=== PATIENT | male | born 1950 | race Caucasian/White ===

== ENCOUNTER 2018-05-31 13:03 | Outpatient (REF) | payer MEDICARE, BC, SELFPAY ==
[2018-05-31 22:30] LABS: Cholesterol 167 mg/dL (50-200); HDL Cholesterol 57 mg/dL (40-60); LDL CHOLESTEROL 88 mg/dL (<100); Triglyceride 74 mg/dL (30-150)
[2018-06-04 09:54] LABS: PSA, Screening 1.1 ng/ml (0-4.5)
== END 2018-05-31 13:23 ==
LOC: NCHCN 13:03
PROVIDERS: PCP Internal Medicine; Visit Provider Internal Medicine
DX: I25.10 Atherosclerotic heart disease of native coronary artery without angina pectoris (principal); R05 Cough; M19.011 Primary osteoarthritis, right shoulder; Z12.5 Encounter for screening for malignant neoplasm of prostate
CPT/HCPCS: 80061; 83721; 84153

== ENCOUNTER 2018-11-28 00:39 | Outpatient (CLI) | payer MEDICARE, BC, SELFPAY ==
--- NOTE | 2018-11-28 10:49 | DI.MRI_ITS ---
EXAM: MR LUMBAR SPINE WO CLINICAL HISTORY: SPINAL STENOSIS M48.061, HIP PAIN M25.551, R/O NERVE IMPINGEMENT,H/O SCOLIOSIS, RT LEG PAIN, LOW BACK PAIN TECHNIQUE: Multiplanar multisequence MRI was performed. COMPARISON: MRI - LUMBAR SPINE WO CONTRAST from 07/07/2014 FINDINGS: The study was carried out according to the usual protocol with sagittal T2, sagittal T1, sagittal STI R, axial T1, axial T2, axial T2 MSMA and coronal T1 pulse sequences were performed. When compared wi th the previous examination, again noted is endplate DJD at L4-5. Again noted is a small hemangioma in the bodies of L2 and L3. At L1-L2, a small disc bulge is demonstrated. There is some prominence of the ligamentum flavum at this level. Facet joint DJD is noted. There is no evidence of significan t spinal stenosis. At L2-3, a disc bulge is identified. There is prominence of the ligamentum flavum and facet joint DJD which results in mild to moderate left foraminal stenosis. At L 3-4, there is mild disc osteophyte prominence. Note is made of prominence of the ligamentum flavum and moderate bi lateral foraminal stenosis is seen. At L4-5, disc osteophyte complex prominence is noted and again d emonstrated is a very small disc herniation. There is note made of mild to moderate bilateral foramin al stenosis and a small disc bulge is identified. There is again noted severe facet joint DJD and pr ominence of the ligamentum flavum. There is severe right and eqxw-rh-qpjjravc left foraminal stenosi s. There is no intrinsic abnormality involving the lower dorsal cord or filum terminale. IMPRESSION: There has been no significant interval change when compared with prior images with note made of multi level degenerative disc disease and DJD and spinal stenosis as described above.
== END 2018-11-28 00:59 ==
PROVIDERS: PCP Internal Medicine; Visit Provider Internal Medicine
DX: M48.061 Spinal stenosis, lumbar region without neurogenic claudication (principal); M25.551 Pain in right hip; M79.604 Pain in right leg; M54.5 Low back pain; M51.36 Other intervertebral disc degeneration, lumbar region
CPT/HCPCS: 72148

== ENCOUNTER 2020-07-17 08:46 | Outpatient (REF) | payer MEDICARE, BC, SELFPAY ==
[2020-07-17 14:11] LABS: Anion Gap 6.9 mmol/L (3-11); BUN 20 mg/dL (7-18); CO2 28.1 mmol/L (21.0-32.0); CREATININE 0.9 mg/dL (0.70-1.30); Calcium 8.8 mg/dL (8.5-10.1); Calculated LDL 89 mg/dL (<100); Chloride 108 mmol/L (98-107); Cholesterol 169 mg/dL (<200); Glucose 90 mg/dL (74-106); HDL Cholesterol 67 mg/dL (40-60); Potassium 4.5 mmol/L (3.5-5.1); Sodium 143 mmol/L (136-145); Triglyceride 69 mg/dL (<150)
[2020-07-17 22:20] LABS: PSA, Screening 1.1 ng/mL (0.0-4.5)
== END 2020-07-17 08:47 | disposition home or self-care (01) ==
LOC: NCHCN 08:46
PROVIDERS: PCP Internal Medicine; Visit Provider Internal Medicine
DX: I25.10 Atherosclerotic heart disease of native coronary artery without angina pectoris (principal); Z12.5 Encounter for screening for malignant neoplasm of prostate; Z79.899 Other long term (current) drug therapy
CPT/HCPCS: 80048; 80061; 84153

== ENCOUNTER 2021-01-06 00:34 | Outpatient (CLI) | payer MEDICARE, BC, SELFPAY ==
--- NOTE | 2021-01-06 07:45 | DI.MRI_ITS ---
Exam(s) MR LUMBAR SPINE WO EXAM: MR LUMBAR SPINE WO CLINICAL HISTORY: FORAMINAL STENOSIS OF LUMBOSACRAL REGION M48.07. TECHNIQUE: Multiplanar multisequence MRI of the Lumbar spine was performed. COMPARISON: MR MR LUMBAR SPINE WO from 11/28/2018 FINDINGS: Bones: The last intervertebral disc space is designated the L5/S1 level for the numbering purpose of this examination. The vertebral body heights are well maintained. Alignment is satisfactory. Mild d egenerative endplate signal changes are seen throughout the lumbar spine. Cord: The conus tip ends at the T12 level. It is of normal size and signal intensity. T12-L1: No disc herniations or bulges are present. No central spinal canal or neural foraminal stenos is. L1-2: There is a mild diffuse disc bulge. No significant central spinal canal stenosis is present. Mild bilateral neural foraminal stenosis is present. L2-3: There is a mild diffuse disc bulge. Facet arthropathy is present. No significant central spin al canal stenosis is present. Minimal right and tvru-pa-matggmyt left neural foraminal stenosis is p resent. These findings are stable. L3-4: There is a diffuse disc bulge and small central disc herniation. There are hypertrophic change s of the facets. The findings result in mild narrowing of the central spinal canal which is unchange d compared to the prior examination. There is mild right and svug-mt-pynlvrju left neural foraminal stenosis. L4-5: There is a mild diffuse disc bulge. There are hypertrophic changes of the facets, left greater than right. No significant central spinal canal stenosis is present. There is mild right and moder ately severe left neural foraminal stenosis.These findings are stable. L5-S1: There is a mild disc bulge. No significant central spinal canal stenosis. Degenerative trinidad es of the facets are present. There is moderate right and mild left neural foraminal stenosis. Soft tissues: The visualized SI joints and sacrum are well maintained. The paraspinal soft tissues ar e unremarkable. IMPRESSION: Stable multilevel degenerative changes throughout the lumbar spine as described above. DATA REPOSITORY:
== END 2021-01-06 00:54 ==
PROVIDERS: PCP Internal Medicine; Visit Provider Nurse Practitioner
DX: M48.061 Spinal stenosis, lumbar region without neurogenic claudication (principal); M48.07 Spinal stenosis, lumbosacral region
CPT/HCPCS: 72148

== ENCOUNTER → 2021-07-30 00:16 | Outpatient (CLI) | payer MEDICARE, BC, SELFPAY ==
--- OUTSIDE RECORDS SUMMARY | 2021-07-30 00:19 | XMS_ITS | Encounter Summary ---
:1950 Author Organization [facility] Address [address] [place] [address] Care Team Providers Name Role Phone Lolita Barahona [facility] Primary Care Provider [phone] Reason for Visit (Routine/Next Available) - Receiving Office to Obtain Authorization Specialty Diagnoses / Procedures Referred By Contact Refer red To Contact Procedures Imaging, External XR OUTSIDE IMAGES NEURO Referral ID Status Reason Start Expiration Visits Visits Date Date Requested Authorized [id number] Receiving Office 04/16/2021 1 1 to Obtain Authorization Encounter Details Date Type Department Care Team Description 04/12/2021 Hospital Encounter [facility] Secondary Reads [place] Social History Tobacco Use Types Packs/Day Years Used Date Never Smoker Smokeless Tobacco: Never Used Sex Assigned at Date Recorded Not on file documented as of this encounter Functional Status Cognitive Status Response Date of Assessment Because of a physical, mental, or emotional condition, do Ye s 07/16/2010 you have serious difficulty concentrating, remembering, or making decisions? (5 years old or older) documented as of this encounter Medications at Time of Discharge Medication Sig Dispensed Refills Start Date End Date ascorbic acid, vitamin C, Take 1,000 mg by 0 (VITAMIN C) 1,000 mg mouth. tablet aspirin 81 mg EC tablet Take 1 Tab by mouth 1 Tab 0 11/2010 daily. Lifetime medicine, do not stop atorvastatin (LIPITOR) 20 Take 20 mg by mouth 0 0 02/13/2015 mg tablet every evening. Cholecalciferol, Vitamin Take by mouth. 0 D3, (VITAMIN D3) 25 mcg (1,000 unit) capsule multivitamin (THERAGRAN) Take 1 Tab by mouth 0 per tablet daily. documented as of this encounter Discharge Disposition Disposition Code Departure Means Destination Home or Self Care documented in this encounter Plan of Treatment Not on filedocumented as of this encounter Procedures Procedure Name Priority Date/Time Associated Diagnosis Comme nts XR OUTSIDE IMAGES Routine 04/16/2021 11:39 Result s for this NEURO EST procedure are i n the results section. documented in this encounter Results XR OUTSIDE IMAGES NEURO (04/16/2021 11:39 EST) Specimen Narrative 04/16/2021 11:39 EST This is a non-reportable exam. documented in this encounter Visit Diagnoses Not on filedocumented in this encounter Care Teams Lmsw Relationship Specialty Start Date End Date Jun [facility] PCP - General 02/12/21 [place] [address] documented as of this encounter
--- OUTSIDE RECORDS SUMMARY | 2021-07-30 00:19 | XMS_ITS | Encounter Summary ---
:1950 Author Organization [facility] Address [address] [place] [address] Care Team Providers Name Role Phone Lolita Barahona [facility] Primary Care Provider Reason for Visit Reason Comments Pain Referral (Routine) - Receiving Office to Obtain Authorization Specialty Diagnoses / Procedures Referred By Contact Refer red To Contact Orthopedic Surgery Diagnoses Low back pain, unspecified Spinal stenosis, lumbar region without neurogenic claudication [facility] [address] [place] [address] [place] [address] Phone: Fax: Referral ID Status Reason Start Expiration Visits Visits Date Date Requested Authorized [id number] Receiving Office 1 1 to Obtain Authorization Encounter Details Date Type Department Care Team Description 06/07/2021 Office Visit [facility] Pavan Prather MD Back pain, Spine Program - [address] unspecified back [facility], unspecified Gauri Santana back pain laterality, So [facility] uns cified [id number] [place] [id number] chronicity (Primary [phone] (Wo rk) Dx) Social History Tobacco Use Types Packs/Day Years [...] or older) documented as of this encounter Progress Notes Pavan rPather MD - 06/07/2021 4946 EDT Chief Complaint Patient presents with ??? Lower Back - Pain VAS back and leg not completed Not completed HPI Jose Eduardo Rodríguez is a 71 y.o. male coming to clinic today with a chief complaint of right leg pain. The patient has a history of spinal stenosis and right lower extremity pain that has been present for 3+ years. He reports his pain initially began in the low back and then became associated with the right leg. Pain localizes to the right buttock anterolateral right thigh and lateral calf. This pain is worse with walking and hiking. He is very active and enjoys hiking and snowshoeing and reports that his leg symptoms have limited his ability to do these things. His pain is particularly bad in the morning. It is better when he sits or bends forward. He has had epidural steroid injections which have provid ed profound relief but his symptoms have returned multiple times. He has seen a surgeon at [facility] recommended a lumbar decompression and is here for second opinion. Denies any bowel or bladder issues and denies any fevers or chills. Past Medical History Coronary artery disease Past Surgical History Tonsillectomy Social History Denies tobacco use. Retired Allergies No known allergies Current Outpatient Medications Medication ??? ascorbic acid, vitamin C, (VITAMIN C) 1,000 mg tablet ??? aspirin 81 mg EC tablet ??? atorvastatin (LIPITOR) 20 mg tablet ??? Cholecalciferol, Vitamin D3, (VITAMIN D3) 25 mcg (1,000 unit) capsule ??? multivitamin (THERAGRAN) per tablet ??? Zinc 50 mg tablet No current facility-administered medications for this visit. Review of Systems Pertinents included in HPI. See intake form for complete 13 system review. Physical Exam There were no vitals taken for this visit. The patient is a well developed, well nourished male, with normal body habitus. He is awake and alert, appropriately interactive, of normal mood and affect. The patient ambulates with a normal gait. Heel walking is normal, toe walking is normal, tandem gaitis normal Palpation of the lumbar and sacral region notable for no significant tenderness to palpation Hip exam reveals no significant limitations in ROM, and no pain with ROM. Sensory examination of bilateral lower extremities shows intact sensation from L2-S1 Manual strength testing of the lower extremities reveals 5 out of 5 strength in all major motor groups of the lower extremities Seated straight leg raise negative Reflexes: 1+ patellar reflexes Love's not checked Clonus: 1-2 beats bilaterally Imaging Lumbar spine radiographs from June 2021 were reviewed by me. 5 nonrib-bearing bodies. Moderate spondylotic changes throughout the lumbar spine including intervertebral disc degeneration and facet arthropathy. There is a subtle degenerative slip at L3-4 with asymmetric collapse and lateral listhesis at L4- 5. Subtle translation on dynamic imaging at L3-4. MRI from January 2020 one of the lumbar spine was reviewed by me. This demonstrates severe right-sided foraminal stenosis at L5-S1 and moderate lateral recess stenosis bilaterally at L4-5. Moderate central stenosis at L3-4 Assessment Lumbar spinal stenosis Degenerative spondylolisthesis Asymmetric collapse Plan I reviewed the diagnosis and imaging studies with the patient. His primary complaint is right leg pain in an L5 distribution. He has moderate lateral recess stenosis at L4-5 and severe foraminal stenosis on the right at L5-S1. I think this is likely responsible for his symptoms. He has minimal back pain. He has failed nonoperative strategies with recurrence of his symptoms I think it is reasonable toconsider surgical intervention. He has some subtle findings of instability at L3-4 as well as moderate to severe central compression there but I do not think this is contributing to his symptoms. We discussed decompression alone versus decompression and fusion. Decompression alone would be at L4-5 and my surgical plan would be to follow the root out at L5-S1 with a foraminotomies. We discussed there is some risk of worsening asymmetric collapse but I think it would be reasonable to try decompressiononly. He was thankful for the opinion. I can follow-up with him as needed. I spent a total of more than 45 minutes in face to face time with this patient today and more than 50% of that time was spent counseling the patient on the risks and treatment options for the problem detailed above in my assessment and plan. Pavan Prather MD 2021 15:10 documented in this encounter Plan of Treatment Not on filedocumented as of this encounter Visit Diagnoses Diagnosis Back pain, unspecified back location, un specified back pain laterality, unspecified chronicity - Primary documented in this encounter Historical Medications This list may reflect changes made after this encounter. Medication Sig Dispensed Refills Start Date End Date Zinc 50 mg tablet Take 50 mg by mouth. 0 added in this encounter Care Teams Lens Silverer Relationship Specialty Start Date End Date Jun [facility] PCP - General 02/12/21 4 [place] [address] documented as of this encounter
--- OUTSIDE RECORDS SUMMARY | 2021-07-30 00:19 | XMS_ITS | Encounter Summary ---
:1950 Author Organization [facility] Address [address] [place] [address] Care Team Providers Name Role Phone Dexter Cifuentes MD Primary Care Provider Unavailable Reason for Visit Reason Comments New Patient Visit Encounter Details Date Type Department Care Team Description 02/26/2019 Procedure visit [facility] - Khadijah Tay Right leg pain [facility] Neurology MD [facility] (Primary Dx) Clinic [address] [place], [place] [id number] [place] [address] [phone] Social History Tobacco Use Types Packs/Day Years Used Date Never Smoker Smokeless Tobacco: Never Used Sex Assigned at Date Recorded Not on file documented as of this encounter Last Filed Vital Signs Vital Sign Reading Time Taken Comments Blood Pressure 130/82 02/26/2019 1311 EST Pulse 50 02/26/2019 1311 EST Temperature - - Respiratory Rate - - Oxygen Saturation - - Inhaled Oxygen Concentration - - Weight - - Height - - Body Mass Index - - documented in this encounter Functional Status Cognitive Status Response Date of Assessment Because of a physical, mental, or emotional condition, do Ye s 07/16/2010 you have serious difficulty concentrating, remembering, or making decisions? (5 years old or older) documented as of this encounter Progress Notes Jenaro Tay MD - 02/26/2019 1300 EST [facility] Clinical Neurophysiology Nerve Conduction and Electromyography Report PATIENT NAME: Jose Eduardo Rodríguez PATIENT : 1950 PCP: Dexter Cifuentes DATE OF SERVICE: 02/26/2019 History: Jose Eduardo Rodríguez is a 68 y.o. male who presents to EMG on referral by [facility] neurology and neurosurgery for evaluation of back and buttock pain. He has long- term chronic back pain, but about October or so he developed right hip and radiating pain, skipping the thigh, then in the right anterior lateral lower leg. He has seen neurology at [facility], and had MRI of the L spine which was essentially non-contributory Feb [address] guided SI injection on the right which didn't help at first, and haven't really much since. Past Medical History: Diagnosis Date ??? Abnormal stress test ??? CAD (coronary artery disease) ??? Chest pain Past Surgical History: Procedure Laterality Date ??? TONSILLECTOMY REVIEW OF SYSTEMS: 10-point ROS performed and was negative except as noted in HPI. Clinical Exam: General appearance: alert, normal body habitus, no distress Skin: No rashes or lesions HEENT: NC/AT, no oral lesions Extremities: all extremities warm and well perfused, no peripheral edema Motor Exam: Normal bulk and tone. Lower Extremity Strength HF H Abd KF KE A DF A PF Toe E Right 5/5 5/5 5/5 5/5 5/5 5/5 5/5 Left 5/5 5/5 5/5 5/5 5/5 5/5 5/5 DTRs: 2+ and symmetric at patellae. Absent even with accentuation bilaterally at the Achilles. Mildly present left medial hamstrings reflex which is not elicitable on the right.. Toes are mute to plantar stimulation. Sensation: Intact pinprick sensation throughout both legs and feet. Electrodiagnostic Findings: Nerve Conduction: -All nerves examined were normal including the right superficial peroneal sensory response, and the right peroneal and tibial motor responses. In addition the right tibial F-wave was normal EMG: -All muscles examined were normal including the right tibialis anterior, peroneus longus, gastrocnemius, quadriceps and tensor fascia elian. For waveforms/values/tables of EMG/nerve conduction study please see accompanying scanned document in the scans/media tab in EMR. Electrodiagnostic Impression: - This study was normal. There is no evidence of right lumbosacral radiculopathy, peripheral neuropathy, compression mononeuropathy or myopathy. -While the study did not identify an etiology to the patient's symptoms, his clinical examination seems suggestive of a mild right L5 radiculopathy. If symptoms persist a repeat EMG/nerve conduction perhaps in 6 months may be helpful. Jenaro Tay MD documented in this encounter Plan of Treatment Not on filedocumented as of this encounter Visit Diagnoses Diagnosis Right leg pain - Primary Pain in limb documented in this encounter Discontinued Medications Medication Sig Discontinue Reason Start Date End Date amlodipine (NORVASC) 10 Take 1 Tab by mouth 07/18/2010 02/26/2019 mg tablet daily. amlodipine (NORVASC) 5 Take 1 Tab by mouth 07/16/2010 02/26/2019 mg tablet daily. clopidogrel (PLAVIX) 75 Take 1 Tab by mouth 07/16/2010 02/26/2019 mg tablet daily. One dose in am prior to procedure simvastatin (ZOCOR) 20 Take 1 Tab by mouth 07/18/2010 02/26/2019 mg tablet every evening. metoprolol (LOPRESSOR) Take 1 Tab by mouth 2 1 02/26/2019 25 mg tablet times daily. documented as of this encounter Historical Medications This list may reflect changes made after this encounter. Medication Sig Dispensed Refills Start Date End Date ascorbic acid, vitamin C, Take 1,000 mg by 0 (VITAMIN C) 1,000 mg tablet mouth. Cholecalciferol, Vitamin Take by mouth. 0 D3, (VITAMIN D3) 25 mcg (1,000 unit) capsule multivitamin (THERAGRAN) Take 1 Tab by mouth 0 per tablet daily. atorvastatin (LIPITOR) 20 Take 20 mg by mouth 0 0 02/13/2015 mg tablet every evening. added in this encounter Care Teams Overedger Relationship Specialty Start Date End Date Dexter Cifuentes MD PCP - General 07/15/1002/11/21 documented as of this encounter
--- OUTSIDE RECORDS SUMMARY | 2021-07-30 00:19 | XMS_ITS | Encounter Summary ---
:1950 Author Organization [facility] Address [address] [place] [address] Care Team Providers Name Role Phone Dexter Cifuentes MD Primary Care Provider Unavailable Reason for Visit Reason Onset Date Comments Coordination Of Care 07/01/2014 MRI/stent informati on Encounter Details Date Type Department Care Team Description 07/01/2014 Telephone [facility] Garth Zayas, [place] Planning Manager rdination Of Care Cardiology - [place] (MRI/stent information ) [address] [phone] [place] [address] Social History Tobacco Use Types Packs/Day Years Used Date Never Assessed Sex Assigned at Date Recorded Not on file documented as of this encounter Functional Status Cognitive Status Response Date of Assessment Because of a physical, mental, or emotional condition, do Ye s 07/16/2010 you have serious difficulty concentrating, remembering, or making decisions? (5 years old or older) documented as of this encounter Miscellaneous Notes Telephone Encounter - Marixa Rosales RN - 07/02/2014 0903 EDT Received call from [facility] that patient is scheduled to have an MRI. Requesting copy of Cath report including specific information re: stents placed w/ [facility] on 07/16/10. Cath report faxed to [phone] as per request. Marixa Rosales RN elephone Encounter - Lesley Collins - 07/01/2014 1625 EDT Reason for Call: Coordination Of Care Summary/Symptoms: [facility] called stating that pt is to have MRI. States that they need information re: pt's stents. Requested it be faxed to them at: [phone], attn: Malika Collins 07/01/2014 16:25 documented in this encounter Plan of Treatment Not on filedocumented as of this encounter Visit Diagnoses Not on filedocumented in this encounter Care Teams Application Processor Relationship Specialty Start Date End Date Dexter Cifuentes MD PCP - General 07/15/1002/11/21 documented as of this encounter
--- OUTSIDE RECORDS SUMMARY | 2021-07-30 00:19 | XMS_ITS | Encounter Summary ---
:1950 Author Organization [facility] Address [address] [place] [address] Care Team Providers Name Role Phone Dexter Cifuentes MD Primary Care Provider Unavailable Reason for Visit (Routine/Next Available) - Receiving Office to Obtain Authorization Specialty Diagnoses / Procedures Referred By Contact Refer red To Contact Procedures Imaging, External MR OUTSIDE IMAGES NEURO Referral ID Status Reason Start Expiration Visits Visits Date Date Requested Authorized [id number] Receiving Office 04/16/2021 1 1 to Obtain Authorization Encounter Details Date Type Department Care Team Description 01/06/2021 Hospital Encounter [facility] Secondary Reads [place] Social History Tobacco [...] Name Priority Date/Time Associated Diagnosis Comme nts MR OUTSIDE IMAGES Routine 04/16/2021 13:21 Result s for this NEURO EST procedure are i n the results section. documented in this encounter Results MR OUTSIDE IMAGES NEURO (04/16/2021 13:21 EST) Specimen Narrative 04/16/2021 13:21 EST This is a non-reportable exam. documented in this encounter Visit Diagnoses Not on filedocumented in this encounter Care Teams Financial Adviser Relationship Specialty Start Date End Date Dexter Cifuentes MD PCP - General 07/15/1002/11/21 documented as of this encounter
--- OUTSIDE RECORDS SUMMARY | 2021-07-30 00:19 | XMS_ITS | Encounter Summary ---
:1950 Author Organization [facility] Address [address] [place] [address] Care Team Providers Name Role Phone Vanessa Vicente MD Primary Care Provider Unavailable Encounter Details Date Type Department Care Team Description 07/16/2010 - Hospital Encounter [facility] Marquez Garth 07/18/2010 Cardiac/Telemetry MD Alexei [address] [facility] [address] [place] [address] [facility] [phone] [place] [id number] Social History Tobacco Use Types Packs/Day Years Used Date Never Assessed Sex Assigned at Date Recorded Not on file documented as of this encounter Last Filed Vital Signs Vital Sign Reading Time Taken Comments Blood Pressure 143/74 07/18/2010 0742 EDT Pulse 68 07/18/2010 0742 EDT Temperature 35.8 ??C (96.4 ??F) 07/18/2010 0742 EDT Respiratory Rate 16 07/18/2010 0742 EDT Oxygen Saturation 99% 07/18/2010 0742 EDT Inhaled Oxygen Concentration - - Weight 102.1 kg (225 lb) 07/15/2010 1100 EDT Height 185.4 cm (6' 1) 07/15/2010 1100 EDT Body Mass Index 29.69 07/15/2010 1100 EDT documented in this encounter Functional Status Cognitive Status Response Date of Assessment Because of a physical, mental, or emotional condition, do Ye s 07/16/2010 you have serious difficulty concentrating, remembering, or making decisions? (5 years old or older) documented as of this encounter Discharge Summaries Vaibhav Gorman MD - 07/16/2010 1113 EDT Discharge Summary Chief Complaint/Reason for Admission: accelerating exertional CP over last 2-3 weeks Principal/Final Diagnosis: Coronary artery disease Principal Procedure: TAYLOR PCI RCA Date: 07/16/2010 Secondary Procedures: Not applicable Condition at Discharge: Stable Assessment at Discharge: Vital signs: Patient Vitals in the past 12 hrs: BP Temp Temp src Pulse Resp SpO2 07/18/10 0742 143/74 mmHg 35.8 ??C (96.4 ??F) Tympanic 68 16 99 % 07/18/10 0625 142/75 mmHg 35.6 ??C (96.1 ??F) Tympanic - - 99 % Hospital Course: 60 M with no known cardiovascular risk factors now with accelerating exertional CP over last 2-3 weeks. Outpt ETT, Duran protocol for 7 min, CP, and 5mm upsloping ST depressions. No heart failure sxs. No contraindication to DAPT. Diagnostic cardiac catheterization revealed a 90% proximal stenosis in the RCA, which was treated with ATYLOR PCI with a good result. Post cath: NS VT. TTE: EF55-60%, mild inferior hypokinesis. Diagnostic Studies:TTE: EF 55-60%, mild inferior hypokinesis. Diagnostic Cardiac Study Results Left main: 30% ostial Left anterior descendin% mid Left circumflex: nl Right coronary artery: 90% prox Grafts: n/a LVEDP: 12 There was no gradient across the aortic valve. EF 65% Interventional Procedure: Using standard technique, the RCA vessel was stented using a 4x28 and [id number] stents. Relevant Studies at Discharge: Echocardiogram: EF 55-60%, inferior wall hypokinesis Last Lab Results at Discharge: BUN: Lab Results Component Value Date BUN 16 07/17/2010 Creatinine: Lab Results Component Value Date CREATININE 0.89 07/17/2010 CBC: Lab Results Component Value Date WBC 7.70 07/17/2010 RBC 4.68 07/17/2010 HGB 14.9 07/17/2010 HCT 42.9 07/17/2010 MCV 92 07/17/2010 MCH 31.8 07/17/2010 MCHC 34.6 07/17/2010 PLT 154 07/17/2010 Electrolytes: Lab Results Component Value Date NA 140 07/17/2010 K 4.3 07/17/2010 CL 106 07/17/2010 CO2 28 07/17/2010 HGB: Lab Results Component Value Date HGB 14.9 07/17/2010 No results found for this basename: HGBA1C Medications prior to admission that will be resumed at discharge: Medication Sig Dispense Refill ??? metoprolol (LOPRESSOR) 25 mg tablet Take 25 mg by mouth 2 times daily. New medications prescribed at discharge: Medication Sig Dispense Refill ??? amlodipine (NORVASC) 5 mg tablet Take 1 Tab by mouth daily. 30 Tab 11 ??? aspirin 81 mg EC tablet Take 1 Tab by mouth daily. Lifetime medicine, do not stop 1 Tab 0 ??? clopidogrel (PLAVIX) 75 mg tablet Take 1 Tab by mouth daily. One dose in am prior to procedure 30 Tab 11 Metoprolol was discontinued and norvasc initiated. Plan: Plavix 75 mg po QD x 1 year minimum. cc: MD Mateo MACKEY Discharge Summary Completed: Yes: I have seen and examined the patient and agree with the above history and physical exam and assessment and plan. D/c Medication list: [id number] daily Plavix 75mg daily Norvasc 10mg daily Metoprolol 25mg twice daily. Simvastatin 20mg daily. documented in this encounter Discharge Instructions Sriram Sharma - 07/16/2010 Post Procedure Instructions: You had a percutaneous cardiovascular intervention (PCI) on 07/16/2010. Your procedure was performed through a small incision in the artery in your right leg. Normal Observations: Soreness or tenderness at the site may last one week but should be steadily improving. Brusing may last two weeks. Formation of a small lump (dime to quarter size) may last up to six weeks. Diet: No added salt, low saturated fat Activity: No heavy lifting or strenuous activity for 1 weeks; nothing >10 lbs Driving: May drive day after discharge Activity Post Percutaneous Coronary Intervention: Avoid driving on the day of discharge. Driving is possible on the first day if you are not limited by symptoms such as leg pain, shortness of breath or chest pain or if you have not been diagnosed witha serious, abnormal hearth rhythm. For leg incisions, for 48-72 hours after the PCI, avoid climbing stairs and other activity that involves a lot of leg bending. If you have not had a myocardial infarction (heart attack), it is likely you will be able to return to all activities involving moderate exertion 48 hours after the PCI. Please discuss returning to severe exertion (running, manual labor) with your physician prior to discharge. If you had a myocardial infarction, your schedule for returning to work and moderate exertion will be individualized by your physician. If you had an arm approach, keep your arm comfortably straight for the first 24 hours and avoid bending your arm for 48-72 hours. When sleeping, keep the arm elevated to minimize throbbing. No heavy lifting (greater than 10 pounds) for one week. Skin/Wound Care: Resume normal skin care Care of Your Incision: Keep the area clean and dry. Leave the sterile dressing in place for 24 hours. After this, you may shower, but no tub baths or hot tub use for 5 days. Do not apply any powders or lotions to this area. Bathing: No bath or immersion for 5 days; showering is okay. Pending Results: Not applicable Quality Measures for Acute Myocardial Infarction or Heart Failure Patients: Not applicable Symptoms to Call Your Doctor About: Chest pain Dizziness or fainting Increased leg or ankle swelling Pain, redness or swelling at the procedure site Rapid, irregular pulse Shortness of breath Call your physician immediately if you experience any of the following: ?? Fever greater than 101, swelling, redness or signs of infection, including yellow discharge ?? Any increasing pain at the site of the wound ?? Numbness or tingling at a point below the wound ?? Skin rash ?? If you have not been able to urinate or 24 hours after leaving the hospital ?? Any recurrence of symptoms that brought you into the hospital initially: Chest pain, shortness ofbreath, dizziness ?? If you note any signs of bleeding, such as bulging under the skin the size of a golf ball, put direct pressure on the area and call your doctor immediately Medication Instructions: Your medications may be different than when you entered the hospital. Prior to leaving the hospital,please review all of your medications with the nurse at the time of discharge. Do not wait for mail order medications to come. Make sure you can take your medications immediately upon going home. Stent Medications: Because you had a stent placed, you are going to be taking two daily medications to keep your stent open: aspirin and clopidogrel (Plavix). If you develop any rashes, stomach irritation or bleeding while taking these medications, immediately contact your butcher's assistant. Do not stop taking aspirin or Plavix without discussing this with your doctor. Appointments: See Dr. VANESSA VICENTE MD in 2 weeks. Please call for an appointment. Follow up with Dr. Mateo Shelley, Returner, Monday July 26, 2010 @ 11:30 a.m. The butcher's assistant's office will call with an appointment. Follow up with Cardiac Rehab Cardiac Rehab Referral: You have been referred for cardiac rehabilitation at your local hospital, [facility]. We expect that thecardiac rehabilitation program will contact you directly regarding a visit to the program. If you donot hear from the cardiac program within two weeks, you should contact your physician's office regarding a referral. We will contact your hospital and your primary care physician to let them know you are a good candidate for outpatient cardiac rehabilitation. Follow-up Services Contacted at Discharge: none Heart Failure, Health Risk and Disease Information: Chest Pain Protocol If chest pain, discomfort or angina occurs and lasts for more than a few minutes then: 1. STOP what you are doing 2. Sit or lie down 3. If prescribed nitroglycerin ?? Place one table under your tongue (expect relief in 3-5 minutes) ?? If there is no relief after 5 minutes, place another tablet under your tongue. ?? If there is no relief after an additional 5 minutes, take a third tablet ?? If the discomfort has not been totally relieved after the third tablet, proceed to step 4 (call 911). 4. Call 911 immediately and arrange to be taken to the nearest emergency room 5. Keep the phone number or your local rescue squad taped to your phone along with directions to your home Remember, time is important to minimize heart damage. ?? DO NOT waste time going to the physician's office. ?? DO NOT ATTEMPT TO DRIVE YOURSELF TO THE HOSPITAL! If one or two tablets have given you relief, call your physician. Cholesterol Information The cholesterol in your body comes from two sources: the fats in the food you eat and your liver. Excess fat from foods is converted into LDL cholesterol and carries through the bloodstream to all parts of your body. LDL cholesterol sticks to the birch of your arteries. Over time, this causes arteriesto become blocked. The blockage slows the blood down and heart disease can result. HDL cholesterol helps free some of the LDL cholesterol from the birch of the arteries and returns it to the bloodstream. Low fat diets help lower LDL cholesterol to a goal level. Ask your doctor about your appropriate LDL cholesterol goal. Hypertension Information When your blood pressure is too high, your heart needs to work harder to pump blood through your body. Over time, tony blood pressure can lead to more serious problems. A combination of diet, exerciseand medication can help lower your blood pressure. Medication to lower blood pressure must be taken at the same time every day and over a long period of time. Talk with your physician if you have concerns about your blood pressure. [facility] provides outpatient nutrition counseling. To schedule an appointment, call [phone]. Patients with diabetes are seen at the Endocrinology Clinic at these three practice sites: [address] [place] [id number] [place], [place], [place] [id number] documented in this encounter Medications at Time of Discharge Medication Sig Dispensed Refills Start Date End Date aspirin 81 mg EC tablet Take 1 Tab by mouth 1 Tab 0 11/2010 daily. Lifetime medicine, do not stop amlodipine (NORVASC) 10 Take 1 Tab by mouth 30 Tab 2 01/201102/26/2019 mg tablet daily. amlodipine (NORVASC) 5 Take 1 Tab by mouth 30 Tab 11 07/0702/26/2019 mg tablet daily. clopidogrel (PLAVIX) 75 Take 1 Tab by mouth 30 Tab 11 11/201002/26/2019 mg tablet daily. One dose in am prior to procedure metoprolol (LOPRESSOR) Take 1 Tab by mouth 2 60 Tab 2 02/26/2019 25 mg tablet times daily. simvastatin (ZOCOR) 20 Take 1 Tab by mouth 30 Tab 2 07/0702/26/2019 mg tablet every evening. documented as of this encounter Ordered Prescriptions Prescription Sig Dispensed Refills Start Date End Date aspirin 81 mg EC tablet Take 1 Tab by mouth 1 Tab 0 11/2010 daily. Lifetime medicine, do not stop simvastatin (ZOCOR) 20 Take 1 Tab by mouth 30 Tab 2 07/0702/26/2019 mg tablet every evening. metoprolol (LOPRESSOR) Take 1 Tab by mouth 2 60 Tab 2 02/26/2019 25 mg tablet times daily. amlodipine (NORVASC) 10 Take 1 Tab by mouth 30 Tab 2 01/201102/26/2019 mg tablet daily. clopidogrel (PLAVIX) 75 Take 1 Tab by mouth 30 Tab 11 11/201002/26/2019 mg tablet daily. One dose in am prior to procedure amlodipine (NORVASC) 5 Take 1 Tab by mouth 30 Tab 11 07/0702/26/2019 mg tablet daily. documented in this encounter Discharge Disposition Disposition Code Departure Means Destination Home or Self Care documented in this encounter Progress Notes Amber Perez RN - 07/19/2010 0730 EDT Discharged without HH; not seen by CM pectorVaibhav MD - 07/18/2010 1224 EDT No acute events, telemetry : 2 runs of NS VT, asymptomatic. Stable vital signs. Exam: no acute distress, No JVD, RHR 50/min, S1S2, lungs clear, no groin hematoma. EKG: Sinus bradycardia. TTE: LVEF 55-60%, HK of the inferior wall. A/p 60 yo gentleman with USA, s/p TAYLOR- RCA. NS VT. LVEF normal. ASA 81 lifelong, Plavix 75mg x12 months. Low dose BB. NS VT: will cont. BB, no need for EP study given normal LVEF. Asymptomatic- Discussed with Dr. Goramn. F/u Dr. Shelley: arranged. I have seen and examined the patient and agree with the above history and physical exam and assessment and plan. German Streeter RN - 07/17/2010 1353 EDT Active Multi-Disciplinary problems: PAIN [] (07/16/10) CIRCULATORY STATUS [[id number]] (07/16/10) FALL RISK [[id number]] (07/16/10) Data: Patient Alert independent walks in the bowers no complaints of pain NSR telemetry at 60's Action: Echo cardiogram done thi am will stay overnight Response: Will continue to monitor German Vieira RN 07/17/2010 13:53 Sriram Ruiz - 07/17/2010 0951 EDT Interventional Cardiology f/u note CC: chest pain E: no acute events, several episodes of asymptomatic NSVT S: asymptomatic Pt denies cp, sob, palp, orthopnea/ pnd, cough, f/c, abd pain, n/v, d/c, presyncope/syncope, le edema, back or groin pain, urinary difficulty O: Tele: NS/r and sinus bradycardia, no bradyarrhythmia, several episodes of 3-5 beats NSVT. Blood pressure 138/76, pulse 53, temperature 35.7 ??C (96.3 ??F), temperature source Tympanic, resp.rate 16, height 185.4 cm (73), weight 102.059 kg (225 lb), SpO2 98.00%. GEN: A&O times 3 NECK: no elevated JVP CV: regular, no mrg, 2+ DP/PT pulses Pulm: CTAB, no WRC Abd: s, nt/nd Ext: no le edema, MAEW Neuro: sensation and strength intact, CN II-XII intact grossly Incision: C/D/I, no ecchymosis/ hematoma, no tenderness of the pelvis/lower back Current facility-administered medications Medication Dose Route Frequency Provider Last Rate Last Dose ??? metoprolol (LOPRESSOR) tablet 25 mg 25 mg Oral BID Rich Ruiz III, MD ??? sodium chloride 0.9 % (NS) infusion 30 mL/hr Intravenous CONTINUOUS Philly Edmonds NP ??? clopidogrel (PLAVIX) tablet 75 mg 75 mg Oral DAILY Royal Coronel MD ??? lidocaine-EPINEPHrine 2 %-1:100,000 injection 5-10 mL 5-10 mL Intradermal PRN Royal Coronel MD ??? aspirin EC tablet 81 mg 81 mg Oral DAILY Royal Coronel MD Last Dose: 81 mg at 07/17/10 0913 ??? acetaminophen (TYLENOL) tablet 650 mg 650 mg Oral Q4H PRN Royal Coronel MD ??? amlodipine (NORVASC) tablet 5 mg 5 mg Oral DAILY Royal Coronel MD Last Dose: 5 mg at 07/17/10 0913 Recent Labs Basename 07/17/10 0624 07/16/10 0920 ??? HGB 14.9 14.8 ??? HCT 42.9 42.7 ??? WBC 7.70 4.45 ??? PLT 154 159 ??? CK -- -- ??? CKMBINDEX -- -- ??? AST -- -- ??? ALT -- -- ??? BUN 16 20 ??? NA 140 140 ??? K 4.3 4.4 ??? CL 106 108 ??? CO2 28 29 ??? CREATININE 0.89 0.90 ??? TROPONINI -- -- ??? HDL 48 -- ??? CHOL 197 -- ??? TRIG 98 -- ??? PTT -- 28 ??? INR -- 1.0 LDL 128 TTE: pending today A/P 60 yo male with USAP and abnormal stress treadmill s/p PCI to mid RCA with TAYLOR now with episodesof NSVT. - ASA 81 mg indef - Plavix 75 mg po daily for 12 months - cont cardiac meds, inbcluding beta- celso - EP consult for NSVT - plan to start low dose BB - check echocardiogram today. - start zocor 20 mg po daily for LDL not at goal of <70, new diagnosis of hypercholesterolemia - f/u with cardiology, Dr. Mateo Shelley, Returner, Monday July 26, 2010 @ 11:30 a.m. - f/u with PCP in 2 weeks - disposition: if EF normal and NSVT decreases on BB plan for discharge tomorrow. If EF abnormal, will plan for EPS on Monday. Rich Ruiz III, MD Garth Pickard MD - 07/17/2010 0538 EDT July 17, 2010 Mateo Shelley MD [facility] [address] [place] [address] Dear Mateo: I am writing in regards to Jose Eduardo Rodríguez. Briefly, Jose Eduardo presented with a recent accelerated historyof exertional angina. Stress test was positive and the patient was referred for cardiac catheterization. At cath, we identified mild ostial left main disease as well as a 50% mid LAD stenosis. The circumflex system was free of significant disease. The right coronary was compromised by a complex 90% proximal stenosis. Left ventricular end-diastolic pressure and ejection fraction were both normal. We treated the right coronary with placement of two drug-eluting stents yielding an excellent angiographic result. The patient will be placed on Plavix for the next year. He was profoundly bradycardicand I asked the fellows to stop his beta-celso and in lieu of this I placed him on amlodipine 5 mgdaily, as he did exhibit a fair amount of coronary spasm. As always, I appreciate the opportunity to participate in your patient's care. If I can be of further assistance, please do not hesitate to call. Sincerely, Garth Zayas MD 08 38 AM by Garth Zayas MD / mlw Confirmation: [id number] Dictation ID: [id number] cc:Mateo Vicente MD Lydia Cotto - 07/17/2010 0149 EDT Patient had another run of V-Tach 10 beats asymptomatic VSS. Text page sent to Dr. Coronel. Will continue to monitor Lydia Cotto - 07/16/2010 1950 EDT Active Multi-Disciplinary problems: PAIN [] (07/16/10) CIRCULATORY STATUS [[id number]] (07/16/10) FALL RISK [[id number]] (07/16/10) Data: Patient had 6 beat run of V-Tach than NSR for 3 sec followed by 3 beats of V-tach and back to NSR. Patient asymptomatic Action: VSS. Dr. Coronel aware Response: Will continue to monitor Lydia Gilmore RN 07/16/2010 19:50 Philly Cabrera NP - 07/16/2010 1357 EDT Mild residual chest pain = 1 on scale of 1-10. Right femoral site clear, no bleeding, no hematoma. +right DP pulse. Plavix daily without interruption x 1 year and Aspirin 81 mg daily lifetime reviewed with patient and the patient verbalizes understanding. Cardiac rehab reviewed with patient and the patient is willing to attend at [facility]. Referral sent and written material given to patient. Keena Lentz LPN - 07/16/2010 0857 EDT 0900 Arrived in CVU walking; used BR. Labs sent stat; CCL prep completed. Dr. Becker in consenting pt. CCL prep completed. Side rails up, call ojeda with in reach, stretcher in low position. Report to co-signing RN. ETHAN Dunbar Philly Cabrera NP - 07/15/2010 1431 EDT Records reviewed prior to cardiac catheterization. 60 year old male with new 2 week hx of exertionalchest pain relieved by rest. Threshold for symptoms is decreasing, although no rest symptoms. No CRF's. ETT stopped at 7 min Duran protocol due to progressive angina 4/10 associated with 5 mm upslopingST depression in V4-5, resolving by 2 minutes into recovery. Plavix and ASA initiated by Dr Yosvany Trujillo. Normal creatinine. Torrie Marin RN - 07/15/2010 1216 EDT Pre- cath instructions given to Pt. Pt has prescription from primary physician for plavix load. documented in this encounter H&P Notes Caden Becker - 07/16/2010 0915 EDT Cardiology Admitting H&P Admit Date: 07/16/2010 Date of Service: 07/16/2010 PCP: VANESSA VICENTE MD Chief Complaint: CP HPI: 60 M with no known cardiovascular risk factors now with accelerating exertional CP over last 2-3 weeks. Outpt ETT, Duran protocol for 7 min, CP, and 5mm upsloping ST depressions. No heart failure sxs. No contraindication to DAPT. PMH PSH Past Medical History Diagnosis Date ??? CAD (coronary artery disease) ??? Abnormal stress test ??? Chest pain Past Surgical History Procedure Date ??? Tonsillectomy Social History Family History History Substance Use Topics ??? Smoking status: Not on file ??? Smokeless tobacco: Not on file ??? Alcohol Use: History reviewed. No pertinent family history. Medications Prescriptions prior to admission Medication Sig Dispense Refill ??? aspirin 325 mg tablet Take 325 mg by mouth daily. ??? Clopidogrel (PLAVIX) 300 mg Tab Take 300 mg by mouth once. Times on dose only ??? clopidogrel (PLAVIX) 75 mg tablet Take 75 mg by mouth daily. One dose in am prior to procedure ??? metoprolol (LOPRESSOR) 25 mg tablet Take 25 mg by mouth 2 times daily. Allergies Not on File Review of Systems: Pertinent items are noted in Subjective/HPI Objective/Physical Exam: VS: Empty flowsheet group. Pain: Empty flowsheet group. Weight: Weight : 102.059 kg (225 lb) Body mass index is 29.69 kg/(m^2). Glucose Readings (last 8 hours): No results found for this basename: GLUCOSEFINGE:8 in the last 72 hours Exam: General appearance: alert, cooperative Lungs: clear to auscultation bilaterally Heart: regular rate and rhythm, S1, S2 normal, no murmur, click, rub or gallop Extremities: extremities warm, atraumatic, no cyanosis or edema positive pulses bilat Pulses: 2+ and symmetric Pressure Ulcer Present on admission? No Data Review: NA Labs: I have personally reviewed CBC: No results found for this basename: WBC, RBC, HGB, HCT, MCV, MCH, MCHC, PLT, NEUTROABS, SEDRATE BMP: No results found for this basename: NA, K, CL, CO2, BUN, Creatinine, GLUCOSEFINGE, Calcium, MG, PHOS, LABALBU Coagulation: No results found for this basename: PROTIME, INR, PTT Other Studies: N/A eGFR calculation: No results found for this basename: CALCGFR Assessment: # USAP w/ positive stress test (ETT). # No contraindication to DAPT Plan : - Dx cardiac cath +/- PCI - consent obtained. Royal Becker Md, , MD 07/16/2010 9:15 documented in this encounter Procedure Notes Garth Zayas MD - 07/16/2010 1110 EDT Cardiovascular Catheterization Laboratory Preliminary Report -- Catheterization Date of Service/Procedure: 07/16/2010 Attending Physician: Garth Zayas MD Fellow: Caden Becker MD and Sachin Coronel Pre-Procedure Diagnosis/Indication: Jose Eduardo Rodríguez is a 60 y.o. year old male with Chest pain and Positive stress test. Anesthesia: A moderate level of anesthesia/conscious sedation was used in addition to local anesthesia. Access: Right femoral artery Procedure: He was brought to the [facility] Cardiac Catheter[facility] Laboratory for the procedure: Diagnostic coronary/graft angiography, LV gram, Left heart cath and Coronary intervention (PCI). Closure: Starclose Post-Procedure Condition: The condition of the patient was Good. Complications: None. IV Contrast Total: 200 mL Estimated Blood Loss: Minimal. Unless otherwise noted, there were no specimens removed, cultures obtained, or drains retained. Clinical Trial: is not enrolled in a clinical trial. Diagnostic Cardiac Study Results Left main: 30% ostial Left anterior descendin% mid Left circumflex: nl Right coronary artery: 90% prox Grafts: n/a LVEDP: 12 There was no gradient across the aortic valve. EF 65% Post-Procedure Diagnostic Conclusion: PCI is indicated. Interventional Procedure: Using standard technique, the RCA vessel was stented using a 4x28 and [id number] stents. Plan: Plavix 75 mg po QD x 1 year minimum. Post Interventional Conclusion / Physician Order for Admission: The patient cannot go home same day due to > 60 minute distance from the PCI center or other co-morbidity that warrants bedded outpatient, overnight stay. Reference: Mickey et. Al. Randomized trial comparing same-day discharge with overnight hospital stay after percutaneous coronary intervention; Circulation; 2006June 06; 115 [phone] Garth Zayas MD 07/16/2010 11:10 dministrator, Scan - 07/16/2010 0000 EDTAssociated Order(s): CARDIAC CATHERIZATION REPORT - SCANNED; CARDIAC CATHERIZATION REPORT - SCANNED Teletype Or [employer] Keyboard Operator, Scan - 07/16/2010 0000 EDTAssociated Order(s): ECG REPORT - SCANNED; ECG REPORT - SCANNED Teletype Or [employer] Keyboard Operator, Scan - 07/16/2010 0000 EDTAssociated Order(s): ECG REPORT - SCANNED; ECG REPORT - SCANNED Teletype Or [employer]pe Keyboard Operator, Scan - 07/16/2010 0000 EDTAssociated Order(s): ECG REPORT - SCANNED; ECG REPORT - SCANNED documented in this encounter Miscellaneous Notes Plan of Care - Sally Jean Baptiste RN - 07/18/2010 1425 EDT Problem: PAIN Goal: Patient's Pain And Discomfort Are Adequately Managed Outcome: Completed Date Met: 07/18/10 D: IV discontinue, catheter intact. Telemetry discontinued. Patient denies pain. A: Discharge teaching discussed with patient & . Prescriptions, medication sheets, and AVS given to patient. R: Patient understands instructions and left with family via wheelchair. lan of Care - Sally Jean Baptiste RN - 07/18/2010 0985 EDT Problem: CIRCULATORY STATUS Goal: Patient Has Stable Vital Signs And Fluid Balance Outcome: Ongoing Active Multi-Disciplinary problems: PAIN [] (07/16/10) CIRCULATORY STATUS [[id number]] (07/16/10) FALL RISK [[id number]] (07/16/10) Data: Patient status post cardiac cath 07/16. Patient denies any cp or SOB. Vitals stable. Patient inNSR in the 60's. Right groin site CDI, no hematoma or bleeding noted. Action: AM meds given as ordered. Patient ambulating in hallway without complaints. Response: awaiting MD rounds with possible discharge to home this afternoon. Sally Jean Baptiste RN 07/18/2010 9:39 lan of Monroe Marinelli RN - 07/17/2010 2156 EDT Problem: CIRCULATORY STATUS Goal: Patient Has Stable Vital Signs And Fluid Balance Intervention: Assess rate, rhythm and regularity of pulses Including apical assessment for cardiology patients. Pt resting in bed, A/O x3, free of discomfort, Right groin site dressing C,D, & I. Strong pedal pulses. Pt in NSR on monitor,Pt OOB x1 to BR. Call light within reach of pt., RN will ctm. lan of Harper Acuna RN - 07/16/2010 1333 EDT D: See Post-Cath Flowsheet. A: RN to monitor groin site for hematoma/bleeding, tele for arrhythmias, CSMTs in affected extremities, I/O for adequate hydration, and other parameters as required per patient's condition. R: Will continue to monitor/assess and document per protocol. lan of Harper Acuna RN - 07/16/2010 1331 EDT D: Patient arrived to [place] [address]. Vital signs noted. Tele applied. Patient SB with HR in 40s. Patient c/o chest pain upon arrival to , Yoni Edmonds notified, pt rec Morphine 4 mg IV with good relief of pain. Patient denies complaints at this time. Patient oriented to room, equipment, and careplan. Right groin site is cdi. A: Assessment as documented in flowsheet. Admission database complete. R: Will continue to monitor and document per protocol. Harper Verduzco RN canned Note-Null - Teletype Or [employer]pe Keyboard Operator, Scan - 07/16/2010 0000 EDT Scanned Note-Null - Teletype Or [employer]pe Keyboard Operator, Scan - 07/16/2010 0000 EDT Scanned Note-Null - Teletype Or [employer]pe Keyboard Operator, Scan - 07/16/2010 0000 EDT Scanned Note-Null - Teletype Or [employer]pe Keyboard Operator, Scan - 07/16/2010 0000 EDT Scanned Note-Null - Teletype Or [employer]pe Keyboard Operator, Scan - 07/16/2010 0000 EDT Scanned Note-Null - Teletype Or [employer]itype Keyboard Operator, Scan - 07/16/2010 0000 EDT Scanned Note-Null - Teletype Or [employer]itype Keyboard Operator, Scan - 07/16/2010 0000 EDT documented in this encounter Plan of Treatment Not on filedocumented as of this encounter Procedures Procedure Name Priority Date/Time Associated Comments Diagnosis ECG REPORT - SCANNED 07/21/2010 9:50 Resu lts for this EDT procedure are i n the results section. ECG REPORT - SCANNED 07/21/2010 9:50 Resu lts for this EDT procedure are i n the results section. INVASIVE CARDIOLOGY 07/21/2010 9:50 Resul ts for this REPORT-SCANNED EDT procedure are in the results section. ECHOCARDIOGRAM Routine 07/17/2010 15:13 Results f or this EDT procedure are i n the results section. COMPLETE BLOOD COUNT Routine 07/17/2010 6:24 Resu lts for this EDT procedure are i n the results section. BUN Routine 07/17/2010 6:24 Results for this EDT procedure are i n the results section. CREATININE Routine 07/17/2010 6:24 Results for this EDT procedure are i n the results section. LIPID PROFILE (INCLUDES Routine 07/17/2010 6:24 R esults for this CHOLESTEROL, EDT procedure are i n TRIGLYCERIDES, HDL, the resu lts LDL) section. ELECTROLYTES Routine 07/17/2010 6:24 Results for this EDT procedure are i n the results section. PTT STAT 07/16/2010 9:20 Results for this EDT procedure are i n the results section. PROTIME STAT 07/16/2010 9:20 Results for this EDT procedure are i n the results section. COMPLETE BLOOD COUNT STAT 07/16/2010 9:20 Resu lts for this EDT procedure are i n the results section. BUN STAT 07/16/2010 9:20 Results for this EDT procedure are i n the results section. CREATININE STAT 07/16/2010 9:20 Results for this EDT procedure are i n the results section. ELECTROLYTES STAT 07/16/2010 9:20 Results for this EDT procedure are i n the results section. EKG 12-LEAD Routine 07/16/2010 8:56 EDT documented in this encounter Results CARDIAC CATHERIZATION REPORT - SCANNED (07/21/2010 9:50 EDT) Specimen Narrative This result has an attachment that is no t available. Procedure Note Teletype Or Varitype Keyboard Operator, Scan - 07/16/2010 0:00 ED T Performing Organization Address City/State/ZIP Code Phon e Number [id number] POINT OF CARE ECG REPORT - SCANNED (07/21/2010 9:50 EDT) Specimen Narrative This result has an attachment that is no t available. Procedure Note Teletype Or Varitype Keyboard Operator, Scan - 07/16/2010 0:00 ED T ECG REPORT - SCANNED (07/21/2010 9:50 EDT) Specimen Narrative This result has an attachment that is no t available. Procedure Note Teletype Or Varitype Keyboard Operator, Scan - 07/16/2010 0:00 ED T Transcriptions Teletype Or Varitype Keyboard Operator, Scan - 07/16/2010 0:00 ED T ECHOCARDIOGRAM (07/17/2010 15:13 EDT) Specimen Narrative CARDIOLOGY - 07/17/2010 16:43 EDT Interpreting Group: [facility] [address] [place] [id number] *STUDY CONCLUSIONS* SUMMARY - ??Overall left ventricular systolic fu nction was vigorous. Left ventricular ejection fraction was estima fernandez in the range of 55 % to 60 %. There appeared to be hypokinesis o f the inferior wall. - ??There was mild aortic root dilatatio n. - ??The estimated peak pulmonary artery systolic pressure was within the upper limits of normal. Estimated peak p ulmonary artery systolic pressure in the range of 30 mmHg to 35 m mHg. *PATIENT PRESENTATION* Height: ? 73 in ( 185 cm ) S/D Pressure: 130 / 82 Weight: ? 224.62 lb ( 102.1 kg ) BSA: ?2.26 m^2 Funeral Car Chauffeur: ?? Carrie Herrera MD: ?? Willi Ruiz Iii, MD Referring MD: ??Vanessa Vicente MD Attending MD: ??Garth Zayas MD Admitting MD: ??Garth Zayas MD *INDICATIONS AND HISTORY* DIAGNOSES SUPPORTING MEDICAL NECESSITY: 427.2 Paroxysmal tachycardia unspecified *PROCEDURE DATA* PROCEDURE INFORMATION: A transthoracic complete 2D study was pe rformed. Additional evaluation included M-mode, complete spectral Doppl er, and color Doppler. This echocardiographic study was performed on -call. This study was interpreted by [facility] at [facility]. The procedure was started at 11:45:52. The p rocedure ended at 12:24:51. IE33 3 *CARDIAC ANATOMY* LEFT VENTRICLE: - ??Left ventricular size was normal. - ??Overall left ventricular systolic fu nction was vigorous. - ??Left ventricular ejection fraction w as estimated in the range of 55 % to 60 %. - ??There appeared to be hypokinesis of the inferior wall. - ??Left ventricular wall thickness was normal. RIGHT VENTRICLE: - ??Right ventricular size was normal. - ??Right ventricular systolic function was normal. LEFT ATRIUM: - ??Left atrial size was normal. RIGHT ATRIUM: - ??Right atrial size was normal. AORTIC VALVE: - ??The aortic valve was trileaflet. Doppler interpretation(s): - ??There was no significant aortic valv e stenosis by color Doppler and spectral Doppler. - ??There was no significant aortic valv ular regurgitation by color Doppler. MITRAL VALVE: - ??Mitral valve structure was normal. - ??There was normal mitral valve leafle t excursion. Doppler interpretation(s): - ??There was no significant mitral valv e stenosis by color Doppler and spectral Doppler. - ??There was no significant mitral valv ular regurgitation by color Doppler. PULMONIC VALVE: - ??The structure of the pulmonic valve appeared to be normal. Doppler interpretation(s): - ??There was no significant pulmonic va lve stenosis by color Doppler and spectral Doppler. - ??There was no significant pulmonic re gurgitation by color Doppler. TRICUSPID VALVE: - ??The tricuspid valve structure was no rmal. - ??Tricuspid leaflet excursion was norm al. Doppler interpretation(s): - ??There was no significant tricuspid v alve stenosis by color Doppler and spectral Doppler. - ??There was trivial tricuspid valvular regurgitation by color Doppler. PERICARDIUM: - ??There was no significant pericardial effusion. AORTA: - ??There was mild aortic root dilatatio n. PULMONARY ARTERY: Doppler interpretation(s): - ??The estimated peak pulmonary artery systolic pressure was within the upper limits of normal. - ??Estimated peak pulmonary artery syst olic pressure in the range of 30 mmHg to 35 mmHg. SYSTEMIC VEINS: - ??The inferior vena cava was normal. *MEASUREMENT TABLES* 2D measurements LEFT VENTRICLE ? NORMAL Single plane method of disks (4C) LV vol ed ?90 ? cc ? <104ml W/<155 ml M LV vol es ?35 ? cc ? <49 ml W/<58 ml M Stroke volume ?55 ? cc ? 45 + or - 13ml LV EF ?61 ? % ?>55 % LV vol index ed ?40 ? c c/m^2 ?? -- LV vol index es ?15 ? c c/m^2 ?? -- AORTA ?NORMAL AO root (root) ? 42 ? m m ? <40 mm LEFT ATRIUM ?NORMAL LA diameter ?31 ? mm ? <40mm LAD index (A-P) ?1.4 ?c m/m^2 ?? -- M-mode measurements LEFT VENTRICLE ? NORMAL LVID ed ?54 ? mm ? <56mm LVID es ?33 ? mm ? <40 mm FS ? 39 ? % ?>29% IVS ed ? 10 ? mm ? <11 mm Doppler measurements LVOT, AV, AORTA ?NORMAL LVOT diameter ?2.4 ? cm ? -- MITRAL VALVE ? NORMAL Peak E velocity ?33.7 ? cm /sec ?? 62 + or - 14 cm/sec Peak A velocity ?37.9 ? cm /sec ?? 49 + or - 14 cm/sec MV peak E/A ?0.89 ?1.1-1.7 MV deceleration time ?? 352 ?msec ? 210 + or - 40 Isovolumic relax time ??151 ?msec ? 85+ or - 15 msec Peak gradient ?0 ?mmHg ? -- Reviewed and signed by Dakota St MD Confirmed 17-Jul-2010 16:42:21 Procedure Note 07/17/2010 Interpreting Group: [facility] [address] [place] [address] *STUDY CONCLUSIONS* SUMMARY - Overall left ventricular systolic func tion was vigorous. Left ventricular ejection fraction was estima fernandez in the range of 55 % to 60 %. There appeared to be hypokinesis o f the inferior wall. - There was mild aortic root dilatation. - The estimated peak pulmonary artery sy stolic pressure was within the upper limits of normal. Estimated peak p ulmonary artery systolic pressure in the range of 30 mmHg to 35 m mHg. *PATIENT PRESENTATION* Height: 73 in ( 185 cm ) S/D Pressure: 130 / 82 Weight: 224.62 lb ( 102.1 kg ) BSA: 2.26 m^2 Funeral Car Chauffeur: Carrie Herrera MD: Willi Ruiz Iii, MD Referring MD: Vanessa Vicente MD Attending MD: Garth Zayas MD Admitting MD: Garth Zayas MD *INDICATIONS AND HISTORY* DIAGNOSES SUPPORTING MEDICAL NECESSITY: 427.2 Paroxysmal tachycardia unspecified *PROCEDURE DATA* PROCEDURE INFORMATION: A transthoracic complete 2D study was pe rformed. Additional evaluation included M-mode, complete spectral Doppl er, and color Doppler. This echocardiographic study was performed on -call. This study was interpreted by [facility] at [facility]. The procedure was started at 11:45:52. The p rocedure ended at 12:24:51. IE33 3 *CARDIAC ANATOMY* LEFT VENTRICLE: - Left ventricular size was normal. - Overall left ventricular systolic func tion was vigorous. - Left ventricular ejection fraction was estimated in the range of 55 % to 60 %. - There appeared to be hypokinesis of th e inferior wall. - Left ventricular wall thickness was no rmal. RIGHT VENTRICLE: - Right ventricular size was normal. - Right ventricular systolic function wa s normal. LEFT ATRIUM: - Left atrial size was normal. RIGHT ATRIUM: - Right atrial size was normal. AORTIC VALVE: - The aortic valve was trileaflet. Doppler interpretation(s): - There was no significant aortic valve stenosis by color Doppler and spectral Doppler. - There was no significant aortic valvul ar regurgitation by color Doppler. MITRAL VALVE: - Mitral valve structure was normal. - There was normal mitral valve leaflet excursion. Doppler interpretation(s): - There was no significant mitral valve stenosis by color Doppler and spectral Doppler. - There was no significant mitral valvul ar regurgitation by color Doppler. PULMONIC VALVE: - The structure of the pulmonic valve ap peared to be normal. Doppler interpretation(s): - There was no significant pulmonic valv e stenosis by color Doppler and spectral Doppler. - There was no significant pulmonic regu rgitation by color Doppler. TRICUSPID VALVE: - The tricuspid valve structure was norm al. - Tricuspid leaflet excursion was normal . Doppler interpretation(s): - There was no significant tricuspid ryan ve stenosis by color Doppler and spectral Doppler. - There was trivial tricuspid valvular r egurgitation by color Doppler. PERICARDIUM: - There was no significant pericardial e ffusion. AORTA: - There was mild aortic root dilatation. PULMONARY ARTERY: Doppler interpretation(s): - The estimated peak pulmonary artery sy stolic pressure was within the upper limits of normal. - Estimated peak pulmonary artery systol ic pressure in the range of 30 mmHg to 35 mmHg. SYSTEMIC VEINS: - The inferior vena cava was normal. *MEASUREMENT TABLES* 2D measurements LEFT VENTRICLE NORMAL Single plane method of disks (4C) LV vol ed 90 cc <104ml W/<155 ml M LV vol es 35 cc <49 ml W/<58 ml M Stroke volume 55 cc 45 + or - 13ml LV EF 61 % >55 % LV vol index ed 40 cc/m^2 -- LV vol index es 15 cc/m^2 -- AORTA NORMAL AO root (root) 42 mm <40 mm LEFT ATRIUM NORMAL LA diameter 31 mm <40mm LAD index (A-P) 1.4 cm/m^2 -- M-mode measurements LEFT VENTRICLE NORMAL LVID ed 54 mm <56mm LVID es 33 mm <40 mm FS 39 % >29% IVS ed 10 mm <11 mm Doppler measurements LVOT, AV, AORTA NORMAL LVOT diameter 2.4 cm -- MITRAL VALVE NORMAL Peak E velocity 33.7 cm/sec 62 + or - 14 cm/sec Peak A velocity 37.9 cm/sec 49 + or - 14 cm/sec MV peak E/A 0.89 1.1-1.7 MV deceleration time 352 msec 210 + or - 40 Isovolumic relax time 151 msec 85+ or - 15 msec Peak gradient 0 mmHg -- Reviewed and signed by Dakota St MD Confirmed 17-Jul-2010 16:42:21 Performing Organization Address [facility]/ZIP Code Phon e Number [facility] LIPID PROFILE (INCLUDES CHOLESTEROL, TRIGLYCERIDES, HDL, LDL) (07/17/2010 6:24 EDT) Cholesterol 197Comment: mg/dl [facility] Desirable:<200 LAB Borderline High:200-239 High:>hv=929 Triglycerides 98 35 - 160 mg/dl [facility] HDL 48Comment: Low:<40 mg/dl [facility] High(Desirable):>or LAB =60 LDL, Calculated 129 mg/dl [facility] Comment: LAB Optimal:<100 Above optimal:100-129 Borderline High:130 -159 High:160-189 Very High:>lb=080 Chol/HDL Ratio 4.1 [facility] Fasting? Unknown [facility] Specimen Blood specimen (specimen) Performing Organization Address [facility]/ZIP Code Phon e Number [facility] [address] [place] [address] SERVICES [facility] [address] [place] [address] CREATININE (07/17/2010 6:24 EDT) Pathologist Sig nature Creatinine 0.89 0.7 - 1.5 mg/dl [facility] GFR, Calculated >60 ml/min/1.73m2 [facility] Specimen Blood specimen (specimen) Performing Organization Address City/[facility]/ZIP Code Phon e Number [facility] [address] [place] [address] SERVICES [facility] [address] [place] [address] BUN (07/17/2010 6:24 EDT) Pathologist Sig nature BUN 16 10 - 26 mg/dl [facility] Specimen Blood specimen (specimen) Performing Organization Address [facility]/ZIP Code Phon e Number [facility] [address] [place] [address] SERVICES [facility] [address] [place] [address] ELECTROLYTES (07/17/2010 6:24 EDT) Pathologist Sig nature Sodium 140 136 - 145 mEq/L [facility] Potassium 4.3 3.5 - 5.0 mEq/L [facility] Chloride 106 96 - 110 mEq/L [facility] CO2 28 24 - 32 mEq/L [facility] Specimen Blood specimen (specimen) Performing Organization Address City/[facility]/ZIP Code Phon e Number [facility] [address] [place] [address] SERVICES [facility] [address] [place] [address] HEMAGRAM (07/17/2010 6:24 EDT) Pathologist Sig nature WBC 7.70 4.0 - 10.4 K/cmm [facility] RBC 4.68 4.36 - 5.78 M/cmm [facility] Hemoglobin 14.9 13.8 - 17.3 gm/dl [facility] HCT 42.9 39.5 - 50.2 % [facility] MCV 92 81 - 95 fl [facility] MCH 31.8 27.6 - 33.0 pg [facility] MCHC 34.6 32.8 - 36.4 gm/dl [facility] PLT 154 141 - 320 K/cmm [facility] RDW-CV 13.2 11.8 - 14.1 % [facility] Specimen Blood specimen (specimen) Performing Organization Address City/[facility]/ZIP Code Phon e Number [facility] [address] [place] [address] SERVICES [facility] [address] [place] [address] PTT (07/16/2010 9:20 EDT) Pathologist Sig nature PTT 28Comment: Therapeutic 24 - 35 secs [facility] Heparin range: 60-90 seconds Specimen Blood specimen (specimen) Performing Organization Address City/[facility]/ZIP Code Phon e Number [facility] [address] [place] [address] SERVICES [facility] [address] [place] [address] PROTIME (07/16/2010 9:20 EDT) Pro Time 11.5Comment: Note new 9.5 - 13.1 [facility] prothrombin time secs reference range effective 10 I.N.R. 1.0 0.9 - 1.1 [facility] Comment: Ratio ??Moderate Intensity Coumadin INR = 2.0-3.0 Adjustmen ts in anticoagulant therapy dose should be based upon the INR and NOT the Pro Time. ?? Specimen Blood specimen (specimen) Performing Organization Address [facility]/ZIP Code Phon e Number [facility] [address] [place] [address] SERVICES [facility] [address] [place] [address] HEMAGRAM (07/16/2010 9:20 EDT) Pathologist Sig nature WBC 4.45 4.0 - 10.4 K/cmm [facility] RBC 4.63 4.36 - 5.78 M/cmm [facility] Hemoglobin 14.8 13.8 - 17.3 gm/dl [facility] HCT 42.7 39.5 - 50.2 % [facility] MCV 92 81 - 95 fl [facility] MCH 32.0 27.6 - 33.0 pg [facility] MCHC 34.7 32.8 - 36.4 gm/dl [facility] PLT 159 141 - 320 K/cmm [facility] RDW-CV 13.4 11.8 - 14.1 % [facility] Specimen Blood specimen (specimen) Performing Organization Address City/[facility]/ZIP Code Phon e Number [facility] [address] [place] [address] SERVICES [facility] [address] [place] [address] CREATININE (07/16/2010 9:20 EDT) Pathologist Sig nature Creatinine 0.90 0.7 - 1.5 mg/dl [facility] GFR, Calculated >60 ml/min/1.73m2 [facility] Specimen Blood specimen (specimen) Performing Organization Address City/[facility]/ZIP [facility] Phon e Number [facility] [address] [place] [address] SERVICES [facility] [address] [place] [address] BUN (07/16/2010 9:20 EDT) Pathologist Sig nature BUN 20 10 - 26 mg/dl [facility] Specimen Blood specimen (specimen) Performing Organization Address City/State/ZIP Code Phon e Number [facility] [address] [place] [address] SERVICES [facility] [address] [place] [address] ELECTROLYTES (07/16/2010 9:20 EDT) [facility] Sodium 140 136 - 145 mEq/L [facility] Potassium 4.4 3.5 - 5.0 mEq/L [facility] Chloride 108 96 - 110 mEq/L [facility] CO2 29 24 - 32 mEq/L [facility] Specimen Blood specimen (specimen) Performing Organization Address City/State/ZIP Code Phon e Number [facility] [address] [place] [address] SERVICES [facility] [address] [place] [address] documented in this encounter Visit Diagnoses Not on filedocumented in this encounter Administered Medications Inactive Administered Medications - up to 3 most recent administrations Medication Order MAR Action Action Date Dose Rate Site amlodipine (NORVASC) tablet 5 mg Given 07/18/2010 9:10 EDT 5 mg 5 mg, oral, DAILY, First dose on Mon07/16/10 at 1130, Until Discontinued, Routine Given 07/17/2010 9:13 EDT 5 mg Given 07/16/2010 14:17 EDT 5 mg aspirin EC tablet 81 mg Given 07/18/2010 9:10 EDT 81 mg 81 mg, oral, DAILY, First dose on Mon07/16/10 at 1130, Until Discontinued, Routine Given 07/17/2010 9:13 EDT 81 mg clopidogrel (PLAVIX) tablet 75 mg Given 07/18/2010 9:10 EDT 75 mg 75 mg, oral, DAILY, First dose on Mon07/16/10 at 1130, Until Discontinued, Routine Given 07/17/2010 10:36 EDT 75 mg lisinopril (PRINIVIL, ZESTRIL) tablet 5 mg Given 07/18/2010 9:10 EDT 5 mg 5 mg, oral, DAILY, First dose on Mon07/18/10 at 0900, Until Discontinued, Routine metoprolol (LOPRESSOR) tablet 25 mg Given 07/18/2010 9:10 EDT 25 mg 25 mg, oral, 2 TIMES DAILY, First dose on Mon07/17/10 at 1015, Until Discontinued, Routine Given 07/17/2010 20:58 EDT 25 mg Given 07/17/2010 11:36 EDT 25 mg morphine 2 mg/mL injection Given 07/16/2010 12:19 EDT 4 mg 1 dose, Starting on Mon07/16/10 at 1216, Until Mon07/16/10 at 1219 simvastatin (ZOCOR) tablet 20 mg Given 07/17/2010 17:29 EDT 20 mg 20 mg, oral, EVERY EVENING, First dose on 07/17/10 at 1700, Until Discontinued, Routine sodium chloride 0.9 % (NS) infusion Rate Documented 07/16/2010 16:0 0 EDT 75 mL/hr at 75 mL/hr, intravenous, CONTINUOUS, Starting on Mon07/16/10 at 1130, Until Mon07/16/10 at 1918, Routine Rate Documented 07/16/2010 14:18 EDT 75 mL/hr New Bag 07/16/2010 13:19 EDT 75 mL/hr documented in this encounter Discontinued Medications Medication Sig Discontinue Reason Start Date End Date clopidogrel (PLAVIX) 75 Take 75 mg by mouth 07/16/2010 07/16/2010 mg tablet daily. One dose in am prior to procedure Clopidogrel (PLAVIX) Take 300 mg by mouth 07/15/2010 07/16/2010 300 mg Tab once. Times on dose only aspirin 325 mg tablet Take 325 mg by mouth 07/15/2010 07/16/2010 daily. metoprolol (LOPRESSOR) Take 25 mg by mouth 2 07/16/2010 25 mg tablet times daily. documented as of this encounter Historical Medications This list may reflect changes made after this encounter. Medication Sig Dispensed Refills Start Date End Date metoprolol (LOPRESSOR) Take 25 mg by mouth 2 0 07/16/2010 25 mg tablet times daily. clopidogrel (PLAVIX) 75 Take 75 mg by mouth 0 11/201007/16/2010 mg tablet daily. One dose in am prior to procedure Clopidogrel (PLAVIX) 300 Take 300 mg by mouth 0 0 07/15/2010 07/16/2010 mg Tab once. Times on dose only aspirin 325 mg tablet Take 325 mg by mouth 0 10/201007/16/2010 daily. added in this encounter Active and Recently Administered Medications Times are shown in EDT. Scheduled Medication Order 07/16/2010 07/17/2010 07/18/2010 amlodipine (NORVASC) tablet 10 mg 10 mg, Oral, DAILY, First dose on Mon07/19/10 at 0900, Until Dis continued amlodipine (NORVASC) tablet 5 mg 1417 (Given - Provide r: Harper Verduzco RN) 0913 (Given - Provider: German Vieira RN) 10 16 (Given - Provider: Sally Jean Baptiste RN) 5 mg, Oral, DAILY, First dose on Mon07/16/10 at 1130, Until Disc ontinued aspirin EC tablet 81 mg 1149 (Hold - Provider: Magda Verduzco RN - Reason: Other - Comment: ASA given in brine room laborer) 912 (Given - Provider: German Vieira RN) 09 (Given - Provider: Sally stein RN) 81 mg, Oral, DAILY, First dose on Mon07/16/10 at 1130, Until Dis continued clopidogrel (PLAVIX) tablet 75 mg (CANCELED) 1150 (Hol d - Provider: Harper Verduzco RN - Reason: Other - Comment: given in brine room laborer) 1036 (Given - Provider: German Vieira RN) 09 (Given - Provider: Sally Jean Baptiste RN) 75 mg, Oral, DAILY, First dose on Mon07/16/10 at 1130, Until Dis continued lisinopril (PRINIVIL, ZESTRIL) tablet 5 mg (CANCELED) 909 (Given - Provider: Sally Jean Baptiste RN) 5 mg, Oral, DAILY, First dose on Mon07/18/10 at 0900, Until Disc ontinued metoprolol (LOPRESSOR) tablet 25 mg 1136 (Given - Provider: German Vieira RN)2057 (Given - Provider: Monroe Teran RN) 909 (Given - Provider: Sally Jean Baptiste RN) 25 mg, Oral, 2 TIMES DAILY, First dose o n 07/17/10 at 1015, Until Discontinued simvastatin (ZOCOR) tablet 20 mg 1729 (Given - P rovider: Elva Mott) 20 mg, Oral, EVERY EVENING, First dose o n 07/17/10 at 1700, Until Discontinued Continuous Medication Order 07/16/2010 07/17/2010 07/18/2010 sodium chloride 0.9 % (NS) infusion () 1319 (Ne w Bag - Provider: Harper Verduzco RN)1418 (Rate Documented - Provider: Harper Verduzco RN)1600 (Rate Documented - Provider: Elva Mott)1620 (Completed - Provider: Elva Mott) at 75 mL/hr, Intravenous, CONTINUOUS, St arting 07/16/10 at 1130, Until Mon07/16/10 at 1729 No Frequency Medication Order 07/16/2010 07/17/2010 07/18/2010 morphine 2 mg/mL injection (COMPLETED) 1219 (Given - P rovider: Harper Verduzco RN) 1 dose, Starting Mon07/16/10 at 1216, Until Mon07/16/10 at 1219 documented in this encounter Orders Medications Ordered That Might Not Have Count Last Ord ered Date First Ordered Date Been Administered amlodipine (NORVASC) tablet 10 mg 1 07/18/2010 acetaminophen (TYLENOL) tablet 650 mg 1 07/16/2010 lidocaine-EPINEPHrine 2 %-1:100,000 1 07/16/2010 injection 5-10 mL metoprolol (LOPRESSOR) tablet 25 mg 1 07/16/2010 morphine injection 4 mg 2 07/16/2010 sodium chloride 0.9 % (NS) infusion 1 07/16/2010 Lab Orders Without Results Count Last Ordered Date Fir st Ordered Date POCT GLUCOSE 1 07/16/2010 EKG Orders Without Results Count Last Ordered Date Fir st Ordered Date EKG 12-LEAD 1 07/16/2010 Nursing Count Last Ordered Date First Ordered Date INSERT PERIPHERAL IV 1 07/16/2010 Admission Count Last Ordered Date First Ordered Date NOTIFY PPS OF DISCHARGE COMPLETE 07/18/2010 ADMIT TO OBSERVATION 07/17/2010 ADMIT TO OUTPATIENT 07/16/2010 PPS NOTIFICATION OF PATIENT ARRIVAL ON 1 UNIT Discharge Count Last Ordered Date First Ordered Date DISCHARGE PATIENT 07/18/2010 documented in this encounter Care Teams Shearing Machine Feeder Relationship Specialty Start Date End Date Vanessa Vicente MD PCP - General 07/15/1002/11/21 documented as of this encounter
--- OUTSIDE RECORDS SUMMARY | 2021-07-30 00:19 | XMS_ITS | Clinical Summary ---
:1950 Author Organization [facility] Address [address] [place] [address] Care Team Providers Name Role Phone Lolita Barahona [facility] Primary Care Provider [phone] Allergies No known active allergies Medications Medication Sig Dispensed Refills Start Date End Date Status aspirin 81 mg EC Take 1 Tab by 1 Tab 0 07/16/2010 Active tablet mouth daily. Lifetime medicine, do not stop atorvastatin (LIPITOR) Take 20 mg by 0 02/13/2015 Active 20 mg tablet mouth every evening. multivitamin Take 1 Tab by 0 Act purnima (THERAGRAN) per tablet mouth daily. Cholecalciferol, Take by mouth. 0 Active Vitamin D3, (VITAMIN D3) 25 mcg (1,000 unit) capsule ascorbic acid, vitamin Take 1,000 mg by 0 Active C, (VITAMIN C) 1,000 mouth. mg tablet Zinc 50 mg tablet Take 50 mg by 0 Active mouth. Encounters Date Type Specialty Care Team Description 06/07/2021 Office Visit Orthopedic Surgery Pavan Prather Back pa in, MD unspecified boo k location, unspe cified back pain later ality, unspecified chronicity (Starla jai Dx) 06/07/2021 Hospital Encounter Radiology Back pain , unspecified boo k location, unspe cified back pain later ality, unspecified chronicity 06/02/2021 Orders Only Orthopedic Surgery Pavan Prather Back pa in, MD unspecified boo k location, unspe cified back pain later ality, unspecified chronicity (Starla jai Dx) from Last 3 Months Surgical History Surgery Date Site/Laterality Comments TONSILLECTOMY Medical History Medical History Date Comments CAD (coronary artery disease) Abnormal stress test Chest pain Social History Tobacco Use Types Packs/Day Years Used Date Never Smoker Smokeless Tobacco: Never Used Sex Assigned at Date Recorded Not on file Last Filed Vital Signs Vital Sign Reading Time Taken Comments Blood Pressure 130/82 02/26/2019 1311 EST Pulse 50 02/26/2019 1311 EST Temperature 35.8 ??C (96.4 ??F) 07/18/2010 0742 EDT Respiratory Rate 16 07/18/2010 0742 EDT Oxygen Saturation 99% 07/18/2010 0742 EDT Inhaled Oxygen Concentration - - Weight 102.1 kg (225 lb) 07/15/2010 1100 EDT Height 185.4 cm (6' 1) 07/15/2010 1100 EDT Body Mass Index 29.69 07/15/2010 1100 EDT Plan of Treatment Health Maintenance Due Date Last Done Comments Hepatitis C Screen 1950 Fall Risk Screening 02/27/2020 02/26/2019 COVID-19 Vaccine Completed 05/31/2021, 12/01/2020, 021, Additional history exists Procedures Procedure Name Priority Date/Time Associated Diagnosis Comme nts XR LUMBAR SPINE Routine 06/07/2021 9:42 EDT Back pain, Resul ts for this BENDING VIEWS, 2 OR unspecified back proc edure are in 3 VIEWS location, the results unspecified back section. pain laterality, unspecified chronicity from Last 3 Months Results XR LUMBAR SPINE BENDING VIEWS, 2 OR 3 VIEWS (06/07/2021 9:42 EDT) Anatomical Region Laterality Modality Computed Radiography Specimen Impressions [facility] - 2021 13:47 EDT Findings/Impression: Retrolisthesis of L2 on L3 and anterolis thesis of L3 on L4 does not appear to change with flexion and extension. Multilevel degenerative changes are redemonstrated. No new vertebral body height loss. Facet calcifications are noted. Narrative [facility] - 2021 13:47 EDT XR LUMBAR SPINE BENDING VIEWS, 2 OR 3 VIEWS 06/07/2021 8:30 AM History: back pain Technique: Flexion and extension views o f the lumbar spine were performed. Comparisons: Radiograph 04/12/2021 Procedure Note David Liriano MD - 2021 XR LUMBAR SPINE BENDING VIEWS, 2 OR 3 EWS 06/07/2021 8:30 AM History: back pain Technique: Flexion and extension views o f the lumbar spine were performed. Comparisons: Radiograph 04/12/2021 IMPRESSION Findings/Impression: Retrolisthesis of L2 on L3 and anterolis thesis of L3 on L4 does not appear to change with flexion and extension. Multilevel degenerative changes are redemonstrated. No new vertebral body height loss. Facet calcifications are noted. Performing Organization Address City/State/ZIP Code Phon e Number [facility] from Last 3 Months Insurance Payer Benefit Plan / Subscriber ID Effective Dates Phone Addre ss Type Group MEDICARE MEDICARE A/B [id number] 2016-[place] [id number] [place] [address] [place] [id number] 2019-[place] [address] [place] [address] [place] [id number] Jose Eduardo Rodríguez Personal/Family Self 1950 [address] ([address] [place] [address] Jose Eduardo Rodríguez Personal/Family Self 1950 [address] ([address] [place] [address] Advance Directives For more information, please contact: [phone] Latest Code Status on File Code Status Date Activated Date Inactivated Comments Full Code 07/16/2010 11:11 07/18/2010 16:24 Care Teams Veneer Drier Tailer Relationship Specialty Start Date End Date Jun [facility] PCP - General 02/12/21 [address] [place] [id number]
--- OUTSIDE RECORDS SUMMARY | 2021-07-30 00:19 | XMS_ITS | Encounter Summary ---
:1950 Author Organization [facility] Address [address] [place] [address] Care Team Providers Name Role Phone Lolita Barahona [facility] Primary Care Provider [phone] Encounter Details Date Type Department Care Team Description 04/13/[address] [facility] - Carrie Mcelroy [facility], PT [address] [place], [place] [address] [place] [id number] Social History Tobacco Use Types Packs/Day Years [...] documented as of this encounter Progress Notes July Mcelroy, PT - 04/13/2021 1419 EST [facility] [phone] Physical Therapy Discharge Not Seen Recently Therapy Diagnosis: R lower quarter pain due to a posterior lumbar derangement Referring Clinician: Criss Mares APRN Reporting Period: 02/25/21 - 03/16/21 Visits: 4 Physical Therapy Program to Date: In summary, the program has included: Therapeutic exercise, manualtherapy and modalities as needed, neuromuscular re- education, therapeutic activity Goal Review: Short-Term Goals Timeframe:??03/28/21 Goals:?? 1. Pt will improve knee flex strength to 5/5 Hua to improve tolerance for hiking. (MET 03/16/21) 2. Pt will tolerate lumbar extension AROM to end range without provocation of R LE pain to improve tolerance for terminal stance phase of gait. (MET 03/16/21) 3. Pt will demonstrate neutral sitting postures without cues to facilitate reduction of derangement to mitigate pain. ??(some progress) ?Long-Term Goals Timeframe:??04/25/21 Goals:?? 1. Pt will be independent with HEP. (MET 03/16/21) 2. Pt will be independent with symptom management. (good progress) 3. Pt will consistently hike without limitation by lower quarter pain x 30min (good progress) Discharge Reason: managing with HEP at this time. Discharge patient at this time; future therapy will require a new physician's referral. documented in this encounter Plan of Treatment Not on filedocumented as of this encounter Visit Diagnoses Not on filedocumented in this encounter Care Teams Concrete Swimming Pool Installer Relationship Specialty Start Date End Date Jun [facility] PCP - General 02/12/21 [address] [place] [address] documented as of this encounter
--- OUTSIDE RECORDS SUMMARY | 2021-07-30 00:19 | XMS_ITS | Encounter Summary ---
:1950 Author Organization [facility] Address [address] [place] [address] Care Team Providers Name Role Phone Lolita Barahona [facility]- Primary Care Provider [phone] Encounter Details Date Type Department Care Team Description 02/26/2021 Plan of Care Documentation Formerly named [facility] [address] [place] [address] Social History Tobacco Use Types Packs/Day Years [...] encounter Progress Notes July Mcelroy, PT - 02/26/2021 1608 EST Outpatient Rehab Plan of Care Therapy Diagnosis: R lower quarter pain due to a posterior lumbar derangement Problem List: Decreased ROM, Decreased strength, Impaired ambulation, Need for an independent home exercise program, Pain and Postural deviation Assessment: Pt is a pleasant 70yo male presenting with R lower quarter pain, limited postural awareness, limited mobility and limited activity tolerance due to pain. After completion of exam, pt appears to have a directional preference for lumbar extension and presentation consistent with a posterior lumbar derangement. Recommend skilled PT to decrease pain and restore function. Equipment Needed: n/a Barriers to Learning: none Potential Barriers to Progress: None Response to Evaluation: Well Rehabilitation Potential: Motivation/Commitment to Therapy: Good Rehabilitation Potential: Good Short-Term Goals Timeframe: 03/28/21 Goals: 1. Pt will improve knee flex strength to 5/5 Hua to improve tolerance for hiking. 2. Pt will tolerate lumbar extension AROM to end range without provocation of R LE pain to improve tolerance for terminal stance phase of gait. 3. Pt will demonstrate neutral sitting postures without cues to facilitate reduction of derangement to mitigate pain. Long-Term Goals Timeframe: 04/25/21 Goals: 1. Pt will be independent with HEP. 2. Pt will be independent with symptom management. 3. Pt will consistently hike without limitation by lower quarter pain x 30min PLAN Medical Necessity: Therapy intervention is indicated in order to return to a premorbid level of function or significantly improve current level of function. Physical Therapy is recommended for: Treatment Frequency/ Duration: 2x/wk x 8 weeks Therapy Treatment to include: 61415 - Hot Cold Pack, 61447 - Mechanical Traction, G0283 - ElectricalStimulation Unsupervised, 90433 - Therapeutic Exercise, 67316 - Neuromuscular Re-education, 06865 - Aquatic Therapy/Exercise, 23119 - Gait Training, 25472 - Manual Therapy and 21193 - Therapeutic Activity Recommended Consults: n/a Development of Plan of Care: Patient participated in development of plan of care today. ATTENDING PHYSICIAN: Medicare certification needed. Your signature indicates you approve the therapygoals and plan of care outlined on this document dated 02/25/2021. Thank you! Attending Physician Signature Date July Mcelroy PT, PT 02/26/2021 16:06 documented in this encounter Plan of Treatment Not on filedocumented as of this encounter Visit Diagnoses Not on filedocumented in this encounter Care Teams Director Of Corporate Strategy Relationship Specialty Start Date End Date [facility]ona [facility] PCP - General 02/12/21 [address] [address] documented as of this encounter
--- OUTSIDE RECORDS SUMMARY | 2021-07-30 00:19 | XMS_ITS | Encounter Summary ---
:[address] [facility] Address [address] [place] [address] Care Team Providers Name Role Phone Lolita Barahona [facility]- Primary Care Provider [phone] Reason for Referral Radiology Services (Routine/Next Available) - Authorization Not Required Specialty Diagnoses / Procedures Referred By Contact Refer red To Contact Diagnoses Back pain, unspecified back location, unspecified back pain laterality, unspecified chronicity Pavan Prather MD [facility] Procedures XR LUMBAR SPINE BENDING VIEWS, 2 OR 3 VIEWS [address] [place] [address] Referral ID Status Reason Start Expiration Visits Visits Date Date Requested Authorized [id number] Authorization Not 06/02/2021 1 1 Required Reason for Visit Radiology Services (Routine/Next Available) - Authorization Not Required Specialty Diagnoses / Procedures Referred By Contact Refer red To Contact Diagnoses Back pain, unspecified back location, unspecified back pain laterality, unspecified chronicity Pavan Prather MD [facility] Procedures XR LUMBAR SPINE BENDING VIEWS, 2 OR 3 VIEWS [address] [place] [address] Referral ID Status Reason Start Expiration Visits Visits Date Date Requested Authorized [id number] Authorization Not 06/02/2021 1 1 Required Encounter Details Date Type Department Care Team Description 06/07/2021 Hospital Encounter [facility] Xray Back pain, unspecified [address] [facility] back location, [place], [place] unspeci fied back pain [address] laterality, unspecified [phone] chronicity Social History Tobacco Use Types Packs/Day Years [...] Tab by mouth 0 per tablet daily. Zinc 50 mg tablet Take 50 mg by mouth. 0 documented as of this encounter Discharge Disposition [...] unspecified back section. pain laterality, unspecified chronicity documented in this encounter Results XR LUMBAR SPINE BENDING VIEWS, 2 OR 3 VIEWS (06/07/2021 9:42 EDT) Anatomical Region Laterality Modality Computed Radiography Specimen Impressions [facility] - 2021 13:47 EDT Findings/Impression: Retrolisthesis of L2 on L3 and anterolis thesis of L3 on L4 does not appear to change with flexion and extension. Multilevel degenerative changes are redemonstrated. No new vertebral body height loss. Facet calcifications are noted. Narrative [facility] - 2021 13:47 EDT [...] Organization Address City/State/ZIP Code Phon e Number [facility] documented in this encounter Visit Diagnoses Diagnosis Back pain, unspecified back location, un specified back pain laterality, unspecified chronicity documented in this encounter Care Teams Document Advisor Relationship Specialty Start Date End Date Jun, [facility] PCP - General 02/12/[address] [place] [address] documented as of this encounter"
--- OUTSIDE RECORDS SUMMARY | 2021-07-30 00:19 | XMS_ITS | Encounter Summary ---
:1950 Author Organization [facility] Address [address] [place] [address] Care Team Providers Name Role Phone Dexter Cifuentes MD Primary Care Provider Unavailable Lolita Barahona- Primary Care Provider [phone] Encounter Details Date Type Department Care Team Description 08/08/2019 Lab Requisition [facility] Outr Resulting Lab, Pathology & Laboratory Provider [facility] [address] [id number] Social History Tobacco Use Types Packs/Day Years Used Date Never Assessed Sex Assigned at Date Recorded Not on file documented as of this encounter Functional Status Cognitive Status Response Date of Assessment Because of a physical, mental, or emotional condition, do Ye s 07/16/2010 you have serious difficulty concentrating, remembering, or making decisions? (5 years old or older) documented as of this encounter Plan of Treatment Not on filedocumented as of this encounter Procedures Procedure Name Priority Date/Time Associated Diagnosis Comme nts COVID-19 TEST [facility] Today 08/08/2019 14:48 LAB PCR EDT COVID-19 TESTING Routine 08/08/2019 14:48 Results for this EDT procedure are i n the results section. documented in this encounter Results [facility] (08/08/2019 14:48 EDT) Specimen Swab - Entire nasopharynx (body structur e) Performing Organization Address City/State/ZIP Code Phon e Number [facility] [address] [place] [address] SERVICES COVID-19 TESTING (08/08/2019 14:48 EDT) COVID-19 rt-PCR Negative Negative [facility] Result Comment: [facility] This test has not been FDA c leared or approved. This test has been authorized by FDA under an EUA for use by authorized laboratories. This test has been authorized only for detection of nucleic acid fro SERVICES m 2019-nCoV, not for any oth er viruses or pathogens. This test is only authorized for the duration of the declaration that circumstances exist justifying the authorization of emergency use of in vitro d iagnostic tests for detectio n and/or diagnosis of 2019-nCoV under section 564(b)(1) of Act, 21 U.S.C ?? 360bbb-3(b) (1), unless the authorization is terminated or revoked sooner. Negative results do not prec lude 2019-nCoV infection and should not be used as the sole basis for treatment or other patient management decisions. Negative results must be combined with clinical observa tions, patient history, and epidemiological informatio n. Performed on the [employer] Fusion instrument Performing Lab [place] [facility] Lab [facility] SERVICES Specimen Swab Performing Organization Address City/State/ZIP Code Phon e Number [facility] [address] [place] [address] SERVICES documented in this encounter Visit Diagnoses Not on filedocumented in this encounter Additional Health Concerns Infection Onset Date Last Indicated Resolved Time R/O COVID-19 08/08/2019 08/08/2019 08/13/2019 22:17 EDT documented as of this encounter Care Teams Naphthalene Still Operator Relationship Specialty Start Date End Date Dexter Cifuentes MD PCP - General 07/15/1002/11/21 [facility]- PCP - General 02/12/[address] [place] [address] documented as of this encounter
--- OUTSIDE RECORDS SUMMARY | 2021-07-30 00:19 | XMS_ITS | Encounter Summary ---
:1950 Author Organization [facility] Address [address] [place] [address] Care Team Providers Name Role Phone Dexter Cifuentes MD Primary Care Provider Unavailable Lolita Barahona [facility]- Primary Care Provider [phone] Encounter Details Date Type Department Care Team Description 07/17/2020 Lab Requisition [facility] Outr Resulting Lab, Pathology & Laboratory Provider [facility] [address] [place], [place] [address] Social History Tobacco Use Types Packs/Day Years [...] Procedure Name Priority Date/Time Associated Comments Diagnosis PSA TOTAL, Routine 07/17/2020 8:15 EDT Results for this DIAGNOSTIC procedure are i n the results section. documented in this encounter Results PSA TOTAL, DIAGNOSTIC (07/17/2020 8:15 EDT) Pathologist Sig nature PSA 1.1 0.0 - 4.5 ng/mL [facility] Specimen Blood - Venous blood (substance) Narrative [facility] - 07/17/2020 22:15 EDT NOTE: Serum PSA concentration should not be in terpreted as absolute evidence for the presence or absence of malignant disease. Assayed on Siemens ADVIA Exceleraaur XPT usi ng chemiluminescent technology.??Values obtained by using different assay methods cannot be used interchangeably. Performing Organization Address City/State/ZIP Code Phon e Number [facility] [address] [place] [address] SERVICES documented in this encounter Visit Diagnoses Not on filedocumented in this encounter Care Teams Early Childhood Education Instructor Relationship Specialty Start Date End Date Dexter Cifuentes MD PCP - General 07/15/1002/11/21 [facility] PCP - General 02/12/[address] [place], [place] [address] documented as of this encounter
--- OUTSIDE RECORDS SUMMARY | 2021-07-30 00:20 | XMS_ITS | Encounter Summary ---
:1950 Author Organization [facility] [place] [address] Care Team Providers Name Role Phone Marixa Smith MD Primary Care Provider Encounter Details Date Type Department Care Team Description 01/25/2021 Hospital Encounter Pain Management Jill Sharma MD Radiculopathy of lumbar region; [facility] Foraminal val nosis of lumbosacral region [facility] [place] [id number] [phone] Social History Tobacco Use Types Packs/Day Years Used Date Current Some Day Smoker Cigars Smokeless Tobacco: Never Used Comments: occasional cigars Alcohol Use Standard Drinks/Week Comments Yes 0 (1 standard drink = 0.6 oz pure alcoho l) 5 drinks weekly Alcohol Habits Answer Date Recorded How often do you have a drink containing alcohol? Not asked How many drinks containing alcohol do you have on a Not aske d typical day when you are drinking? How often do you have six or more drinks on one Not asked occasion? Comment: 5 drinks weekly 03/31/2015 Sex Assigned at Date Recorded Not on file documented as of this encounter Last Filed Vital Signs Vital Sign Reading Time Taken Comments Blood Pressure 135/67 01/25/2021 1:05 PM EST Pulse 53 01/25/2021 1:05 PM EST Temperature - - Respiratory Rate - - Oxygen Saturation 100% 01/25/2021 1:05 PM EST Inhaled Oxygen Concentration - - Weight 88.5 kg (195 lb) 01/25/2021 1:05 PM EST Height 182.9 cm (6') 01/25/2021 1:05 PM EST Body Mass Index 26.45 01/25/2021 1:05 PM EST documented in this encounter Discharge Instructions Discharge InstructionsTung Gil - 01/25/2021 1:41 PM EST [facility] Discharge Instructions: You were seen today by Surgeon(s): Jill Sharma MD Krause, Jeffrey A, MD The following was performed: Procedure(s) (LRB): INJECTION, EPIDURAL, LUMBAR OR SACRAL (CAUDAL), WITH IMAGING GUIDANCE (WRVU 1.8) (Right) It is normal that the injection site will be sore for up to 48 hours. You may also experience mild stiffness in the joint near the injection site. You may resume your normal activities tomorrow. You may shower today. DO NOT tub bathe, use whirlpools, hot tubs or pool therapy for 2 days. Remove Band-Aid(s) later today/tomorrow. Do not drive until tomorrow. Use caution walking/climbing stairs as you may be unsteady on your feet. You may use your usual medications, including pain medications, as directed, unless otherwise instructed. You may use an ice pack as needed for the first 24 hours, on for 20 minutes then off for 20 minutes.Do not apply heat today. Attempt to empty your bladder 4-6 hours after your procedure. If you have diabetes, monitor your blood sugars frequently. If your blood sugar increases and is of concern, contact your Primary Care Provider. You received the following medications: Medications Given During Procedure Date/Time Order Dose Route Action 01/25/2021 1340 dexamethasone (PF) (Decadron) (10 mg/mL) injection 15 mg Epidural Given 01/25/2021 1341 iohexoL (Omnipaque) (240 mg/mL) solution 2 mL Epidural Given During regular business hours, please phone the Pain Management Center at with any questions or if the following or other troubling symptoms develop: 1) Prolonged dizziness or weakness (more than 1 day). 2) Localized swelling, redness or drainage at the injection site(s). 3) Temperature of 101 degrees that lasts for more than 4 hours. After 5 PM or on weekends, call and ask for Pain Clinic provider on-call. If you are unable to reach the Pain Management Center and have a complication, please call your Primary Care Provider or proceed to your local emergency department. Tung Gil Special instructions documented in this encounter Medications at Time of Discharge Medication Sig Dispensed Refills Start Date End Date zolpidem (Ambien) 5 mg Take 1 tablet by 0 021 Tablet mouth nightly as needed. acetaminophen (TYLENOL) 650 Take 1,300 mg by 0 mg Tablet Sustained Release mouth every 8 hours as needed for Pain. Do not exceed 6 tabs in 24 hours naproxen sodium (ANAPROX) Take 440 mg by mouth 0 220 mg Tablet as needed. amoxicillin (Amoxil) 500 mg Take 2,000 mg by 0 Capsule mouth as needed. sildenafiL (VIAGRA) 100 mg 100 mg daily as 0 02/2020 Tablet needed. flu vacc [id number],65yr ADM 0.7ML IM UTD 0 2019 up,/PF (FluZONE HighDose Quad 20-21 PF) 240 mcg/0.7 mL Syringe ascorbic acid, vitamin C, Take 1,000 mg by 0 (VITAMIN C) 1,000 mg Tablet mouth daily. *taking 2,000 mg a day* Zinc 50 mg Tablet Take 1 tablet by 0 mouth daily. aspirin 81 mg Tablet, Take 81 mg by mouth 0 Delayed Release (E.C.) daily. multivitamin (THERAGRAN) Take 1 tablet by 0 Tablet mouth daily. atorvastatin (LIPITOR) 20 Take 1 tablet by 30 tablet 3 09/2015 mg Tablet mouth every evening. documented as of this encounter H&P Notes Carlin Reza MD - 01/24/2021 7:41 PM EST Patient Name: Jose Eduardo Rodríguez Patient Age: 70 y.o. Birthdate: 1950 Admit date: 01/25/2021 Attending Physician: Jill Sharma MD PREPROCEDURE HISTORY AND PHYSICAL Date of Visit: January 25, 2021 Chief Complaint: Low back and R leg pain HPI: Jose Eduardo Rodríguez is a 70 y.o. male with a diagnosis of 1. Radiculopathy of lumbar region 2. Foraminal stenosis of lumbosacral region who presents today for: Procedure: L4-5 LESI The patient is currently on ASA 81mg last dose 3 days ago, naproxen last dose 2 days ago The patient denies any allergy to local anesthetics, contrast dye, or steroids. No recent or planned vaccinations. Patient denies any recent antibiotic use. Patient states they are in their usual state of health. The history is obtained from the patient, and I have reviewed medical records provided by the referring physician and located in the electronic medical record to fill in gaps in the patient's recollection of events, treatments and outcomes. LOCATION: right lumbar area or radiating to right leg(s). PAIN LEVEL AT REST 2/10 PAST MEDICAL HISTORY: Past Medical History: Diagnosis Date ??? HLD (hyperlipidemia) ??? ME (myocardial infarction) ??? Radiculopathy of lumbar region 12/07/2020 There are no medical history contraindications to this procedure. PAST SURGICAL HISTORY: Past Surgical History: Procedure Laterality Date ??? CORONARY ANGIOPLASTY WITH STENT PLACEMENT ??? CT GUIDED INJECTION SI JOINT 02/19/2019 CT Guided Injection SI Joint 02/19/2019 [facility] RAD CAT SCAN ??? PRO INJ, FORAMEN, L/S, 1 LEVEL Right 12/08/2020 INJECTION, ANESTHETIC AGENT AND/OR STEROID, TRANSFORAMINAL EPIDURAL, LUMBAR OR SACRAL, SINGLE LEVEL(WRVU 1.9) performed by Kiana Canchola MD at [facility] PAIN MGMT MSO There are no past surgical contraindications to this procedure ALLERGIES: Patient has no known allergies. There are no allergic contraindications to this procedure. MEDICATIONS: No current facility-administered medications for this encounter. There are no medication contraindications to this procedure. FAMILY HISTORY: Family History Problem Relation Age of Onset ??? Cancer Maternal Grandmother ??? Cancer Paternal Grandmother ??? Heart Disease Paternal Grandfather ??? Myocardial Infarction Paternal Grandfather SOCIAL HISTORY: Social History Socioeconomic History ??? Marital status: Spouse name: Not on file ??? Number of children: Not on file ??? Years of education: Not on file ??? Highest education level: Not on file Occupational History ??? Not on file Tobacco Use ??? Smoking status: Current Some Day Smoker Types: Cigars ??? Smokeless tobacco: Never Used ??? Tobacco comment: occasional cigars Vaping Use ??? Vaping Use: Never used Substance and Sexual Activity ??? Alcohol use: Yes Comment: 5 drinks weekly ??? Drug use: No ??? Sexual activity: Yes Partners: Female Other Topics Concern ??? Not on file Social History Narrative ??? Not on file Social Determinants of Health Financial Resource Strain: Not on file Food Insecurity: Not on file Transportation Needs: Not on file Physical Activity: Not on file Housing Stability: Not on file There are no social history contraindications to this procedure. ROS: Review of Systems Constitutional: Negative for fever, chills, or recent infection. Respiratory: Negative for shortness of breath. Cardiovascular: Negative for chest pain. Musculoskeletal: Positive for low back pain. Psychiatric/Behavioral: Negative for agitation and behavioral problems. PHYSICAL EXAM: BP 135/67 (Patient Position: Sitting) Pulse 53 Ht 182.9 cm (6') Wt 88.5 kg (195 lb) SpO2 100% BMI 26.45 kg/m?? Physical Exam Constitutional: He appears well-developed and well-nourished. No distress. Cardiovascular: Normal heart rate. Pulmonary/Chest: Effort normal and breath sounds normal. Skin: He is not diaphoretic. This is no rash, apparent infection, or other abnormality to the area of the proposed injection. No LMP for male patient. There are no physical examination findings which would preclude this procedure. LABS: No results for input(s): WBC, RBC, HGB, HCT, MCV, MCH, MCHC, PLATELET, RDWCV in the last 168 hours. No results for input(s): PT, PTT, INR in the last 168 hours. ASSESSMENT: 1. Radiculopathy of lumbar region 2. Foraminal stenosis of lumbosacral region PLAN: Proceed with procedure as planned. Thank you for the opportunity to participate in Jose Edaurdo Jj Rodríguez's care. Please feel free to contact me with any questions. Sincerely, Carlin Reza MD Pain Medicine Fellow [address] [phone] / [facility] CC: Marixa Smith MD [address] [place] [phone] documented in this encounter Miscellaneous Notes Op Note - Carlin Reza MD - 01/25/2021 1:40 PM EST Pain Management Operative Note Patient Name: Jose Eduardo Rodríguez : [id number] MR#: [id number] Case Date: 01/25/2021 Surgeon: Surgeon(s) and Role: * Jill Sharma MD - Primary * Carlin Reza MD - Fellow Present on Admission: ??? Radiculopathy of lumbar region Postoperative diagnosis: same Procedure(s) (LRB): INJECTION, EPIDURAL, LUMBAR OR SACRAL (CAUDAL), WITH IMAGING GUIDANCE (WRVU 1.8) (Right) L4-5 LUMBAR INTERLAMINAR EPIDURAL STERIOID INJECTION PROCEDURE NOTE Mr. Jose Eduardo Rodríguez has been referred to the Pain Management Center for a lumbar epidural steroid injection by Marixa Smith MD [address] [place] [address]. The patient complains of low back pain with pain radiating down the right leg. Mr. Rodríguez was greeted by the nurse who verified patients name and . The patient was then taken to the fluoroscopy suite. Mr. Rodríguez was interviewed and the medical record reviewed. There were no medical, pharmacologic, radiographic, or other structural contraindications to attempting fluoroscopically guided lumbar epidural steroid injection. Risks and potential side effects, as well as potential benefits of the procedure were reviewed with Mr. Rodríguez. His voiced concerns were addressed. After I was assured that informed consent was obtained, the patient consent form was signed. Standard time-out procedure was performed. Mr. Rodríguez was placed in the prone position on the fluoroscopy table and automated blood pressure cuff and pulse oximeter applied. The skin entry point for entering/approaching the L4-L5 epidural spacefor the lumbar epidural steroid injection was marked. Following thorough chlorhexadine preparation of the skin and draping and 1% lidocaine infiltration of the skin entry point and subcutaneous tissues, an 18 gauge Touhy needle was placed and advanced under fluoroscopic guidance and with loss of resistance technique into the L4-L5 epidural space. Needle tip placement and depth were aided and confirmed by fluoroscopy. There was no paresthesia or return of blood or CSF through the needle. 2 cc's of Omnipaque 240 was injected with clear epidural spread confirmed with fluoroscopy. 15 mg of preservative-free Dexamethasone (10 mg/cc) was injected. This was followed by 1 cc of preservative-free normal saline to flush the steroid out of the needle. There was not any unusual discomfort expressed by Mr. Rodríguez. Mr. Rodríguez's vital signs were stable throughout the procedure and were as recorded in nursing records. Follow up plans and appointments were discussed with Mr. Rodríguez. The patient is set to follow up with [facility]. Post procedure instruction was given as documented in nursing records and having metdischarge criteria he was discharged from the Pain Management Center. Comments: If this procedure is successful in helping with pain and improving his function, it can becompleted a maximum of 3 times every 12 months. Carlin Reza MD Pain Medicine Fellow [address] [phone] / [facility] CC: Marixa Smith MD [address] [id number] Associated attestation - Jill Sharma MD - 01/25/2021 5:15 PM EST Attestation: Case Date: 01/25/2021 I was the supervising attending for this procedure and I was present during the entire time. Jill Sharma MD 01/25/2021 documented in this encounter Plan of Treatment Upcoming Encounters Date Type Specialty Care Team Description 08/16/2021 Appointment Radiology Mateo Victoria MD [facility] [place] [address] 08/16/2021 Office Visit Pain and Spine Mateo Victoria, Center [facility] [place] [address] 09/22/2021 Hospital Encounter Surgery Mateo Victoria MD [facility] [place] [address] 09/22/2021 Surgery Surgery Mateo Victoria, MD [facility]ETECTOMY & [facility] MEDICAL FORAMINOTOMY,[facility], CENTER ONE LEVEL ([facility] [address]) [place] [address] Scheduled Procedures Name Priority Associated Diagnoses Date/Time LAMINECTOMY, FACETECTOMY & Foraminal stenosis of 09/22/2021 7:30 AM EDT FORAMINOTOMY,LUMBAR, ONE lumbosacral region LEVEL (WRVU 15.37) EA ADD'L VERTEBRAL SEGMENT Foraminal stenosis of 09/22/2021 7:30 AM EDT CERVICAL, THORACIC, LUMBAR lumbosacral region (WRVU 3.47) MODIFIER L5 Foraminal stenosis of 09/22/2021 7:30 AM EDT lumbosacral region MODIFIER S1 Foraminal stenosis of 09/22/2021 7:30 AM EDT lumbosacral region documented as of this encounter Procedures Procedure Name Priority Date/Time Associated Diagnosis Comme nts INJECTION, EPIDURAL, 01/25/2021 1:36 PM EST Foraminal stenosis of LUMBAR OR SACRAL lumbosacral region (CAUDAL), WITH IMAGING GUIDANCE (WRVU 1.8) INJECTION, EPIDURAL, Routine 01/25/2021 1:00 PM EST Foraminal stenosis of LUMBAR OR SACRAL lumbosacral region (CAUDAL), WITH IMAGING GUIDANCE documented in this encounter Visit Diagnoses Diagnosis Radiculopathy of lumbar region - Primary Thoracic or lumbosacral neuritis or radi culitis, unspecified Foraminal stenosis of lumbosacral region Spinal stenosis, lumbar region, without neurogenic claudication Foraminal stenosis of lumbosacral region Spinal stenosis, lumbar region, without neurogenic claudication documented in this encounter Active and Recently Administered Medications Times are shown in EST. PRN Medication Order 01/23/2021 01/24/2021 01/25/2021 dexamethasone (PF) (Decadron) (10 mg/mL) injection (CANCELED) 1340 (Given - Provider: Carlin Reza MD) ONCE PRN, Starting on Mon01/25/21 at 13 40, Until Mon01/25/21 at 1551, Intra- Operative (Intra-Procedure), Routine iohexoL (Omnipaque) (240 mg/mL) solution (CANCELED) 1341 (Given - Provider: Carlin Reza MD) ONCE PRN, Starting on Mon01/25/21 at 13 41, Until Mon01/25/21 at 1551, Intra- Operative (Intra-Procedure), Routine documented in this encounter Care Teams Bill Hiker Relationship Specialty Start Date End Date Marixa Smith MD PCP - General General Internal Medicine 11/20/19 [address] [place] [address] documented as of this encounter
--- OUTSIDE RECORDS SUMMARY | 2021-07-30 00:20 | XMS_ITS | Encounter Summary ---
:1950 Author Organization [facility] [place] [address] Care Team Providers Name Role Phone Marixa Smith MD Primary Care Provider Encounter Details Date Type Department Care Team Description 06/03/2021 Clinical Support [place] [facility] [place]aminal stenosis of lumbos acral region; [facility] Pain in [place] xtremity, [place] [address] Social History Tobacco Use Types Packs/Day Years Used Date Former Smoker Smokeless Tobacco: Never Used Comments: occasional cigars [...] on file documented as of this encounter Progress Notes Gabriela Frias RN - 06/03/2021 2:30 PM EDT PAT questionnaire reviewed with patient while in Pre Admission testing. Pre- operative instruction booklet reviewed. Patient verbalizes a good understanding of all information reviewed. Please call HOME # only for pre-op call (No cell service at his home.) PLAN: Testing: Bloodwork; EKG Special medication instructions: Hold NSAID's and ASA x 7 days. Procedure date: 07/13 Victoria documented in this encounter Plan of Treatment Upcoming Encounters Date Type Specialty Care Team Description 08/16/2021 Appointment Radiology Mateo Victoria MD [facility] [place] [address] 08/16/2021 Office Visit Pain and Spine Mateo Victoria, [place] [facility] [place] [address] 09/22/2021 Hospital Encounter Surgery Mateo Victoria MD [facility] [place] [address] 09/22/2021 Surgery Surgery Mateo Victoria, MD [facility] FACETECTOMY & [facility] FORAMINOTOMY,CHAVA DEMPSEY, [place] [facility] ([facility] SPINE CENTER [address]) [place] [address] Scheduled Procedures Name Priority Associated Diagnoses Date/Time LAMINECTOMY, FACETECTOMY & Foraminal stenosis of 09/22/2021 7:30 AM EDT FORAMINOTOMY,LUMBAR, ONE lumbosacral [facility] EA ADD'L VERTEBRAL SEGMENT Foraminal stenosis of 09/22/2021 7:30 AM EDT CERVICAL, THORACIC, LUMBAR lumbosacral region (VU 3.47) MODIFIER L5 Foraminal stenosis of 09/22/2021 7:30 AM EDT lumbosacral region MODIFIER S1 Foraminal stenosis of 09/22/2021 7:30 AM EDT lumbosacral region documented as of this encounter Procedures Procedure Name Priority Date/Time Associated Diagnosis Comme nts HEMOGRAM Routine 06/03/2021 2:53 PM Foraminal stenosis Res ults for this EDT of lumbosacral procedure are in region the results section. DIFFERENTIAL, Routine 06/03/2021 2:53 PM Foraminal stenosis Re sults for this AUTOMATED EDT of lumbosacral procedure are in region the results section. HC PROTHROMBIN TIME Routine 06/03/2021 2:53 PM Pain in extremi ty, Results for this EDT unspecified procedure are i n extremity the results Foraminal stenosis section. of lumbosacral region HC CBC,PLT & AUTO Routine 06/03/2021 2:53 PM Foraminal stenosi s DIFF EDT of lumbosacral region BASIC METABOLIC Routine 06/03/2021 2:53 PM Foraminal stenosis Results for this PANEL (NON-FASTING) EDT of lumbosacral proced ure are in region the results section. EKG 12-LEAD Routine 06/03/2021 2:41 PM Foraminal stenosis Res ults for this EDT of lumbosacral procedure are in region the results section. documented in this encounter Results (ABNORMAL) Differential, Automated (06/03/2021 2:53 PM EDT) [facility] Method Time Signature Neutrophils % 53.6 % [facility] Neutr Abs (ANC) 1.76 1.70 - [facility] 6.10 [facility] x10(3)/[facility] LABORATORY Lymphocytes % 24.6 % [facility] Lymphocytes Abs 0.8 (L) 0.9 - 3.2 [facility] x10(3)/[facility] LABORATORY Monocytes % 18.5 % [facility] Monocyte Abs 0.6 0.3 - 0.9 [facility] x10(3)/[facility] LABORATORY Eosinophils % 2.7 % [facility] Eosinophils Abs 0.1 0.0 - 0.4 [facility] x10(3)/[facility] LABORATORY Basophils % 0.6 % [facility] Basophils Abs 0.0 0.0 - 0.1 [facility] x10(3)/[facility] LABORATORY Immature Gran % 0.00 % [facility] Comment: Immature granulocytes(IG's)percentage an d absolute count will include metamyelocytes, myelocytes, and promyelo cytes. Blood smears from CBCs yielding IG's will be scanned manually for concor dance. If this scan disagrees with the automated IG or if promyelocytes are not ed, a manual differential will be performed. Malaika Gran Abs 0.00 0.00 - 0.04 x10(3)/[facility] Specimen Anatomical Collection Method Collection Time Receive d Time (Source) Location / / Volume Laterality Blood 06/03/2021 2:53 PM 2 3:08 EDT PM EDT Resulting Agency Comment Spec In Lab Mateo Victoria MD HEMATOLOGY ORDERABLES Performing Organization Address City/State/[place] [address] (ABNORMAL) Hemogram (06/03/2021 2:53 PM EDT) Analysis Performed At Patho logist Time Signature WBC 3.3 (L) 4.0 - 9.5 [facility] x10(3)/[facility] LABORATORY RBC 4.73 4.58 - [facility] 5.54 [facility] x10(6)/[facility] LABORATORY Hemoglobin 15.5 13.7 - [facility] 16.5 g/dL [facility] Hematocrit 45.3 40.5 - [facility] 48.5 % [facility] MCV 95.8 (H) 82.9 - [facility] 93[facility]1 [facility] LABORAT[facility] MCH 32.8 (H) 27.5 - [facility] 32.1 pg [facility] MCHC 34.2 32.0 - [facility] 35.7 g/dL [facility] Platelets 157 145 - 357 [facility] x10(3)/[facility] LABORATORY RDWSD 44.9 36.0 - [facility] 45.0 [facility] LABORATORY RDWCV 12.7 11.4 - [facility] 13.8 % [facility]OR[facility] MPV 10.8 7.6 - 12.9 [facility] LABORATORY nRBC % Auto 0.0 % [facility] nRBC Abs Auto 0.000 0.000 - [facility] 0.000 [facility] x10(3)/[facility] LABORATORY Specimen Anatomical Collection Method Collection Time Receive d Time (Source) Location / / Volume Laterality Blood 06/03/2021 2:53 PM 2 3:08 EDT PM EDT Resulting Agency Comment Spec In Lab Mateo Victoria MD HEMATOLOGY ORDERABLES Performing Organization Address City/State/[place] [address] Basic Metabolic Panel (non-fasting) (06/03/2021 2:53 PM EDT) athologist Signature Glucose Lvl 73 65 - 199 [facility] mg/dL [facility] Comment: Diabetes: >=200 mg/dL plus symp toms BUN 18 10 - 20 mg/dL [facility] Creatinine 0.87 0.80 - 1.50 mg/dL [facility] Sodium 143 135 - 145 mmol/L [facility] Potassium 4.4 3.5 - 5.0 mmol/L [facility] Comment: Please note: ??Patients with WBC >100,00 0 may have falsely elevated Potassium levels. ??For accurate Potassium quantif ication in these patients send serum separator tube (gold top) for subsequent determinations. ??Contact the Clinical Chemistry Laboratory if there are any qu estions. Chloride 106 98 - 107 mmol/L [facility] CO2 26 22 - 31 mmol/L [facility] Anion Gap 11 5 - 15 mmol/L [facility] Calcium 9.2 8.5 - 10.5 mg/dL [facility] Estimated GFR 88 >=60 mL/min/1.73 m?? [facility] Comment: This patient? s estimated glomerular filtration rate (eGFR) is between 88 mL/min/1.73 m2 (patients with less muscl e mass per kg body weight) and 102 mL/min/1.73 m2 (patients with more muscl e mass per kg body weight) as determined by the CKD-EPI equation. Asse ssment of eGFR is not appropriate when creatinine concentrations are rapidly ch anging. For clinical decisions where creatinine clearance will affect therapy , a 24-hour urine creatinine clearance may be advised. Assignment of CKD stage 1 - 5 for patien ts with an eGFR near the transition point between stages may be based on cli nical assessment of muscle mass and symptoms in addition to eGFR. Specimen Anatomical Collection Method Collection Time Receive d Time (Source) Location / / Volume Laterality Blood 06/03/2021 2:53 PM 2 3:08 EDT PM EDT Resulting Agency Comment Spec In Lab Mateo Victoria MD CHEMISTRY ORDERABLES Performing Organization Address [facility] [place] [address] Prothrombin Time (06/03/2021 2:53 PM EDT) P athologist Signature PT 11.1 9.4 - 12.5 [facility] LABORATORY INR 1.0 [facility] Comment: An INR <2.0 indicates adequate procoagul ant activity for hemostasis in most patients without underlying bleeding dis orders, though the INR may not adequately reflect hemostatic capacity i n patients with liver disease and synthetic impairment. The recommended ta rget INR range for therapeutic anticoagulation is 2.0 ? 3.0 for most applications, though lower and higher ranges may be appropriate depending on c linical circumstances. Specimen Anatomical Collection Method Collection Time Receive d Time (Source) Location / / Volume Laterality Blood 06/03/2021 2:53 PM 2 3:08 EDT PM EDT Resulting Agency Comment Spec In Lab Mateo Victoria MD HEMATOLOGY ORDERABLES Performing Organization Address [facility] [place] [address] EKG 12 Lead (06/03/2021 2:41 PM EDT) Component Value Ref Range Test Analysis Performed Pathologis t Method Time At Signature Ventricular rate 44 BPM MUSE SYSTEM Atrial Rate 44 BPM MUSE SYSTEM P-R Interval 196 ms MUSE SYSTEM QRS Duration 100 ms MUSE SYSTEM Q-T Interval 454 ms MUSE SYSTEM QTC Calculated 388 ms MUSE SYSTEM (Bezet) Calculated P [place] 48 degrees MUSE SYSTEM Calculated R [place] 40 degrees MUSE SYSTEM Calculated T [place] 50 degrees MUSE SYSTEM INTERPRETATION Marked sinus bradycardia MUSE SYSTEM Abnormal ECG When compared with ECG of 12-FEB-2015 12:33, No significant change was found Confirmed by Richard Myers ([id number]) on 06/07/2021 2:01:5 8 PM Specimen Anatomical Collection Method Collection Time Receive d Time (Source) Location / / Volume Laterality 06/03/2021 2:41 PM 2 2:01 EDT PM EDT Mateo Victoria MD ECG ORDERABLES Performing Organization Address City/State/ZIP Code Phon e Number MUSE SYSTEM documented in this encounter Visit Diagnoses Diagnosis Foraminal stenosis of lumbosacral region Spinal stenosis, lumbar region, without neurogenic claudication Pain in extremity, unspecified extremity Foraminal stenosis of lumbosacral region Spinal stenosis, lumbar region, without neurogenic claudication documented in this encounter Care Teams Pulmonary Specialist Relationship Specialty Start Date End Date Marixa Smith MD PCP - General General Internal Medicine 11/20/19 [address] [place] [address] documented as of this encounter
--- OUTSIDE RECORDS SUMMARY | 2021-07-30 00:20 | XMS_ITS | Encounter Summary ---
:1950 Author Organization [facility] [place] [address] Care Team Providers Name Role Phone Marixa Smith MD Primary Care Provider Encounter Details Date Type Department Care Team Description 05/10/2021 Telephone Pain [place] Spine Sophie [place] [facility] Delmi Emmanuel, [facility] [place] [address] Social History Tobacco Use Types Packs/Day Years [...] on file documented as of this encounter Miscellaneous Notes Telephone Encounter - Delmi Emmanuel RN - 05/10/2021 8:47 AM EDT Outgoing call was made to pt to review pre-procedure questions, phone line busy times three attempts. documented in this encounter Plan of Treatment Upcoming Encounters Date Type Specialty Care Team Description 08/16/2021 Appointment Radiology Mateo Victoria MD [facility] [place] [address] 08/16/2021 Office Visit Pain and Spine Mateo Victoria, [place] [facility] [place] [address] 09/22/2021 Hospital Encounter Surgery Mateo Victoria MD [facility] [address] 09/22/2021 Surgery Surgery Mateo Victoria, LAMINECTOMY , FACETECTOMY & ONE MEDICAL FORAMINOTOMY,CHAVA [facility] SPINE CENTER [address]) [place] [address] Scheduled Procedures Name Priority Associated Diagnoses Date/Time LAMINECTOMY, FACETECTOMY & Foraminal stenosis of 09/22/2021 7:30 AM EDT FORAMINOTOMY,LUMBAR, ONE lumbosacral region LEVEL [facility] EA ADD'L VERTEBRAL SEGMENT Foraminal stenosis of 09/22/2021 7:30 AM EDT CERVICAL, THORACIC, LUMBAR lumbosacral region (VU 3.47) MODIFIER L5 Foraminal stenosis of 09/22/2021 7:30 AM EDT lumbosacral region MODIFIER S1 Foraminal stenosis of 09/22/2021 7:30 AM EDT lumbosacral region documented as of this encounter Visit Diagnoses Not on filedocumented in this encounter Care Teams Chaplain Relationship Specialty Start Date End Date Marixa Smith MD PCP - General General Internal Medicine 11/20/19 [address] [place] [address] documented as of this encounter
--- OUTSIDE RECORDS SUMMARY | 2021-07-30 00:20 | XMS_ITS | Encounter Summary ---
:1950 Author Organization [facility] [place] [address] Care Team Providers Name Role Phone Marixa Smith MD Primary Care Provider Reason for Visit Auth/Cert Specialty Diagnoses / Procedures Referred By Contact Refer red To Contact Diagnoses L3-[address] Victoria Note Procedures PRO INJECTION DX/THER SBST INTRLMNR LMBR/SAC W/IMG GDN INJECTION, EPIDURAL, LUMBAR OR SACRAL (CAUDAL), WITH IMAGING GUIDANCE (WRVU 1.8) Referral ID Status Reason Start Date Expiration Date Visits Requ ested Visits Authorized [id number] 1 1 Encounter Details Date Type Department Care Team Description 05/14/2021 Ancillary Procedure Pain Management Marquez Monae MD [facility] [place] [address] [place] [address] [phone] Social History Tobacco Use Types Packs/Day Years [...] on file documented as of this encounter Plan of Treatment Upcoming Encounters Date Type Specialty Care Team Description 08/16/2021 Appointment Radiology Mateo Victoria MD [facility] [place] [address] 08/16/2021 Office Visit Pain and Spine Mateo Victoria, [place] [facility] [place] [address] 09/22/2021 Hospital Encounter Surgery Mateo Victoria MD [facility] [place] [address] 09/22/2021 Surgery Surgery Mateo Victoria, MAKENZIEECTOMY , FACETECTOMY & ONE MEDICAL FORAMINOTOMY,CHAVA DEMPSEY, [place] [facility] ([facility] SPINE CENTER [address]) [place] [address] Scheduled Procedures Name Priority Associated Diagnoses Date/Time [...] Name Priority Date/Time Associated Diagnosis Comme nts FILM LIBRARY Routine 05/14/2021 1:25 PM Results f or this STORAGE ONLY PAIN EDT procedure are in CLINIC [facility] the results section. documented in this encounter Results Film Library- Storage Only pain Clinic [facility] (05/14/2021 1:25 PM EDT) Specimen (Source) Anatomical Location Collection Method / Collectio n Time Received Time / Laterality Volume Narrative [facility] - 05/14/2021 1:25 PM EDT See PACS for result report. Jill Sharma MD IMG FILM LIBRARY ORDERABLES Performing Organization Address City/State/ZIP Code Phon e Number RAD [place], [place] documented in this encounter Visit Diagnoses Not on filedocumented in this encounter Care Teams Casing Wringer Operator Relationship Specialty Start Date End Date Marixa Smith MD PCP - General General Internal Medicine 11/20/19 [address] [place] [address] documented as of this encounter
--- OUTSIDE RECORDS SUMMARY | 2021-07-30 00:20 | XMS_ITS | Encounter Summary ---
:1950 Author Organization [facility] [place] [address] Care Team Providers Name Role Phone Marixa Smith MD Primary Care Provider Encounter Details Date Type Department Care Team Description 03/29/2021 Telephone Pain and Spine Sophie rice at [facility] [place] [address] Social History Tobacco Use Types Packs/Day [...] this encounter Miscellaneous Notes Telephone Encounter - Kiana Lema - 03/29/2021 1:54 PM EST 03/29/2021 Returned patient's voicemail from 03/29/21 regarding scheduling a F/U with julisa . Note : F/U S/P 01/21/21 documented in this encounter Plan of Treatment Upcoming Encounters Date Type Specialty Care Team Description 08/16/2021 Appointment Radiology Mateo Victoria MD [facility] [place] [address] 08/16/2021 Office Visit Pain and Spine Mateo Victoria, [place] [facility] [place] [address] 09/22/2021 Hospital Encounter Surgery Mateo Victoria MD [facility] [place] [address] 09/22/2021 Surgery Surgery Mateo Victoria, MAKENZIEECTOMY MD FACETECTOMY & ONE MEDICAL FORAMINOTOMY,CHAVA [facility] [facility] SPINE CENTER [address]) [place] [address] Scheduled Procedures Name Priority Associated Diagnoses Date/Time LAMINECTOMY, FACETECTOMY & Foraminal stenosis of 09/22/2021 7:30 AM EDT FORAMINOTOMY,LUMBAR, ONE lumbosacral [facility] EA ADD'L VERTEBRAL SEGMENT Foraminal stenosis of 09/22/2021 7:30 AM EDT CERVICAL, THORACIC, LUMBAR lumbosacral region (VU 3.47) MODIFIER L5 Foraminal stenosis of 09/22/2021 7:30 AM EDT lumbosacral region MODIFIER S1 Foraminal stenosis of 09/22/2021 7:30 AM EDT lumbosacral region documented as of this encounter Visit Diagnoses Not on filedocumented in this encounter Care Teams Helicopter Pilot Instructor Relationship Specialty Start Date End Date Marixa Smith MD PCP - General General Internal Medicine 11/20/19 [address] [place] [address] documented as of this encounter
--- OUTSIDE RECORDS SUMMARY | 2021-07-30 00:20 | XMS_ITS | Encounter Summary ---
:1950 Author Organization [facility] [place] [address] Care Team Providers Name Role Phone Marixa [...] Expiration Date Visits Requ ested Visits Authorized [id number] 1 1 Encounter Details Date Type Department Care Team Description 05/14/2021 Surgery Pain Management Jill Monae MD INJECTION, ANESTHETIC [facility] AGE NT AND/OR STEROID, Hospital TRANSFORAMINAL EPIDURAL, [facility] PAIN MANAGEME NT LUMBAR OR SACRAL, [place] [address] ADDITIONAL LEVEL (WRVU 1) [place] [address] [phone] Social History Tobacco Use Types Packs/Day Years [...] Sign Reading Time Taken Comments Blood Pressure 153/76 05/14/2021 7:33 AM EDT Pulse 55 05/14/2021 7:33 AM EDT Temperature - - Respiratory Rate - - Oxygen Saturation 100% 05/14/2021 7:33 AM EDT Inhaled Oxygen Concentration - - Weight 88.5 kg (195 lb) 05/14/2021 7:33 AM EDT Height 182.9 cm (6') 05/14/2021 7:33 AM EDT Body Mass Index 26.45 05/14/2021 7:33 AM EDT documented in this encounter Discharge Instructions Discharge InstructionsClifford Trotter - 05/14/2021 7:27 AM EDT Pain Management Center Discharge Instructions: You were seen today by Surgeon(s): Jill Sharma MD The following was performed: Procedure(s) (LRB): INJECTION, ANESTHETIC AGENT AND/OR STEROID, TRANSFORAMINAL EPIDURAL, LUMBAR OR SACRAL, EACH ADDITIONAL LEVEL (WRVU 1) (Right) INJECTION, ANESTHETIC AGENT AND/OR STEROID, TRANSFORAMINAL EPIDURAL, LUMBAR OR SACRAL, SINGLE LEVEL (WRVU 1.9) (Right) It is normal that the injection site will be sore for up to 48 hours. [x] You may also experience mild stiffness in the joint near the injection site. You may resume your normal activities: tomorrow. You may shower today. DO NOT [...] your bladder 4-6 hours after your procedure. [ ] If you have diabetes, monitor your blood sugars frequently. If your blood sugar increases and isof concern, contact your Primary Care Provider. You received the following medications: Medications Given During Procedure Date/Time Order Dose Route Action 05/14/2021 0838 dexamethasone (PF) (Decadron) (10 mg/mL) injection 15 mg Intra- articular Given 05/14/2021 0839 iohexoL (Omnipaque) (240 mg/mL) solution 1 mL Intra-articular Given 05/14/2021 0839 lidocaine (pf) (Xylocaine) (10 mg/mL) 1% injection 1 mL Intra- articular Given During regular business hours, please phone [...] or proceed to your local emergency department. Clifford Trotter Special instructions documented in this encounter Medications at Time of Discharge Medication Sig Dispensed Refills Start Date End Date celecoxib (CeleBREX) 200 Take 1 capsule by 30 capsule 1 03/10 mg Capsule mouth daily. zolpidem (Ambien) 5 mg Take 1 tablet by 0 021 Tablet mouth nightly as needed. acetaminophen (TYLENOL) Take 1,300 mg by 0 650 mg Tablet Sustained mouth every 8 hours Release as needed for Pain. Do not exceed 6 tabs in 24 hours naproxen sodium (ANAPROX) Take 440 mg by mouth 0 220 mg Tablet as needed. amoxicillin (Amoxil) 500 Take 2,000 mg by 0 04/08 mg Capsule mouth as needed. sildenafiL (VIAGRA) 100 mg 100 mg daily as 0 03/0 02/2020 Tablet needed. flu vacc [id number] ADM 0.7ML IM UTD 0 2019 up,/PF (FluZONE HighDose Quad 20-21 PF) 240 mcg/0.7 mL Syringe ascorbic acid, vitamin C, Take 1,000 mg by 0 (VITAMIN C) 1,000 mg mouth daily. *taking Tablet 2,000 mg a day* Zinc 50 mg Tablet Take 1 tablet by 0 mouth daily. aspirin 81 mg Tablet, Take 81 mg by mouth 0 Delayed Release (E.C.) daily. multivitamin (THERAGRAN) Take 1 tablet by 0 Tablet mouth daily. atorvastatin (LIPITOR) 20 Take 1 tablet by 30 tablet 3 09/2015 mg Tablet mouth every evening. documented as of this encounter H&P Notes Jill Sharma MD - 05/14/2021 8:24 AM EDT Patient Name: Jose Eduardo Rodríguez Patient Age: 70 y.o. Birthdate: 1950 Admit date: 05/14/2021 Attending Physician: Jill Sharma MD PREPROCEDURE HISTORY AND PHYSICAL Date of Visit: May 14, 2021 Chief Complaint: Right lateral thigh, knee & posterior thigh HPI: Subjective Jose Eduardo Rodríguez is a 70 y.o. male who presents today for LESI referred by Ms Crsis Mares APRN. Patient had been evaluated by Dr Victoria on 04/12/2021. Patient has MRI L spine finding notable for L5-S1 foraminal stenosis and central stenosis at L3-4. Patient reports he can walk for 2-3 miles but the severe burning sensation involving the posterior-lateral thigh down the right foot is what bothers him the most. He also expressed that he was hoping to hear from Dr Victoria that there would be a perfect surgical solution for his current symptoms. He was told that there are two areas that maybe causing the problem and the surgery sounded extensive to him. He is hoping today's injection can result in some degree of pain relief. The history is obtained from the patient, and I have reviewed medical records provided by the referring physician and located in the electronic medical record to fill in gaps in the patient's recollection of events, treatments and outcomes. LOCATION: Right leg pain. PAIN LEVEL AT REST 5/10 PAST MEDICAL HISTORY: Past Medical History: Diagnosis Date ??? HLD (hyperlipidemia) ??? WI (myocardial infarction) ??? Radiculopathy of lumbar region 12/07/2020 PAST SURGICAL HISTORY: Past Surgical History: Procedure Laterality Date ??? CORONARY ANGIOPLASTY WITH STENT PLACEMENT ??? CT GUIDED INJECTION SI JOINT 02/19/2019 CT Guided Injection SI Joint 02/19/2019 [facility] RAD CAT SCAN ??? PRO INJ, FORAMEN, L/S, 1 LEVEL Right 12/08/2020 INJECTION, ANESTHETIC AGENT AND/OR STEROID, TRANSFORAMINAL EPIDURAL, LUMBAR OR SACRAL, SINGLE LEVEL(WRVU 1.9) performed by Kiana Canchola MD at [facility] PAIN MGMT MSO ??? PRO INJECTION DX/THER SBST INTRLMNR LMBR/SAC W/IMG GDN Right 01/25/2021 INJECTION, EPIDURAL, LUMBAR OR SACRAL (CAUDAL), WITH IMAGING GUIDANCE (WRVU 1.8) performed by Jill Sharma MD at [facility] PAIN MGMT MSO ALLERGIES: Patient has no known allergies. MEDICATIONS: No current facility-administered medications on file prior to encounter. Current Outpatient Medications on File Prior to Encounter Medication Sig Dispense Refill ??? zolpidem (Ambien) 5 mg Tablet Take 1 tablet by mouth nightly as needed. ??? acetaminophen (TYLENOL) 650 mg Tablet Sustained Release Take 1,300 mg by mouth every 8 hours as needed for Pain. Do not exceed 6 tabs in 24 hours ??? naproxen sodium (ANAPROX) 220 mg Tablet Take 440 mg by mouth as needed. ??? amoxicillin (Amoxil) 500 mg Capsule Take 2,000 mg by mouth as needed. ??? Zinc 50 mg Tablet Take 1 tablet by mouth daily. ??? aspirin 81 mg Tablet, Delayed Release (E.C.) Take 81 mg by mouth daily. ??? multivitamin (THERAGRAN) Tablet Take 1 tablet by mouth daily. ??? atorvastatin (LIPITOR) 20 mg Tablet Take 1 tablet by mouth every evening. (Patient taking differently: Take 40 mg by mouth every morning.) 30 tablet 3 ??? celecoxib (CeleBREX) 200 mg Capsule Take 1 capsule by mouth daily. (Patient not taking: No sig reported) 30 capsule 1 ??? sildenafiL (VIAGRA) 100 mg Tablet 100 mg daily as needed. ??? flu vacc [id number],65yr up,/PF (FluZONE HighDose Quad 20-21 PF) 240 mcg/0.7 mL Syringe ADM 0.7MLIM UTD ??? ascorbic acid, vitamin C, (VITAMIN C) 1,000 mg Tablet Take 1,000 mg by mouth 2 times daily. FAMILY HISTORY: Family History Problem Relation Age [...] on file Housing Stability: Not on file ROS: Denies fever, chills, SOB, abdominal pain, leg weakness/numbnes, arm weakness/numbness, bowel or bladder incontinence, balance issues PHYSICAL EXAM: BP 153/76 (Patient Position: Sitting) Pulse 55 Ht 182.9 cm (6') Wt 88.5 kg (195 lb) SpO2 100% BMI 26.45 kg/m?? Physical Exam Vitals reviewed. Pulmonary: Effort: Pulmonary effort is normal. Musculoskeletal: General: No tenderness. Comments: Positive straight leg raise Skin: General: Skin is warm and dry. Findings: No erythema. Neurological: Mental Status: He is alert. LABS/DX RESULTS: Last 3 wbc, hgb, hct plt No results for input(s): WBC, HGB, HCT, PLATELET in the last 7068 hours. Last 3 Lytes No results for input(s): NA, K, CL, CO2, BUN, CREATININE in the last 7068 hours. Last 3 LFTs No results for input(s): AST, ALT, ALKPHOS, BILITOT, BILIDIR in the last 7068 hours. Last 3 Coags No results for input(s): PT, INR, PTT in the last 168 hours. Last 3 HgbA1C No results for input(s): HA1C in the last 7068 hours. ASSESSMENT: Assessment 1. Foraminal stenosis of lumbosacral region PLAN: - right L4, L5 TFESI Jill Sharma MD Product Support Analyst of Anesthesiology [facility] [address] [id number] / [facility] documented in this encounter Miscellaneous Notes Op Note - Jill Sharma MD - 05/14/2021 8:38 AM EDT Pain Management Operative Note Patient Name: Jose Eduardo Rodríguez : [id number] MR#: [id number] Case Date: 05/14/2021 Surgeon: Surgeon(s) and Role: * Jill Sharma MD - Primary Present on Admission: ??? Radiculopathy of lumbar region ??? Foraminal stenosis of lumbosacral region Postoperative diagnosis: same as above Procedure(s) (LRB): INJECTION, ANESTHETIC AGENT AND/OR STEROID, TRANSFORAMINAL EPIDURAL, LUMBAR OR SACRAL, EACH ADDITIONAL LEVEL (WRVU 1) (Right) INJECTION, ANESTHETIC AGENT AND/OR STEROID, TRANSFORAMINAL EPIDURAL, LUMBAR OR SACRAL, SINGLE LEVEL (WRVU 1.9) (Right) PROCEDURE NOTE Transforaminal Epidural Steroid Injection with Fluoroscopic Guidance at right L4-5, L5-S1 Chief Complaint: right leg pain. Jose Eduardo Rodríguez has been referred to the [facility] for Lumbar Transforaminal Epidural Steroid Injection right L4 and L5 COMMENTS: Referring provider: Dr. Smith Allergies: No Known Allergies Pre-procedure VAS: 8/10 to the right leg. Follow up plan: Ms Criss Mares APRN and Dr Victoria depending on his response from today's response. Patient reports that injection done by Dr Canchola in 2019 provided excellent pain relief that lasted for almost 12 months but subsequent injection has been mariginally helpful. review of medical record indicates that patient had right L5 TFESI. Patient has had L5-S1 interlaminar and L4-5 interlaminarepidural steroid injection with some pain relief, but each lasting for 2.5 years. MRI of the lumbar spine from 01/06/2021 was reviewed. This shows degenerative changes throughout the lumbar spine. At L3-L4, there is moderate to severe central lateral recess stenosis. L4-L5, there is moderate bilateral foraminal narrowing. At L5-S1, there is moderate to severe right and moderate left foraminal narrowing. Jose Eduardo Rodríguez was greeted by the nurse who verified patients name and . Patient was then taken to the fluoroscopy suite. Mr. Rodríguez was interviewed and the medical record reviewed. There were no medical, pharmacologic, radiographic or other structural contraindications to attempting fluoroscopically guided transforaminallumbar epidural steroid injection. The risks, benefits, and potential side effects were reviewed with the patient. Risk include, but not limited to, post dural puncture, headache, infection, nerve injury, allergic reaction, possible increase in symptoms over the ensuing 24 to 48 hours, and paralysis. The patient appeared to understand, questions were answered and the patient agreed to proceed. Once Iobtained informed verbal consent, the printed consent form was signed by the patient and myself. Standard time-out procedure was performed. TECHNIQUE: After informed written consent was obtained the patient was placed in the prone position. The lumbar spine spine was prepped with chloraprep and draped. Sterile technique was observed during the entire procedure ( cap, gloves, and mask were worn). Vitals signs were monitored throughout the procedure. The right side was marked with a radioopaque marker. The skin and subcutaneous structureswere anesthetized with lidocaine 1% to a total volume of 3 ML at each level. Under fluoroscopic guidance, in ipsilateral oblique view, co-axial approach, 22 gauge 5'' spinal needle(s) were advanced to the base of the L-4. pedicle(s). The needle(s) were advanced to the superio-posterior aspect of the neural foramen under lateral view. Oblique and AP views were rechecked. Under AP view Omnipaque 240 0.5 cc's was injected while visualized with fluoroscopy. There was no evidence of intravascular uptake, the epidural space was delineated. 7.5 mg Dexamethasone was injected after negative aspiration, at each level, followed by lidocaine 1% 1.0-ML at each level. Using the same technique, the right L5 nerve root was targeted in the following fashion. The lumbar spine spine was prepped with chloraprep and draped. Sterile technique was observed during the entire procedure ( cap, gloves, and mask were worn). Vitals signs were monitored throughout the procedure. The right side was marked with a radioopaque marker. The skin and subcutaneous structures were anesthetized with lidocaine 1% to a total volume of 3 ML at each level. Under fluoroscopic guidance, in ipsilateral oblique view, co-axial approach, 22 gauge 5'' spinal needle(s) were advanced to the base of the L-5. pedicle(s). The needle(s) were advanced to the superio-posterior aspect of the neural foramen under lateral view. Oblique and AP views were rechecked. Under AP view Omnipaque 240 0.5 cc's was injected while visualized with fluoroscopy. There was no evidence of intravascular uptake, the epidural space was delineated. 7.5 mg Dexamethasone was injected after negative aspiration, at each level, followed by lidocaine 1% 1.0-ML at each level. Outcome: The patient tolerated the procedure well and had stable vital signs. The patient noted after getting up after the procedure that their right leg pain was at a 0 out of 10 level. Follow up plans and appointments were discussed with Mr. Rodríguez. The patient was observed in the pain clinic and then discharged after having met discharge criteria to the care of a city route driver. The patientreceived written instructions as documented in nursing records. Disposition: Mr. Rodríguez was discharged from the procedure suite without new neurological complaints. Follow-up: Follow up with Dr. Smith as scheduled or PRN. I personally performed the entire procedure. Jill Sharma MD ABPN-subspecialty board certification in Pain Medicine Attending Physician-Pain Management CC: Marixa Smith MD [address] [place] [phone] documented in this encounter Plan of Treatment Upcoming Encounters Date Type Specialty Care Team Description 08/16/2021 Appointment Radiology Mateo Victoria MD [facility] [address] 08/16/2021 Office Visit Pain and Spine Mateo Victoria, Center [facility] [place] [place] [address] 09/22/2021 Hospital Encounter Surgery Mateo Victoria MD [facility] [place] [address] 09/22/2021 Surgery Surgery Mateo Victoria, LAMINECTOMY , FACETECTOMY & [facility] FORAMINOTOMY,CHAVA HOLLOWAYHI, MUNGER [facility] [address] [place] [address] Scheduled Procedures Name Priority Associated Diagnoses Date/Time [...] Priority Date/Time Associated Diagnosis Comme nts INJECTION, ANESTHETIC 05/14/2021 8:32 AM Foraminal val nosis of AGENT AND/OR STEROID, EDT lumbosacral region TRANSFORAMINAL EPIDURAL, LUMBAR OR SACRAL, SINGLE LEVEL (WRVU 1.9) INJECTION, ANESTHETIC 05/14/2021 8:32 AM Foraminal val nosis of AGENT AND/OR STEROID, EDT lumbosacral region TRANSFORAMINAL EPIDURAL, LUMBAR OR SACRAL, EACH ADDITIONAL LEVEL (WRVU 1) INJ, ANES AGENT/STEROID, Routine 05/14/2021 8:28 AM Foraminal stenosis of TRANSFORAMINAL EPI, EDT lumbosacral region LUMBAR/SACRAL, EA ADDL LEVEL INJ, ANES AGENT/STEROID, Routine 05/14/2021 8:28 AM Foraminal stenosis of TRANSFORAMINAL EPI, EDT lumbosacral region LUMBAR/SACRAL, SINGLE LEVEL documented in this encounter Visit Diagnoses Diagnosis Foraminal stenosis of lumbosacral region Spinal stenosis, lumbar region, without neurogenic claudication Foraminal stenosis of lumbosacral region Spinal stenosis, lumbar region, without neurogenic claudication Foraminal stenosis of lumbosacral region Spinal stenosis, lumbar region, without neurogenic claudication documented in this encounter Administered Medications Inactive Administered Medications - up to 3 most recent administrations Medication Order MAR Action Action Date Dose Rate Site dexamethasone (PF) (Decadron) (10 Given 05/14/2021 8:38 AM EDT 1 5 mg mg/mL) injection ONCE PRN, Starting on Mon05/14/21 at 0838, Until Mon05/14/21 at 1104, Intra-Operative (Intra-Procedure), Routine iohexoL (Omnipaque) (240 mg/mL) solution Given 05/14/2021 8:39 AM EDT 1 mL ONCE PRN, Starting on Mon05/14/21 at 0839, Until Mon05/14/21 at 1104, Intra-Operative (Intra-Procedure), Routine lidocaine (pf) (Xylocaine) (10 mg/mL) 1% Given 05/14/2021 8:39 A M EDT 1 mL injection ONCE PRN, Starting on Mon05/14/21 at 0839, Until Mon05/14/21 at 1104, Intra-Operative (Intra-Procedure), Routine documented in this encounter Active and Recently Administered Medications Times are shown in EDT. PRN Medication Order 05/12/2021 05/13/2021 05/14/2021 dexamethasone (PF) (Decadron) (10 mg/mL) injection (CANCELED) 0838 (Given - Provider: Jill Sharma MD - Comment: right lumbar TFESI) ONCE PRN, Starting on Mon05/14/21 at 0838 , Until Mon05/14/21 at 1104, Intra- Operative (Intra-Procedure), Routine iohexoL (Omnipaque) (240 mg/mL) solution (CANCELED) 0839 (Given - Provider: Jill Sharma MD - Comment: right lumbar TFESI) ONCE PRN, Starting on Mon05/14/21 at 0839 , Until Mon05/14/21 at 1104, Intra- Operative (Intra-Procedure), Routine lidocaine (pf) (Xylocaine) (10 mg/mL) 1% injection (CANCELED) 0839 (Given - Provider: Jill Sharma MD - Comment: right lumbar TFESI) ONCE PRN, Starting on Mon05/14/21 at 0839 , Until Mon05/14/21 at 1104, Intra- Operative (Intra-Procedure), Routine documented in this encounter Care Teams Import Dispatcher Relationship Specialty Start Date End Date Marixa Smith MD PCP - General General Internal Medicine 11/20/19 [address] [place] [address] documented as of this encounter
--- OUTSIDE RECORDS SUMMARY | 2021-07-30 00:20 | XMS_ITS | Encounter Summary ---
:1950 Author Organization [facility] [place] [address] Care Team Providers Name Role Phone Marixa Smith MD Primary Care Provider Reason for Referral Consultation (Routine) - Authorized Specialty Diagnoses / Procedures Referred By Contact Refer red To Contact Pain and Spine Center Diagnoses Foraminal stenosis of lumbosacral region surgical consult right L5 symptoms with foraminal stenosis/ MRI 01/06/21 in edh/ xray prior Criss Mares, [facility] And NON PROFIT JOB TITLES Spine [facility] [address] [place] [phone] Fax: Referral ID Status Reason Start Date Expiration Visits Visits Date Requested Authorized [id number] Authorized Consult, 03/30/2021 03/30/2022 3 3 Test & Treat Reason for Visit Reason Comments Follow-up S/P 01/21/21 Encounter Details Date Type Department Care Team Description 03/30/2021 Office Visit Pain [facility] Spine Center Criss Mares F oraminal stenosis of at [facility] NON PROFIT JOB TITLES lumbosacral region [facility] (Pr imary Dx) Rmairo Perdomo PA PAIN MEDICINE [id number] [place] [address] [phone] Social History Tobacco Use Types Packs/Day Years [...] Sign Reading Time Taken Comments Blood Pressure 137/69 03/30/2021 10:22 AM EST Pulse 48 03/30/2021 10:22 AM EST Temperature - - Respiratory Rate - - Oxygen Saturation 99% 03/30/2021 10:22 AM EST Inhaled Oxygen Concentration - - Weight 88.5 kg (195 lb) 03/30/2021 10:22 AM EST Height 182.9 cm (6') 03/30/2021 10:22 AM EST Body Mass Index 26.45 03/30/2021 10:22 AM EST documented in this encounter Patient Instructions Patient InstructionsCriss Mares APRN - 03/30/2021 10:56 AM EST XR here Change to celebrex Surgical consult in spine' FU with me PRN documented in this encounter Progress Notes Criss Mares APRN - 03/30/2021 10:40 AM EST Images from the original note were not included. [facility] [place] [address] Phone: PAIN MANAGEMENT FOLLOW UP NOTE DATE OF VISIT 03/29/2021 Patient Jose Eduardo Rodríguez 1950 REFERRING PROVIDER Marixa Smith MD [address] [place] [address] PRIMARY CARE PROVIDER Marixa Smith MD CHIEF COMPLAINT: Jose Eduardo Rodríguez is a 70 y.o.male with Right lateral leg pain, who is seen in consultation at the request of Marixa Smith MD [address] [place] [address]. for evaluation, recommendations, and management.The history is obtained from the patient, and I have reviewed medical records provided by the referring physician and located in the electronic medical record to fill in gaps in the patient's recollection of events, treatments and outcomes. Goal of visit: See if there is anything that can be done to help his right sided leg symptoms and to answer questions HPI The patient is a pleasant, 69-year-old gentleman who reports that he has had right sided leg pain that bothers him after 10 to 15 minutes of walking for about a year. He has done physical therapy and still sees his therapist locally. He has done a trial of gabapentin is currently titrated up to 300 mg3 times a day, he takes an NSAID, he has had a facet injection by an cydney Tilley. The gabapentinhas not really made a difference, the NSAIDs do not really help, the physical therapy does help but he finds that he has to lie down on the grass or on the ground while hiking and then he can continue to walk again for another 15 or 20 minutes and finds this problematic. The injection with Dr. Jenniffer Kemp did help for about 3 weeks. His symptoms are predominantly leg symptoms although he does have some right buttock pain. Of note, he had an SI joint injection on the right done here at [facility] inthe early part of this year without any relief. Symptoms occur daily several times a day he is quiteactive hiking, biking, walking, hunting, and symptoms are alleviated by flexion and rest and exacerbated by walking and they can get up to 9-10 on a scale of 10. Interval history: I spoke with the patient by telephone regarding his steroid injection done 12/30/[address] Canchola. He reports he is doing quite well. He felt good right off the bat. He felt that he had a good hunting season has been outside walking and hiking more than usual this season and is planning to do so so again today to it. He still doing his exercises for his back and is added in an inversion table which he is used periodically for years doing about 2 to 3 minutes at a time. He feels as if it helps. He reports that he likes the approach and the care that he got here and likes the fact that he had a plan and knew who to contact. Updated interval history 05/28/2020: Jose Eduardo is here for follow-up. He is experiencing some neck issues at the base of his neck. The symptoms have been present for quite some time. I previously saw him for low back pain and right leg pain and he had a steroid injection done by Dr. Canchola in November of last year which good resolution of hisright leg symptoms although he is having some minimal recurrence of symptoms that can get up to 5 luisana scale of 10. His neck pain has been present for years. He has had bilateral shoulder revisions andhe thought that that would lessen his symptoms and they have but he still has pain up into the neck radiating behind the ear occasionally he went for a long cycle, approximately 30 miles which exacerbated his symptoms. The pain is left more than right. Pain in the leg can be up to 5 on a scale of 10. This seems to be more problematic. There is no numbness, tingling, weakness. And no radiation of painoutside of in the left greater than right slightly behind the ear. Updated interval history 08/20/2020: Jose Eduardo is here to follow-up regarding his left-sided neck pain. He reports that he has done some Sergei PT in [facility] and while he did see some improvement in range of motion, he did not really see any benefit from the traction which was disappointing and hecan participate in his activities of daily living and he is an avid outdoorsman including hiking buthe still has pain that sometimes will get also give him a headache. The pain gets up to 5-6 on a scale of 10. He was previously treated for back pain very successfully with a L5-S1 epidural. Pain levelis starting to creep back up in that area as well and is wondering if he may need another injection.Today's chief complaint however is the left-sided neck pain. Most recent updated interval history 12/24/2020: Jose Eduardo is here for follow-up after his most recent steroid injection done by Dr. Canchola on 08 December and this was a repeat L5-S1 right-sided foraminal injection with Depo-Medrol. It was a repeat of previous injection after which she got 100% relief. Unfortunately this time he does not feel like he got any relief at all. Continues to have pain in his lateral leg. He tries to go hunting and he is unable to do this. He Persists with cyst and when he doeshe is in a lot of pain afterwards. He tries to do the stretches that he has been instructed in physical therapy but they do not always work. Is having pain down the lateral aspect predominantly above the knee but sometimes goes below the knee to the lateral calf. He feels the symptoms have not gotten any better and in the matter fact may have gotten worse. He has continued to do his physical therapy exercises as instructed without any break and is no longer finding them effective. Pain. Updated interval history 03/30/2021: Jose Eduardo is here for follow-up. He has foraminal stenosis at L5-S1 and at L4-5 and also at L3-4 centralstenosis. He is a very active and fit appearing 70-year-old gentleman who looks younger than his stated age. I have been seeing him for a couple of years and he is tried a couple of steroid injections the 1st was done in December [address] Canchola and was a right transforaminal injection with 10 mgof Decadron. This gave him about 100% relief for a year. We repeated that injection with again Dr. Canchola and the same steroid at the same level in December 2020 and he had less good response. Finally we repeated the injection at L4-[address] Sharma but unfortunately that only helped him for a couple of w eeks. In the meantime, I [facility] him [facility] She was able to help him somewhat with some flexion exercises and he can do his snowshoeing which she does several times a week for a couple of hours but has to stop multiple times and do some flexion exercises. He also rides a bicycle which he finds easier and he does some exercises onhis own in the evening and he does flexion exercises in the morning which are helpful. His pain can be anywhere from 0 when he is sitting to 10 on a scale of 10 when he is hiking or snowshoeing and it averages around 5. He takes Naprosyn alternating with Tylenol with some relief. He is not particularly interested in taking a lot of medication. He is wondering what else could be done for his symptoms. most recent MRI or Xray: No flowsheet data found. FUNCTIONAL HISTORY Work:retired Interference with activities/ADL:no Exercise/activities: Walks, hikes and hunts CURRENT THERAPIES: Tylenol aleve Gabapentin 300 mgs for 3-4 weeks Occasional PT PAST THERAPIES: Facet injection PT CT guided SI joint injection REVIEW OF SYSTEMS: Constitutional: denies fever, chills, cough, signs of infection, weight changes, fatigue HEENT: Denies headaches, blurry/limited vision, photophobia, difficulty hearing, Cardiac:denies chest pain or pressure, lower extremity edema Lungs: denies SOB on exertion GI: denies constipation or diarrhea, black tarry stool, loss of control; : denies frequency, urgency, hesitation, or incontinence Neuro: denies dizziness, numbness, seizures, tremors Muscle skeletal: denies use of ambulatory aide, falls Skin: denies open sores or rashes Psychological/Mood: Not bad, irritable Sleep sometimes, early To bed RELEVANT SOCIAL HISTORY: Lives with: alone Smoking:no Alcohol: present and past: yes, weekly Illegal/prescription drug misuse past/present:no Are you now or in past received methadone or suboxone (buprenorphine) for substance abuse? no Ever participated in drug or alcohol rehabilitation program? no Share your pain medications or accepted pain medications from family/friends?no History of incarceration? MEDICATIONS [facility] Prescription Monitoring Program was checked and no concerns were identified. Medications 01/25/21 1304 Medication Sig Taking? zolpidem (Ambien) 5 mg Tablet Take 1 tablet by mouth nightly as needed. acetaminophen (TYLENOL) 650 mg Tablet Sustained Release Take 1,300 mg by mouth every 8 hours as needed for Pain. Do not exceed 6 tabs in 24 hours naproxen sodium (Aleve) 220 mg Tablet Take 440 mg by mouth every other day. amoxicillin (Amoxil) 500 mg Capsule Take 2,000 mg by mouth as needed. sildenafiL (VIAGRA) 100 mg Tablet 100 mg daily as needed. flu vacc [id number],65yr up,/PF (FluZONE HighDose Quad 20-21 PF) 240 mcg/0.7 mL Syringe ADM 0.7ML IM UTD ascorbic acid, vitamin C, (VITAMIN C) 1,000 mg Tablet Take 1,000 mg by mouth 2 times daily. Zinc 50 mg Tablet Take 1 tablet by mouth daily. aspirin 81 mg Tablet, Delayed Release (E.C.) Take 81 mg by mouth daily. multivitamin (THERAGRAN) Tablet Take 1 tablet by mouth daily. atorvastatin (LIPITOR) 20 mg Tablet Take 1 tablet by mouth every evening. Patient taking differently: Take 40 mg by mouth every evening. ADVERSE DRUG REACTIONS Allergies as of 03/30/2021 ??? (No Known Allergies) MEDICAL HISTORY Past Medical History: Diagnosis Date ??? HLD (hyperlipidemia) ??? CO (myocardial infarction) ??? Radiculopathy of lumbar region 12/07/2020 SURGICAL HISTORY Past Surgical History: Procedure Laterality Date ??? CORONARY ANGIOPLASTY WITH STENT PLACEMENT ??? CT GUIDED INJECTION SI JOINT 02/19/2019 CT Guided Injection SI Joint 02/19/2019 [facility] RAD CAT SCAN ??? PRO INJ, FORAMEN, L/S, 1 LEVEL Right 12/08/2020 INJECTION, ANESTHETIC AGENT AND/OR STEROID, TRANSFORAMINAL EPIDURAL, LUMBAR OR SACRAL, SINGLE LEVEL(WRVU 1.9) performed by Kiana Canchola MD at [facility] PAIN MGMT MSO ??? PRO INJECTION DX/THER SBST INTRLMNR LMBR/SAC W/IMG GDN Right 01/25/2021 INJECTION, EPIDURAL, LUMBAR OR SACRAL (CAUDAL), WITH IMAGING GUIDANCE (WRVU 1.8) performed by Jill Sharma MD at [facility] PAIN MGMT [facility]O FAMILY HISTORY Family History Problem Relation Age of Onset ??? Cancer Maternal Grandmother ??? Cancer Paternal Grandmother ??? Heart Disease Paternal Grandfather ??? Myocardial Infarction Paternal Grandfather Opioid Risk Category: low risk 0-3 PHYSICAL EXAMINATION He has normal strength, sensation, symmetrical reflexes at the knees absent at the Achilles. Straight leg raises are negative. Able to stand without hip drop ASSESSMENT /PLAN/RECOMMENDATIONS He has known right sided L5-S1 foraminal compromise from previous MRI. His most recent MRI reveals no real difference. He had excellent response from his first transforaminal injection done last December with Drs. Canchola and Antonio. He had a second transforaminal injection done this December unfortunately he did not really get his good response although the dye spread and the medications used and thelocation were all the same. I did review this with Dr. Canchola. He unfortunately did not respond verywell to the last injection. He had some physical therapy and finds it somewhat helpful but he still would like to be experiencing more relief from the able to walk better. He is avid snow sure and cyclist. I spoke with him about switching the Naprosyn to Celebrex and he is amenable to that so I placedan order. He also would be interested in at least talking to a surgeon to see if they might be able to help him and so I have ordered AP and lateral flexion-extension views. His MRI is current from last December 2020. And I have made a referral for him to see the spine center. He will contact me through the [employer] system and will let me know how the Celebrex is going and I am happy to see him after his surgical consultation if he prefers to continue to manage his symptoms nonsurgically. Jose Eduardo Gardner Marcos had the opportunity to ask questions and indicated that all questions were answered to his satisfaction. Criss Mares MS CT TECH-BC, NON PROFIT JOB TITLES Nurse Practitioner [facility] documented in this encounter Plan of Treatment Upcoming Encounters Date Type Specialty Care Team Description 08/16/2021 Appointment Radiology Mateo Victoria MD [facility] [place] [address] 08/16/2021 Office Visit Pain and Spine [facility] MD [facility] [place] [address] 09/22/2021 Hospital Encounter Surgery Mateo Victoria MD [facility] [place] [address] 09/22/2021 Surgery Surgery Mateo Victoria, MD [facility] DEMPSEY, [address] [facility] ([facility] [address]) [place] [address] Scheduled Procedures Name Priority Associated Diagnoses Date/Time [...] of 09/22/2021 7:30 AM EDT lumbosacral region Scheduled Referrals Name Type Priority Associated Diagnoses Order S chedule Referral to Pain Outpatient Referral Routine Foraminal stenosi s of Ordered: and Spine Center lumbosacral region 03/30 (Internal only) documented as of this encounter Results XR Lumbar Spine 2 Or 3 Views (Generic) (04/12/2021 10:34 AM EST) Anatomical Region Laterality Modality L-spine N/A Digital Radiography Specimen (Source) Anatomical Location Collection Method / Collectio n Time Received Time / Laterality Volume Impressions 04/12/2021 11:34 AM EST Multilevel degenerative disc disease and facet arthropathy with multilevel spondylolisthesis and with mild left con vex curvature of the thoracolumbar spine. Thank you for letting us participate in the care of this patient. ??If you are a health care provider and have any questi ons regarding this report, please contact the number below. ??For patients who have questions please contact the health healthcare receptionist that requested your imaging first. ? Electronically signed by: Esvin Thrasher, [facility] ([phone]), at 04/12/2021 11:34 AM Narrative 04/12/2021 11:34 AM EST EXAMINATION: XR LUMBAR SPINE 2 OR 3 VIEWS (GENERIC) CLINICAL HISTORY: surgical planning (as entered by ordering provider in the order requisition) TECHNIQUE: AP and lateral views of the lumbar spine appear COMPARISON: Lumbar spine radiograph 02/11/2015. MR of the lumbar spine 01/06/2021. CT-guided sacroiliac joint injection 02/19/2019. FINDINGS: The last rib bearing vertebral bodies T1 2 with 5 nonrib-bearing lumbar-type vertebral bodies. There is 4 mm retrolisthesis of L2 on L3 and 4 mm anterolisthesis of L3 on L4. There is a similar degree of disc space narrowing at L4-5 and L5-S1 when compared to January 2021. There is face t arthropathy at all levels levels between L3 and S1, similar to MR dated 03/09/2020. No focal vertebral body height loss. Mild left convex curvature of the thorac olumbar spine. Subchondral sclerosis of the bilateral s acroiliac joints. 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 Procedure Note Ange Buckner MD - 04/12/2021Formattin g of this note might be different from the original. EXAMINATION: XR LUMBAR SPINE 2 OR 3 VIEW S (GENERIC) CLINICAL HISTORY: surgical planning (as entered by ordering provider in the order requisition) TECHNIQUE: AP and lateral views of the lumbar spine appear COMPARISON: Lumbar spine radiograph 02/11/2015. MR of the lumbar spine 01/06/2021. CT-guided sacroiliac joint injection 02/19/2019. FINDINGS: The last rib bearing vertebral bodies T1 2 with 5 nonrib-bearing lumbar-type vertebral bodies. There is 4 mm retrolisthesis of L2 on L3 and 4 mm anterolisthesis of L3 on L4. There is a similar degree of disc space narrowing at L4-5 and L5-S1 when compared to January 2021. There is face t arthropathy at all levels levels between L3 and S1, similar to MR dated 03/09/2020. No focal vertebral body height loss. Mild left convex curvature of the thorac olumbar spine. Subchondral sclerosis of the bilateral s acroiliac joints. 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 IMPRESSION Multilevel degenerative disc disease and facet arthropathy with multilevel spondylolisthesis and with mild left con vex curvature of the thoracolumbar spine. Thank you for letting us participate in the care of this patient. If you are a health care provider and have any questi ons regarding this report, please contact the number below. For patients w ho have questions please contact the health healthcare receptionist that requested your imaging first. Electronically signed by: Esvin Thrasher, [facility] ([phone]), at 04/12/2021 11:34 AM Criss Mares NON PROFIT JOB TITLES IMG DX ORDERABLES documented in this encounter Visit Diagnoses Diagnosis Foraminal stenosis of lumbosacral region - Primary Spinal stenosis, lumbar region, without neurogenic claudication Foraminal stenosis of lumbosacral region Spinal stenosis, lumbar region, without neurogenic claudication Foraminal stenosis of lumbosacral region Spinal stenosis, lumbar region, without neurogenic claudication documented in this encounter Care Teams Fur Clipper Relationship Specialty Start Date End Date Marixa Smith MD PCP - General General Internal Medicine 11/20/19 [address] [place] [address] documented as of this encounter
--- OUTSIDE RECORDS SUMMARY | 2021-07-30 00:20 | XMS_ITS | Encounter Summary ---
:1950 Author Organization [facility] [place] [address] Care Team Providers Name Role Phone Marixa Smith MD Primary Care Provider Reason for Visit Reason Onset Date Comments Pre Procedure Call 06/03/2021 Preop teaching, ORT, PDMP, opioid consent; opioid and non opioid pain mgmt ; refill process Encounter Details Date Type Department Care Team Description 06/03/2021 Telephone [facility] Arlin Kovacs [place] [facility] [place] (Preop teaching, ORT, [facility] PDMP, opi oid consent; [facility] [place] [address] pain mgmt; refill [phone] process) Social History Tobacco Use Types Packs/Day Years [...] this encounter Miscellaneous Notes Telephone Encounter - Arlin Kovacs RN - 06/04/2021 3:56 PM EDT Met with today following the surgical evaluation for purpose of providing pre and post operative instructions and to plan for any pre/post- operative discharge needs. Pt is being scheduled fora L5-S1 decompressive laminectomy and right foraminotomy with Dr Victoria on 07/13/21 Pre-op Medication Holds: Advised pt of need to hold anticoagulants, NSAIDs, ASA products, and Fish Oil for ~10 days preoperatively. Reviewed medication list. Pt agreed to hold Celebrex and Naproxen as instructed. is not noted to be taking any prescription anticoagulants. Opioid Risks and Pain Management: Reviewed salient points within Acute Opioid Therapy Informed Consent. denies any questionsor concerns. Offered pt a copy of consent for home reference. Signed Consent Form passed to the [place] OR reporting developer for scanning. Reviewed with that he is likely to experience some postoperative incisional and extremity pain, to include expectations re potential new or increased N/T. Explained that the timing and intensity of this pain is variable. Reviewed in detail non-opioid pain mgmt strategies that should be put in place postoperatively to minimize opioid use. Strategies discussed included: rest and relaxation, activity modification, regularrepositioning, regular Acetaminophen & NSAID use, hourly ice application for local analgesia/inflammation. Explained that the non-opioid pain mgmt strategies are intended to be the first line of treatment to assist with his postop pain. Instructed to Initiate the regular use of ice and OTC medication immediately upon return home, even if this was not documented in his discharge instructions. Reinforced with pt that he should continue the non-opioid pain mgmt treatments for as long as he is requiring any opioids; that the opioid is the first treatment that should be discontinued. Advised that any opioid pain medication that is prescribed is to be used to supplement thenon-opioid methods. Advised pt that he is to take the least amt of opioid possible, and the expectation is that he will reduce use as the postoperative pain subsides. Advised pt that he should never exceed the prescribed amt without obtaining authorization from the prescribing provider. See PDMP query below. Reviewed current and historical opioid use. Is not noted to be on opioids currently Acute post-operative pain mgmt is expected to be managed by: Dr Victoria and surgical team Provided instructions and general expectations re prescription refill practices/timing. Acute Opioid Prescribing: Opioid PDMP 06/03/2021 [place] PDMP Query Date 06/04/2021 Comment 06/04/21 3 yr [place] query performed; no concerns noted. No flowsheet data found. Acute Opioid Specific Questions 06/03/2021 Date Acute Consent signed 06/03/2021 Comment 06/03/21 signed and reviewed opioid consent passed to OR reporting developer to be scanned Considered the risk of opioid misuse, abuse, diversion? Yes Comment 06/03/21 No concerns at this time Considered options for non-pharmacological modalities and non-opioid therapy? Yes Comment 06/03/21 Reviewed in detail non opioid and opioid pain mgmt options, refil process; responsible opioid use. Some recent data might be hidden Activity: Reviewed with our expectations re activity postoperatively, to include use of good body mechanics, to relax when moving rather than tensing/guarding, and our expectations re progressive walking upon return home. Advised that he would not be able to drive while taking opioid pain medication. Home Support/Services Expected: Discussed home environment and support available following discharge. Patient is , but reports having a sig other who will be supportiveat discharge. It's anticipated that pt will go home with support of family or friends. Do not expect need for VNA but explained that that would be determined based on his time her immediately following surgery. Pts primary bedromI on second foor; Explained that we wpuld not restrict stair clibing but he might like to minimize the trips he Makes u and down. pt does have a walking stick for hme use. Employment Status/Disability/FMLA: Employment status:Retired Postoperative PT Evaluation: Defferred arranging coordinated post op PT apt; will defer PT until after pt is seen for HCK A copy of Spine Center Pre/Post-Operative Reference sheet provided to pt; reviewed the content. Encouraged to review these instructions prior to coming into the hospital and then again upon return home so that the instructions will be recalled easily. verbalized understanding of the information reviewed.. was given the contact information for the Spine Center Nursing staff; he was encouraged to call pre or postoperatively with any questions or concerns. 06/04/21 Optimization letter initiated and pended to OR reporting developer to complete and process. documented in this encounter Plan of Treatment Upcoming Encounters Date Type Specialty Care Team Description 08/16/2021 Appointment Radiology Mateo Victoria MD [facility] [place] [address] 08/16/2021 Office Visit Pain and Spine Mateo Victoria, [place] [facility] [place] [address] 09/22/2021 Hospital Encounter Surgery Mateo Victoria MD [facility] [place] [address] 09/22/2021 Surgery Surgery Mateo Victoria, [place] STU FACETECTOMY & ONE MEDICAL FORAMINOTOMY,CHAVA [facility], [place] [facility] [address] [place] [address] Scheduled Procedures Name Priority Associated Diagnoses Date/Time [...] on filedocumented in this encounter Care Teams School Health Aide Relationship Specialty Start Date End Date Marixa Smith MD PCP - General General Internal Medicine 11/20/19 [address] [place] [address] documented as of this encounter
--- OUTSIDE RECORDS SUMMARY | 2021-07-30 00:20 | XMS_ITS | Encounter Summary ---
:1950 Author Organization [facility] [place] [address] Care Team Providers Name Role Phone Marixa Smith MD Primary Care Provider Reason for Visit Auth/Cert Specialty Diagnoses / Procedures Referred By Contact Refer red To Contact Diagnoses formainal stenosis recurrent symptoms Procedures PRO INJ, FORAMEN, L/S, 1 LEVEL PRO INJ, FORAMEN, L/S, ADDL LEVELS INJECTION, ANESTHETIC AGENT AND/OR STEROID, TRANSFORAMINAL EPIDURAL, LUMBAR OR SACRAL, SINGLE LEVEL (WRVU 1.9) INJECTION, ANESTHETIC AGENT AND/OR STEROID, TRANSFORAMINAL EPIDURAL, LUMBAR OR SACRAL, EACH ADDITIONAL LEVEL (WRVU 1) Referral ID Status Reason Start Date Expiration Date Visits Requ ested Visits Authorized [id number] 1 1 Encounter Details Date Type Department Care Team Description 12/08/2020 Surgery Pain Management Kiana Kennedy, IN JECTION, ANESTHETIC [facility] AGENT AND/OR STEROID, [facility] TRANSFORAMINAL EPIDURAL, [facility] DR [place] OR SACRAL, SINGLE Drive PAIN CLINIC LEVEL (WRVU 1.9) [place] [address] [place] [address] [phone] (Wo rk) Social History Tobacco Use Types Packs/Day Years Used Date Current Some Day Smoker Cigars Smokeless Tobacco: Never Used Comments: occasional cigar Alcohol Use Standard Drinks/Week Comments Yes 0 [...] Sign Reading Time Taken Comments Blood Pressure 150/85 12/08/2020 8:40 AM EDT Pulse - - Temperature - - Respiratory Rate - - Oxygen Saturation 100% 12/08/2020 8:40 AM EDT Inhaled Oxygen Concentration - - Weight 88.5 kg (195 lb) 12/08/2020 7:30 AM EDT Height 182.9 cm (6') 12/08/2020 7:30 AM EDT Body Mass Index 26.45 12/08/2020 7:30 AM EDT documented in this encounter Discharge Instructions Discharge InstructionsClifford Trotter Moira - 12/08/2020 8:44 AM EDT Pain Management Center Discharge Instructions: You were seen today by Surgeon(s): Kiana Canchola MD First, Lucas F, MD The following was performed: Procedure(s) (LRB): [...] During Procedure Date/Time Order Dose Route Action 12/08/2020 0831 dexamethasone (PF) (Decadron) (10 mg/mL) injection 10 mg Epidural Given 12/08/2020 0832 iohexoL (Omnipaque) (240 mg/mL) injection solution 1 mL Epidural Given 12/08/2020 0832 lidocaine (pf) (Xylocaine) (10 mg/mL) 1% injection 6 mL Other Given During regular business hours, please phone [...] 0 03/0 02/2020 Tablet needed. flu vacc [id number],65yr ADM 0.7ML IM UTD 0 2019 up,/PF [...] documented as of this encounter H&P Notes First, Matt Linda MD - 12/07/2020 1:12 PM EDT Patient Name: Jose Eduardo Rodríguez Patient Age: 70 y.o. Birthdate: 1950 Admit date: 12/08/2020 Attending Physician: Kiana Canchola MD PREPROCEDURE HISTORY AND PHYSICAL Date of Visit: December 08, 2020 Chief Complaint: Right low back pain and extremity HPI: Jose Eduardo Rodríguez is a 70 y.o. male who presents today for right L5-S1 transforaminal epidural steroid injection under fluoroscopic guidance with a diagnosis of 1. Radiculopathy of lumbar region 2. Foraminal stenosis of lumbosacral region resulting in symptoms of right low back and extremity pain. The history is obtained from the patient, and I have reviewed medical records provided by the referring physician and located in the electronic medical record to fill in gaps in the patient's recollection of events, treatments and outcomes. LOCATION: right lumbar area or radiating to right leg. PAIN LEVEL AT REST 5/10 PAST MEDICAL HISTORY: Past Medical History: Diagnosis Date ??? HLD (hyperlipidemia) ??? NV (myocardial infarction) There are no medical history contraindications to this procedure. PAST SURGICAL HISTORY: Past Surgical History: Procedure Laterality Date ??? CORONARY ANGIOPLASTY WITH STENT PLACEMENT ??? CT GUIDED INJECTION SI JOINT 02/19/2019 CT Guided Injection SI Joint 02/19/2019 [facility] RAD CAT SCAN There are no past surgical contraindications to [...] tobacco: Never Used ??? Tobacco comment: occasional cigar Vaping Use ??? Vaping Use: Never used Substance and Sexual Activity ??? Alcohol use: Yes Comment: 5 drinks weekly ??? Drug use: No ??? Sexual activity: Yes Partners: Female Other Topics Concern ??? Not on file Social History Narrative ??? Not on file Social Determinants of Health Financial Resource Strain: ??? Difficulty of Paying Living Expenses: Not on file Food Insecurity: ??? Worried About Running Out of Food in the Last Year: Not on file ??? Ran Out of Food in the Last Year: Not on file Transportation Needs: ??? Lack of Transportation (Medical): Not on file ??? Lack of Transportation (Non-Medical): Not on file Physical Activity: ??? Days of Exercise per Week: Not on file ??? Minutes of Exercise per Session: Not on file Housing Stability: ??? Unable to Pay for Housing in the Last Year: Not on file ??? Number of Places Lived in the Last Year: Not on file ??? Unstable Housing in the Last Year: Not on file There are no social history contraindications to this procedure. ROS: Review of Systems Constitutional: Negative for fever, chills, or recent infection. Respiratory: Negative for shortness of breath. Cardiovascular: Negative for chest pain. Musculoskeletal: Positive for right low back pain. Psychiatric/Behavioral: Negative for agitation and behavioral problems. PHYSICAL EXAM: BP 135/69 Ht 182.9 cm (6') Wt 88.5 kg (195 lb) SpO2 100% BMI 26.45 kg/m?? Physical Exam Constitutional: He appears well-developed and well-nourished. No distress. Cardiovascular: Normal heart rate. Pulmonary/Chest: Effort normal and breath sounds normal. Skin: He is not diaphoretic. This is no rash, apparent infection, or other abnormality to the area of the proposed injection. There are no physical examination findings which would preclude this procedure. ASSESSMENT: 1. Radiculopathy of lumbar region 2. Foraminal stenosis of lumbosacral region PLAN: Right L5-S1 transforaminal epidural steroid injection under fluoroscopic guidance. Patient stopped naproxen for 4 days. Patient continues on ASA81. Of note, patient received COVID-19 booster vaccine on12/01/20 and understands the theoretically risk of decreased efficacy of the vaccine with the administration of corticosteroids and wishes to proceed with the procedure. Proceed with procedure as planned. Thank you for the opportunity to participate in Jose Eduardo Rodríguez's care. Please feel free to contact me with any questions. Sincerely, Matt Arias MD Pain Medicine Fellow documented in this encounter Miscellaneous Notes Op Note - Kiana Canchola MD - 12/08/2020 8:15 AM EDT Pain Management Operative Note Patient Name: Jose Eduardo Rodríguez : [id number] MR#: [id number] Case Date: 12/08/2020 Surgeon: Surgeon(s) and Role: * Kiana Canchola MD - Primary Present on Admission: ??? Radiculopathy of lumbar region Postoperative diagnosis: same Procedure(s) (LRB): INJECTION, ANESTHETIC AGENT AND/OR STEROID, TRANSFORAMINAL EPIDURAL, LUMBAR OR SACRAL, SINGLE LEVEL (WRVU 1.9) (Right) Transforaminal Epidural Steroid Injection with Fluoroscopic Guidance right L5-S1 Jose Eduardo Rodríguez has been referred to the Pain Management Center for Lumbar Transforaminal Epidural Steroid Injection right L5-S1 [] s/p right L5-S1 transforaminal epidural steroid injection 12/30/2019 with 100% pain relief for almost a year. []Referred by Criss Mares APRN []takes ASA for h/o NV, based on shared risk assessment, can continue for this procedure. Mr. Rodríguez was interviewed and the medical record reviewed. There were no medical, pharmacologic, radiographic or other structural contraindications to attempting fluoroscopically guided injection. Risks and expected side effects as well as potential benefit of the procedure were reviewed with Mr. Rodríguez, and his voiced concerns were addressed. The printed consent form was signed and witnessed. The risks and benefits were reviewed with the patient including but not limited to post dural puncture, headache, infection, nerve injury, allergic reaction, possible increase in symptoms over the ensuing 24to 48 hours, paralysis. The patient appeared to understand, questions were answered and the patient agreed to proceed. Standard time-out procedure was performed. Jose Eduardo Rodríguez was greeted by the nurse who verified patients name and . Patient was then taken to the fluoroscopy suite. TECHNIQUE: After informed written consent was obtained the patient was placed in the prone position. The lumbar spine spine was prepped with chloraprep and draped. Sterile technique was used ( cap, glove, mask were worn). Vitals signs were monitored, time out was done and the right side was marked. The skin and subcutaneous structures were anesthetized with lidocaine 1% to a total volume of 5 ML at each level. Under fluoroscopic guidance, in ipsilateral oblique view, co-axial approach, 22 gauge spinal needle(s) were advanced to the base of the L-5. pedicle(s). The needle(s) were advanced to the superio-posterior aspect of the neural foramen under lateral view. Oblique and AP views were rechecked. Under AP view Omnipaque 240 1 cc's was injected while visualized with digital subtraction. There was no evidence of intravascular uptake, the epidural space was delineated. Decadron 10 mg was injected after negative aspiration, at each level, followed by lidocaine 1% 0.25-ML at each level. Outcome: The patient tolerated the procedure well and had stable vital signs. The patient noted after getting up after the procedure that their pain was at a 2 out of 10 level. Preprocedure pain level was a 5 out of 10. Follow up plans and appointments were discussed with Jose Eduardo Rodríguez. The patient was observed in thepain clinic and then discharged after having met discharge criteria to the care of a race car driver. The patient received written instructions as documented in nursing records. COMMENTS: Follow up with Criss Mares APRN. Matt Arias MD Pain Fellow I was the attending physician supervising the fellow or resident in the above care and I was presentwith the resident for the entire procedure. Kiana Canchola MD [facility] [address] [address] / [facility] CC: Marixa Smith MD @[email or web address]@ documented in this encounter Plan of Treatment Upcoming Encounters Date Type Specialty Care Team Description 08/16/2021 Appointment Radiology Mateo Victoria MD [facility] [place] [place] [address] 08/16/2021 Office Visit Pain and Spine Mateo Victoria, [place] [facility] [place] [place] [address] 09/22/2021 Hospital Encounter Surgery Mateo Victoria MD [facility] [place] [place] [address] 09/22/2021 Surgery Surgery Mateo Victoria LAMINECTOMY, MD FACETECTOMY & [facility] MEDICAL FORAMINOTOMYCHAVA, DR[facility] SPINE CENTER [address]) [place] [address] Scheduled Procedures Name Priority Associated Diagnoses Date/Time LAMINECTOMY, FACETECTOMY & Foraminal stenosis of 09/22/2021 7:30 AM EDT FORAMINOTOMY,LUMBAR, ONE lumbosacral [facility] EA ADD'L VERTEBRAL SEGMENT Foraminal stenosis of 09/22/2021 7:30 AM EDT CERVICAL, THORACIC, LUMBAR lumbosacral region (WRVU 3.47) MODIFIER L5 Foraminal stenosis of 09/22/2021 7:30 AM EDT lumbosacral region MODIFIER S1 Foraminal stenosis of 09/22/2021 7:30 AM EDT lumbosacral region documented as of this encounter Procedures Procedure Name Priority Date/Time Associated Diagnosis Comme nts INJECTION, ANESTHETIC 12/08/2020 8:17 AM Foraminal val nosis of AGENT AND/OR STEROID, EDT lumbosacral region TRANSFORAMINAL EPIDURAL, LUMBAR OR SACRAL, SINGLE LEVEL (WRVU 1.9) INJ, ANES AGENT/STEROID, Routine 12/08/2020 7:28 AM Foraminal stenosis of TRANSFORAMINAL EPI, EDT lumbosacral region LUMBAR/SACRAL, SINGLE LEVEL documented in this encounter Visit Diagnoses Diagnosis Radiculopathy of lumbar region Thoracic or lumbosacral neuritis or radi culitis, [...] Rate Site dexamethasone (PF) (Decadron) (10 Given 12/08/2020 8:31 AM EDT 1 0 mg mg/mL) injection ONCE PRN, Starting on 12/08/20 at 0831, Until 12/08/20 at 1051, Intra-Operative (Intra-Procedure), Routine iohexoL (Omnipaque) (240 mg/mL) injection Given 12/08/2020 8:32 AM EDT 1 mL solution ONCE PRN, Starting on 12/08/20 at 0832, Until 12/08/20 at 1051, Intra-Operative (Intra-Procedure), Routine lidocaine (pf) (Xylocaine) (10 mg/mL) 1% Given 12/08/2020 8:32 A M EDT 6 mLs injection ONCE PRN, Starting on e 12/08/20 at 0832, Until 12/08/20 at 1051, Intra-Operative (Intra-Procedure), Routine documented in this encounter Active and Recently Administered Medications Times are shown in EDT. PRN Medication Order 12/06/2020 12/07/2020 12/08/2020 dexamethasone (PF) (Decadron) (10 mg/mL) injection (CANCELED) 0831 (Given - Provider: Kiana Canchola MD - Comment: right lumbar TFESI) ONCE PRN, Starting on Mon12/08/20 at 083 1, Until Mon12/08/20 at 1051, Intra- Operative (Intra-Procedure), Routine iohexoL (Omnipaque) (240 mg/mL) injection solution (CANCELED) 0832 (Given - Provider: Kiana Canchola MD - Comment: right lumbar TFESI) ONCE PRN, Starting on Mon12/08/20 at 083 2, Until Mon12/08/20 at 1051, Intra- Operative (Intra-Procedure), Routine lidocaine (pf) (Xylocaine) (10 mg/mL) 1% injection (CANCELED) 0832 (Given - Provider: Kiana Canchola MD - Comment: right lumbar TFESI) ONCE PRN, Starting on Mon12/08/20 at 083 2, Until Mon12/08/20 at 1051, Intra- Operative (Intra-Procedure), Routine documented in this encounter Care Teams Religious Education Coordinator Relationship Specialty Start Date End Date Marixa Smith MD PCP - General General Internal Medicine 11/20/19 [address] [place] [address] documented as of this encounter
--- OUTSIDE RECORDS SUMMARY | 2021-07-30 00:20 | XMS_ITS | Encounter Summary ---
:1950 Author Organization [facility] [place] [address] Care Team Providers Name Role Phone Marixa Smith MD Primary Care Provider Encounter Details Date Type Department Care Team Description 01/06/2021 [facility]illary [facility] [address] [place] [id number] [place] [phone] Social History Tobacco Use Types Packs/Day Years [...] Description 08/16/2021 Appointment Radiology Mateo Victoria MD [facility] [place] [address] 08/16/2021 Office Visit Pain and Spine Mateo Victoria Center [facility] [place] [address] 09/22/2021 Hospital Encounter Surgery Mateo Victoria MD [facility] [place] [address] 09/22/2021 Surgery Surgery Mateo Victoria, STU , FACETECTOMY & ONE MEDICAL FORAMINOTOMY,[place], CENTER ONE LEVEL ([facility] SPINE CENTER [address]) [place] [address] Scheduled Procedures Name Priority Associated Diagnoses Date/Time LAMINECTOMY, FACETECTOMY & Foraminal stenosis of 09/22/2021 7:30 AM EDT FORAMINOTOMY,LUMBAR, ONE lumbosacral region LEVEL [facility] EA ADD'L VERTEBRAL SEGMENT Foraminal stenosis of 09/22/2021 7:30 AM EDT CERVICAL, THORACIC, LUMBAR lumbosacral region (VU 3.47) MODIFIER L5 Foraminal stenosis of 09/22/2021 7:30 AM EDT lumbosacral region MODIFIER S1 Foraminal stenosis of 09/22/2021 7:30 AM EDT lumbosacral region documented as of this encounter Procedures Procedure Name Priority Date/Time Associated Diagnosis Comme nts FILM LIBRARY Routine 01/06/2021 9:57 AM Results f or this STORAGE ONLY MR EST procedure ar e in SPINE the results section. documented in this encounter Results Film Library- Storage Only MR Spine (01/06/2021 9:57 AM EST) Specimen (Source) Anatomical Location Collection Method / Collectio n Time Received Time / Laterality Volume Narrative MORGAN - 01/06/2021 9:57 AM EST This exam is auto-finalizing. It's purpo se is for storage only. Marixa Smith MD IMG FILM LIBRARY ORDERABLES Performing Organization Address City/State/ZIP Code Phon e Number [place], [place] documented in this encounter Visit Diagnoses Not on filedocumented in this encounter Care Teams Edge Bander Operator Relationship Specialty Start Date End Date Marixa Smith MD PCP - General General Internal Medicine 11/20/19 [address] [place] [address] documented as of this encounter
--- OUTSIDE RECORDS SUMMARY | 2021-07-30 00:20 | XMS_ITS | Encounter Summary ---
:1950 Author Organization [facility] [place] [address] Care Team Providers Name Role Phone Marixa Smith MD Primary Care Provider Reason for Visit Reason Comments Follow-up S/P LESI Encounter Details Date Type Department Care Team Description 06/04/2021 TH Visit Pain and Spine Criss Mares, Forkristinaa l stenosis of (TeleHealth) Center at [facility] RESIDENCE LIFE DIRECTOR lumbosacral region [facility] [address] [place], [place] PAIN MEDICINE [address] [place] [address] [phone] Social History Tobacco Use Types Packs/Day Years [...] Sign Reading Time Taken Comments Blood Pressure - - Pulse - - Temperature - - Respiratory Rate - - Oxygen Saturation - - Inhaled Oxygen Concentration - - Weight 88.5 kg (195 lb) 06/03/2021 9:20 AM EDT Height 182.9 cm (6') 06/03/2021 9:20 AM EDT Body Mass Index 26.45 06/03/2021 9:20 AM EDT documented in this encounter Progress Notes Criss Mares, RESIDENCE LIFE DIRECTOR - 06/04/2021 1:30 PM EDT Images from the original note were not included. [facility] [place] [address] Phone: PAIN MANAGEMENT TELEPHONE FOLLOW UP NOTE DATE OF VISIT 06/03/2021 Patient Jose Eduardo Rodríguez 1950 REFERRING PROVIDER Marixa Smith MD [address] [place] [address] PRIMARY CARE PROVIDER Marixa Smith MD CHIEF COMPLAINT: Jose Eduardo Rodríguez is a 70 y.o.male with Right lateral leg pain, who is seen in consultation at the request of Marixa Smith MD [address] [place] [address]. for evaluation, recommendations, and management.The history is obtained from the patient, and I have reviewed medical records provided by the referring physician and located in the electronic medical record to fill in gaps in the patient's recollection of events, treatments and outcomes. Goal of visit: To discuss Dr. Victoria's recommendations and to discus response to injection by Dr Sharma Updated interval history 06/04/2021: I had a telephone follow-up with Jose Eduardo regarding his most recentvisit with Dr. Victoria as well as response to previous injection done by Dr. Sharma on 14 May which included a transforaminal injection L4 and L5 under fluoroscopy. He reports that he had about 1 or 2 weeks of relief from his leg symptoms from the injection but then subsequently to that his symptoms started to recur and he seemed to actually have more leg pain and previously he was able to alleviate hissymptoms by lying in the position but since the injection he is having more trouble with that. He has visited with Dr. Victoria yesterday and he and Dr. Victoria have talked about 2 different surgeries but have decided to go forward with an L5-S1 laminectomy. Updated interval history 04/29/2021: I spoke on the telephone with Jose Eduardo at his request. This is a billable visit. The patient saw Dr. Victoria for surgical consultation and noted that the patient had received good results from the first L5-S1 right-sided injection, and less good results from the second and from the third which was at L4-5. He questioned as to whether or not L3-4 might have some influence on his symptoms as well because that is also stenotic. The patient relates to me that he also reports that when he lies on his side regardless of whether he has a pillow between his legs or not, he will sometimes get some pain down the leg into the mendoza on the right-hand side which would be L4. He is questioning whether we could repeat the injection at that level to see if it gave him any relief and if so if that would guide Dr. Victoria at all in his choice if the patient decided to have a surgery. HPI The patient is a pleasant, 69-year-old [...] he has had a facet injection by Rosalee Tilley. The gabapentin has not really made a difference, the NSAIDs [...] injection on the right done here at [facility] the early part of this year without any relief. Symptoms occur daily several times a day he is quite active hiking, biking, walking, hunting, and symptoms are alleviated by flexion and rest and exacerbated by walking and they can get up to 9-10 on a scale of 10. most recent MRI or Xray: myD-H Pain 03/30/2021 VR12 - Physical Summary Component 56.98 VR12 - Mental Component Summary 61.12 Audit C 3 (Low Risk) MODEMS Satisfaction 33.33 Family History of Substance Abuse (Male) 0 Personal History of Substance Abuse(Male) 0 Age 0 History of Preadolescent sexual abuse(Male) 0 Psychological Disease 0 ORT Total Scores (Male) 0 (Low risk) BPI Severity Score Incomplete BPI Interference Score Incomplete FUNCTIONAL HISTORY Work:retired Interference with activities/ADL:no Exercise/activities: Walks, hikes and hunts CURRENT THERAPIES: Tylenol aleve Gabapentin 300 mgs for 3-4 weeks Occasional PT PAST THERAPIES: Facet injection PT CT guided SI joint injection TFESI REVIEW OF SYSTEMS: Not reviewed today although the patient does states he has had no change in his history Constitutional: denies fever, chills, cough, signs of [...] from family/friends?no History of incarceration? MEDICATIONS [facility] Prescription Monitoring Program was checked and no concerns were identified. Medications 06/03/21 1431 Medication Sig Taking? zolpidem (Ambien) 5 mg Tablet Take 1 tablet by mouth nightly as needed. Yes acetaminophen (TYLENOL) 650 mg Tablet Sustained Release Take 1,300 mg by mouth every 8 hours as needed for Pain. Do not exceed 6 tabs in 24 hours Yes naproxen sodium (ANAPROX) 220 mg Tablet Take 440 mg by mouth as needed. Yes amoxicillin (Amoxil) 500 mg Capsule Take 2,000 mg by mouth as needed. Yes sildenafiL (VIAGRA) 100 mg Tablet 100 mg daily as needed. Yes flu vacc on1183-70,65yr up,/PF (FluZONE HighDose Quad 20-21 PF) 240 mcg/0.7 mL Syringe ADM 0.7ML IM UTD Yes ascorbic acid, vitamin C, (VITAMIN C) 1,000 mg Tablet Take 1,000 mg by mouth daily. *taking 2,000 mga day* Yes Zinc 50 mg Tablet Take 1 tablet by mouth daily. Yes aspirin 81 mg Tablet, Delayed Release (E.C.) Take 81 mg by mouth daily. Yes multivitamin (THERAGRAN) Tablet Take 1 tablet by mouth daily. Yes atorvastatin (LIPITOR) 20 mg Tablet Take 1 tablet by mouth every evening. Patient taking differently: Take 40 mg by mouth every morning. Yes celecoxib (CeleBREX) 200 mg Capsule Take 1 capsule by mouth daily. Patient not taking: No sig reported ADVERSE DRUG REACTIONS Allergies as of 06/04/2021 ??? (No Known Allergies) MEDICAL HISTORY Past Medical History: Diagnosis Date ??? HLD (hyperlipidemia) ??? IN (myocardial infarction) ??? Radiculopathy of lumbar region 12/07/2020 SURGICAL HISTORY Past Surgical History: Procedure Laterality Date ??? CORONARY ANGIOPLASTY WITH STENT PLACEMENT ??? CT GUIDED INJECTION SI JOINT 02/19/2019 CT Guided Injection SI Joint 02/19/2019 [facility] RAD CAT SCAN ??? PRO INJ, FORAMEN, L/S, 1 LEVEL Right 12/08/2020 INJECTION, ANESTHETIC AGENT AND/OR STEROID, TRANSFORAMINAL EPIDURAL, LUMBAR OR SACRAL, SINGLE LEVEL(WRVU 1.9) performed by Kiana Canchola MD at [facility] PAIN MGMT MSO ??? PRO INJ, FORAMEN, L/S, 1 LEVEL Right 05/14/2021 INJECTION, ANESTHETIC AGENT AND/OR STEROID, TRANSFORAMINAL EPIDURAL, LUMBAR OR SACRAL, SINGLE LEVEL(WRVU 1.9) performed by Jill Sharma MD at [facility] PAIN MGMT MSO ??? PRO INJ, FORAMEN, L/S, ADDL LEVELS Right 05/14/2021 INJECTION, ANESTHETIC AGENT AND/OR STEROID, TRANSFORAMINAL EPIDURAL, LUMBAR OR SACRAL, EACH ADDITIONAL LEVEL (WRVU 1) performed by Jill Sharma MD at [facility] PAIN MGMT MSO ??? PRO INJECTION DX/THER SBST INTRLMNR LMBR/SAC W/IMG GDN Right 01/25/2021 INJECTION, EPIDURAL, LUMBAR OR SACRAL (CAUDAL), WITH IMAGING GUIDANCE (WRVU 1.8) performed by Jill Sharma MD at [facility] PAIN MGMT MSO FAMILY HISTORY Family History Problem Relation Age of Onset ??? Cancer Maternal Grandmother ??? Cancer Paternal Grandmother ??? Heart Disease Paternal Grandfather ??? Myocardial Infarction Paternal Grandfather Opioid Risk Category: low risk 0-3 PHYSICAL EXAMINATION No physical exam today this was a telephone visit ASSESSMENT /PLAN/RECOMMENDATIONS Jose Eduardo is going to go ahead and have surgery with Dr. Baird. He and Dr. Victoria are hopeful that the lesser surgery of an L5-S1 laminectomy will be sufficient to help him with his symptoms although the he does also have some stenosis at L3-4. He can follow-up with me on an as-needed basis. Jose Eduardo L Marcos had the opportunity to ask questions and indicated that all questions were answered to his satisfaction. Criss Mares MS ANTHROPOLOGY AND ARCHEOLOGY INSTRUCTOR-BC, RESIDENCE LIFE DIRECTOR Nurse Practitioner [facility] documented in this encounter Plan of Treatment Upcoming Encounters Date Type Specialty Care Team Description 08/16/2021 Appointment Radiology Mateo Victoria MD [facility] [place] [address] 08/16/2021 Office Visit Pain and Spine Mateo Victoria, Melany GRAJEDA [facility] [place] [address] 09/22/2021 Hospital Encounter Surgery Mateo Victoria MD [facility] [place] [address] 09/22/2021 Surgery Surgery Mateo Victoria LAMINECTOMY MD FACETECTOMY & [facility], ORIENT DR KYLAH GAGE ([facility] SPINE CENTER [address]) [place] [address] Scheduled Procedures Name Priority Associated Diagnoses Date/Time [...] documented as of this encounter Visit Diagnoses Diagnosis Foraminal stenosis of lumbosacral region Spinal stenosis, lumbar region, without neurogenic claudication Foraminal stenosis of lumbosacral region Spinal stenosis, lumbar region, without neurogenic claudication documented in this encounter Care Teams Construction Secretary Relationship Specialty Start Date End Date Marixa Smith MD PCP - General General Internal Medicine 11/20/19 [address] [place] [address] documented as of this encounter
--- OUTSIDE RECORDS SUMMARY | 2021-07-30 00:20 | XMS_ITS | Encounter Summary ---
:1950 Author Organization [facility] [place] [address] Care Team Providers Name Role Phone Marixa Smith MD Primary Care Provider Encounter Details Date Type Department Care Team Description 06/03/2021 Laboratory Appointment Lab at [facility] [place] [address] Social History Tobacco Use Types Packs/Day [...] Description 08/16/2021 Appointment Radiology Mateo Victoria MD [facility] [place] [address] 08/16/2021 Office Visit Pain and Spine Mateo Victoria Center MD [facility] [place] [address] 09/22/2021 Hospital Encounter Surgery Mateo Victoria MD [facility] [place] [address] 09/22/2021 Surgery Surgery Mateo Victoria, LAMINECTOMY , FACETECTOMY & ONE [facility]ICAL FORAMINOTOMY,[facility] DEMPSEY, CENTER ONE LEVEL ([facility] SPINE CENTER [address]) [place] [address] Scheduled Procedures Name Priority Associated Diagnoses Date/Time LAMINECTOMY, FACETECTOMY & Foraminal stenosis of 09/22/2021 7:30 AM EDT FORAMINOTOMY,LUMBAR, ONE lumbosacral region LEVEL ([facility] 15.37) EA ADD'L VERTEBRAL SEGMENT Foraminal stenosis of 09/22/2021 7:30 AM EDT CERVICAL, THORACIC, LUMBAR lumbosacral region ([facility] 3.47) MODIFIER L5 Foraminal stenosis of 09/22/2021 7:30 AM EDT lumbosacral region MODIFIER S1 Foraminal stenosis of 09/22/2021 7:30 AM EDT lumbosacral region documented as of this encounter Visit Diagnoses Not on filedocumented in this encounter Care Teams Soldering Machine Operator Helper Relationship Specialty Start Date End Date Marixa Smith MD PCP - General General Internal Medicine 11/20/[address] [place] [address] documented as of this encounter
--- OUTSIDE RECORDS SUMMARY | 2021-07-30 00:20 | XMS_ITS | Encounter Summary ---
:1950 [place] [address] Care Team Providers Name Role Phone Marixa Smith MD Primary Care Provider Encounter Details Date Type Department Care Team Description 01/25/2021 Surgery Pain Management Jill Monae MD INJECTION, EPIDURAL, [facility] (CAUDAL), WITH IMAGING [facility] PAIN MANAGEME NT GUIDANCE (WRVU 1.8) [place] [id number] [place] [phone] Social History Tobacco Use Types Packs/Day Years [...] today by Surgeon(s): Jill Sharma MD Krause, Carlin Pizarro MD The following was performed: Procedure(s) (LRB): [...] as 0 02/2020 Tablet needed. flu vacc sw9514-64,65yr ADM 0.7ML IM UTD 0 2019 up,/PF [...] History: Diagnosis Date ??? HLD (hyperlipidemia) ??? PR (myocardial infarction) ??? Radiculopathy of lumbar region 12/07/2020 There are no medical history contraindications to this procedure. PAST SURGICAL HISTORY: Past Surgical History: Procedure Laterality Date ??? CORONARY ANGIOPLASTY WITH STENT PLACEMENT ??? CT GUIDED INJECTION SI JOINT 02/19/2019 CT Guided Injection SI Joint 02/19/2019 [facility] RAD CAT SCAN ??? PRO INJ, FORAMEN, L/S, 1 LEVEL Right 12/08/2020 INJECTION, ANESTHETIC AGENT AND/OR STEROID, TRANSFORAMINAL EPIDURAL, LUMBAR OR SACRAL, SINGLE LEVEL(WRVU 1.9) performed by Kiana Canchola MD at [facility] PAIN MGMT MSO There are no past [...] Sincerely, Carlin Reza MD Pain Medicine Fellow [address] [phone] / [facility] CC: Marixa Smith MD [address] [place] [address] documented in this encounter Miscellaneous Notes Op Note - Carlin Reza MD - 01/25/2021 1:40 PM EST Pain Management Operative Note Patient Name: Jose Eduardo Rodríguez : [id number] MR#: [id number] Case Date: 01/25/2021 Surgeon: Surgeon(s) and Role: [...] by Marixa Smith MD [address] [place] [address]. The patient complains of low back pain [...] months. Carlin Reza MD Pain Medicine Fellow [address] [address] / [facility] CC: Marixa Smith MD [address] [address] Associated attestation - Jill Sharma MD - 01/25/2021 5:15 PM EST Attestation: Case Date: 01/25/2021 I was the supervising attending for this procedure and I was present during the entire time. Jill Sharma MD 01/25/2021 documented in this encounter Plan of Treatment Upcoming Encounters Date Type Specialty Care Team Description 08/16/2021 Appointment Radiology Mateo Victoria MD [facility] [place] [address] 08/16/2021 Office Visit Pain and Spine Mateo Victoria, Center [facility] [place] [address] 09/22/2021 Hospital Encounter Surgery Mateo Victoria MD [facility] [place] [address] 09/22/2021 Surgery Surgery Mateo Victoria, MAKENZIEECTOMY MD FACETECTOMY & [facility] MEDICAL FORAMINOTOMY,[facility], CENTER ONE LEVEL ([facility] SPINE CENTER [address]) [place] [address] Scheduled Procedures Name Priority Associated Diagnoses Date/Time [...] Rate Site dexamethasone (PF) (Decadron) (10 Given 01/25/2021 1:40 PM EST 1 5 mg mg/mL) injection ONCE PRN, Starting on 01/25/21 at 1340, Until 01/25/21 at 1551, Intra-Operative (Intra-Procedure), Routine iohexoL (Omnipaque) (240 mg/mL) solution Given 01/25/2021 1:41 PM EST 2 mLs ONCE PRN, Starting on 01/25/21 at 1341, Until 01/25/21 at 1551, Intra-Operative (Intra-Procedure), Routine documented in this encounter [...] Carlin Reza MD) ONCE PRN, Starting on 01/25/21 at 13 41, Until Mon01/25/21 at 1551, Intra- Operative (Intra-Procedure), Routine documented in this encounter Care Teams Ham Rolling Machine Operator Relationship Specialty Start Date End Date Marixa Smith MD PCP - General General Internal Medicine 11/20/19 [address] [place] [address] documented as of this encounter
--- OUTSIDE RECORDS SUMMARY | 2021-07-30 00:20 | XMS_ITS | Encounter Summary ---
:1950 Author Organization [facility] [place] [address] Care Team Providers Name Role Phone Marixa Smith MD Primary Care Provider Encounter Details Date Type Department Care Team Description 04/05/2021 Telephone Pain and Spine Sophie rice at [facility] Vanesa Kelly, [place] [address] Social History Tobacco Use Types Packs/Day [...] this encounter Miscellaneous Notes Telephone Encounter - Vanesa Kelly RN - 04/05/2021 11:57 AM EST In coming call to triage from Jose Eduardo stating that Criss Mares APRN saw him on 03/30/21 and suggestedhe try Celabrex instead of Aleve and let her know if it is of any help to him . Jose Eduardo said that he tried it for 5 days and it did nothing for his pain. Jose Eduardo said Monday was his worst day ever so he went back to the Aleve and will see what the surgeon has to offer. I told him I will forward the message to Criss Mares APRN. documented in this encounter Plan of Treatment Upcoming Encounters Date Type Specialty Care Team Description 08/16/2021 Appointment Radiology Mateo Victoria MD [facility] [place] [place] [address] 08/16/2021 Office Visit Pain and Spine Matoe Victoria, [place] [facility] [place] [address] 09/22/2021 Hospital Encounter Surgery Mateo Victoria MD [facility] [place] [place] [address] 09/22/2021 Surgery Surgery Mateo Victoria, MD STU FACETECTOMY & [facility] FORAMINOTOMY,[facility], CENTER [facility] LEVEL ([facility] SPINE CENTER [address]) [place] [address] Scheduled Procedures Name Priority Associated Diagnoses Date/Time LAMINECTOMY, FACETECTOMY & Foraminal stenosis of 09/22/2021 7:30 AM EDT FORAMINOTOMY,LUMBAR, ONE lumbosacral region LEVEL (VU 15.37) EA ADD'L VERTEBRAL SEGMENT Foraminal stenosis of 09/22/2021 7:30 AM EDT CERVICAL, THORACIC, LUMBAR lumbosacral region (WRVU 3.47) MODIFIER L5 Foraminal stenosis of 09/22/2021 7:30 AM EDT lumbosacral region MODIFIER S1 Foraminal stenosis of 09/22/2021 7:30 AM EDT lumbosacral region documented as of this encounter Visit Diagnoses Not on filedocumented in this encounter Care Teams Relations Specialist Relationship Specialty Start Date End Date Marixa Smith MD PCP - General General Internal Medicine 11/20/[address] [place] [address] documented as of this encounter
--- OUTSIDE RECORDS SUMMARY | 2021-07-30 00:20 | XMS_ITS | Encounter Summary ---
:1950 [place] [address] Care Team Providers Name Role Phone Marixa Smith MD Primary Care Provider Encounter Details Date Type Department Care Team Description 06/02/2021 Telephone Pain and Spine Center at [place] [address] Social History Tobacco Use Types Packs/Day [...] this encounter Miscellaneous Notes Telephone Encounter - Shannen Olmos LPN - 06/02/2021 9:52 AM EDT Jose Eduardo called wanting to set up follow up appointment with Dr. Victoria to discuss surgery, he has an appointment with Criss Mares 06-03-21, but he has decided to move forward with surgery, he has some more questions for Dr. Victoria Spoke with Jose Eduardo, his symptoms remain the same, he is very active normally, he did have an injectionwith Dr. Sharma 3 weeks ago, he did get some relief, but that is dissipating over the last 3 weeks. He would like to make an appointment with Dr. Victoria to discuss marciano, He would like surgery early July if possible. documented in this encounter Plan of Treatment Upcoming Encounters Date Type Specialty Care Team Description 08/16/2021 Appointment Radiology Mateo Victoria MD [facility] [place] [address] 08/16/2021 Office Visit Pain and Spine Mateo Victoria, [place] [facility] [place] [address] 09/22/2021 Hospital Encounter Surgery Mateo Victoria MD [facility] [place] [address] 09/22/2021 Surgery Surgery Mateo Victoria, MD STU FACETECTOMY & [facility] FORAMINOTOMY,CHAVA DEMPSEY, CENTER [facility] ([facility] SPINE CENTER [address]) [place] [address] Scheduled Procedures Name Priority Associated Diagnoses Date/Time [...] on filedocumented in this encounter Care Teams Veterinary Virologist Relationship Specialty Start Date End Date Marixa Smith MD PCP - General General Internal Medicine 11/20/19 [address] [place] [address] documented as of this encounter
--- OUTSIDE RECORDS SUMMARY | 2021-07-30 00:20 | XMS_ITS | Encounter Summary ---
:1950 [place] [address] Care Team Providers Name Role Phone Marixa Smith MD Primary Care Provider Encounter Details Date Type Department Care Team Description 04/13/2021 Telephone Pain and Spine Center [place] [address] Social History Tobacco Use Types Packs/Day [...] Telephone Encounter - Shannen Olmos LPN - 04/13/2021 2:48 PM EST Jose Eduardo saw Dr. Victoria yesterday 04-12-21, he forgot to ask if it was appropriate to get an injection above the pinched area just to make sure surgery is indicated He wants to rule out the pinched area as being the problem. Will route to Dr. Victoria and get back to Jose Eduardo. documented in this encounter Plan of Treatment Upcoming Encounters Date Type Specialty Care Team Description 08/16/2021 Appointment Radiology Mateo Victoria MD [facility] [place] [address] 08/16/2021 Office Visit Pain and Spine Mateo Victoria, [place] [facility] [place] [address] 09/22/2021 Hospital Encounter Surgery Mateo Victoria MD [facility] [place] [address] 09/22/2021 Surgery Surgery Mateo Victoria, MD STU FACETECTOMY & [facility] MEDICAL FORAMINOTOMY,[facility] [place] [facility] ([facility] SPINE CENTER [address]) [place] [address] Scheduled Procedures Name Priority Associated Diagnoses Date/Time [...] on filedocumented in this encounter Care Teams Hot Worker Relationship Specialty Start Date End Date Marixa Smith MD PCP - General General Internal Medicine 11/20/19 [address] [place] [address] documented as of this encounter
--- OUTSIDE RECORDS SUMMARY | 2021-07-30 00:20 | XMS_ITS | Clinical Summary ---
:1950 Author Organization [place] [address] Care Team Providers Name Role Phone Marixa Smith MD Primary Care Provider Allergies No known active allergies Medications Medication Sig Dispensed Refills Start Date End Date Status atorvastatin (LIPITOR) Take 1 tablet by 30 tablet 3 02/13/2015 Active 20 mg Tablet mouth every evening. Additional Information Patient taking differently: 40 mg Oral EVERY MORNING, Reported on 04/28/2021 multivitamin (THERAGRAN) Take 1 tablet by mouth 0 Active Tablet daily. aspirin 81 mg Tablet, Delayed Take 81 mg by mouth 0 Active Release (E.C.) daily. ascorbic acid, vitamin C, Take 1,000 mg by mouth 0 Active (VITAMIN C) 1,000 mg Tablet daily. *taking 2,000 mg a day* Zinc 50 mg Tablet Take 1 tablet by mouth 0 Active daily. flu vacc [id number],65yr ADM 0.7ML IM UTD 0 0 Active up,/PF (FluZONE HighDose Quad 20-21 PF) 240 mcg/0.7 mL Syringe amoxicillin (Amoxil) 500 mg Take 2,000 mg by mouth 0 04/08/2020 Active Capsule as needed. sildenafiL (VIAGRA) 100 mg 100 mg daily as needed. 0 04/06/2020 Active Tablet zolpidem (Ambien) 5 mg Tablet Take 1 tablet by mouth 0 07/23/2020 Active nightly as needed. acetaminophen (TYLENOL) 650 Take 1,300 mg by mouth 0 Active mg Tablet Sustained Release every 8 hours as needed for Pain. Do not exceed 6 tabs in 24 hours naproxen sodium (ANAPROX) 220 Take 440 mg by mouth as 0 Active mg Tablet needed. celecoxib (CeleBREX) 200 mg Take 1 capsule by mouth 30 capsule 1 03/30/2021 Active Capsule daily. Additional Information Patient not taking. Reported on 04/28/2021 Active Problems Problem Noted Date Radiculopathy of lumbar region 12/07/2020 Arthritis 10/18/2020 Arteriosclerosis of coronary artery 10/18/2020 Heart disease 10/18/2020 Hypercholesterolemia 10/18/2020 Cervical spondylosis without myelopathy 08/30/2020 Foraminal stenosis of lumbosacral region 12/12/2019 Overview: Added automatically from request for ashtyn santo [id number] Osteoarthritis of right shoulder region 11/06/2015 SDH (subdural hematoma) 02/11/2015 Encounters Date Type Specialty Care Team Description 06/29/2021 Telephone Pain and Spine Arlin Kovacs Questions Melany Mcallister RN 06/10/2021 Telephone Pain and Spine Melany Foote RN 06/09/2021 Telephone Pain and Spine [place] Shannen Linda LPN 06/04/2021 TH Visit Pain and Spine Criss Mares Foraminal s tenosis of (TeleHealth) Melany cMallister APRN lumbosacral reg ion 06/03/2021 Laboratory Lab Appointment 06/03/2021 Clinical Support Foraminal s tenosis of lumbosacral region; Pain in extremi ty, unspecified extremity 06/03/2021 Office Visit Pain and Spine Mateo Victoria, Foraminal stenosis of lumbosacral region; [place] Pain in extremi ty, unspecified extremity 06/03/2021 Telephone Pain and Spine Arlin Kovacs Pre Proce dure Call [place] LARISSA Mcallister (Preop teaching , ORT, PDMP, opioid co nsent; opioid and non opioid pain mgmt; refi ll process) 06/02/2021 Telephone Pain and Spine [place] Shannen Linda LPN 05/14/2021 Ancillary Procedure Pain Management Jill Sharma MD 05/14/2021 Surgery Pain Management Jill Sharma MD INJECTION , ANESTHETIC AGENT AND/OR ST EROID, TRANSFORAMINAL EPIDURAL, LUMBA R OR SACRAL, EACH ADDITIONAL LEVE L (WRVU 1) 05/14/2021 Hospital Encounter Pain Management Jill Sharma MD For aminal stenosis of lumbosacral reg ion 05/10/2021 Telephone Pain and Spine Delmi Emmanuel [place] RN 04/29/2021 TH Visit Pain and Spine Criss M[facility] Foraminal s tenosis of (TeleHealth) Center M, [employer]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[employer]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 lumbosacral reg ion (Primary Dx) from Last 3 Months Immunizations Name Administration Dates Next Due Moderna Covid-19 (Inspector General) Vaccine 05/31/2021, 12/01/2020, 0 05/06/2020, 100mcg 04/08/2020 Family History Medical History Relation Comments Cancer Maternal Grandmother Heart Disease Paternal Grandfather Myocardial Infarction Paternal Grandfather Cancer Paternal Grandmother Relation Status Comments Maternal Grandmother Paternal Grandfather Paternal Grandmother Social History Tobacco Use Types Packs/Day Years Used Date Former Smoker Smokeless Tobacco: Never Used Tobacco Cessation: Ready to Quit: No; Co unseling Given: Yes Comments: occasional cigars Alcohol Use Standard Drinks/Week [...] Sign Reading Time Taken Comments Blood Pressure 144/84 06/03/2021 12:54 PM EDT Pulse 61 06/03/2021 12:54 PM EDT Temperature 36.7 ??C (98 ??F) 05/28/2020 9:16 AM EDT Respiratory Rate 18 08/31/2020 9:54 AM EDT Oxygen Saturation 100% 05/14/2021 8:50 AM EDT Inhaled Oxygen Concentration - - Weight 88.5 kg (195 lb) 06/03/2021 12:54 PM EDT Height 182.9 cm (6') 06/03/2021 12:54 PM EDT Body Mass Index 26.45 06/03/2021 12:54 PM EDT Plan of Treatment Upcoming Encounters Date Type Specialty Care Team Description 08/16/2021 Appointment Radiology Mateo Victoria MD [facility] [place] [address] 08/16/2021 Office Visit Pain and Spine Mateo Victoria, [place] [facility] [place] [address] 09/22/2021 Hospital Encounter Surgery Mateo Victoria MD [facility] [place] [address] 09/22/2021 Surgery Surgery Mateo Victoria, MAKENZIEECTOMY , FACETECTOMY & ONE MEDICAL FORAMINOTOMY,[facility] [address] ([facility] [address] [place] [address] Scheduled Procedures Name Priority Associated Diagnoses Date/Time [...] of 09/22/2021 7:30 AM EDT lumbosacral region Health Maintenance Due Date Last Done Comments Pneumoccocal Vaccine: 65+ (1 - 06/07/1957 PCV) Hepatitis C Screening 06/07/1969 Tdap adult 06/07/1970 Tetanus vaccine 06/07/1970 Colonoscopy 06/07/1996 Zoster vaccine (1 of 2) 06/07/2001 Advance Directive 06/07/2006 AAA Screen 06/07/2016 Influenza (Flu) vaccine (1 of 1 - 10/07/2020 Influenza standard series) Diabetes Screening (HgbA1C or 06/03/2024 06/03/2021, 2015, Glucose) 02/11/2015 Covid-19 Vaccine Completed 05/31/2021, 12/01/2020, 05/06/2020, Additional history exists Procedures Procedure Name Priority Date/Time Associated Comments Diagnosis DIFFERENTIAL, AUTOMATED Routine 06/03/2021 2:53 Foraminal sten osis Results for this PM EDT of lumbosacral procedure are in region the results section. HEMOGRAM Routine 06/03/2021 2:53 Foraminal stenosis Result s for this PM EDT of lumbosacral procedure are in region the results section. HC CBC,PLT & AUTO DIFF Routine 06/03/2021 2:53 Foraminal steno sis PM EDT of lumbosacral region BASIC METABOLIC PANEL Routine 06/03/2021 2:53 Foraminal stenos is Results for this (NON-FASTING) PM EDT of lumbosacral procedure ar e in region the results section. HC PROTHROMBIN TIME Routine 06/03/2021 2:53 Pain in extremity, Results for this PM EDT unspecified procedure are i n extremity the results Foraminal stenosis section. of lumbosacral region EKG 12-LEAD Routine 06/03/2021 2:41 Foraminal stenosis Result s for this PM EDT of lumbosacral procedure are in region the results section. FILM LIBRARY STORAGE Routine 05/14/2021 1:25 Resu lts for this ONLY PAIN CLINIC C ARM PM EDT proce dure are in the results section. INJECTION, ANESTHETIC 05/14/2021 8:32 Foraminal stenos is AGENT AND/OR STEROID, AM EDT of lumbosacral TRANSFORAMINAL region EPIDURAL, LUMBAR OR SACRAL, SINGLE LEVEL (WRVU 1.9) INJECTION, ANESTHETIC 05/14/2021 8:32 Foraminal stenos is AGENT AND/OR STEROID, AM EDT of lumbosacral TRANSFORAMINAL region EPIDURAL, LUMBAR OR SACRAL, EACH ADDITIONAL LEVEL (WRVU 1) INJ, ANES Routine 05/14/2021 8:28 Foraminal stenosis AGENT/STEROID, AM EDT of lumbosacral TRANSFORAMINAL EPI, region LUMBAR/SACRAL, EA ADDL LEVEL INJ, ANES Routine 05/14/2021 8:28 Foraminal stenosis AGENT/STEROID, AM EDT of lumbosacral TRANSFORAMINAL EPI, region LUMBAR/SACRAL, SINGLE LEVEL from Last 3 Months Results (ABNORMAL) Hemogram (06/03/2021 2:53 PM EDT) Analysis Performed At [facility] logist Time Signature WBC 3.3 (L) 4.0 - 9.5 [facility] x10(3)/[facility] LABORATORY RBC 4.73 4.58 - [facility] 5.54 [facility] x10(6)/[facility] LABORATORY Hemoglobin 15.5 13.7 - [facility] 16.5 g/dL [facility] LABORATORY Hematocrit 45.3 40.5 - [facility] 48.5 % [facility] LABORATORY MCV 95.8 (H) 82.9 - [facility] 93.1 [facility] LABORATORY MCH 32.8 (H) 27.5 - [facility] 32.[address] [facility] LABORATORY MCHC 34.2 32.0 - [facility] 35.7 g/dL [facility] LABORATORY Platelets 157 145 - 357 [facility] x10(3)/[facility] LABORATORY RDWSD 44.9 36.0 - [facility] 45.0 [facility] LABORATORY RDWCV 12.7 11.4 - [facility] 13.8 % [facility] LABORATORY MPV 10.8 7.6 - 12.9 [facility] LABORATORY nRBC % Auto 0.0 % [facility] LABORATORY nRBC Abs Auto 0.000 0.000 - [facility] 0.000 [facility] x10(3)/[facility] LABORATORY Specimen Anatomical Collection Method Collection Time Receive d Time (Source) Location / / Volume Laterality Blood 06/03/2021 2:53 PM 2 3:08 EDT PM EDT Resulting Agency Comment Spec In Lab Mateo Victoria MD HEMATOLOGY ORDERABLES Performing Organization Address City/State/[place] [address] (ABNORMAL) Differential, Automated (06/03/2021 2:53 PM EDT) [facility] gist Method Time Signature Neutrophils % 53.6 % [facility] LABORATORY Neutr Abs (ANC) 1.76 1.70 - [facility] 6.10 [facility] x10(3)/[facility] LABORATORY Lymphocytes % 24.6 % [facility] LABORATORY Lymphocytes Abs 0.8 (L) 0.9 - 3.2 [facility] x10(3)/[facility] LABORATORY Monocytes % 18.5 % [facility] LABORATORY Monocyte Abs 0.6 0.3 - 0.9 [facility] x10(3)/[facility] LABORATORY Eosinophils % 2.7 % [facility] LABORATORY Eosinophils Abs 0.1 0.0 - 0.4 [facility] x10(3)/[facility] LABORATORY Basophils % 0.6 % [facility] LABORATORY Basophils Abs 0.0 0.0 - 0.1 [facility] x10(3)/[facility] LABORATORY Immature Gran % 0.00 % [facility] LABORATORY Comment: Immature granulocytes(IG's)percentage an d absolute count will include metamyelocytes, myelocytes, and promyelo cytes. Blood smears from CBCs yielding IG's will be scanned manually for concor dance. If this scan disagrees with the automated IG or if promyelocytes are not ed, a manual differential will be performed. Malaika Gran Abs 0.00 0.00 - 0.04 x10(3)/[facility] LABORATORY Specimen Anatomical Collection Method Collection Time Receive d Time (Source) Location / / Volume Laterality Blood 06/03/2021 2:53 PM 2 3:08 EDT PM EDT Resulting Agency Comment Spec In Lab Mateo Victoria MD HEMATOLOGY ORDERABLES Performing Organization Address City/State/[place] [address] Prothrombin Time (06/03/2021 2:53 PM EDT) P athologist Signature PT 11.1 9.4 - 12.5 [facility] LABORATORY INR 1.0 [facility] LABORATORY Comment: An INR <2.0 indicates [...] Organization Address City/State/[place] [address] Basic Metabolic Panel (non-fasting) (06/03/2021 2:53 PM EDT) athologist Signature Glucose Lvl 73 65 - 199 [facility] mg/dL [facility] LABORATORY Comment: Diabetes: >=200 mg/dL plus symp toms BUN 18 10 - 20 mg/dL [facility] LABORATORY Creatinine 0.87 0.80 - 1.50 mg/dL [facility] LABORATORY Sodium 143 135 - [...] estions. Chloride 106 98 - 107 mmol/L [facility] LABORATORY CO2 26 22 - 31 mmol/L [facility] LABORATORY Anion Gap 11 5 - 15 mmol/L [facility] LABORATORY Calcium 9.2 8.5 - 10.5 mg/dL [facility] LABORATORY Estimated GFR 88 >=60 mL/min/1.73 m?? [facility] LABORATORY Comment: This patient? s estimated [...] / Volume Laterality Blood 06/03/2021 2:53 PM 3:08 EDT PM EDT Resulting Agency Comment Spec In Lab Mateo Victoria MD CHEMISTRY ORDERABLES Performing Organization Address City/State/[place] [address] EKG 12 Lead (06/03/2021 2:41 PM EDT) Component Value Ref Range Test Analysis Performed Pathologis t Method Time At Signature Ventricular rate 44 BPM MUSE SYSTEM Atrial Rate 44 BPM MUSE SYSTEM P-R Interval 196 ms MUSE SYSTEM QRS Duration 100 ms MUSE SYSTEM Q-T Interval 454 ms MUSE SYSTEM QTC Calculated 388 ms MUSE SYSTEM (Bezet) Calculated P [place] 48 degrees MUSE SYSTEM Calculated R [place] 40 degrees MUSE SYSTEM Calculated T [place] 50 degrees MUSE SYSTEM INTERPRETATION Marked sinus bradycardia MUSE SYSTEM Abnormal ECG When compared with ECG of 12-FEB-2015 12:33, No significant change was found Confirmed by Richard Myers ([id number]) on 06/07/2021 2:01:5 8 PM Specimen Anatomical Collection Method Collection Time Receive d Time (Source) Location / / Volume Laterality 06/03/2021 2:41 PM 2:01 EDT PM EDT Mateo Victoria MD ECG ORDERABLES Performing Organization Address City/State/ZIP Code Phon e Number MUSE SYSTEM Film Library- Storage Only pain Clinic C-Arm (05/14/2021 1:25 PM EDT) Specimen (Source) Anatomical Location Collection Method / Collectio n Time Received Time / Laterality Volume Narrative RAD - 05/14/2021 1:25 PM EDT See PACS for result report. Jill Sharma MD IMG FILM LIBRARY ORDERABLES Performing Organization Address City/State/ZIP Code Phon e Number RAD [place], [place] from Last 3 Months Insurance Payer Benefit Plan / Subscriber ID Effective Phone Address T ype Group Dates [employer] [id number] 2019-Prese [address] [place] [id number] MEDICARE MEDICARE PART [id number] 2019-Pres [phone] [place] [address] JACQUELYN ALLISON Workers Comp Employer 1950 [address] ([place]) [place] [address] Advance Directives Latest Code Status on File Code Status Date Activated Date Inactivated Comments Full Code 02/11/2015 5:00 PM 02/13/2015 12:17 PM Does patient have capacity to make decision: Yes Care Teams Casing Inspector Relationship Specialty Start Date End Date Mariax Smith MD PCP - General General Internal Medicine 11/20/19 [address] [place] [address]
--- OUTSIDE RECORDS SUMMARY | 2021-07-30 00:20 | XMS_ITS | Encounter Summary ---
:1950 Author Organization [facility] Address [address] [place] [address] Care Team Providers Name Role Phone Dexter Vicente MD Primary Care Provider Unavailable Encounter Details Date Type Department Care Team Description 07/15/2010 Results Only Imaging [facility] Víctor Capps, Cardiology - [place] GRAJEDA [address] [place], [place] [address] [address] [place] [id number] (Wo rk) Social History Tobacco Use Types Packs/Day Years Used Date Never Assessed Sex Assigned at Date Recorded Not on file documented as of this encounter Plan of Treatment Not on filedocumented as of this encounter Procedures Procedure Name Priority Date/Time Associated Diagnosis Comme nts LEFT HEART CATH 07/16/2010 10:11 EDT Resu lts for this procedure are i n the results section. documented in this encounter Results LEFT HEART CATH (07/16/2010 10:11 EDT) Specimen Impressions CARDIOLOGY - 07/22/2010 8:42 EDT ?[facility] ? [address] ?? [place], [place] [address] ? ?Fax: [phone] ?? [email or web address] ?Final Interventional Card iovascular Catheterization Report ?- -- SUMMARY OF RESULTS --- > The patient has significant (>70%) le sions in ??1 coronary vessel(s). > The culprit artery was the proximal to mid RCA. Prior to PCI there was 90% stenosis in the culprit artery. > Following PCI as described in the proc edure section, there was 0% residual stenosis and normal flow in the proximal to mid RCA. > ??We accomplished complete revasculari zation. ??There are severe stenoses remaining in 0 coronary vessels or graft s. > Interventional cardiac catheterization was performed without any significant complications. ? --- PLAN --- >Aspirin is recommended indefinitely and should not be stopped without consultation with a heel blacker. Clopid ogrel (plavix) is recommended for a minimum of 12 months after the drug elut ing stent procedure. > It is recommended that the patient hav e medical therapy for moderate coronary disease. ? --- PATIENT PRESENTATION --- The patient is a 60 year old male. ??The primary indication for PCI was PCI for high risk Non-STEMI or unstable angina. Additional indications include: Positive Exercise Tolerance Test, positi ve stress test, Unstable angina. The patient has the following Comorbidit ies/Risk Factors: ??None. : 1950 ?Sex: male ?Heig ht: 185.4cm ?Weight: 102kg ?BSA: 2.26 Allergies: ??NKA Pre-Honing Machine Operator Production Values: ??HCT: 42.7 ?Pl atelets: 159.0 ?Creatinine:.9 ? --- PROCEDURE --- CARDIAC ANATOMY AND FUNCTION Natives with > 70% stenosis: RCA Dominance: ??Right LM Stenosis: 30% INTERVENTIONAL CARDIAC PROCEDURE PCI is indicated for this significant AC C/AHA class B2 lesion in the ??proximal to mid RCA vessel. A 6F AR1 guide catheter was chosen for t he intervention . ??This catheter gave good engagement in the ostium of the RCA . The lesion in the ??proximal to mid RCA was crossed successfully with an 0.014 inch Naterowater wire. We then inflated a 3.5 mm diameter of ap proximately 20 mm length Trek balloon in the ??proximal RCA. ?? The maximal in flation pressure was 12-16 sumi. We then inflated a 4.0 mm diameter of ap proximately 28 mm length Xience drug- eluting stent in the ??mid RCA. ?? The m aximal inflation pressure was 12-16 sumi. The stent was successfully deployed. We then inflated a 4.0 mm diameter of ap proximately 23 mm length Xience drug- eluting stent in the ??proximal RCA. ?? The maximal inflation pressure was >16 sumi. ??The stent was successfully deploy ed. The right common femoral artery was norm al in size and had no significant angiographic lesions. The femoral artery sheath was placed wit hin the common femoral artery. The Largest Arterial Sheath/Cath placed was ??6F The Hemostasis method used was: ? Starclose Vascular Yara Sys Fluoro Time (min): 10.9 ?? The NCDR Sidney mmends a Warning if FT > 30 minutes SELECTED MEDICATION ADMINISTERED DURING THE PROCEDURE: ??FENTANYL, VERSED ? (Please see PhysioLog report for complete list of medications used.) Referring Physician: GÉNESIS GRAJEDA,CORNELL Linda Referring Physician 2: LISSA TRAN MD Referring Physician 3: CINTHIA GRAJEDA,Esvin Lackey Interventional Attending: Génesis GRAJEDA, Nabil soto Interventional Assisting 1: Rosita GRAJEDA, Zeb baca As the attending, supervising cardiologi st, I was present for the entire procedure. Signature date/time: 07/22/2010 8:42:49 AM ? Narrative CARDIOLOGY - 07/22/2010 8:42 EDT ?[facility] ? [address] [facility] ?? [place] [address] ? [phone] ?Fax: ?? [email or web address] ?Final Diagnostic Cardi ovascular Catheterization Report ?- -- SUMMARY OF RESULTS --- > Diagnostic cardiac catheterization wa s performed without any significant complications. > The patient has significant (>70%) les ions in ??1 coronary vessel(s). > The LV end diastolic pressure was norm al. > Left ventriculography revealed normal left ventricular function. ??Regional wall motion abnormalities were absent. ? --- PLAN --- > It is recommended that the patient hav e medical therapy for moderate coronary disease. > After careful review of the diagnostic images and findings, PCI of the proximal to mid RCA is indicated electiv rosi based upon the indications, risk factors and anatomy described above. ? --- PATIENT PRESENTATION --- The patient is a 60 year old male with t he following indications: ??Positive Exercise Tolerance Test, positive stress test, Unstable angina . The patient has the following Comorbidit ies/Risk Factors: ??None. : 1950 ?Sex: male ?Heig ht: 185.4cm ?Weight: 102kg ?BSA: 2.26 Allergies: ??NKA Pre-Honing Machine Operator Production Values: ??HCT: 42.7 ?Pl atelets: 159.0 ?Creatinine:.9 ? --- PROCEDURE --- DIAGNOSTIC CARDIAC PROCEDURE Under local anesthesia, the right femora l artery was accessed with a 6F sheath using modified Seldinger technique. ??A 6F JL4 catheter was introduced and positioned in the ascending aorta. Selective coronary arteriography was the n performed using a 6F JL4 catheter to engage the left coronary artery and a 6F modified AR catheter to engage the right coronary artery. ??Right and left coronary arteriography were performed in multiple views. Left heart cath was performed according to standard procedure. ??A 6F Pigtail was used to cross the aortic valve and m easure pressures in the left ventricle. Using standard procedures, left ventricu lography was performed. A 6F Pigtail was used to cross the aortic valve and m easure pressures in the left ventricle. ??An injection of Isovue cont rast was used for left ventriculography in the 30 degree FISHER projection. Via a 6F guide, an 0.014 inch RADI press ure wire was placed in the mid LAD. IC adenosine was infused achieving maxim al hyperemia and the fractional flow reserve was assessed. The Largest Arterial Sheath/Cath placed was ??6F The Hemostasis method used was: ? Starclose Vascular Yara Sys Fluoro Time (min): 10.9 ?? The NCDR Sidney mmends a Warning if FT > 30 minutes SELECTED MEDICATION ADMINISTERED DURING THE PROCEDURE: ??FENTANYL, VERSED ? (Please see PhysioLog report for complete list of medications used.) ?--- RESULTS --- HEMODYNAMICS ??Pressures: ?Site ?Systolic ??Meredith to ??Mean ?lic ?LV ?132 ? 1 3 ?LV ?129 ? 2 1 ?Ao ?131 ? 7 0 ?95 ?Ao ?131 ? 7 1 ?95 The left ventricular end diastolic press ure was normal. There was no gradient detected across th e aortic valve. LEFT VENTRICULOGRAPHY The left ventricular function was normal . ??There was no mitral regurgitation. FEMORAL ANGIOGRAPHIC FINDINGS The right common femoral artery was norm al in size and had no significant angiographic lesions. The femoral artery sheath was placed wit hin the common femoral artery. CORONARY ANGIOGRAPHIC FINDINGS Left Main Artery: The ostial LMCA has a ??30% stenosis. Left Anterior Descending Artery: The Pro ximal LAD is normal in size and has no significant angiographic lesions. The Mid LAD has a 50% stenosis (FFR was not significant at 0.91). Circumflex Artery: The Circumflex is nor mal in size and has no significant angiographic lesions. Right Coronary Artery: The proximal RCA has a 90% stenosis. Referring Physician: CORNELL CAPPS MD Referring Physician 2: MARC GRAJEDA,LISSA Referring Physician 3: CINTHIA GRAJEDA,Esvin Lackey Diagnostic Attending: Cornell Capps MD Diagnostic Assisting 1: Maryanne Coronel MD Diagnostic Assisting 2: Rosita GRAJEDA, Josh botello As the attending, supervising cardiologi st I was present for the entire procedure. Signature date/time: 07/22/2010 8:42:45 AM Procedure Note Cornell Capps MD - 07/22/2010 [facility] [address] [place] [id number] [email or web address] Final Diagnostic Cardiovascular Cathete rization Report --- SUMMARY OF RESULTS --- > Diagnostic cardiac catheterization wa s performed without any significant complications. > The patient has significant (>70%) les ions in 1 coronary vessel(s). > The LV end diastolic pressure was norm al. > Left ventriculography revealed normal left ventricular function. Regional wall motion abnormalities were absent. --- PLAN --- > It is recommended that the patient hav e medical therapy for moderate coronary disease. > After careful review of the diagnostic images and findings, PCI of the proximal to mid RCA is indicated electiv rosi based upon the indications, risk factors and anatomy described above. --- PATIENT PRESENTATION --- The patient is a 60 year old male with t he following indications: Positive Exercise Tolerance Test, positive stress test, Unstable angina . The patient has the following Comorbidit ies/Risk Factors: None. : 1950 Sex: male Height: 185.4c m Weight: 102kg BSA: 2.26 Allergies: NKA Pre-Honing Machine Operator Production Values: HCT: 42.7 Platelets : 159.0 Creatinine:.9 --- PROCEDURE --- DIAGNOSTIC CARDIAC PROCEDURE Under local anesthesia, the right femora l artery was accessed with a 6F sheath using modified Seldinger technique. A 6F JL4 catheter was introduced and positioned in the ascending aorta. Selective coronary arteriography was the n performed using a 6F JL4 catheter to engage the left coronary artery and a 6F modified AR catheter to engage the right coronary artery. Right and left co ronary arteriography were performed in multiple views. Left heart cath was performed according to standard procedure. A 6F Pigtail was used to cross the aortic valve and m easure pressures in the left ventricle. Using standard procedures, left ventricu lography was performed. A 6F Pigtail was used to cross the aortic valve and m easure pressures in the left ventricle. An injection of Isovue contra st was used for left ventriculography in the 30 degree FISHER projection. Via a 6F guide, an 0.014 inch RADI press ure wire was placed in the mid LAD. IC adenosine was infused achieving maxim al hyperemia and the fractional flow reserve was assessed. The Largest Arterial Sheath/Cath placed was 6F The Hemostasis method used was: Starclos e Vascular Yara Sys Fluoro Time (min): 10.9 The NCDR Recomme nds a Warning if FT > 30 minutes SELECTED MEDICATION ADMINISTERED DURING THE PROCEDURE: FENTANYL, VERSED (Please see PhysioLog report for comple te list of medications used.) --- RESULTS --- HEMODYNAMICS Pressures: Site Systolic Diasto Mean lic LV 132 13 LV 129 21 Ao 131 70 95 Ao 131 71 95 The left ventricular end diastolic press ure was normal. There was no gradient detected across th e aortic valve. LEFT VENTRICULOGRAPHY The left ventricular function was normal . There was no mitral regurgitation. FEMORAL ANGIOGRAPHIC FINDINGS The right common femoral artery was norm al in size and had no significant angiographic lesions. The femoral artery sheath was placed wit hin the common femoral artery. CORONARY ANGIOGRAPHIC FINDINGS Left Main Artery: The ostial LMCA has a 30% stenosis. Left Anterior Descending Artery: The Pro ximal LAD is normal in size and has no significant angiographic lesions. The Mid LAD has a 50% stenosis (FFR was not significant at 0.91). Circumflex Artery: The Circumflex is nor mal in size and has no significant angiographic lesions. Right Coronary Artery: The proximal RCA has a 90% stenosis. Referring Physician: CORNELL CAPPS MD Referring Physician 2: LISSA TRAN MD Referring Physician 3: Esvin VICENTE MD Diagnostic Attending: Cornell Capps MD Diagnostic Assisting 1: Maryanne Coronel MD Diagnostic Assisting 2: Josh Becker MD As the attending, supervising cardiologi st I was present for the entire procedure. Signature date/time: 07/22/2010 8:42:45 AM IMPRESSION [facility] [address] [place] [address] [phone] [email or web address] Final Interventional Cardiovascular Cat heterization Report --- SUMMARY OF RESULTS --- > The patient has significant (>70%) le sions in 1 coronary vessel(s). > The culprit artery was the proximal to mid RCA. Prior to PCI there was 90% stenosis in the culprit artery. > Following PCI as described in the proc edure section, there was 0% residual stenosis and normal flow in the proximal to mid RCA. > We accomplished complete revasculariza tion. There are severe stenoses remaining in 0 coronary vessels or graft s. > Interventional cardiac catheterization was performed without any significant complications. --- PLAN --- >Aspirin is recommended indefinitely and should not be stopped without consultation with a heel blacker. Clopid ogrel (plavix) is recommended for a minimum of 12 months after the drug elut ing stent procedure. > It is recommended that the patient hav e medical therapy for moderate coronary disease. --- PATIENT PRESENTATION --- The patient is a 60 year old male. The p rimary indication for PCI was PCI for high risk Non-STEMI or unstable angina. Additional indications include: Positive Exercise Tolerance Test, positi ve stress test, Unstable angina. The patient has the following Comorbidit ies/Risk Factors: None. : 1950 Sex: male Height: 185.4c m Weight: 102kg BSA: 2.26 Allergies: NKA Pre-Honing Machine Operator Production Values: HCT: 42.7 Platelets : 159.0 Creatinine:.9 --- PROCEDURE --- CARDIAC ANATOMY AND FUNCTION Natives with > 70% stenosis: RCA Dominance: Right LM Stenosis: 30% INTERVENTIONAL CARDIAC PROCEDURE PCI is indicated for this significant AC C/AHA class B2 lesion in the proximal to mid RCA vessel. A 6F AR1 guide catheter was chosen for t he intervention . This catheter gave good engagement in the ostium of the RCA . The lesion in the proximal to mid RCA wa s crossed successfully with an 0.014 inch SuddenValues wire. We then inflated a 3.5 mm diameter of ap proximately 20 mm length Trek balloon in the proximal RCA. The maximal inflati on pressure was 12-16 sumi. We then inflated a 4.0 mm diameter of ap proximately 28 mm length Xience drug- eluting stent in the mid RCA. The lenore l inflation pressure was 12-16 sumi. The stent was successfully deployed. We then inflated a 4.0 mm diameter of ap proximately 23 mm length Xience drug- eluting stent in the proximal RCA. The m aximal inflation pressure was >16 usmi. The stent was successfully deployed . The right common femoral artery was norm al in size and had no significant angiographic lesions. The femoral artery sheath was placed wit hin the common femoral artery. The Largest Arterial Sheath/Cath placed was 6F The Hemostasis method used was: Starclos e Vascular Yara Sys Fluoro Time (min): 10.9 The NCDR Recomme nds a Warning if FT > 30 minutes SELECTED MEDICATION ADMINISTERED DURING THE PROCEDURE: FENTANYL, VERSED (Please see PhysioLog report for comple te list of medications used.) Referring Physician: GÉNESIS GRAJEDA,CORNELL Linda Referring Physician 2: MARC GRAJEDA,LISSA Referring Physician 3: Esvin VICENTE MD Interventional Attending: Génesis GRAJEDA, Ed soto Interventional Assisting 1: Rosita GRAJEDA, Zeb baca As the attending, supervising cardiologi st I was present for the entire procedure. Signature date/time: 07/22/2010 8:42:49 AM Performing Organization Address City/State/[facility] Code Phon e Number [facility] documented in this encounter Visit Diagnoses Not on filedocumented in this encounter Care Teams Labeling Specialist Relationship Specialty Start Date End Date Dexter Vicente MD PCP - General 07/15/1002/11/21 documented as of this encounter
--- OUTSIDE RECORDS SUMMARY | 2021-07-30 00:20 | XMS_ITS | Encounter Summary ---
:1950 Author Organization [facility] Address [address] [place] [address] Care Team Providers Name Role Phone Marixa Smith MD Primary Care Provider Reason for Referral Diagnostic Test (Routine) - New Request Specialty Diagnoses / Procedures Referred By Contact Refer red To Contact Radiology Diagnoses Foraminal stenosis of lumbosacral region Criss Mares APRN Procedures MRI Lumbar Spine wo Contrast (Generic) [facility] [place] [address] Referral ID Status Reason Start Expiration Visits Visits Date Date Requested Authorized [id number] New Request Specialty 06/23/2022 1 1 Service 1 Requested Reason for Visit Reason Comments Follow-up Encounter Details Date Type Department Care Team Description 12/24/2020 Office Visit [facility] Criss Mares F oraminal stenosis of at [facility] COUPLING MACHINE OPERATOR lumbosacral region [facility] (Pr imary Dx) Drive [address] [place] [facility]IC[facility] [address] [place] [address] [phone] Social History Tobacco Use Types Packs/Day Years [...] Sign Reading Time Taken Comments Blood Pressure 144/60 12/24/2020 12:25 PM EST Pulse 53 12/24/2020 12:25 PM EST Temperature - - Respiratory Rate - - Oxygen Saturation 98% 12/24/2020 12:25 PM EST Inhaled Oxygen Concentration - - Weight 88.5 kg (195 lb) 12/24/2020 12:25 PM EST Height 182.9 cm (6') 12/24/2020 12:25 PM EST Body Mass Index 26.45 12/24/2020 12:25 PM EST documented in this encounter Patient Instructions Patient InstructionsCriss Mares APRN - 12/24/2020 12:40 PM EST Outside MRI fu with me documented in this encounter Progress Notes Criss Mares APRN - 12/24/2020 12:40 PM EST Images from the original note were not included. [facility] [place] [address] Phone: PAIN MANAGEMENT FOLLOW UP NOTE DATE OF VISIT 12/22/2020 Patient Jose Eduardo Rodríguez 1950 REFERRING PROVIDER Marixa Smith MD [address] [place] [address] PRIMARY CARE PROVIDER Marixa Smith MD CHIEF COMPLAINT: Jose Eduardo Rodríguez is a 70 y.o.male with Right lateral leg pain, who is seen in consultation at the request of Marixa Smith MD [address] [place] [address]. for evaluation, recommendations, and management.The history is [...] injection on the right done here at [facility] int early part of this year without any [...] he has done some Sergei PT in [facility] and while he did see some [...] and is no longer finding them effective. Pain most recent MRI or Xray: PAIN ASSESSMENT: Description: Achy , weak, heavy Weakness, numbness, tingling: feels weak and heavy the leg can feel up to 500 pounds when walking. Saddle Anesthesia: no Other associated symptoms: no Alleviating factors:sitting, flexion Aggravating factors:standing and walking over [address] past week less than 5/10 No flowsheet data found. FUNCTIONAL HISTORY Work:retired [...] from family/friends?no History of incarceration? MEDICATIONS [facility] Prescription Monitoring Program was checked and no concerns were identified. Medications 12/08/20 0569 Medication Sig Taking? zolpidem (Ambien) 5 mg [...] 100 mg daily as needed. flu vacc [id number] up,/PF (FluZONE HighDose Quad 20-21 PF) 240 [...] evening. ADVERSE DRUG REACTIONS Allergies as of 12/24/2020 ??? (No Known Allergies) MEDICAL HISTORY Past Medical History: Diagnosis Date ??? HLD (hyperlipidemia) ??? TN (myocardial infarction) SURGICAL HISTORY Past Surgical History: Procedure Laterality [...] at [facility] PAIN MGMT MSO FAMILY HISTORY Family History Problem Relation Age of Onset ??? Cancer Maternal Grandmother ??? Cancer Paternal Grandmother ??? Heart Disease Paternal Grandfather ??? Myocardial Infarction Paternal Grandfather Opioid Risk Category: low risk 0-3 PHYSICAL EXAMINATION He has normal strength, sensation, symmetrical reflexes at the knees absent at the Achilles. Straight leg raises are negative. ASSESSMENT He has known right sided L5-S1 foraminal compromise from previous MRI. PLAN/RECOMMENDATIONS He is going to have an MRI of the lumbar spine and follow-up with me afterwards. Jose Eduardo Rodríguez had the opportunity to ask questions and indicated that all questions were answered to his satisfaction. Criss Mares MS SUPERVISOR REAL ESTATE OFFICE-BC, COUPLING MACHINE OPERATOR Nurse Practitioner [facility] documented in this encounter Plan of Treatment Upcoming Encounters Date Type Specialty Care Team Description 08/16/2021 Appointment Radiology Mateo Victoria MD [facility] [place] [place] [address] 08/16/2021 Office Visit Pain and Spine Mateo Victoria, [employer] [facility] [place] [place] [address] 09/22/2021 Hospital Encounter Surgery Mateo Victoria MD [facility] [place] [place] [address] 09/22/2021 Surgery Surgery Mateo Victoria LAMINECTOMY MD FACETECTOMY & [facility]AMINOTOM[facility],CHAVA DEMPSEY, CENTER ONE LEVEL ([facility] [address]) [place] [address] Scheduled Orders Name Type Priority Associated Diagnoses Order S chedule MRI Lumbar Spine wo Imaging Routine Foraminal stenosis of Expected: 01/07/2021, Contrast (Generic) lumbosacral region Exp ires: 07/09/2021 Scheduled Procedures Name Priority Associated Diagnoses Date/Time LAMINECTOMY, FACETECTOMY & Foraminal stenosis of 09/22/2021 7:30 AM EDT FORAMINOTOMY,LUMBAR, ONE lumbosacral region [facility] EA ADD'L VERTEBRAL SEGMENT Foraminal [...] claudication documented in this encounter Care Teams Zig Zag Spring Machine Operator Relationship Specialty Start Date End Date Marixa Smith MD PCP - General General Internal Medicine 11/20/19 [address] [place] [address] documented as of this encounter
--- OUTSIDE RECORDS SUMMARY | 2021-07-30 00:20 | XMS_ITS | Encounter Summary ---
:1950 Author Organization [facility] [place] [address] Care Team Providers Name Role Phone Marixa Smith MD Primary Care Provider Encounter Details Date Type Department Care Team Description 04/12/2021 Hospital Encounter XRay at [facility] Criss Mares Foraminal stenosis [address] [place] [address] Esvin APRN of lumbosacral [facility] [id number] [place] [phone] [place] [address] Social History Tobacco Use Types Packs/Day Years [...] on file documented as of this encounter Medications at [...] as 0 02/2020 Tablet needed. flu vacc [id number],65yr ADM 0.7ML IM UTD 0 2019 up,/PF [...] every evening. documented as of this encounter Plan of Treatment Upcoming Encounters Date Type Specialty Care Team Description 08/16/2021 Appointment Radiology Mateo Victoria MD [facility] [place] [address] 08/16/2021 Office Visit Pain and Spine Mateo Victoria Center MD [facility] [place] [address] 09/22/2021 Hospital Encounter Surgery Mateo Victoria MD [facility] [place] [address] 09/22/2021 Surgery Surgery Mateo Victoria, MD STU FACETECTOMY & [facility] FORAMINOTOMY,CHAVA DEMPSEY, CENTER DR [place] ([facility] SPINE CENTER [address]) [place] [address] Scheduled Procedures Name Priority Associated Diagnoses Date/Time [...] Associated Diagnosis Comme nts XR LUMBAR SPINE 2 Routine 04/12/2021 10:34 AM Foraminal stenos is Results for this OR 3 VIEWS EST of lumbosacral procedure are in region the results section. documented in this encounter Results XR Lumbar Spine 2 [...] who have questions please contact the health critical care cns that requested your imaging first. ? Narrative 04/12/2021 11:34 AM EST EXAMINATION: XR [...] sacroiliac joints is amira r seen by digital asset coordinator CT images from 02/19/2019. Procedure Note Ange [...] sacroiliac joints is amira r seen by digital asset coordinator CT images from 02/19/2019. IMPRESSION Multilevel degenerative [...] ho have questions please contact the health critical care cns that requested your imaging first. Criss Mares SUPPORT ENGINEER IMG DX ORDERABLES documented in this encounter Visit Diagnoses Diagnosis Foraminal stenosis of lumbosacral region Spinal stenosis, lumbar region, without neurogenic claudication Foraminal stenosis of lumbosacral region Spinal stenosis, lumbar region, without neurogenic claudication documented in this encounter Care Teams Concrete Block Plant Supervisor Relationship Specialty Start Date End Date Marixa Simth MD PCP - General General Internal Medicine 11/20/19 [address] [place] [address] documented as of this encounter
--- OUTSIDE RECORDS SUMMARY | 2021-07-30 00:20 | XMS_ITS | Encounter Summary ---
:1950 [place] [address] Care Team Providers Name Role Phone Marixa [...] Expiration Date Visits Requ ested Visits Authorized [id number] 1 1 Encounter Details Date Type Department Care Team Description 12/08/2020 Ancillary Procedure Pain Management Keven Kennedy, Pain [facility] [place] [address] [place] [address] [phone] (Wo rk) Social History Tobacco Use Types [...] 08/16/2021 Appointment Radiology Mateo Victoria MD [facility] [place] [address] 08/16/2021 Office Visit Pain and Spine Mateo Victoria, Melany GRAJEDA [facility] [place] [address] 09/22/2021 Hospital Encounter Surgery Mateo Victoria MD [facility] [place] [address] 09/22/2021 Surgery Surgery Mateo Victoria, STU , FACETECTOMY & [facility] FORAMINOTOMY,CHAVA DEMPSEY, [facility] ([facility] [address]) [place] [address] Scheduled Procedures Name Priority Associated Diagnoses Date/Time [...] Associated Diagnosis Comme nts FILM LIBRARY Routine 12/08/2020 4:14 PM Pain Results f or this STORAGE ONLY PAIN EDT procedure are in CLINIC C ARM the results section. documented in this encounter Results Film Library- Storage Only pain Clinic C-Arm (12/08/2020 4:14 PM EDT) Specimen (Source) Anatomical Location Collection Method / Collectio n Time Received Time / Laterality Volume Narrative [facility] - 12/08/2020 4:14 PM EDT See PACS for result report. Kiana Canchola MD IMG FILM LIBRARY ORDERABLES Performing Organization Address City/State/ZIP Code Phon e Number [place], [place] documented in this encounter Visit Diagnoses Diagnosis Pain Generalized pain Foraminal stenosis of lumbosacral region Spinal stenosis, lumbar region, without neurogenic claudication documented in this encounter Care Teams School Bus Inspector Relationship Specialty Start Date End Date Marixa Smith MD PCP - General General Internal Medicine 11/20/19 [address] [place] [address] documented as of this encounter
--- OUTSIDE RECORDS SUMMARY | 2021-07-30 00:20 | XMS_ITS | Encounter Summary ---
:1950 [place] [address] Care Team Providers Name Role Phone Marixa [...] Expiration Date Visits Requ ested Visits Authorized [id number] 1 1 Encounter Details Date Type Department Care Team Description 12/08/2020 Hospital Encounter Pain Management Kiana Canchola Radi culopathy of lumbar region; Ambre Fischer MD Foraminal stenosis of lumbosacral region [facility] [place] [address] [phone] Social History Tobacco Use Types Packs/Day Years [...] encounter Discharge Instructions Discharge InstructionsClifford Trotter - 12/08/2020 8:44 AM EDT Pain Management [...] 100 mg 100 mg daily as 0 /0 02/2020 Tablet needed. flu vacc [id number],65yr ADM 0.7ML IM UTD 0 2019 up,/PF [...] History: Diagnosis Date ??? HLD (hyperlipidemia) ??? HI (myocardial infarction) There are no medical history contraindications to this procedure. PAST SURGICAL HISTORY: Past Surgical History: Procedure Laterality Date ??? CORONARY ANGIOPLASTY WITH STENT PLACEMENT ??? CT GUIDED INJECTION SI JOINT 02/19/2019 CT Guided Injection SI Joint 02/19/2019 [facility] RAD CAT SCAN There are no past [...] Note Patient Name: Jose Eduardo Rodríguez : [id number] MR#: [id number] Case Date: 12/08/2020 Surgeon: Surgeon(s) and Role: [...] Criss Mares APRN []takes ASA for h/o HI, based on shared risk assessment, can continue [...] discharge criteria to the care of a courier delivery driver. The patient received written instructions as documented in nursing records. COMMENTS: Follow up with Criss Mares APRN. Matt Arias MD Pain Fellow I was the attending physician supervising the fellow or resident in the above care and I was presentwith the resident for the entire procedure. Kiana Canchola MD Slot Attendant of Anesthesiology [facility] [place] [phone] / [facility] CC: Marixa Smith MD @PCPADD@ documented in this encounter Plan of Treatment Upcoming Encounters Date Type Specialty Care Team Description 08/16/2021 Appointment Radiology Mateo Victoria MD [facility] [place] [address] 08/16/2021 Office Visit Pain and Spine Mateo Victoria, [place] [facility] [place] [address] 09/22/2021 Hospital Encounter Surgery Mateo Victoria MD [facility] [place] [address] 09/22/2021 Surgery Surgery Mateo Victoria LAMINECTOMY, MD FACETECTOMY & [facility] FORAMINOTOMYCHAVA, [facility] ([facility] SPINE CENTER [address]) [place] [address] Scheduled Procedures Name Priority Associated Diagnoses Date/Time LAMINECTOMY, FACETECTOMY & Foraminal stenosis of 09/22/2021 7:30 AM EDT FORAMINOTOMY,LUMBAR, ONE lumbosacral region LEVEL [facility] EA ADD'L VERTEBRAL SEGMENT Foraminal stenosis [...] Starting on Mon12/08/20 at 083 1, Until Tu12/08/20 at 1051, Intra- Operative (Intra-Procedure), Routine iohexoL (Omnipaque) (240 mg/mL) injection solution (CANCELED) 0832 (Given - Provider: Kiana Canchola MD - Comment: right lumbar TFESI) ONCE PRN, Starting on 12/08/20 at 083 2, Until 12/08/20 at 1051, Intra- Operative (Intra-Procedure), Routine lidocaine (pf) (Xylocaine) (10 mg/mL) 1% injection (CANCELED) 0832 (Given - Provider: Kiana Canchola MD - Comment: right lumbar TFESI) ONCE PRN, Starting on e 12/08/20 at 083 2, Until Mon12/08/20 at 1051, Intra- Operative (Intra-Procedure), Routine documented in this encounter Care Teams Product Safety Specialist Relationship Specialty Start Date End Date Marixa Smith MD PCP - General General Internal Medicine 11/20/[address] [address] documented as of this encounter
--- OUTSIDE RECORDS SUMMARY | 2021-07-30 00:20 | XMS_ITS | Encounter Summary ---
:1950 Author Organization [facility] [place] [address] Care Team Providers Name Role Phone Marixa Smith MD Primary Care Provider Encounter Details Date Type Department Care Team Description 06/10/2021 Telephone Pain and Sp[facility] [place] [address] Social History Tobacco Use Types Packs/Day Years [...] this encounter Miscellaneous Notes Telephone Encounter - Jac Foote RN - 06/10/2021 3:47 PM EDT Patient called in f/u to his question about getting a steroid injection in his wrist and finger 12 days before his upcoming surgery. Dr. Victoria recommending that he wait until he is one month post op to get the steroid injections. Patient was informed. documented in this encounter Plan of Treatment Upcoming Encounters Date Type Specialty Care Team Description 08/16/2021 Appointment Radiology Mateo Victoria MD [facility] [place] [address] 08/16/2021 Office Visit Pain and Spine Mateo Victoria, [place] [facility] [place] [address] 09/22/2021 Hospital Encounter Surgery Mateo Victoria MD [facility] [place] [address] 09/22/2021 Surgery Surgery Mateo Victoria, MAKENZIEECTOMY MD FACETECTOMY & ONE MEDICAL FORAMINOTOMY,CHAVA [facility], [facility] ([facility] SPINE CENTER [address]) [place] [address] Scheduled Procedures Name Priority Associated Diagnoses Date/Time [...] on filedocumented in this encounter Care Teams Scrap Hooker Relationship Specialty Start Date End Date Marixa Smith MD PCP - General General Internal Medicine 11/20/19 [address] [place] [address] documented as of this encounter
--- OUTSIDE RECORDS SUMMARY | 2021-07-30 00:20 | XMS_ITS | Encounter Summary ---
:1950 Author Organization [facility] [place] [address] Care Team Providers Name Role Phone Marixa Smith MD Primary Care Provider Reason for Visit Reason Onset Date Comments Questions 06/29/2021 Encounter Details Date Type Department Care Team Description 06/29/2021 Telephone Pain and Spine Cente r at [facility] Arlin Kovacs, [place] [address] Social History Tobacco Use Types Packs/Day [...] Telephone Encounter - Arlin Kovacs RN - 06/29/2021 8:54 AM EDT Received call from pt who is scheduled for decompressive laminectomy L5-S1 w right foraminotomy Angel Victoria 07/13. Pt calling to report he had been hiking, biking and walking and is experiencing ~ 2 wks f right knee swelling and pain in his knee cap. Pt denies fall or trauma; denies any bite or opensre. Pt reports seeing his PCP id an XR and advised him it was arthritis. PCP has suggested icing, elevation, moderated activity. Pt callnig to confirm this would not negatively effect his surgical recvery. Informed pt that if he was bed bound or unable to ambulate it would effect surgery; That if he is able to walk in moderation; short walks; Slowly over time increasing frequency and duration as his knee improves and spine surgical recovery progresses than this knee arthritis should nt effect hs spine recovery. Explained to pt, that his current activity level- even with his knee problem, probably exceeds that of many of our surgical pts. Explained that without a crustal ball, we cannot predict the future with re to his knee. That treatment for knee to include PT and his questions r/t advanced imaging should be directed to his PCP who is evaluating his knee. Provided pt with Hannah Harrington' #; explaining that if he opts to cancel and push out his spine surgery in an effort to focus on knee that he should vera her; allowing time for his slot to be offered to another pt. documented in this encounter Plan of Treatment Upcoming Encounters Date Type Specialty Care Team Description 08/16/2021 Appointment Radiology Mateo Victoria MD [facility] [place] [address] 08/16/2021 Office Visit Pain and Spine Mateo Victoria, Melany GRAJEDA [facility] [place] [place] [address] 09/22/2021 Hospital Encounter Surgery Mateo Victoria MD [facility] [place] [place] [address] 09/22/2021 Surgery Surgery Mateo Victoria, MD STU FACETECTOMY & [facility] MEDICAL FORAMINOTOMYCHAVA, CENTER DR [place] [facility] ([facility] SPINE CENTER [address]) [place] [address] Scheduled Procedures Name Priority Associated Diagnoses Date/Time [...] on filedocumented in this encounter Care Teams Fuels Engineer Relationship Specialty Start Date End Date Marixa Smith MD PCP - General General Internal Medicine 11/20/19 [address] [place] [address] documented as of this encounter
--- OUTSIDE RECORDS SUMMARY | 2021-07-30 00:20 | XMS_ITS | Encounter Summary ---
:1950 Author Organization [facility] Address [facility] [place] [address] Care Team Providers Name Role Phone Marixa Smith MD Primary Care Provider Reason for Referral Physical Therapy (Routine) - Closed Specialty Diagnoses / Procedures Referred By Contact Refer red To Contact Physical Therapy Diagnoses Foraminal stenosis of lumbosacral region Criss Mares APRN [facility] [place] [address] Referral ID Status Reason Start Date Expiration Date Visits V isits Requested Authorized [id number] Closed Evaluate and 01/21/2021 07/20/2021 10 10 Treat Reason for Visit Reason Comments Follow-up MRI results 01/06/21 Encounter Details Date Type Department Care Team Description 01/21/2021 Office Visit Pain and Spine Center Criss Mares F oraminal stenosis of at [facility] TRAIN CREW MEMBER lumbosacral region [facility] (Pr imary Dx) Drive DR Perdomo [place] [address] [place] [address] [phone] Social History Tobacco Use Types Packs/Day Years [...] Sign Reading Time Taken Comments Blood Pressure 128/63 01/21/2021 3:28 PM EST Pulse 50 01/21/2021 3:28 PM EST Temperature - - Respiratory Rate - - Oxygen Saturation 98% 01/21/2021 3:28 PM EST Inhaled Oxygen Concentration - - Weight 88.5 kg (195 lb) 01/21/2021 3:28 PM EST Height 182.9 cm (6') 01/21/2021 3:28 PM EST Body Mass Index 26.45 01/21/2021 3:28 PM EST documented in this encounter Patient Instructions Patient InstructionsCriss Mares APRN - 01/21/2021 3:40 PM EST External PT Repeat TFESI with Sushant KHAN with me documented in this encounter Progress Notes Criss Mares APRN - 01/21/2021 3:40 PM EST Images from the original note were not included. [facility] [place] [address] Phone: PAIN MANAGEMENT FOLLOW UP NOTE DATE OF VISIT 01/19/2021 Patient Jose Eduardo Rodríguez 1950 REFERRING PROVIDER Marixa Smith MD [address] [place] [address] PRIMARY CARE PROVIDER Marixa Smith MD CHIEF COMPLAINT: Jose Eduardo Rodríguez is a 70 y.o.male with Right lateral leg pain, who is seen in consultation at the request of Marixa Smith MD [address] [place] [address]. for evaluation, recommendations, and management.The history is [...] injection on the right done here at [facility] inthe early part of this year without [...] who to contact. Updated interval history 05/28/2020: Joes Eduardo is here for follow-up. He is [...] he has done some [facility] PT in [facility] and while he did see some improvement [...] effective. Pain most recent MRI or Xray: No flowsheet [...] from family/friends?no History of incarceration? MEDICATIONS The [facility] Prescription Monitoring Program was checked and no concerns were identified. Medications 12/24/20 1246 Medication Sig Taking? zolpidem (Ambien) 5 mg [...] 100 mg daily as needed. flu vacc [id number],65yr up,/PF (FluZONE HighDose Quad 20-21 PF) 240 [...] evening. ADVERSE DRUG REACTIONS Allergies as of 01/21/2021 ??? (No Known Allergies) MEDICAL HISTORY Past Medical History: Diagnosis Date ??? HLD (hyperlipidemia) ??? AL (myocardial infarction) SURGICAL HISTORY Past Surgical History: Procedure Laterality Date ??? CORONARY ANGIOPLASTY WITH STENT PLACEMENT ??? CT GUIDED INJECTION SI JOINT 02/19/2019 CT Guided Injection SI Joint 02/19/2019 [facility] RAD CAT SCAN ??? PRO INJ, FORAMEN, L/S, 1 LEVEL Right 12/08/2020 INJECTION, ANESTHETIC AGENT AND/OR STEROID, TRANSFORAMINAL EPIDURAL, LUMBAR OR SACRAL, SINGLE LEVEL(WRVU 1.9) performed by Kiana Canchola MD at [facility] PAIN MGMT MSO FAMILY HISTORY [...] I did review this with Dr. Canchola. I also talked with him about seeing the physical therapist again for his low back to see if perhaps he has a gluteus medius strain and he is pointing to the gluteus medius insertion site on the right as one of the places of his discomfort.He is going to do both of those things have a repeat injection and PT and follow-up with me afterwards. Jose Eduardo Rodríguez had the opportunity to ask questions and indicated that all questions were answered to his satisfaction. Criss Mares MS MINE ENGINEER-BC, TRAIN CREW MEMBER Nurse Practitioner [facility] documented in this encounter Plan of Treatment Upcoming Encounters Date Type Specialty Care Team Description 08/16/2021 Appointment Radiology Mateo Victoria MD [facility] [place] [address] 08/16/2021 Office Visit Pain and Spine Mateo Victoria, [place] [facility] [place] [address] 09/22/2021 Hospital Encounter Surgery Mateo Victoria MD [facility] [place] [address] 09/22/2021 Surgery Surgery Mateo Victoria, MD STU FACETECTOMY & ONE MEDICAL FORAMINOTOMYCHAVA, [facility] [address]) [place] [address] Scheduled Procedures Name Priority Associated Diagnoses Date/Time LAMINECTOMY, FACETECTOMY & Foraminal stenosis of 09/22/2021 7:30 AM EDT FORAMINOTOMY,LUMBAR, ONE lumbosacral region LEVEL ([facility] 15.37) EA ADD'L VERTEBRAL SEGMENT Foraminal stenosis of 09/22/2021 7:30 AM EDT CERVICAL, THORACIC, LUMBAR lumbosacral region (VU 3.47) MODIFIER L5 Foraminal stenosis of 09/22/2021 7:30 AM EDT lumbosacral region MODIFIER S1 Foraminal stenosis of 09/22/2021 7:30 AM EDT lumbosacral region Scheduled Referrals Name Type Priority Associated Diagnoses Order S chedule Referral to Outpatient Referral Routine Foraminal stenosis of Ordered: Physical Therapy lumbosacral region 01/21 documented as of this encounter Visit Diagnoses Diagnosis Foraminal stenosis of lumbosacral region - Primary Spinal stenosis, lumbar region, without neurogenic claudication Foraminal stenosis of lumbosacral region Spinal stenosis, lumbar region, without neurogenic claudication documented in this encounter Care Teams Skein Winder Relationship Specialty Start Date End Date Marixa Smith MD PCP - General General Internal Medicine 11/20/19 [address] [place] [address] documented as of this encounter
--- OUTSIDE RECORDS SUMMARY | 2021-07-30 00:20 | XMS_ITS | Encounter Summary ---
:1950 Author Organization [facility] [place] [address] Care Team Providers Name Role Phone Marixa Smith MD Primary Care Provider Encounter Details Date Type Department Care Team Description 01/25/2021 Ancillary Procedure Pain Management Marquez Monae MD Pain [facility] [place] [address] [place] [address] [phone] Social History Tobacco Use Types Packs/Day Years [...] Description 08/16/2021 Appointment Radiology Mateo Victoria MD [facility] [place] [address] 08/16/2021 Office Visit Pain and Spine Mateo Victoria Center MD [facility] [place] [address] 09/22/2021 Hospital Encounter Surgery Mateo Victoria MD [facility] [place] [address] 09/22/2021 Surgery Surgery Mateo Victoria LAMINECTOMY , FACETECTOMY & ONE MEDICAL FORAMINOTOMY,CHAVA DEMPSEY, CENTER ONE LEVEL ([facility] SPINE CENTER [address]) [place] [address] Scheduled Procedures Name Priority Associated Diagnoses Date/Time LAMINECTOMY, FACETECTOMY & Foraminal stenosis of 09/22/2021 7:30 AM EDT FORAMINOTOMY,LUMBAR, ONE lumbosacral region LEVEL [facility] EA ADD'L VERTEBRAL SEGMENT Foraminal stenosis of 09/22/2021 7:30 AM EDT CERVICAL, THORACIC, LUMBAR lumbosacral region (VU 3.47) MODIFIER L5 Foraminal stenosis of 09/22/2021 7:30 AM EDT lumbosacral region MODIFIER S1 Foraminal stenosis of 09/22/2021 7:30 AM EDT lumbosacral region documented as of this encounter Procedures Procedure Name Priority Date/Time Associated Diagnosis Comme nts FILM LIBRARY Routine 01/25/2021 2:24 PM Pain Results f or this STORAGE ONLY PAIN EST procedure are in CLINIC C ARM the results section. documented in this encounter Results Film Library- Storage Only pain Clinic C-Arm (01/25/2021 2:24 PM EST) Specimen (Source) Anatomical Location Collection Method / Collectio n Time Received Time / Laterality Volume Narrative RAD - 01/25/2021 2:24 PM EST See PACS for result report. Jill Sharma MD IMG FILM LIBRARY ORDERABLES Performing Organization Address City/State/ZIP Code Phon e Number [place], [place] documented in this encounter Visit Diagnoses Diagnosis Pain Generalized pain Foraminal stenosis of lumbosacral region Spinal stenosis, lumbar region, without neurogenic claudication documented in this encounter Care Teams Drafter Civil (Cad) Relationship Specialty Start Date End Date Marixa Smith MD PCP - General General Internal Medicine 11/20/19 [address] [place] [address] documented as of this encounter
--- OUTSIDE RECORDS SUMMARY | 2021-07-30 00:21 | XMS_ITS | Encounter Summary ---
:1950 [place] [address] Care Team Providers Name Role Phone Marixa Smith MD Primary Care Provider Encounter Details Date Type Department Care Team Description 09/02/2020 [facility] [place] [address] Social History Tobacco Use Types Packs/Day Years [...] this encounter Miscellaneous Notes Telephone Encounter - Cindy Terry RN - 09/02/2020 5:31 PM EDT Post-procedure phone call from patient to report their response to the cervical medial branch block procedure performed on 08/31/20 in the Pain Management Center by Kiana Canchola MD. This is patient's: first medial branch block Patient reports that after the procedure they experienced: _X_ Patient reported post-block numeric pain scale: 3 /10 (average pain since procedure) _X_ Post-procedure pain has been reduced by 80%. (> 80% Medicare/MVP/Medicaid) _x_ If relief > 80% with ability to perform painful maneuvers; schedule 2nd MBB: yes __ Post-procedure pain has been reduced by 80%. (> 50% all other insurers) __ Pain relief: moderate If pain is reduced, it lasted: Yes 4 hours or greater Changes in functional status post procedure: decreased throbbing headache, able to do everything he could do before, william for me was that I didn't have the headache, but was still very stiff. What stoodout was were she injected me. That was really bothering me. I didn't have the soreness from the injection. Pertinent recent trauma or surgery? no If yes; consult w referring provider If No, proceed Review of Pertinent Medical History for changes since last MBB: - h/o Thrombocytopenia/bleeding tendency/platelet dysfunction: no - h/o Liver disease; abnormal liver function: no - h/o Chronic kidney disease (CKD); abnormal kidney function: no - Patient on dialysis? no -Patient has pacemaker/defibrillator: no If yes: Model: Provider/Practice: Is patient taking an anticoagulant? none Is patient taking any NSAIDS/supplements? Naproxen (Naprosyn, Aleve) Is patient taking aspirin? yes If yes, is it prescribed? yes If yes, what reason is it prescribed? Heart attack Is patient taking Antibiotics? Yes - Prophylactically, okay to proceed with scheduling Has patient been on greater than 40mg of steroid 14 days or longer? No Has patient had any steroid injections anywhere in his/her body within the last two weeks? No Does patient need sedation? no Does patient need NPO guidelines? no Does patient have allergies to contrast/local anesthetic/steroid? No Any changes? no Based on the information provided above and after discussion with the patient, the following actionswill be taken: _X_ Patient meets criteria to proceed to second Left at C4, C5 and C6 cervical medial branch block, order will be pended to Dr. Canchola and this encounter will be routed to Dr. Canchola and the schedulers. Patient denies further questions at this time and expressed understanding of plan. Encouraged patient to call pain clinic RN for future questions or concerns. documented in this encounter Plan of Treatment Upcoming Encounters Date Type Specialty Care Team Description 08/16/2021 Appointment Radiology Mateo Victoria MD [facility] [place] [address] 08/16/2021 Office Visit Pain and Spine Mateo Victoria, Gustine [facility] [place] [address] 09/22/2021 Hospital Encounter Surgery Mateo Victoria MD [facility] [place] [address] 09/22/2021 Surgery Surgery Mateo Victoria, MD STU FACETECTOMY & ONE MEDICAL FORAMINOTOMY,[facility] SPINE CENTER [address]) [place] [address] Scheduled Procedures Name Priority Associated Diagnoses Date/Time [...] on filedocumented in this encounter Care Teams Promotions Officer Relationship Specialty Start Date End Date Marixa Smith MD PCP - General General Internal Medicine 11/20/19 [address] [place] [address] documented as of this encounter
--- OUTSIDE RECORDS SUMMARY | 2021-07-30 00:21 | XMS_ITS | Encounter Summary ---
:1950 Author Organization [facility] [place] [address] Care Team Providers Name Role Phone Rian Ivey MD Primary Care Provider Reason for Visit Reason Comments Bilateral Shoulder Pain L>R Consultation (Routine) - Specialty Diagnoses / Procedures Referred By Contact Refer red To Contact Orthopaedics Diagnoses BILATERAL SHOULDER PAIN Self [facility] Orthopaedics 3d Procedures mail [place], [place] [phone] Phone: Fax: Referral ID Status Reason Start Date Expiration Date Visits V isits Requested Authorized [id number] 09/08/2015 09/07/2016 1 1 Encounter Details Date Type Department Care Team Description 11/06/2015 Office Visit Orthopaedics at [facility] Jurgen Fenton, Primary osteoarthritis [facility] [place] [address] [place] [address] [place] [address] Social History Tobacco Use Types Packs/Day Years Used Date Current Some Day Smoker Smokeless Tobacco: Never Used Comments: occasional cigar [...] Sign Reading Time Taken Comments Blood Pressure 130/78 11/06/2015 9:28 AM EDT Pulse 53 11/06/2015 9:28 AM EDT Temperature - - Respiratory Rate - - Oxygen Saturation - - Inhaled Oxygen Concentration - - Weight 88.5 kg (195 lb) 11/06/2015 9:28 AM EDT verbal Height 185.4 cm (6' 1) 11/06/2015 9:28 AM EDT verbal Body Mass Index 25.73 11/06/2015 9:28 AM EDT documented in this encounter Progress Notes Jurgen Fenton MD - 11/06/2015 9:40 AM EDT CHIEF COMPLAINT: Bilateral shoulder pain. HISTORY: Jose Eduardo Rodríguez is a 65-year-old gentleman who comes in for evaluation of bilateral shoulder pain. I took care of a friend of his, Mr. Navarro, for a shoulder issue in the past. He has a many-year history of bilateral shoulder discomfort, and cervical spine discomfort, also lumbar spine discomfort, which he manages. 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 Had an x-ray done back in June of this year, ultimately evaluation at [facility], where he was told that he had bilateral end-stage shoulder osteoarthritis and that he could consider injections or arthroplasty. He has had injections, cortisone to the left, he thinks just a pain killer in the right, which have made some improvement. He continues to be active. He continues to work on range of motion. He uses antiinflammatories sparingly. He comes in for an additional opinion, wondering if there is anything else that could be done. PHYSICAL EXAM: Active, healthy 65-year-old gentleman, no acute distress. Examination of his bilateral upper extremities shows intact skin, normal sensation. He has full range of motion active forward elevation of his shoulders. External rotation with the arm at the side is 55 degrees. Internal rotation to the mid lumbar spine. He has intact strength internal and external rotation, intact strength in the empty-can positioning. He has ratcheting crepitation on the left and less so on the right. IMAGING: I reviewed his x-rays from outside. The left shoulder shows clear end-stage osteoarthritis, concentric glenoid. No high-riding humerus. The right shoulder shows moderate to severe glenohumeral osteoarthritis concentric glenoid. No high-riding humerus. IMPRESSION/PLAN: A 65-year-old gentleman with tnte-wydvrcg-gloe-right bilateral shoulder osteoarthritis. I think he has had appropriate management and messaging to date. We discussed potential increased use of antiinflammatories, continuing to maintain his range of motion and strength in the shoulder, consideration for intermittent injections up to 2-3 a year if they are helpful, and potentially shoulder arthroplasty sometime in the future. I did advise him that I thought it challenging to make a connection between his shoulder pain and his neck pain and certainly would not want him to anticipate improvement in neck pain from shoulder surgery. documented in this encounter Plan of Treatment Upcoming Encounters Date Type Specialty Care Team Description 08/16/2021 Appointment Radiology Mateo Victoria MD [facility] [place] [address] 08/16/2021 Office Visit Pain and Spine Mateo Victoria, Melany [facility] [place] [address] 09/22/2021 Hospital Encounter Surgery Mateo Victoria MD [facility] [place] [address] 09/22/2021 Surgery Surgery Mateo Victoria, MD STU FACETECTOMY & ONE MEDICAL FORAMINOTOMYCHAVA, CENTER ONE LEVEL ([facility] SPINE CENTER [address]) [place] [address] Scheduled Procedures Name Priority Associated Diagnoses Date/Time LAMINECTOMY, FACETECTOMY & Foraminal stenosis of 09/22/2021 7:30 AM EDT FORAMINOTOMY,LUMBAR, ONE lumbosacral region LEVEL ([facility] [address]) EA ADD'L VERTEBRAL SEGMENT Foraminal stenosis of 09/22/2021 7:30 AM EDT CERVICAL, THORACIC, LUMBAR lumbosacral region (WRVU 3.47) MODIFIER L5 Foraminal stenosis of 09/22/2021 7:30 AM EDT lumbosacral region MODIFIER S1 Foraminal stenosis of 09/22/2021 7:30 AM EDT lumbosacral region documented as of this encounter Visit Diagnoses Diagnosis Primary osteoarthritis of right shoulder Primary localized osteoarthrosis, should er region Foraminal stenosis of lumbosacral region Spinal stenosis, lumbar region, without neurogenic claudication documented in this encounter Care Teams Real Estate Associate Attorney Relationship Specialty Start Date End Date Rian Ivey MD PCP - General Family Medicine 02/11/15 01/16/18 [address] [place] [address] documented as of this encounter
--- OUTSIDE RECORDS SUMMARY | 2021-07-30 00:21 | XMS_ITS | Encounter Summary ---
:1950 Author Organization [facility] [place] [address] Care Team Providers Name Role Phone Marixa Smith MD Primary Care Provider Encounter Details Date Type Department Care Team Description 08/20/2020 Telephone Pain and Spine Sophie rice at [facility] [place] [address] Social History Tobacco Use Types Packs/Day [...] this encounter Miscellaneous Notes Telephone Encounter - Rima Mott - 08/20/2020 2:59 PM EDT LVM to schedule CMBB with Dr. Canchola documented in this encounter Plan of Treatment Upcoming Encounters Date Type Specialty Care Team Description 08/16/2021 Appointment Radiology Mateo Victoria MD [facility] [place] [address] 08/16/2021 Office Visit Pain and Spine Mateo Victoria, Center [facility] [place] [place] [address] 09/22/2021 Hospital Encounter Surgery Mateo Victoria MD [facility] [place] [address] 09/22/2021 Surgery Surgery Mateo Victoria, LAMINECTOMY , FACETECTOMY & [facility] MEDICAL FORAMINOTOMY,[facility] [place] ONE LEVEL ([facility] CENTER [address]) [place] [address] Scheduled Procedures Name Priority Associated Diagnoses Date/Time LAMINECTOMY, FACETECTOMY & Foraminal stenosis of 09/22/2021 7:30 AM EDT FORAMINOTOMY,LUMBAR, ONE lumbosacral [facility] EA ADD'L VERTEBRAL SEGMENT Foraminal stenosis of 09/22/2021 7:30 AM EDT CERVICAL, THORACIC, LUMBAR lumbosacral region (VU 3.47) MODIFIER L5 Foraminal stenosis of 09/22/2021 7:30 AM EDT lumbosacral region MODIFIER S1 Foraminal stenosis of 09/22/2021 7:30 AM EDT lumbosacral region documented as of this encounter Visit Diagnoses Not on filedocumented in this encounter Care Teams Breaker Hand Relationship Specialty Start Date End Date Marixa Smith MD PCP - General General Internal Medicine 11/20/19 [address] [place] [address] documented as of this encounter
--- OUTSIDE RECORDS SUMMARY | 2021-07-30 00:21 | XMS_ITS | Encounter Summary ---
:1950 [place] [address] Care Team Providers Name Role Phone Marixa Smith MD Primary Care Provider Encounter Details Date Type Department Care Team Description 12/30/2019 Hospital Encounter Pain Management Kiana Canchola Forjeffry bobbi stenosis of lumbosacral region; Amber Fischer MD Foraminal stenosis of lumbosacral region [facility] [place] [address] [phone] Social History Tobacco Use Types Packs/Day Years [...] Sign Reading Time Taken Comments Blood Pressure 138/85 12/30/2019 8:00 AM EST Pulse - - Temperature - - Respiratory Rate 16 12/30/2019 7:20 AM EST Oxygen Saturation 98% 12/30/2019 8:00 AM EST Inhaled Oxygen Concentration - - Weight 90.3 kg (199 lb) 12/30/2019 7:20 AM EST Height 181.6 cm (5' 11.5) 12/30/2019 7:20 AM EST Body Mass Index 27.37 12/30/2019 7:20 AM EST documented in this encounter Discharge Instructions Discharge InstructionsCindy Terry RN - 12/30/2019 8:11 AM EST Pain Management Center Discharge Instructions: You were seen today by Surgeon(s): Kiana Canchola MD Shah, Sunali, MD Harlow, Nathaniel E, The following was performed: Procedure(s) (LRB): INJECTION, [...] your bladder 4-6 hours after your procedure. You received the following medications: Medications Given During Procedure Date/Time Order Dose Route Action 12/30/2019 0807 dexamethasone(PF) (Decadron) 10 mg/mL injection 10 mg Epidural Given 12/30/2019 0806 iohexoL (OMNIPAQUE) 240 mg/mL solution 1 mL Epidural Given During regular business hours, [...] or proceed to your local emergency department. Cindy Terry RN Special instructions documented in this encounter Medications at Time of Discharge Medication Sig Dispensed Refills Start Date End Date flu vacc [id number],65yr ADM 0.7ML IM UTD 0 2019 up,/PF (FluZONE HighDose Quad 20-21 PF) 240 mcg/0.7 mL Syringe ascorbic acid, vitamin C, Take 1,000 mg by 0 (VITAMIN C) 1,000 mg mouth daily. Tablet *taking 2,000 mg a day* Zinc 50 mg Tablet Take 1 tablet by 0 mouth daily. aspirin 81 mg Tablet, Take 81 mg by mouth 0 Delayed Release (E.C.) daily. multivitamin (THERAGRAN) Take 1 tablet by 0 Tablet mouth daily. atorvastatin (LIPITOR) 20 Take 1 tablet by 30 tablet 3 09/2015 mg Tablet mouth every evening. gabapentin (Neurontin) 300 Take 300 mg by 0 05/28/2020 mg Capsule mouth 3 times daily. documented as of this encounter H&P Notes Royal Alvarez - 12/28/2019 9:49 AM EST Patient Name: Jose Eduardo Rodríguez Patient Age: 69 y.o. Birthdate: 1950 Admit date: 12/30/2019 Attending Physician: Kiana Canchola MD PREPROCEDURE HISTORY AND PHYSICAL Date of Visit: December 30, 2019 Chief Complaint: Right buttock and right leg pain HPI: Subjective Jose Eduardo Rodríguez is a 69 y.o. male who presents today for Right sided L5- S1 TFESI referred by Nannette ZAVALA. The history is obtained from the patient, and I have reviewed medical records provided by the referring physician and located in the electronic medical record to fill in gaps in the patient's recollection of events, treatments and outcomes. Pt has hx of MD in past, stopped aspirin 2 day ago. LOCATION: Right buttock, leg and low back PAIN LEVEL AT REST 06/15 PAST MEDICAL HISTORY: Past Medical History: Diagnosis Date ??? HLD (hyperlipidemia) ??? MD (myocardial infarction) PAST SURGICAL HISTORY: Past Surgical History: Procedure Laterality Date ??? CORONARY ANGIOPLASTY WITH STENT PLACEMENT ??? CT GUIDED INJECTION SI JOINT 02/19/2019 CT Guided Injection SI Joint 02/19/2019 [facility] RAD CAT SCAN ALLERGIES: Patient has no known allergies. MEDICATIONS: No current facility-administered medications on file prior to encounter. Current Outpatient Medications on File Prior to Encounter Medication Sig Dispense Refill ??? ascorbic acid, vitamin C, (VITAMIN C) 1,000 mg Tablet Take 1,000 mg by mouth 2 times daily. ??? Zinc 50 mg Tablet Take 1 tablet by mouth daily. ??? gabapentin (Neurontin) 300 mg Capsule Take 300 mg by mouth 3 times daily. ??? aspirin 81 mg Tablet, Delayed Release (E.C.) Take 81 mg by mouth daily. ??? multivitamin (THERAGRAN) Tablet Take 1 tablet by mouth daily. ??? atorvastatin (LIPITOR) 20 mg Tablet Take 1 tablet by mouth every evening. 30 tablet 3 FAMILY HISTORY: Family History Problem Relation Age [...] file Occupational History ??? Not on file Social Needs ??? Financial resource strain: Not on file ??? Food insecurity Worry: Not on file Inability: Not on file ??? Transportation needs Medical: Not on file Non-medical: Not on file Tobacco Use ??? Smoking status: Current Some Day Smoker Types: Cigars ??? Smokeless tobacco: Never Used ??? Tobacco comment: occasional cigar Substance and Sexual Activity ??? Alcohol use: Yes Comment: 5 drinks weekly ??? Drug use: No ??? Sexual activity: Yes Partners: Female Lifestyle ??? Physical activity Days per week: Not on file Minutes per session: Not on file ??? Stress: Not on file Relationships ??? Social connections Talks on phone: Not on file Gets together: Not on file Attends hindu service: Not on file Active member of club or organization: Not on file Attends meetings of clubs or organizations: Not on file Relationship status: Not on file ??? Intimate partner violence Fear of current or ex partner: Not on file Emotionally abused: Not on file Physically abused: Not on file Forced sexual activity: Not on file Other Topics Concern ??? Not on file Social History Narrative ??? Not on file ROS: Pt denies recent fever, chills, infection, wounds, hospitalizations, ED visits, use of antibiotics. Otherwise, as described above. PHYSICAL EXAM: BP 147/73 Resp 16 Ht 181.6 cm (5' 11.5) Wt 90.3 kg (199 lb) SpO2 100% BMI 27.37 kg/m?? Physical Exam Constitutional: Pt oriented to person, place, and time. Appears well-developed and well-nourished. No distress. HENT: Head: Normocephalic and atraumatic. Pulmonary/Chest: Effort normal. Neurological: Alert and oriented to person, place, and time. No cranial nerve deficit. Skin: Skin is warm and dry. No rash noted. Not diaphoretic. Psychiatric: Normal mood and affect. RADIOLOGIC DATA: Relevant imaging reviewed LABS/DX RESULTS: Last 3 wbc, hgb, hct [...] Assessment 1. Foraminal stenosis of lumbosacral region 2. Foraminal stenosis of lumbosacral region PLAN: Proceed with planned Right L5-S1 Transforaminal lumbar epidural steroid injection. Addressed all questions and concerns. Risks and benefits discussed with patient. No contraindications to the procedureat this time, will proceed. Royal Alvarez DO documented in this encounter Miscellaneous Notes Op Note - Kiana Canchola MD - 12/29/2019 12:36 PM EST Pain Management Operative Note Patient Name: Jose Eduardo Rodríguez : [id number] MR#: [id number] Case Date: 12/30/2019 Surgeon: Surgeon(s) and Role: * Kiana Canchola MD - Primary Present on Admission: ??? Foraminal stenosis of lumbosacral region Postoperative diagnosis: same Procedure(s) (LRB): INJECTION, ANESTHETIC AGENT AND/OR STEROID, TRANSFORAMINAL EPIDURAL, LUMBAR OR SACRAL, SINGLE LEVEL (WRVU 1.9) (Right) Transforaminal Epidural Steroid Injection with Fluoroscopic Guidance right L5-S1 Chief Complaint: back, right LE pain Jose Eduardo Rodríguez has been referred to the Pain Management Center for Lumbar Transforaminal Epidural Steroid Injection right L5-S1 Imaging reviewed Mr. Rodríguez was interviewed and the medical [...] at each level, followed by lidocaine 1% 0.5-ML at each level. Outcome: The patient tolerated the procedure well and had stable vital signs. The patient noted after getting up after the procedure that their pain was at a 0 out of 10 level. Preprocedure pain level was a 5 out of 10. Follow up plans and appointments were discussed with Jose Eduardo Rodríguez. The patient was observed in thepain clinic and then discharged after having met discharge criteria to the care of a special needs bus driver. The patient received written instructions as documented in nursing records. COMMENTS: Follow-up with SALLY Pandey DO Pain Fellow I was the attending physician supervising the fellow or resident in the above care and I was presentwith the resident for the entire procedure. Kiana Canchola MD Content Designer of Anesthesiology Pain [facility] [address] [address] / [facility] CC: Marixa Smith MD @[email or web address]@ documented in this encounter Plan of Treatment Upcoming Encounters Date Type Specialty Care Team Description 08/16/2021 Appointment Radiology Mateo Victoria MD [facility] [place] [address] 08/16/2021 Office Visit Pain and Spine Mateo Victoria Center MD [facility] [place] [address] 09/22/2021 Hospital Encounter Surgery Mateo Victoria MD [facility] [place] [address] 09/22/2021 Surgery Surgery Mateo Victoria, MD STU FACETECTOMY & ONE MEDICAL FORAMINOTOMY,[facility] [place], CENTER ONE LEVEL ([facility] SPINE CENTER [address]) [place] [address] Scheduled Orders Name Type Priority Associated Diagnoses Order S chedule INJ, ANES AGENT/STEROID, Procedures Routine Foraminal stenos is of One Time for 1 TRANSFORAMINAL EPI, lumbosacral region Oc currences starting LUMBAR/SACRAL, SINGLE 2019 until LEVEL 12/30/2019 Scheduled Procedures Name Priority Associated Diagnoses Date/Time LAMINECTOMY, FACETECTOMY & Foraminal stenosis of 09/22/2021 7:30 AM EDT FORAMINOTOMY,LUMBAR, ONE lumbosacral region LEVEL ([facility] 15.37) EA ADD'L VERTEBRAL SEGMENT Foraminal stenosis of 09/22/2021 7:30 AM EDT CERVICAL, THORACIC, LUMBAR lumbosacral region ([facility] 3.47) MODIFIER L5 Foraminal stenosis of 09/22/2021 7:30 AM EDT lumbosacral region MODIFIER S1 Foraminal stenosis of 09/22/2021 7:30 AM EDT lumbosacral region documented as of this encounter Visit Diagnoses Diagnosis Foraminal stenosis of lumbosacral region - Primary Spinal stenosis, lumbar region, without neurogenic claudication Foraminal stenosis of lumbosacral region Spinal stenosis, lumbar region, without neurogenic claudication documented in this encounter Admitting Diagnoses Diagnosis Foraminal stenosis of lumbosacral region Spinal stenosis, lumbar region, without neurogenic claudication documented in this encounter Active and Recently Administered Medications Times are shown in EST. PRN Medication Order 12/28/2019 12/29/2019 12/30/2019 dexamethasone(PF) (Decadron) 10 mg/mL injection (CANCELED) 0807 (Given - Provider: Royal Alvarez - Comment: transforaminal) ONCE PRN, Starting 12/30/19 at 0807, Until 12/30/19 at 1018, Intra- Operative (Intra-Procedure), Routine iohexoL (OMNIPAQUE) 240 mg/mL solution (CANCELED) 08 (Given - Provider: Royal Alvarez - Comment: anaforaminsky) ONCE PRN, Starting Mon12/30/19 at 0806, Until Mon12/30/19 at 1018, Intra- Operative (Intra-Procedure), Routine documented in this encounter Care Teams Transport Coordinator Relationship Specialty Start Date End Date Marixa Smith MD PCP - General General Internal Medicine 11/20/19 [address] [place] [address] documented as of this encounter
--- OUTSIDE RECORDS SUMMARY | 2021-07-30 00:21 | XMS_ITS | Encounter Summary ---
:1950 Author Organization [facility] [place] [address] Care Team Providers Name Role Phone Marixa Smith MD Primary Care Provider Encounter Details Date Type Department Care Team Description 08/28/2020 [facility] [place] [address] Social History Tobacco Use Types Packs/Day [...] Telephone Encounter - Cindy Terry RN - 08/28/2020 4:56 PM EDT I received an incoming call from patient regarding his upcoming procedure on Monday08/31/20. Patientreports having just listened to a VMM from [facility] (pain centers [facility]) who left instructions for his procedure including time of arrival. Patient reports that in her message he was told he did not need need to stop his aspirin. Patient was calling to say he had already stopped his aspirin on 08/25/20 as he had been instructed to do so when he was scheduled for the procedure. This RN reviewed patient chart, history, medication list and procedure order and clinic guidelines. Per current clinic guidelines, patient's having a cervical MBB are considered intermediate risk and do not heed to stop their aspirin if they have a cardiac history unless otherwise indicated by provider. This RN could not find any such indication. I informed Jose Eduardo that he he did not need to stop his Aspirin for this procedure. Jose Eduardo stated that he has already been off it since 08/25/20 so he will remain off till his procedure. This RN was reviewing chart with Nayely Nascimento RN, Nurse Supervisor Pl[employer] and it was noted at that time in acomment section of the procedure order, that MAKENNA Garcia had indicated that patient should hold his Aspirin for 6 days prior to the procedure and that no permission was needed for patient to hold aspirin. I attempted to contact patient several times but unable to reach patient, kept getting busy signal. LARISSA Delgadillo documented in this encounter Plan of Treatment Upcoming Encounters Date Type Specialty Care Team Description 08/16/2021 Appointment Radiology Mateo Victoria MD [facility] [place] [address] 08/16/2021 Office Visit Pain and Spine Mateo Victoria Center MD [facility] [place] [address] 09/22/2021 Hospital Encounter Surgery Mateo Victoria MD [facility] [place] [address] 09/22/2021 Surgery Surgery Mateo Victoria, MD [facility],CHAVA [place], [place] [facility] ([facility] SPINE CENTER [address]) [place] [address] Scheduled Procedures Name Priority Associated Diagnoses Date/Time [...] on filedocumented in this encounter Care Teams Heel Boom Operator Relationship Specialty Start Date End Date Marixa Smith MD PCP - General General Internal Medicine 11/20/19 [address] [place] [address] documented as of this encounter
--- OUTSIDE RECORDS SUMMARY | 2021-07-30 00:21 | XMS_ITS | Encounter Summary ---
:1950 Author Organization [facility] Address [address] [place] [address] Care Team Providers Name Role Phone Marixa Smith MD Primary Care Provider Reason for Visit Reason Comments Back Pain Right Leg Pain Right Hip Pain Consultation (Routine) - Closed Specialty Diagnoses / Procedures Referred By Contact Refer red To Contact Pain and Spine Center Diagnoses Low back pain Pain - Lumbar stenosis/ ?RFA/ MRI 11/2018 in [facility] Marixa Smith, [facility] MD Spine [address] [place] [address] [place] [address] Phone: Fax: Referral ID Status Reason Start Date Expiration Date Visits V isits Requested Authorized [id number] Closed Consult, Test 11/07/2019 11/06/2020 [facility] PCP Updated and/or Approved Encounter Details Date Type Department Care Team Description 12/12/2019 Office Visit Pain and Spine Center Criss Mares F oraminal stenosis of at [facility] DIRECTOR OF MEDICAL EDUCATION lumbosacral region [facility] (Pr imary Dx) Drive [address], [place] PAIN MEDICINE [address] [place] [address] [phone] Social History Tobacco Use Types Packs/Day Years [...] Sign Reading Time Taken Comments Blood Pressure 112/93 12/11/2019 9:02 AM EST Pulse 66 12/11/2019 9:02 AM EST Temperature 36.9 ??C (98.5 ??F) 12/11/2019 9:02 AM EST Respiratory Rate - - Oxygen Saturation 98% 12/11/2019 9:02 AM EST Inhaled Oxygen Concentration - - Weight 90.3 kg (199 lb) 12/11/2019 9:02 AM EST Height 181.6 cm (5' 11.5) 12/11/2019 9:02 AM EST Body Mass Index 27.37 12/11/2019 9:02 AM EST documented in this encounter Progress Notes Dayanna Callahan LNA - 12/12/2019 8:00 AM EST Confirmed with pt that a detailed line by line medication and allergy review was performed by Dayanna Callahan as documented on 12/11/19 as part of the telephone Intake process. Confirmed with pt that there have been no medication/allergy additions or changes over the previous day. Criss Mares APRN - 12/12/2019 8:00 AM EST Images from the original note were not included. [facility] [place] [address] Phone: PAIN MANAGEMENT CONSULTATION NOTE DATE OF VISIT 12/12/2019 Patient Jose Eduardo Rodríguez 1950 REFERRING [place] [address] PRIMARY CARE PROVIDER Marixa Smith MD CHIEF COMPLAINT: Jose Eduardo Rodríguez is a 69 y.o.male with Right lateral leg pain, who is seen in consultation at the request of Marixa Smith MD [address] [place] [address]. for evaluation, recommendations, and management.The history is [...] has had a facet injection by an ability Treva. The gabapentinhas not really made a difference, [...] injection on the right done here at [facility] int[facility] early part of this year without any relief. Symptoms occur daily several times a day he is quiteactive hiking, biking, walking, hunting, and symptoms are alleviated by flexion and rest and exacerbated by walking and they can get up to 9-10 on a scale of 10. Pain most recent MRI or Xray: PAIN ASSESSMENT: Description: Achy , weak, heavy Weakness, numbness, tingling: feels weak and heavy Saddle Anesthesia: no Other associated symptoms: no Alleviating factors:sitting, flexion Aggravating factors:standing and walking over [address] past week: - if walking No flowsheet data found. FUNCTIONAL HISTORY Work:retired [...] from family/friends?no History of incarceration? MEDICATIONS [facility] Prescription Monitoring Program was checked and no concerns were identified. Medications 12/12/19 0743 Medication Sig Taking? ascorbic acid, vitamin C, (VITAMIN C) 1,000 mg Tablet Take 1,000 mg by mouth 2 times daily. Yes Zinc 50 mg Tablet Take 1 tablet by mouth daily. Yes aspirin 81 mg Tablet, Delayed Release (E.C.) Take 81 mg by mouth daily. Yes multivitamin (THERAGRAN) Tablet Take 1 tablet by mouth daily. Yes atorvastatin (LIPITOR) 20 mg Tablet Take 1 tablet by mouth every evening. Yes gabapentin (Neurontin) 300 mg Capsule Take 300 mg by mouth 3 times daily. ADVERSE DRUG REACTIONS Allergies as of 12/12/2019 ??? (No Known Allergies) MEDICAL HISTORY Past Medical History: Diagnosis Date ??? HLD (hyperlipidemia) ??? [place] (myocardial infarction) SURGICAL HISTORY Past Surgical History: Procedure Laterality Date ??? CORONARY ANGIOPLASTY WITH STENT PLACEMENT ??? CT GUIDED INJECTION SI JOINT 02/19/2019 CT Guided Injection SI Joint 02/19/2019 [facility] RAD CAT SCAN FAMILY HISTORY Family History Problem Relation Age of Onset ??? Cancer Maternal Grandmother ??? Cancer Paternal Grandmother ??? Heart Disease Paternal Grandfather ??? Myocardial Infarction Paternal Grandfather Opioid Risk Tool Female Male 1. Family history of Substance Abuse Alcohol [] 1 [] 3 Illegal Drugs [] 2 [] 3 Prescription Drugs [] 4 [] 4 2. Personal History of Substance Abuse Alcohol [] 3 [] 3 Illegal Drugs [] 4 [] 4 Prescription Drugs [] 5 [] 5 3. Age (checo box if 16-45) [] 1 [] 1 4. History of Preadolescent Sexual Abuse [] 3 [] 0 5. Psychological Disease Attention Deficit Disorder, Obsessive Compulsive D/o, Bipolar, Schizophrenia [] 2 [] 2 Depression [] 1 [] 1 TOTAL: 0 Comments about ORT in relation to this patient: Opioid Risk Category: low risk 0-3 PHYSICAL EXAMINATION No data found. Body mass index is 27.37 kg/m??. Ht 181.6 cm (5' 11.5) Wt 90.3 kg (199 lb) No flowsheet data found. Appearance/ Behavior Well groomed, good eye contact, relaxed, cooperative, normal speech, no acute distress, no involuntary movements Eyes Sclera anicteric, conjunctiva clear. ENT Hearing grossly intact Lungs unlabored not evaluated Cardiovascular Skin No rash, asymmetric hair loss, bruises, scars, swelling Musckuloskeletal Inspection/Palpation/ Range of Motion/Facet Loading maneuvers Gait: Nonantalgic Assistive device: None Heel, toe, heel to toe: Without with evidence of weakness Inspection: good alignment, no excessive curvature, shoulder and hip levels equal bilaterally; no skin breakdown nontender to palpation, mildly positive Kemps maneuver on the right Negative dural tension signs, normal strength, sensation, and reflexes, no Saulo or clonus and Babinski with even toes Neuro Motor Strength Segment Muscle Action Bilateral Results C5 Detoid Shoulder abduction 5/5 C5 Biceps Elbow flexion 5/5 C6 Extensor carpi radialis Wrist extension 5/5 C7 Triceps Elbow extension 5/5 C8, T1 Hand intrinsics Grasp 5/5 L2-5, S 1 Gluteus medius Hip Adduction 5/5 L4-5, S1 Gluteus medius Hip Abduction 5/5 L2 Iliopsoas Hip flexion 5/5 L3 Quadriceps Knee extension 5/5 L4 Tibialis anterior Ankle Dorsiflexion 5/5 L5 Extensor hallucis Great toe extension 5/5 S1 Gastrocnemius Ankle Plantar flexion 5/5 Reflexes: Segment Tendon Bilateral C5 Biceps 2+ C6 Brachioradialis 2+ C7 Triceps 2+ Upper Love Neg L3-4 Patella spine 2+ S1 Ankle 0 Lower Babinski Down going Clonus Neg Sensory Exam: No sensory deficits noted in cervical, thoracic, lumbar dermatomes Vascular: warm to touch + 2 pedal pulses ASSESSMENT . 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 In addition, we have discussed an L5-S1 foraminal injection at at that level on the right. I discussed how this differs from the facet injection he said in the past. He also questions about radiofrequency lesioning which I do not think is an option for him given his lack of real back problems. He and I discussed when he might be a candidate for surgery and I have discussed with him that he would need to see a surgeon for thatdiscussion as I am not a surgeon cannot give him a surgical opinion but in general consistency between imaging and symptoms and severity of symptoms as well as perhaps weakness might be more indicativeof when he were a surgical candidate. He is interested in pursuing nonsurgical management at the present time and so I placed an order for a TFESI on the right at L5-S1 and follow-up with me via telephone 2 weeks later. I answered all his questions today I gave him printed material about the injection. Jose Eduardo Jj Rodríguez had the opportunity to ask questions and indicated that all questions were answered to his satisfaction. Criss Mares MS OPERATING ROOM REGISTERED NURSE-BC, DIRECTOR OF MEDICAL EDUCATION Nurse Practitioner [facility] documented in this encounter Plan of Treatment Upcoming Encounters Date Type Specialty Care Team Description 08/16/2021 Appointment Radiology Mateo Victoria MD [facility] [place] [address] 08/16/2021 Office Visit Pain and Spine Mateo Victoria Center MD [facility] [place] [address] 09/22/2021 Hospital Encounter Surgery Mateo Victoria MD [facility] [place] [address] 09/22/2021 Surgery Surgery Mateo Victoria, MD STU FACETECTOMY & ONE MEDICAL FORAMINOTOMY,[place]AVA [place], CENTER ONE LEVEL ([facility] SPINE CENTER [address]) [place] [address] Scheduled Procedures Name Priority Associated Diagnoses Date/Time LAMINECTOMY, FACETECTOMY & Foraminal stenosis of 09/22/2021 7:30 AM EDT FORAMINOTOMY,LUMBAR, ONE lumbosacral region LEVEL ([facility] [address]) EA ADD'L VERTEBRAL SEGMENT Foraminal stenosis [...] claudication documented in this encounter Care Teams Turbine Operator Relationship Specialty Start Date End Date Marixa Smith MD PCP - General General Internal Medicine 11/20/[address] [place] [address] documented as of this encounter
--- OUTSIDE RECORDS SUMMARY | 2021-07-30 00:21 | XMS_ITS | Encounter Summary ---
:1950 Author Organization [facility] [place] [address] Care Team Providers Name Role Phone Marixa Smith MD Primary Care Provider Encounter Details Date Type Department Care Team Description 01/20/2020 TH Visit Pain and Spine Criss Mraes Foramina l stenosis of (TeleHealth) Center at [facility] PICK UP ATTENDANT lumbosacral region [facility] [address] [place] PAIN MEDICINE [id number] [place] [address] [phone] Social History Tobacco Use Types Packs/Day Years [...] documented as of this encounter Progress Notes Criss Mares APRN - 01/20/2020 8:30 AM EST Images from the original note were not included. [facility] [place] [address] Phone: PAIN MANAGEMENT CONSULTATION NOTE DATE OF VISIT 01/20/2020 Patient Jose Eduardo Rodríguez 1950 REFERRING PROVIDER Marixa Smith MD [address] [place] [address] PRIMARY CARE PROVIDER Marixa Smith MD CHIEF COMPLAINT: Jose Eduardo Rodríguez is a 69 y.o.male with Right lateral leg pain, who is seen in consultation at the request of Marixa Smith MD [address] [place] [address]. for evaluation, recommendations, and management.The history is [...] injection on the right done here at [facility] int[facility] early part of this year without [...] a plan and knew who to contact. Pain most recent MRI or Xray: PAIN [...] from family/friends?no History of incarceration? MEDICATIONS [facility] Prescription Monitoring Program was checked and no concerns were identified. Medications 12/30/19 0726 Medication Sig Taking? ascorbic acid, vitamin C, (VITAMIN C) 1,000 mg Tablet Take 1,000 mg by mouth 2 times daily. Zinc 50 mg Tablet Take 1 tablet by mouth daily. gabapentin (Neurontin) 300 mg Capsule Take 300 mg by mouth 3 times daily. aspirin 81 mg Tablet, Delayed Release (E.C.) Take 81 mg by mouth daily. multivitamin (THERAGRAN) Tablet Take 1 tablet by mouth daily. atorvastatin (LIPITOR) 20 mg Tablet Take 1 tablet by mouth every evening. ADVERSE DRUG REACTIONS Allergies as of 01/20/2020 ??? (No Known Allergies) MEDICAL HISTORY Past Medical History: Diagnosis Date ??? HLD (hyperlipidemia) ??? [place] (myocardial infarction) SURGICAL HISTORY Past Surgical History: Procedure Laterality Date ??? CORONARY ANGIOPLASTY WITH STENT PLACEMENT ??? CT GUIDED INJECTION SI JOINT 02/19/2019 CT Guided Injection SI Joint 02/19/2019 [facility] RAD CAT SCAN FAMILY HISTORY Family History Problem Relation Age of Onset ??? Cancer Maternal Grandmother ??? Cancer Paternal Grandmother ??? Heart Disease Paternal Grandfather ??? Myocardial Infarction Paternal Grandfather Opioid Risk Category: low risk 0-3 PHYSICAL EXAMINATION No data found. There is no height or weight on file to calculate BMI. There were no vitals taken for this visit. No flowsheet data found. This was a telephone visit so there is no physical examination ASSESSMENT . 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 He had an excellent response to his injection and I discussed with him that I am happy to see him again should he have questions but sounds as if he is doing well and hasa plan for his ongoing care. That being said, happy to see him again in the future at any point time. All questions were answered today. This was a 15-minute visit including discussing on the telephone and documentation. Jose Eduardo Rodríguez had the opportunity to ask questions and indicated that all questions were answered to his satisfaction. Criss Mares MS CHIEF CLINICAL OFFICER-BC, PICK UP ATTENDANT Nurse Practitioner [facility] documented in this encounter Plan of Treatment Upcoming Encounters Date Type Specialty Care Team Description 08/16/2021 Appointment Radiology Mateo Victoria MD [facility] [place] [address] 08/16/2021 Office Visit Pain and Spine Mateo Victoria, [facility] [place] [place] [address] 09/22/2021 Hospital Encounter Surgery Mateo Victoria MD [facility] [place] [address] 09/22/2021 Surgery Surgery Mateo Victoria, MAKENZIEECTOMY , FACETECTOMY & [facility] ([facility] SPINE CENTER [address]) [place] [address] Scheduled Procedures Name Priority Associated Diagnoses Date/Time LAMINECTOMY, FACETECTOMY & Foraminal stenosis of 09/22/2021 7:30 AM EDT FORAMINOTOMY,LUMBAR, ONE lumbosacral region LEVEL ([facility] 15.[address]) EA ADD'L VERTEBRAL SEGMENT Foraminal stenosis [...] claudication documented in this encounter Care Teams Project Manager Relationship Specialty Start Date End Date Marixa Smith MD PCP - General General Internal Medicine 11/20/19 [address] [place] [address] documented as of this encounter
--- OUTSIDE RECORDS SUMMARY | 2021-07-30 00:21 | XMS_ITS | Encounter Summary ---
:1950 Author Organization [facility] [place] [address] Care Team Providers Name Role Phone Marixa Smith MD Primary Care Provider Encounter Details Date Type Department Care Team Description 10/26/2020 Telephone Pain and Spine Sophie rc[facility] Vanesa Kelly, [place] [address] Social History Tobacco Use Types Packs/Day Years [...] Telephone Encounter - Vanesa Kelly RN - 10/26/2020 11:51 AM EDT Post-procedure phone call from patient to report their response to the cervical medial branch block procedure performed on 08/31/20 in the [facility] Management Center by Kiana Canchola MD. This is patient's: first medial branch block Patient reports that after the procedure they experienced: _x_ Patient reported post-block numeric pain scale: 3 /10 (average pain since procedure) _x_ Post-procedure pain has been reduced by 80%. (> 80% Medicare/MVP/Medicaid) _x_ If relief > 80% with ability to perform painful maneuvers; schedule 2nd MBB: yes _x_ Post-procedure pain has been reduced by 80%. (> 50% all other insurers) _x_ Pain relief: moderate If pain is reduced, it lasted: Yes 4 hours or greater Changes in functional status post procedure: Pertinent recent trauma or surgery? no If yes; consult w referring provider If No, proceed Review of Pertinent Medical History for changes since last MBB: - h/o Thrombocytopenia/bleeding tendency/platelet dysfunction: no - h/o Liver disease; abnormal liver function: no - h/o Chronic kidney disease (CKD); abnormal kidney function: no - Patient on dialysis? no -Patient has pacemaker/defibrillator: no Is patient taking an anticoagulant? None Is patient taking any NSAIDS/supplements? Multivitamin and Naproxen (Naprosyn, Aleve) Is patient taking aspirin? yes If yes, is it prescribed? yes If yes, what reason is it prescribed? Is patient taking Antibiotics? Yes - Prophylactically, okay to proceed with scheduling Has patient been on greater than 40mg of steroid 14 days or longer? No Has patient had any steroid injections anywhere in his/her body within the last two weeks? No Does patient request sedation? no Does patient need NPO guidelines? no Does patient have allergies to contrast/local anesthetic/steroid? No Any changes? yes Cold only Based on the information provided above and after discussion with the patient, the following actionswill be taken: _x_ Patient meets criteria to proceed to second [...] Victoria MD [facility] [place] [address] 08/16/2021 Office Visit Pain and Spine Mateo Victoria, Center [facility] [place] [address] 09/22/2021 Hospital Encounter Surgery Mateo Victoria MD [facility] [place] [address] 09/22/2021 Surgery Surgery Mateo Victoria, MAKENZIEECTOMY , FACETECTOMY & [facility] FORAMINOTOMY,CHAVA [facility], CENTER ONE LEVEL ([facility] SPINE CENTER [address]) [place] [address] Scheduled Procedures Name Priority Associated Diagnoses Date/Time [...] on filedocumented in this encounter Care Teams Tree Shear Operator Relationship Specialty Start Date End Date Marixa Smith MD PCP - General General Internal Medicine 11/20/19 [address] [place] [address] documented as of this encounter
--- OUTSIDE RECORDS SUMMARY | 2021-07-30 00:21 | XMS_ITS | Encounter Summary ---
:1950 Author Organization [facility] [place] [address] Care Team Providers Name Role Phone Marixa Smith MD Primary Care Provider Reason for Visit - Closed Specialty Diagnoses / Procedures Referred By Contact Refer red To Contact Procedures Marixa Smith MD Film Library- Storage Only DX [address] [place] [address] Referral ID Status Reason Start Date Expiration Date Visits Requ ested Visits Authorized [id number] Closed 05/01/2020 05/01/2021 1 1 Encounter Details Date Type Department Care Team Description 04/24/2020 Ancillary Procedure Radiology Library at Keli Smith [facility] [address] [place] [address] [place] [address] [phone] Social History Tobacco Use Types Packs/Day Years [...] [facility] [place] [address] 08/16/2021 Office Visit Pain and Spine Mateo Victoria, [place] [facility] [place] [address] 09/22/2021 Hospital Encounter Surgery Mateo Victoria MD [facility] [place] [address] 09/22/2021 Surgery Surgery Mateo Victoria, MD STU FACETECTOMY & [facility] FORAMINOTOMY,CHAVA [facility], [facility] ([facility] SPINE CENTER [address]) [place] [address] Scheduled Procedures Name Priority Associated Diagnoses Date/Time [...] Associated Diagnosis Comme nts FILM LIBRARY Routine 04/24/2020 12:00 AM Results for this STORAGE ONLY DX EDT procedure ar e in SPINE the results section. documented in this encounter Results Film Library- Storage Only DX Spine (04/24/2020 12:00 AM EDT) Specimen (Source) Anatomical Location Collection Method / Collectio n Time Received Time / Laterality Volume Narrative DH RAD - 05/01/2020 7:04 PM EDT This exam is auto-finalizing. It's purpo se is for storage only. Marixa Smith MD IMG FILM LIBRARY ORDERABLES Performing Organization Address City/State/ZIP Code [facility] e Number [place], [place] documented in this encounter Visit Diagnoses Not on filedocumented in this encounter Care Teams Sales Center Manager Relationship Specialty Start Date End Date Marixa Smith MD PCP - General General Internal Medicine 11/20/19 [address] [place] [address] documented as of this encounter
--- OUTSIDE RECORDS SUMMARY | 2021-07-30 00:21 | XMS_ITS | Encounter Summary ---
:1950 Author Organization [facility] [place] [address] Care Team Providers Name Role Phone Marixa Smith MD Primary Care Provider Encounter Details Date Type Department Care Team Description 05/27/2020 Orders Only Pain and Spine Sophie rice at [facility] Sofia Miranda, [place] [address] Social History Tobacco Use Types Packs/Day Years [...] Appointment Radiology Mateo Victoria MD [facility] [place] [address] 08/16/2021 Office Visit Pain and Spine [facility] MD [facility] [place] [address] 09/22/2021 Hospital Encounter Surgery Mateo Victoria MD [facility] [address] [place] [address] 09/22/2021 Surgery Surgery Mateo Victoria, MAKENZIEECTOMY , FACETECTOMY & ONE MEDICAL FORAMINOTOMY,CHAVA HOLLOWAYAL, CENTER ONE LEVEL ([facility] SPINE CENTER 15.37) [place] [address] Scheduled Procedures Name Priority Associated Diagnoses Date/Time LAMINECTOMY, FACETECTOMY & Foraminal stenosis of 09/22/2021 7:30 AM EDT FORAMINOTOMY,LUMBAR, ONE lumbosacral region LEVEL ([facility] 15.37) EA ADD'L VERTEBRAL SEGMENT Foraminal stenosis of 09/22/2021 7:30 AM EDT CERVICAL, THORACIC, LUMBAR lumbosacral region (VU 3.47) MODIFIER L5 Foraminal stenosis of 09/22/2021 7:30 AM EDT lumbosacral region MODIFIER S1 Foraminal stenosis of 09/22/2021 7:30 AM EDT lumbosacral region documented as of this encounter Visit Diagnoses Not on filedocumented in this encounter Care Teams Trash Collector Truck Driver Relationship Specialty Start Date End Date Mraixa Smith MD PCP - General General Internal Medicine 11/20/19 [address] [place] [address] documented as of this encounter
--- OUTSIDE RECORDS SUMMARY | 2021-07-30 00:21 | XMS_ITS | Encounter Summary ---
:1950 Author Organization [facility] [place] [address] Care Team Providers Name Role Phone Mitchel Jordan MD Primary Care Provider Reason for Referral Diagnostic Test (Routine) - Closed Specialty Diagnoses / Procedures Referred By Contact Refer red To Contact Radiology Diagnoses Low back pain, unspecified back pain laterality, unspecified chronicity, unspecified whether sciatica present Sacroiliac joint dysfunction of right side Demarcus Ayers PA [facility] Rad Ct Scan Procedures CT Guided Injection SI Joint [facility] EMERGENCY DEPARTMENT [address] [address] Referral ID Status Reason Start Date Expiration Date Visits V isits Requested Authorized [id number] Closed Specialty 01/15/2019 01/15/2020 1 1 Service Requested Reason for Visit Diagnostic Test (Routine) - Closed Specialty Diagnoses / Procedures Referred By Contact Refer red To Contact Radiology Diagnoses Low back pain, unspecified back pain laterality, unspecified chronicity, unspecified whether sciatica present Sacroiliac joint dysfunction of right side Demarcus Ayers PA [facility] Rad Ct Scan Procedures CT Guided Injection SI Joint [facility] EMERGENCY DEPARTMENT [address] [address] Referral ID Status Reason Start Date Expiration Date Visits V isits Requested Authorized [id number] Closed Specialty 01/15/2019 01/15/2020 1 1 Service Requested Encounter Details Date Type Department Care Team Description 02/19/[address] Scan at [facility] Schembri, Low back pain, unspecified b ack pain laterality, unspecified chronicity, unspecified whether sciatica present; [facility] EDUARDO Tracy Sacroiliac joint dysfunction of right si de [address] [place] [address] [phone] Social History Tobacco Use Types Packs/Day Years [...] Start Date End Date aspirin 81 mg Tablet, Take 81 mg [...] Radiology Mateo Victoria MD [facility] [place] [address] 08/16/2021 Office Visit Pain and Spine [facility] MD [facility] [place] [place] [address] 09/22/2021 Hospital Encounter Surgery Mateo Victoria MD [facility] [place] [place] [address] 09/22/2021 Surgery Surgery Mateo Victoria, LAMINECTOMY , FACETECTOMY & ONE MEDICAL FORAMINOTOMY,CHAVA DEMPSEY, CENTER ONE LEVEL ([facility] SPINE CENTER 15.37) [place] [address] Scheduled Procedures Name Priority Associated Diagnoses Date/Time LAMINECTOMY, FACETECTOMY & Foraminal stenosis of 09/22/2021 7:30 AM EDT FORAMINOTOMY,LUMBAR, ONE lumbosacral region LEVEL ([facility] 15.37) EA ADD'L VERTEBRAL SEGMENT Foraminal stenosis of 09/22/2021 7:30 AM EDT CERVICAL, THORACIC, LUMBAR lumbosacral region ([facility] 3.47) MODIFIER L5 Foraminal stenosis of 09/22/2021 7:30 AM EDT lumbosacral region MODIFIER S1 Foraminal stenosis of 09/22/2021 7:30 AM EDT lumbosacral region documented as of this encounter Procedures Procedure Name Priority Date/Time Associated Diagnosis Comme nts CT GUIDED INJECTION Routine 02/19/2019 9:06 AM Low back pain, Results for this SI JOINT EST unspecified back procedure a re in pain laterality, the results unspecified section. chronicity, unspecified whether sciatica present Sacroiliac joint dysfunction of right side documented in this encounter Results CT Guided Injection SI Joint (02/19/2019 9:06 AM EST) Anatomical Region Laterality Modality Computed Tomography Specimen (Source) Anatomical Location Collection Method / Collectio n Time Received Time / Laterality Volume Impressions 02/20/2019 5:[address]-guided right sacroiliac joint anesthetic and steroid injection. Fellow: Michael Edmonds M.D. Attending: Michael Denson M.D. Preliminary report signed by: Michael Edmonds at 02/19/2019 9:21 AM I was present for the critical aspects o f the procedure. I have personally reviewed the image(s) and the resident's interpretation and agree with the findings, Michael Denson at 02/20/2019 5:47 PM Thank you for letting us participate in the care of this patient. For questions regarding this report, please contact th e number below. ? Narrative 02/20/2019 5:47 PM EST EXAMINATION: CT-Guided Sacroiliac Joint Injection CLINICAL HISTORY: Low back pain, Sacroil iac joint dysfunction of right side COMPARISON: MRI lumbar spine 11/28/2018 TECHNIQUE: The risks and benefits of the procedure were discussed with the patient, and written informed consent was obtained. ? ?The patient was positioned prone on the CT table, and noncontrast images of the sacrum were obtained. ??An appropriate level and access path were chosen. ??The skin was then marked, prepped and draped in the usual sterile fashion. 1% lidocai ne used for local anesthesia. ?? With intermittent CT fluoroscopic guidan ce, a 22-gauge spinal needle was advanced into the right sacroiliac joint . Into the joint, 2 mL of 0.5% bupivacaine mixed with 80 mg of Depo-Med rol was injected. ??The needle was removed. The patient tolerated the proce dure well with no immediate complications. ?? FINDINGS: There are bridging anterior osteophytes along the right and left sacroiliac joints. There is 6 mm region of well cir cumscribed subchondral sclerosis lateral to the left sacroiliac joint (axial seri es 4 image 29), most consistent with a bone island or subchondral degenerative changes. There is moderate facet arthropathy at L4-L5 and L5-S1. Facet de generative changes are most prominent at L5-S1 on the right. Preprocedure pain: 3/10 Postprocedure pain: 0/10. Procedure Note Michael Denson MD - 02/20/2019Formatt ing of this note might be different from the original. EXAMINATION: CT-Guided Sacroiliac Joint Injection CLINICAL HISTORY: Low back pain, Sacroil iac joint dysfunction of right side COMPARISON: MRI lumbar spine 11/28/2018 TECHNIQUE: The risks and benefits of the procedure were discussed with the patient, and written informed consent was obtained. T he patient was positioned prone on the CT table, and noncontrast images of the sacrum were obtained. An appropriate level and access path were chosen. The s kin was then marked, prepped and draped in the usual sterile fashion. 1% lidocai ne used for local anesthesia. With intermittent CT fluoroscopic guidan ce, a 22-gauge spinal needle was advanced into the right sacroiliac joint . Into the joint, 2 mL of 0.5% bupivacaine mixed with 80 mg of Depo-Med rol was injected. The needle was removed. The patient tolerated the proce dure well with no immediate complications. FINDINGS: There are bridging anterior osteophytes along the right and left sacroiliac joints. There is 6 mm region of well cir cumscribed subchondral sclerosis lateral to the left sacroiliac joint (axial seri es 4 image 29), most consistent with a bone island or subchondral degenerative changes. There is moderate facet arthropathy at L4-L5 and L5-S1. Facet de generative changes are most prominent at L5-S1 on the right. Preprocedure pain: 3/10 Postprocedure pain: 0/10. IMPRESSION Successful CT-guided right sacroiliac abhishek int anesthetic and steroid injection. Fellow: Michael Edmonds M.D. Attending: Michael Denson M.D. Preliminary report signed by: Michael Edmonds at 02/19/2019 9:21 AM I was present for the critical aspects o f the procedure. I have personally reviewed the image(s) and the resident's interpretation and agree with the findings, Michael Denson at 02/20/2019 5:47 PM Thank you for letting us participate in the care of this patient. For questions regarding this report, please contact e number below. Demarcus [facility] ORDERABLES documented in this encounter Visit Diagnoses Diagnosis Low back pain, unspecified back pain lat erality, unspecified chronicity, unspecified whether sciatica present Sacroiliac joint dysfunction of right si de Disorders of sacrum Foraminal stenosis of lumbosacral region Spinal stenosis, lumbar region, without neurogenic claudication documented in this encounter Care Teams Filter Press Tender Head Relationship Specialty Start Date End Date Mitchel Jordan MD PCP - General Internal Medicine 02/19/19 11/19/19 [id number] [place] [address] documented as of this encounter
--- OUTSIDE RECORDS SUMMARY | 2021-07-30 00:21 | XMS_ITS | Encounter Summary ---
:1950 Author Organization [facility] [place] [address] Care Team Providers Name Role Phone Marixa Smith MD Primary Care Provider Encounter Details Date Type Department Care Team Description 08/31/2020 Hospital Encounter Pain Management Kiana Canchola DDD (timothy Fischer MD disc disease), [facility] [place] [id number] [phone] Social History Tobacco Use Types Packs/Day Years [...] Sign Reading Time Taken Comments Blood Pressure 155/88 08/31/2020 11:05 AM EDT Pulse 60 08/31/2020 9:54 AM EDT Temperature - - Respiratory Rate 18 08/31/2020 9:54 AM EDT Oxygen Saturation 100% 08/31/2020 11:10 AM EDT Inhaled Oxygen Concentration - - Weight 88 kg (194 lb) 08/31/2020 9:54 AM EDT Height 182.9 cm (6') 08/31/2020 9:54 AM EDT Body Mass Index 26.31 08/31/2020 9:54 AM EDT documented in this encounter Discharge Instructions Discharge InstructionsClifford Trotter - 08/31/2020 11:13 AM EDT Pain Management Center Discharge Instructions: You were seen today by Surgeon(s): Socorro Theodore MD Gellis, Janice E, MD The following was performed: Procedure(s) (LRB): INJECTION, FACET JOINT,W/FLUORO, CERVICAL, SECOND (WRVU 1.16) (Left) INJECTION, FACET JOINT,W/FLUORO, CERVICAL, SINGLE (WRVU 1.82) (Left) It is normal that the injection site [...] your bladder 4-6 hours after your procedure. {CHECK BOX SELECTION:55941} If you have diabetes, monitor your blood sugars frequently. If your blood sugar increases and is of concern, contact your Primary Care Provider. You received the following medications: Medications Given During Procedure Date/Time Order Dose Route Action {\field{\*\fldinst HYPERLINK ecmd:ord?kw=[id number]}{\fldrslt \cf18 08/31/2020 1058}} BUpivacaine (pf) (Marcaine) (5 mg/mL) 0.5% injection 1.5 mL Other Given {\field{\*\fldinst HYPERLINK ecmd:ord?ay=[id number]}{\fldrslt \cf18 08/31/2020 1059}} iohexoL (Omnipaque) (240 mg/mL) injection solution 1 mL Other Given During regular business hours, [...] local emergency department. Clifford Trotter Special instructions Pain Management Center Post -Procedure Pain Log Patient: Jose Eduardo Rodríguez [id number] It is important for you to keep track of your pain after your procedure that took place 08/31/2020. This information will help your Provider to determine how to help reduce your pain. Today you had a procedure for pain in your neck. Your pain level before the procedure in this area was 6/10. Your pain level immediately after your procedure was 1/10. Time Pain Score # Comments % pain relief 1 hour 12:15 pm 2 hours 1:15 pm 3 hours 2:15 pm 4 hours 3:15 pm Please call the nurse in the Pain Management Center a day or two after your procedureand report the information above. She will assess your response to the procedure, and will recommendappropriate follow-up. documented in this encounter Medications at Time [...] as 0 02/2020 Tablet needed. flu vacc [id number],65yr ADM 0.7ML IM UTD 0 2019 up,/PF [...] documented as of this encounter H&P Notes Kiana Canchola MD - 08/30/2020 9:57 AM EDT Patient Name: Jose Eduardo Rodríguez Patient Age: 70 y.o. Birthdate: 1950 Admit date: 08/31/2020 Attending Physician: Kiana Canchola MD PREPROCEDURE HISTORY AND PHYSICAL Date of Visit: August 31, 2020 Chief Complaint: Left neck pain HPI: Subjective Jose Eduardo Rodríguez is a 70 y.o. male who presents today for left cervical MBB referred by Criss Mares APRN. . The history is obtained from the patient, and I have reviewed medical records provided by the referring physician and located in the electronic medical record to fill in gaps in the patient's recollection of events, treatments and outcomes. LOCATION: Left neck PAIN LEVEL AT REST 5 with modified byrd's testing PAST MEDICAL HISTORY: Past Medical History: Diagnosis Date ??? HLD (hyperlipidemia) ??? [place] (myocardial infarction) PAST SURGICAL HISTORY: Past Surgical History: Procedure Laterality Date ??? CORONARY ANGIOPLASTY WITH STENT PLACEMENT ??? CT GUIDED INJECTION SI JOINT 02/19/2019 CT Guided Injection SI Joint 02/19/2019 [facility] RAD CAT SCAN ALLERGIES: Patient has no [...] tabs in 24 hours ??? naproxen sodium (Aleve) 220 mg Tablet Take 440 mg by mouth every other day. ??? amoxicillin (Amoxil) 500 mg Capsule Take 2,000 mg by mouth as needed. ??? sildenafiL (VIAGRA) 100 mg Tablet 100 mg daily as needed. ??? flu vacc [id number],65yr up,/PF (FluZONE HighDose Quad 20-21 PF) 240 [...] differently: Take 40 mg by mouth every evening.) 30 tablet 3 FAMILY HISTORY: Family History [...] Strain: ??? Difficulty of Paying Living Expenses: Food Insecurity: ??? Worried About Running Out of Food in the Last Year: ??? Ran Out of Food in the Last Year: Transportation Needs: ??? Lack of Transportation (Medical): ??? Lack of Transportation (Non-Medical): Physical Activity: ??? Days of Exercise per Week: ??? Minutes of Exercise per Session: ROS: Pt denies recent fever, chills, infection, wounds, hospitalizations, ED visits, use of antibiotics. PHYSICAL EXAM: BP 129/82 (Patient Position: Sitting) Pulse 60 Resp 18 Ht 182.9 cm (6') Wt 88 kg (194 lb) SpO2 100% BMI 26.31 kg/m?? Physical Exam HENT: Head: Normocephalic. Eyes: General: No scleral icterus. Pulmonary: Effort: Pulmonary effort is normal. Neurological: Mental Status: He is alert. Psychiatric: Mood and Affect: Mood normal. Behavior: Behavior normal. Thought Content: Thought content normal. Judgment: Judgment normal. RADIOLOGIC DATA: X-ray reviewed multilevel cervical degenerative disc disease, cervical spondylosisi. LABS/DX RESULTS: Last 3 wbc, hgb, hct [...] the last 7068 hours. ASSESSMENT: Assessment 1. DDD (degenerative disc disease), cervical Jose Eduardo Rodríguez is a 70 y.o. male who presents today for left cervical MBB referred by Criss Mares APRN. . His current symptoms align with the facet joint referral pattern for C4,5,6. This was reviewed with the patient. The risks and benefits were reviewed with the patient, questions were answered and they wished to proceed. There are no contraindications to proceed. PLAN: Left cervical MBB facet joint levels C4,5,6 Kiana Canchola MD Crime Lab Technician of Anesthesiology Pain [facility] [address] [phone] / [facility] documented in this encounter Miscellaneous Notes Op Note - Kiana Canchola MD - 08/31/2020 10:15 AM EDT Pain Management Operative Note Patient Name: Jose Eduardo Rodríguez : [id number] MR#: [id number] Case Date: 08/31/2020 Surgeon: Surgeon(s) and Role: * Kiana Canchola MD - Primary Present on Admission: ??? Cervical spondylosis without myelopathy Postoperative diagnosis: same Procedure(s) (LRB): INJECTION, FACET JOINT,W/FLUORO, CERVICAL, SECOND (WRVU 1.16) (Left) INJECTION, FACET JOINT,W/FLUORO, CERVICAL, SINGLE (WRVU 1.82) (Left) Diagnostic Cervical Medial Branch Nerve Blocks left C4-5 and C5-6 Preoperative Note Jose Eduardo Rodríguez is a 70 y.o. male who presents today for left cervical MBB referred by Criss Mares APRN. . His current symptoms align with the facet joint referral pattern for C4,5,6. This was reviewed with the patient. The risks and benefits were reviewed with the patient, questions were answered and they wished to proceed. There are no contraindications to proceed. PLAN: Left cervical MBB facet joint levels C4,5,6 PLAN: History and Exam Patient demonstrates today moderate to severe non- radicular neck pain without neurologic deficit aggravated by hyperextension yes Neck pain greater than arm pain yes Patient today has tenderness over the suspected joint(s) yes History of post-traumatic injury no Neck pain associated with suspected motion segment instability or Hypermobility or pseudoarthrosis no Pre-testing pain score: 5/10 with modified byrd's testing Jose Eduardo Rodríguez has been referred to the Pain Management Center for Diagnostic Cervical Medial BranchNerve Blocks left C-4, C-5 and C-6. (Facet joint levels C4-5 and C5-6 ) Mr. Rodríguez was interviewed and the medical record reviewed. There were no medical, pharmacologic, radiographic or other structural contraindications to attempting fluoroscopically guided injection. Risks and expected side effects as well as potential benefit of the procedure were reviewed with Mr. Rodríguez, and his voiced concerns were addressed. The printed consent form was signed and witnessed. (The procedure, risks, and benefits of Cervical Medial Branch Nerve Blocks were reviewed with the patient,including but not limited to: nerve injury, allergic reaction, infection, transient numbness from spread of local anesthesia to nerve roots. The patient appeared to understand, questions were answered and the patient agreed to proceed.) Standard time-out procedure was performed. Jose Eduardo Rodríguez was greeted by the nurse who verified patients name and . Patient was then taken to the fluoroscopy suite. TECHNIQUE: After informed written consent was obtained, the patient was placed in the prone position. The cervical spine was prepped with chloraprep and draped. Sterile technique was used, vital signs were monitored, time out was done and the left side was marked.. Cap, glove, mask were worn. The skin and subcutaneous structure were anesthetized with lidocaine 1% , to a total volume of 3 ml at each level. Medial Branch Nerves left C-4, C-5 and C-6. In the AP view 25-gauge spinal needles were advanced to the junction of the waste of the articular pillars of C-4, C-5 and C-6. Under lateral view needle position was optimized to the centroid of the articular pillar. Contralateral oblique was obtained (foraminal view) and the needles were outside of the neural foramen. Under lateral view, Omnipaque 240 was injected while visualized with digital subtraction. There was no evidence of intravascular uptake, and there was dye flow across the articular pillar BUPIVICAINE 0.5% 0.5 ml was administered at each level after negative aspiration. Outcome: The patient tolerated the procedure well and had stable vital signs. The patient noted after getting up after the procedure that their pain was at a 1 out of 10 level. Preprocedure pain level was a 5 out of 10. Follow up plans and appointments were discussed with Jose Eduardo Rodríguez. Mr. Rodríguez was instructed to keep careful note of how the usual pain was modified by these injections. Specifically, he was asked tokeep a pain diary for the next 24 hours using a numeric pain scale of 0-10 and report these results at the follow-up visit. The patient was observed in the pain clinic and then discharged after having met discharge criteria to the care of a patient transportation driver. The patient received written instructions as documented in nursing records. Based on the medial branches blocked today, if they patient has adequate relief and we are able to proceed to radiofrequency ablation, the treatment should result in the denervation of the left C4-5 and C5-6. We would expect to denervate a total of 2 facets during the radiofrequency ablation. COMMENTS: If criteria met, Mr. Rodríguez will proceed to Cervical medial branch nerve blocks with lidocaine or radiofrequency. The patient will otherwise follow-up with Criss Mares APRN I personally performed this entire procedure. Kiana Canchola MD ABPM-subspecialty board certification in Pain Building Rental ManagerCrime Lab Technician Department of Anesthesiology/Section of Pain Medicine [facility] CC: Marixa Smith MD @PCPADD@ documented in this encounter Plan of Treatment Upcoming Encounters Date Type Specialty Care Team Description 08/16/2021 Appointment Radiology Mateo Victoria MD [facility] [place] [address] 08/16/2021 Office Visit Pain and Spine Mateo Victoria Center MD [facility] [place] [address] 09/22/2021 Hospital Encounter Surgery Mateo Victoria MD [facility] [place] [address] 09/22/2021 Surgery Surgery Mateo Victoria, MAKENZIEECTOMY MD FACETECTOMY & [facility] MEDICAL FORAMINOTOMY,[facility] [address], [place] [address] Scheduled Orders Name Type Priority Associated Diagnoses Order S chedule INJECTION,FACET Procedures Routine DDD (degenerative disc On e Time for 1 JOINT,W/FLUORO,CER disease), cervical Occ urrences starting VICAL,SINGLE 08/31/2020 unti l 08/31/2020 INJECTION, FACET Procedures Routine DDD (degenerative disc O ne Time for 1 JOINT,W/FLUORO, disease), cervical Occurr ences starting CERVICAL,2ND LVL 08/31/2020 until 08/31/2020 Scheduled Procedures Name Priority Associated Diagnoses Date/Time [...] as of this encounter Visit Diagnoses Diagnosis DDD (degenerative disc disease), cervica l Degeneration of cervical intervertebral disc Cervical spondylosis without myelopathy Foraminal stenosis of lumbosacral region Spinal stenosis, lumbar region, without neurogenic claudication documented in this encounter Active and Recently Administered Medications Times are shown in EDT. PRN Medication Order 08/29/2020 08/30/2020 08/31/2020 BUpivacaine (pf) (Marcaine) (5 mg/mL) 0.5% injection (CANCELED) 1058 (Given - Provider: Kiana Canchola MD - Comment: cervical MBB) ONCE PRN, Starting on Mon08/31/20 at 105 8, Until Mon08/31/20 at 1317, Intra- Operative (Intra-Procedure), Routine iohexoL (Omnipaque) (240 mg/mL) injection solution (CANCELED) 1059 (Given - Provider: Kiana Canchola MD - Comment: cervical MBB) ONCE PRN, Starting on Mon08/31/20 at 105 9, Until 08/31/20 at 1317, Intra- Operative (Intra-Procedure), Routine documented in this encounter Care Teams Pipe Assembly Worker Relationship Specialty Start Date End Date Marixa Smith MD PCP - General General Internal Medicine 11/20/19 [address] [place] [address] documented as of this encounter
--- OUTSIDE RECORDS SUMMARY | 2021-07-30 00:21 | XMS_ITS | Encounter Summary ---
:1950 Author Organization [facility] [place] [address] Care Team Providers Name Role Phone Marixa Smith MD Primary Care Provider Encounter Details Date Type Department Care Team Description 11/19/2020 Telephone Pain and Spine Sophie rice at [facility] [place] [phone] Social History Tobacco Use Types Packs/Day [...] this encounter Miscellaneous Notes Telephone Encounter - July Mckeon RN - 11/19/2020 9:16 AM EDT Outgoing call placed to pt to obtain more information regarding current back/leg pain. Pt endorses right-sided low back and hip pain down to his knee and into calf, on the lateral side. This is the same pain that he had a year ago. He is having a hard time walking. Pt has an order in for his second CMBB. He wants to put that the back burner d/t having worsening leg pain and having a hard time walking. Procedure Requested: Neither Transforaminal Epidural Steroid Injection What is your current Pain Score (1-10 range)? 11/15 Pain Asmt (include sidedness, characteristics & distribution): Pt states this is the same pain he has had in the past, prior to steroid injections. He describes the pain as aching. (If a repeat injection, note if pain is the same or changed since prior to last inj) Date(s) of last procedure: 12/29/20 Did previous procedure relieve pain? yes If yes, Duration: Almost one year 100% of relief received from previous injection. Pertinent Medical History - h/o Thrombocytopenia/bleeding tendency/platelet dysfunction: no - h/o Liver disease; abnormal liver function: no - h/o Chronic kidney disease (CKD); abnormal kidney function: no - Patient on dialysis? no - Patient has pacemaker/defibrillator: no Is patient taking an anticoagulant? None Is patient taking any NSAIDS/supplements? Ibuprofen (Advil, Motrin, Midol) and Multivitamin Is patient taking aspirin? yes If yes, is it prescribed? yes If yes, what reason is it prescribed? Hx of [place], prescribed by Cardiology. Is patient taking Antibiotics? No Has patient been on greater than 40mg of steroid 14 days or longer? No Has patient had any steroid injections anywhere in his/her body within the last two weeks? No Does patient need sedation? no Does patient need NPO guidelines? no Does patient have allergies to contrast/local anesthetic/steroid? No Based on the information provided above and after discussion with the patient, the following actionswill be taken: _x_If no change in pain characteristics or medical history review: pended order for repeat procedurerouted to Primary Pain Clinic Provider Criss Treadwell RN documented in this encounter Plan of Treatment Upcoming Encounters Date Type Specialty Care Team Description 08/16/2021 Appointment Radiology Mateo Victoria MD [facility] [place] [address] 08/16/2021 Office Visit Pain and Spine Mateo Victoria Center MD [facility] [place] [address] 09/22/2021 Hospital Encounter Surgery Mateo Victoria MD [facility] [place] [address] 09/22/2021 Surgery Surgery Mateo Victoria, MD STU FACETECTOMY & [facility] MEDICAL FORAMINOTOMY,[place]AVA [place], [facility] [facility] ONE LEVEL ([facility] SPINE CENTER [address] [place] [address] Scheduled Procedures Name Priority Associated Diagnoses Date/Time LAMINECTOMY, FACETECTOMY & Foraminal stenosis of 09/22/2021 7:30 AM EDT FORAMINOTOMY,LUMBAR, ONE lumbosacral region LEVEL ([facility] [address]) EA ADD'L VERTEBRAL SEGMENT Foraminal stenosis of 09/22/2021 7:30 AM EDT CERVICAL, THORACIC, LUMBAR lumbosacral region (VU 3.47) MODIFIER L5 Foraminal stenosis of 09/22/2021 7:30 AM EDT lumbosacral region MODIFIER S1 Foraminal stenosis of 09/22/2021 7:30 AM EDT lumbosacral region documented as of this encounter Visit Diagnoses Not on filedocumented in this encounter Care Teams Assembling Machine Operator Relationship Specialty Start Date End Date Marixa Smith MD PCP - General General Internal Medicine 11/20/[address] [place] [id number] documented as of this encounter
--- OUTSIDE RECORDS SUMMARY | 2021-07-30 00:21 | XMS_ITS | Encounter Summary ---
:1950 Author Organization [facility] [place] [address] Care Team Providers Name Role Phone Marixa Smith MD Primary Care Provider Encounter Details Date Type Department Care Team Description 12/26/2019 Telephone [facility] Marialuisa Dunbar, [place] [address] Social History Tobacco Use Types Packs/Day Years [...] this encounter Miscellaneous Notes Telephone Encounter - Marialuisa Dunbar RN - 12/26/2019 3:43 PM EST Jose Eduardo Rodríguez :1950 Contact made with patient: I spoke to Mr. Rodríguez at 3:43 PM regarding his upcoming Right transforaminal injection scheduled on 12/30/2019 (date) scheduled at 0800 (time) with Dr. Kiana Canchola MD. Medication and Allergy reconciliation: 1. Changes were made in the telephone encounter per patient; marked as reviewed, and closed. 2. Patient confirmed no IVP dye allergy. 3. Have you had any steroid injections anywhere in your body within the last two weeks? no Arrival time: The patient was instructed to arrive at 0730 (30 minutes prior to procedure start time - 60 minutes prior for RF patients with a pacemaker) on 12/30/2019 (date of procedure). Antibiotics/Skin assessment/Illness symptoms/Pain level assessment : 1. The patient confirmed that he is not taking antibiotics at this time. 2. The patient confirmed that he has notbeen in the emergency room in the last two weeks. 3.. The patient confirmed that he does not have any rashes, blisters, or skin breakdown on their body. 4. The patient confirmed that he does not have any active infections. 5. The patient confirmed that he and any household members have not had any symptoms of illness within the past 14 days: fever, chills, cold, flu, nausea, vomiting, diarrhea, shortness of breath, loss of taste, or recent stroke. 6. The patient confirmed that he is still experiencing significant pain. (Significant pain is defined as interfering with performing ADL.) 7. The patient confirmed that he have not been in contact with anyone known or suspected to have COVID-19. 8. The patient confirmed that he have been suspected or tested for COVID-19 Pain and Anti-anxiety Medications: 1. Nerve Block Procedure Patients: Patient was instructed NOT to take their pain medications on the day of the procedure and anti-anxiety medications are part of their daily medication regiment; they can and should continue taking that medication. 2. All Other Procedure Patients: The patient was instructed that if they take daily pain or anti-anxiety medications, they can and should continue taking on the day of the procedure. Does patient have history of any diagnosed bleeding disorders: No Anticoagulants: No NSAIDs: Does the patient take Aspirin/ASA? Yes The patient confirmed that he is to continue due to cardiac Does the patient take an NSAID? Yes The patient confirmed that he discontinued taking Aleve on 12/25/2019 (date). Implant: Patient has pacemaker/defibrillator: No WHAT TO EXPECT DAY OF PROCEDURE - Patient will arrive at entrance and be screened (temp and symptoms) - Patient will be given a mask; They are required to wear the mask appropriately (covering nose and mouth) the entire time that they are in the Center for Pain and Spine (Including during the procedure). If for some reason they feel that they will have difficulty with this, their procedure will have to be postponed. Prior to checking in at [employer] Machine [employer], please be sure to empty your bladder. Patient confirmed understanding that if they do not follow the above instructions, their procedure is likely to be cancelled. Marialuisa Dunbar, RN documented in this encounter Plan of Treatment Upcoming Encounters Date Type Specialty Care Team Description 08/16/2021 Appointment Radiology Mateo Victoria MD [facility] [place] [address] 08/16/2021 Office Visit Pain and Spine Mateo Victoria, [place] [facility] [place] [address] 09/22/2021 Hospital Encounter Surgery Mateo Victoria MD [facility] [place] [address] 09/22/2021 Surgery Surgery aMteo Victoria, MD STU FACETECTOMY & ONE MEDICAL FORAMINOTOMY,[facility] LEVEL ([facility] SPINE CENTER [address]) [place] [address] Scheduled Procedures Name Priority Associated Diagnoses Date/Time LAMINECTOMY, FACETECTOMY & Foraminal stenosis of 09/22/2021 7:30 AM EDT FORAMINOTOMY,LUMBAR, ONE lumbosacral region LEVEL ([facility] [address]) EA ADD'L VERTEBRAL SEGMENT Foraminal stenosis of 09/22/2021 7:30 AM EDT CERVICAL, THORACIC, LUMBAR lumbosacral region (VU 3.47) MODIFIER L5 Foraminal stenosis of 09/22/2021 7:30 AM EDT lumbosacral region MODIFIER S1 Foraminal stenosis of 09/22/2021 7:30 AM EDT lumbosacral region documented as of this encounter Visit Diagnoses Not on filedocumented in this encounter Care Teams Consumer Lending Manager Relationship Specialty Start Date End Date Marixa Smith MD PCP - General General Internal Medicine 11/20/19 [address] [place] [address] documented as of this encounter
--- OUTSIDE RECORDS SUMMARY | 2021-07-30 00:21 | XMS_ITS | Encounter Summary ---
:1950 Author Organization [facility] [address] Care Team Providers Name Role Phone Marixa Smith MD Primary Care Provider Encounter Details Date Type Department Care Team Description 08/05/2020 Telephone Pain and Spine Sophie rice at [facility] [place] [address] Social History Tobacco Use Types Packs/Day [...] Telephone Encounter - July Mckeon RN - 08/05/2020 11:20 AM EDT Outgoing call placed to pt in response to a voicemail message left by pt on wholesaler line earlier today. Pt states in voicemail that he wanted Criss Mares's opinion regarding some external records we received from [facility]. He says he is still having headaches that come and go and wonders if there is anything else to do at this point to manage this pain. Unable to reach pt, voicemail left to return call to wholesaler line for more information and to possibly schedule follow-up appointment with Criss. documented in this encounter Plan of Treatment Upcoming Encounters Date Type Specialty Care Team Description 08/16/2021 Appointment Radiology Mateo Victoria MD [facility] [place] [address] 08/16/2021 Office Visit Pain and Spine Mateo Victoria, [place] [facility] [place] [address] 09/22/2021 Hospital Encounter Surgery Mateo Victoria MD [facility] [place] [address] 09/22/2021 Surgery Surgery Mateo Victoria, MD STU FACETECTOMY & [facility] MEDICAL FORAMINOTOMY,[facility] [place] ONE LEVEL ([facility] SPINE CENTER [address]) [place] [address] Scheduled Procedures Name Priority Associated Diagnoses Date/Time [...] on filedocumented in this encounter Care Teams Mechanical Systems Design Engineer Relationship Specialty Start Date End Date Marixa Smith MD PCP - General General Internal Medicine 11/20/[address] [place] [id number] documented as of this encounter
--- OUTSIDE RECORDS SUMMARY | 2021-07-30 00:21 | XMS_ITS | Encounter Summary ---
:1950 Author Organization [facility] [place] [address] Care Team Providers Name Role Phone Marixa Smith MD Primary Care Provider Encounter Details Date Type Department Care Team Description 12/16/2019 Telephone Pain and Spine Sophie rice at [facility] [place] [place] [address] Social History Tobacco Use Types Packs/Day Years [...] this encounter Miscellaneous Notes Telephone Encounter - Kaylyn Choudhary - 12/16/2019 8:42 AM EST DAKOTAM to schedule 2 week TOV with Colleen. phillips notes: follow up s/p TFESI 12/30/2019 documented in this encounter Plan of Treatment Upcoming Encounters Date Type Specialty Care Team Description 08/16/2021 Appointment Radiology Mateo Victoria MD [facility] [place] [address] 08/16/2021 Office Visit Pain and Spine Mateo Victoria, [place] [facility] [place] [address] 09/22/2021 Hospital Encounter Surgery Mateo Victoria MD [facility] [place] [address] 09/22/2021 Surgery Surgery Mateo Victoria, LAMINECTOMY , FACETECTOMY & ONE MEDICAL FORAMINOTOMY,[facility], [facility] SPINE CENTER [address]) [place] [address] Scheduled Procedures Name Priority Associated Diagnoses Date/Time LAMINECTOMY, FACETECTOMY & Foraminal stenosis of 09/22/2021 7:30 AM EDT FORAMINOTOMY,LUMBAR, ONE lumbosacral region LEVEL ([facility]) EA ADD'L VERTEBRAL SEGMENT Foraminal stenosis of 09/22/2021 7:30 AM EDT CERVICAL, THORACIC, LUMBAR lumbosacral region (VU 3.47) MODIFIER L5 Foraminal stenosis of 09/22/2021 7:30 AM EDT lumbosacral region MODIFIER S1 Foraminal stenosis of 09/22/2021 7:30 AM EDT lumbosacral region documented as of this encounter Visit Diagnoses Not on filedocumented in this encounter Care Teams Lance Crewmember Relationship Specialty Start Date End Date Marixa Smith MD PCP - General General Internal Medicine 11/20/19 [address] [place] [address] documented as of this encounter
--- OUTSIDE RECORDS SUMMARY | 2021-07-30 00:21 | XMS_ITS | Encounter Summary ---
:1950 Author Organization [facility] [place] [address] Care Team Providers Name Role Phone Unknown Primary Care Provider Unavailable Encounter Details Date Type Department Care Team Description 11/28/2018 Ancillary Procedure Radiology at [facility] UbaldoMac MD [address] [place] [address] NEUROSURGERY-N [place], [place] [address] (Wo rk) Social History Tobacco Use Types [...] Description 08/16/2021 Appointment Radiology Mateo Victoria MD [facility] [place] [address] 08/16/2021 Office Visit Pain and Spine Mateo Victoria Center MD [facility] [place] [address] 09/22/2021 Hospital Encounter Surgery Mateo Victoria MD [facility] [place] [address] 09/22/2021 Surgery Surgery Mateo Victoria, MD STU FACETECTOMY & ONE MEDICAL FORAMINOTOMY,[facility] CENTER ONE LEVEL ([facility] SPINE CENTER [address]) [place] [address] Scheduled Procedures Name Priority Associated Diagnoses Date/Time LAMINECTOMY, FACETECTOMY & Foraminal stenosis of 09/22/2021 7:30 AM EDT FORAMINOTOMY,LUMBAR, ONE lumbosacral region LEVEL ([facility] 15.37) EA ADD'L VERTEBRAL SEGMENT Foraminal stenosis of 09/22/2021 7:30 AM EDT CERVICAL, THORACIC, LUMBAR lumbosacral region [facility] MODIFIER L5 Foraminal stenosis of 09/22/2021 7:30 AM EDT lumbosacral region MODIFIER S1 Foraminal stenosis of 09/22/2021 7:30 AM EDT lumbosacral region documented as of this encounter Procedures Procedure Name Priority Date/Time Associated Diagnosis Comme nts FILM LIBRARY Routine 11/28/2018 12:00 AM Results for this STORAGE ONLY MR EDT procedure ar e in SPINE the results section. documented in this encounter Results Film Library- Storage Only MR Spine (11/28/2018 12:00 AM EDT) Specimen (Source) Anatomical Location Collection Method / Collectio n Time Received Time / Laterality Volume Narrative TANGELA MORA - 12/07/2018 5:36 PM EDT This exam is auto-finalizing. It's purpo se is for storage only. Mac Briseno MD IMG FILM LIBRARY ORDERABLES Performing Organization Address City/State/ZIP Code Phon e Number TANGELA MORA [place], [place] documented in this encounter Visit Diagnoses Not on filedocumented in this encounter Care Teams Bingo Floater Relationship Specialty Start Date End Date Unknown PCP - General 01/17/18 02/18/19 None documented as of this encounter
--- OUTSIDE RECORDS SUMMARY | 2021-07-30 00:21 | XMS_ITS | Encounter Summary ---
:1950 [place] [address] Care Team Providers Name Role Phone Marixa Smith MD Primary Care Provider Encounter Details Date Type Department Care Team Description 10/16/2020 Telephone Pain and Spine Center [place] [address] Social History Tobacco Use Types Packs/Day Years [...] this encounter Miscellaneous Notes Telephone Encounter - Linda Samuels [facility] - 10/16/2020 10:37 AM EDT Reached voicemail and left message as identified in contacts Identified myself and provided callback number: [phone]. 1. Patient instructed to arrive at 1230 on with their taxicab driver for their Cervical MBB procedure. Please plan to spend about 2 hours at the center (3 hours for RFA) 2. Bring Updated list of medications including dosage and reason for taking. 3. Call the Pain Clinic Nurse at for any of the following situations that occur within 2 weeks of your procedure date: a. Any questions about your procedure b. You are having a Covid vaccine or other vaccine c. You have been exposed to anybody with a contagious illness such as Covid, flu, d. You are taking antibiotics to treat an infection e. You have any skin rashes, breakdown, blisters or open wounds f. You have had any hospitalizations, ED visit, surgery, other procedure, dental procedure g. You have taken oral steroids, or had a steroid injection. 4. If you have any of the following symptoms that are NEW and NOT explained by another health condition you need to call the [facility] hotline to arrange for testing prior to your procedure: fever or chills, cough, shortness of breath or difficulty breathing, fatigue, muscle or body aches, headache, new loss of taste or smell, sore throat, congestion or runny nose, nausea or vomiting, diarrhea. The [facility] number is: [phone] 5. If your pain has resolved or significantly improved such as a rating of 3 out of 10 or less, you may need to cancel your procedure because it will likely be of little benefit to you and it is likelythat your insurance will not cover it. Please call the Pain clinic nurse to discuss. 6. Was patient instructed to stop any medications? No a. If yes, instructions reviewed as follows: b. Name, date of last dose. c. Please call to reschedule your procedure if you did not stop this medication as directed. 7. Is patient having a nerve block: Yes a. If yes, instructed to not take any pain medication for 12 hours before the procedure time. 8. Please continue to take any prescribed medications that you were not told to stop, especially blood pressure medication because your procedure may be cancelled if your blood pressure is too high. 9. You were instructed to follow NPO guidelines: Yes if yes the following instructions were reviewed: a. You may eat up to 6 hours before your procedure b. You may have clear liquids only up to 2 hours before your procedure: water, apple juice, divya jm, sprite, popsicles, broth, tea or coffee plain or with sweetener, absolutely no dairy products, nomilk including soy, oat, almond. 10. If RFA: Does patient have a pacemaker? No If yes, document that cardiology was called and notified. . documented in this encounter Plan of Treatment Upcoming Encounters Date Type Specialty Care Team Description 08/16/2021 Appointment Radiology Mateo Victoria MD [facility] [place] [address] 08/16/2021 Office Visit Pain and Spine Mateo Victoria, [place] [facility] [place] [address] 09/22/2021 Hospital Encounter Surgery Mateo Victoria MD [facility] [place] [address] 09/22/2021 Surgery Surgery Mateo Victoria, MD STU FACETECTOMY & [facility] MEDICAL FORAMINOTOMY,[facility] ([facility] SPINE CENTER [address]) [place] [address] Scheduled Procedures Name Priority Associated Diagnoses Date/Time [...] on filedocumented in this encounter Care Teams Sound Technician Supervisor Relationship Specialty Start Date End Date Marixa Smith MD PCP - General General Internal Medicine 11/20/[address] [place] [phone] documented as of this encounter
--- OUTSIDE RECORDS SUMMARY | 2021-07-30 00:21 | XMS_ITS | Encounter Summary ---
:1950 Author Organization [facility] [place] [address] Care Team Providers Name Role Phone Marixa Smith MD Primary Care Provider Reason for Visit Reason Comments Follow-up Encounter Details Date Type Department Care Team Description 08/20/2020 Office Visit Pain and Spine Center Criss Mares D DD (degenerative disc at [facility] REGISTERED SAFETY ENGINEER disease), cervical [facility] (Pr imary Dx) [place]IC[place] [id number] [address] [phone] Social History Tobacco Use Types Packs/Day Years [...] Sign Reading Time Taken Comments Blood Pressure 103/81 08/20/2020 1:52 PM EDT Pulse 58 08/20/2020 1:52 PM EDT Temperature - - Respiratory Rate - - Oxygen Saturation 100% 08/20/2020 1:52 PM EDT Inhaled Oxygen Concentration - - Weight 87.5 kg (193 lb) 08/20/2020 1:52 PM EDT Height 180.3 cm (5' 11) 08/20/2020 1:52 PM EDT Body Mass Index 26.92 08/20/2020 1:52 PM EDT documented in this encounter Patient Instructions Patient InstructionsCriss Mares APRN - 08/20/2020 2:00 PM EDT Left CMBB to RFa FU with nc telehealth 2-3 weeks post RFA documented in this encounter Progress Notes Criss Mares APRN - 08/20/2020 2:00 PM EDT Images from the original note were not included. [facility] [place] [place] [address] Phone: PAIN MANAGEMENT FOLLOW UP NOTE DATE OF VISIT 08/19/2020 Patient Jose Eduardo Rodríguez 1950 REFERRING PROVIDER Marixa Smith MD [address] [place] [address] PRIMARY CARE PROVIDER Marixa Smith MD CHIEF COMPLAINT: Jose Eduardo Rodríguez is a 70 y.o.male with Right lateral leg pain, who is seen in consultation at the request of Marixa Smith MD [address] [place] [address]. for evaluation, recommendations, and management.The history is [...] injection on the right done here at [facility] int early part of this [...] he has done some [facility] PT in [facility] and while he did see [...] complaint however is the left-sided neck pain. Pain most recent MRI or Xray: PAIN [...] from family/friends?no History of incarceration? MEDICATIONS [facility] Prescription Monitoring Program was checked and no concerns were identified. Medications 08/19/20 1028 Medication Sig Taking? zolpidem (Ambien) 5 mg Tablet Take 1 tablet by mouth nightly as needed. Yes acetaminophen (TYLENOL) 650 mg Tablet Sustained Release Take 1,300 mg by mouth every 8 hours as needed for Pain. Do not exceed 6 tabs in 24 hours Yes naproxen sodium (Aleve) 220 mg Tablet Take 440 mg by mouth every other day. Yes amoxicillin (Amoxil) 500 mg Capsule Take 2,000 mg by mouth as needed. Yes sildenafiL (VIAGRA) 100 mg Tablet 100 mg daily as needed. Yes Zinc 50 mg Tablet Take 1 tablet by mouth daily. Yes aspirin 81 mg Tablet, Delayed Release (E.C.) Take 81 mg by mouth daily. Yes multivitamin (THERAGRAN) Tablet Take 1 tablet by mouth daily. Yes atorvastatin (LIPITOR) 20 mg Tablet Take 1 tablet by mouth every evening. Patient taking differently: Take 40 mg by mouth every evening. Yes flu vacc [id number],65yr up,/PF (FluZONE HighDose Quad 20-21 PF) 240 mcg/0.7 mL Syringe ADM 0.7ML IM UTD ascorbic acid, vitamin C, (VITAMIN C) 1,000 mg Tablet Take 1,000 mg by mouth 2 times daily. ADVERSE DRUG REACTIONS Allergies as of 08/20/2020 ??? (No Known Allergies) MEDICAL HISTORY Past Medical History: Diagnosis Date ??? HLD (hyperlipidemia) ??? CT (myocardial infarction) SURGICAL HISTORY Past Surgical History: Procedure Laterality Date ??? CORONARY ANGIOPLASTY WITH STENT PLACEMENT ??? CT GUIDED INJECTION SI JOINT 02/19/2019 CT Guided Injection SI Joint 02/19/2019 [facility] RAD CAT SCAN FAMILY HISTORY Family History Problem Relation Age of Onset ??? Cancer Maternal Grandmother ??? Cancer Paternal Grandmother ??? Heart Disease Paternal Grandfather ??? Myocardial Infarction Paternal Grandfather Opioid Risk Category: low risk 0-3 PHYSICAL EXAMINATION The patient is a fit and healthy 70-year-old gentleman with level shoulders and hips upon inspection. He has tenderness at the base of the cervical spine and into the upper trapezius. He has good rangeof motion of the neck. ASSESSMENT . left greater than right neck pain without radiation. We reviewed his imaging which does reveal someminimal foraminal stenosis and arthritic changes in the neck. These are particularly present in the lower cervical spine PLAN/RECOMMENDATIONS I have discussed with him a trial of cervical medial branch blocks and progression to radiofrequencyas appropriate. I would like to follow-up with him after that process. We could also consider repeating his L5-S1 epidural in the future should his else right L5 symptoms become more severe. I am hopeful that the neck pain will improve with the radiofrequency and he can then be more aggressive with his range of motion exercises. I reviewed his imaging with him today and answered his questions Jose Eduardo Rodríguez had the opportunity to ask questions and indicated that all questions were answered to his satisfaction. Criss Mares MS STRANDING MACHINE OPERATOR-BC, REGISTERED SAFETY ENGINEER Nurse Practitioner [facility] documented in this encounter Plan of Treatment Upcoming Encounters Date Type Specialty Care Team Description 08/16/2021 Appointment Radiology Mateo Victoria MD [facility] [place] [address] 08/16/2021 Office Visit Pain and Spine Mateo Victoria Center MD [facility] [place] [address] 09/22/2021 Hospital Encounter Surgery Mateo Victoria MD [facility] [place] [address] 09/22/2021 Surgery Surgery Mateo Victoria, LAMINECTOMY , FACETECTOMY & [facility] FORAMINOTOMY,[facility], [address] [facility] ([facility] SPINE CENTER 15.[address]) [place] [address] Scheduled Procedures Name Priority Associated Diagnoses Date/Time [...] Diagnosis DDD (degenerative disc disease), cervica l - Primary Degeneration of cervical intervertebral disc Foraminal stenosis of lumbosacral region Spinal stenosis, lumbar region, without neurogenic claudication documented in this encounter Care Teams Woodworker Relationship Specialty Start Date End Date Marixa Smith MD PCP - General General Internal Medicine 11/20/19 [address] [place] [address] documented as of this encounter
--- OUTSIDE RECORDS SUMMARY | 2021-07-30 00:21 | XMS_ITS | Encounter Summary ---
:1950 Author Organization [facility] [address] Care Team Providers Name Role Phone Marixa Smith MD Primary Care Provider Encounter Details Date Type Department Care Team Description 09/02/2020 Orders Only Pain Management Kee Kennedy MD Facet arthropathy [facility] [place] [address] [place] [address] [phone] (Wo rk) Social History Tobacco Use Types [...] Mateo Victoria MD [facility] [place] [address] 08/16/2021 Office Visit Pain and Spine Mateo Victoria Center MD [facility] [place] [place] [address] 09/22/2021 Hospital Encounter Surgery Mateo Victoria MD [facility] [place] [place] [address] 09/22/2021 Surgery Surgery Mateo Victoria, MD STU FACETECTOMY & ONE MEDICAL FORAMINOTOMY,[facility], [place] ONE LEVEL ([facility] SPINE CENTER [address]) [place] [address] Scheduled Procedures Name Priority Associated Diagnoses Date/Time LAMINECTOMY, FACETECTOMY & Foraminal stenosis of 09/22/2021 7:30 AM EDT FORAMINOTOMY,LUMBAR, ONE lumbosacral region LEVEL ([facility] 15.37) EA ADD'L VERTEBRAL SEGMENT Foraminal stenosis of 09/22/2021 7:30 AM EDT CERVICAL, THORACIC, LUMBAR lumbosacral region (VU 3.47) MODIFIER L5 Foraminal stenosis of 09/22/2021 7:30 AM EDT lumbosacral region MODIFIER S1 Foraminal stenosis of 09/22/2021 7:30 AM EDT lumbosacral region documented as of this encounter Visit Diagnoses Diagnosis Facet arthropathy Spondylosis of unspecified site without mention of myelopathy Foraminal stenosis of lumbosacral region Spinal stenosis, lumbar region, without neurogenic claudication documented in this encounter Care Teams Boring Machine Set Up Operator Jig Relationship Specialty Start Date End Date Marixa Smith MD PCP - General General Internal Medicine 11/20/19 [address] [place] [address] documented as of this encounter
--- OUTSIDE RECORDS SUMMARY | 2021-07-30 00:21 | XMS_ITS | Encounter Summary ---
:1950 [place] [address] Care Team Providers Name Role Phone Marixa Smith MD Primary Care Provider Encounter Details Date Type Department Care Team Description 08/31/2020 Ancillary Procedure Pain Management Keven Kennedy, Pain [facility] [address] [place] [address] [place] [address] [phone] (Wo rk) Social History Tobacco Use Types [...] Description 08/16/2021 Appointment Radiology Mateo Victoria MD [facility] [place] [address] 08/16/2021 Office Visit Pain and Spine Mateo Victoria Center MD [facility] [place] [address] 09/22/2021 Hospital Encounter Surgery Mateo Victoria MD [facility] [place] [address] 09/22/2021 Surgery Surgery Mateo Victoria LAMINECTOMY , FACETECTOMY & ONE MEDICAL FORAMINOTOMY,[facility], CENTER ONE LEVEL ([facility] SPINE CENTER [address]) [place] [address] Scheduled Procedures Name Priority Associated Diagnoses Date/Time LAMINECTOMY, FACETECTOMY & Foraminal stenosis of 09/22/2021 7:30 AM EDT FORAMINOTOMY,LUMBAR, ONE lumbosacral region LEVEL [facility] EA ADD'L VERTEBRAL SEGMENT Foraminal stenosis of 09/22/2021 7:30 AM EDT CERVICAL, THORACIC, LUMBAR lumbosacral region (VU 3.47) MODIFIER L5 Foraminal stenosis of 09/22/2021 7:30 AM EDT lumbosacral region MODIFIER S1 Foraminal stenosis of 09/22/2021 7:30 AM EDT lumbosacral region documented as of this encounter Procedures Procedure Name Priority Date/Time Associated Diagnosis Comme nts FILM LIBRARY Routine 08/31/2020 12:24 PM Pain Results for this STORAGE ONLY PAIN EDT procedure are in CLINIC C ARM the results section. documented in this encounter Results Film Library- Storage Only pain Clinic C-Arm (08/31/2020 12:24 PM EDT) Specimen (Source) Anatomical Location Collection Method / Collectio n Time Received Time / Laterality Volume Narrative [facility] - 08/31/2020 12:24 PM EDT See PACS for result report. Kiana Canchola MD IMG FILM LIBRARY ORDERABLES Performing Organization Address City/State/ZIP Code Phon e Number [place], [place] documented in this encounter Visit Diagnoses Diagnosis Pain Generalized pain Foraminal stenosis of lumbosacral region Spinal stenosis, lumbar region, without neurogenic claudication documented in this encounter Care Teams Bronc Breaker Relationship Specialty Start Date End Date Marixa Smith MD PCP - General General Internal Medicine 11/20/19 [address] [place] [address] documented as of this encounter
--- OUTSIDE RECORDS SUMMARY | 2021-07-30 00:21 | XMS_ITS | Encounter Summary ---
:1950 Author Organization [facility] Address [facility] [place] [address] Care Team Providers Name Role Phone Marixa Smith MD Primary Care Provider Encounter Details Date Type Department Care Team Description 12/30/2019 Surgery Pain Management Kiana Kennedy, IN JECTION, ANESTHETIC [facility] AGENT AND/OR STEROID, [facility] TRANSFORAMINAL EPIDURAL, [facility] DR LUMBAR OR SACRAL, SINGLE Drive PAIN CLINIC LEVEL (WRVU 1.9) [place] [address] [place] [address] [phone] (Wo rk) Social History Tobacco Use Types [...] MD Shah, Sunali, MD Harlow, Nathaniel E, DO The following was performed: Procedure(s) (LRB): INJECTION, [...] Refills Start Date End Date flu vacc [id number],65yr ADM 0.7ML IM UTD 0 2019 up,/PF [...] documented as of this encounter H&P Notes Antonio Royal E - 12/28/2019 9:49 AM EST Patient Name: [...] treatments and outcomes. Pt has hx of [place] in past, stopped aspirin 2 day ago. LOCATION: Right buttock, leg and low back PAIN LEVEL AT REST 5/10 PAST MEDICAL HISTORY: Past Medical History: Diagnosis Date ??? HLD (hyperlipidemia) ??? [place] (myocardial infarction) PAST SURGICAL HISTORY: Past Surgical History: Procedure Laterality Date ??? CORONARY ANGIOPLASTY WITH STENT PLACEMENT ??? CT GUIDED INJECTION SI JOINT 02/19/2019 CT Guided Injection SI Joint 02/19/2019 [facility] RAD CAT SCAN ALLERGIES: Patient has [...] file Gets together: Not on file Attends religion service: Not on file Active member of [...] the procedureat this time, will proceed. 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 The patient received written instructions as documented in nursing records. COMMENTS: Follow-up with SALLY Pandey DO Pain Fellow I was the attending physician supervising the fellow or resident in the above care and I was presentwith the resident for the entire procedure. Kiana Canchola MD Ticket Clerk of Anesthesiology [facility] [address] [phone] / [facility] CC: Marixa Smith MD @[email or web address]@ documented in this encounter Plan of Treatment Upcoming Encounters Date Type Specialty Care Team Description 08/16/2021 Appointment Radiology Mateo Victoria MD [facility] [place] [address] 08/16/2021 Office Visit Pain and Spine Mateo [facility] Center MD [facility] [place] [address] 09/22/2021 Hospital Encounter Surgery Mateo Victoria MD [facility] [place] [address] 09/22/2021 Surgery Surgery Mateo Victoria, MD STU FACETECTOMY & ONE MEDICAL FORAMINOTOMY,[facility], CENTER ONE LEVEL ([facility] SPINE CENTER 15.37) [place] [address] Scheduled Orders Name Type Priority Associated Diagnoses Order S chedule INJ, ANES AGENT/STEROID, Procedures Routine Foraminal stenos is of One Time for 1 TRANSFORAMINAL EPI, lumbosacral region Oc currences starting LUMBAR/SACRAL, SINGLE 2019 until LEVEL 12/30/2019 Scheduled Procedures Name Priority Associated Diagnoses Date/Time LAMINECTOMY, FACETECTOMY & Foraminal stenosis of 09/22/2021 7:30 AM EDT FORAMINOTOMY,LUMBAR, ONE lumbosacral region LEVEL ([facility] 15.37) EA ADD'L VERTEBRAL SEGMENT Foraminal stenosis of 09/22/2021 7:30 AM EDT CERVICAL, THORACIC, LUMBAR lumbosacral region ([facility] 3.47) MODIFIER L5 Foraminal stenosis of 09/22/2021 [...] MAR Action Action Date Dose Rate Site dexamethasone(PF) (Decadron) 10 Given 12/30/2019 8:07 AM EST 10 mg mg/mL injection ONCE PRN, Starting on 12/30/19 at 0807, Until Mon12/30/19 at 1018, Intra-Operative (Intra-Procedure), Routine iohexoL (OMNIPAQUE) 240 mg/mL solution Given 12/30/2019 8:06 AM EST 1 mL ONCE PRN, Starting on Mon12/30/19 at 0806, Until Mon12/30/19 at 1018, Intra-Operative (Intra-Procedure), Routine documented in this encounter Active and Recently Administered Medications Times are shown in EST. PRN Medication Order 12/28/2019 12/29/2019 12/30/2019 dexamethasone(PF) (Decadron) 10 mg/mL injection (CANCELED) 806 (Given - Provider: Royal Alvarez - Comment: transforaminal) ONCE PRN, Starting Mon12/30/19 at 0807, Until Mon12/30/19 at 1018, Intra- Operative (Intra-Procedure), Routine iohexoL (OMNIPAQUE) 240 mg/mL solution (CANCELED) 08 (Given - Provider: Royal Alvarez - Comment: yransforaminal) ONCE PRN, Starting Mon12/30/19 at 0806, Until Mon12/30/19 at 1018, Intra- Operative (Intra-Procedure), Routine documented in this encounter Care Teams Mechanical And Auto Body Car Checker Relationship Specialty Start Date End Date Marixa Smith MD PCP - General General Internal Medicine 11/20/19 [address] [place] [address] documented as of this encounter
--- OUTSIDE RECORDS SUMMARY | 2021-07-30 00:21 | XMS_ITS | Encounter Summary ---
:1950 [place] [address] Care Team Providers Name Role Phone Marixa Smith MD Primary Care Provider Encounter Details Date Type Department Care Team Description 08/11/2020 [facility] [place] [address] Social History Tobacco Use Types Packs/Day [...] Telephone Encounter - Cindy Terry RN - 08/11/2020 10:33 AM EDT Incoming call from patient looking to find out the next steps in his treatment plan. Per patient he had an appointment with MAKENNA Espinoza on 05/28/20 at which time she recommended PT. Patient has been doing physical therapy but has not found it very helpful. He continues to experience daily throbbing headings. Patient would like to know what his next steps should be. Patient notified that this message would be routed to MAKENNA Lindsey for review and recommendationsand that he would be contacted with her response. LARISSA Delgadillo documented in this encounter Plan of Treatment Upcoming Encounters Date Type Specialty Care Team Description 08/16/2021 Appointment Radiology Mateo Victoria MD [facility] [place] [address] 08/16/2021 Office Visit Pain and Spine Mateo Victoria, [place] [facility] [place] [address] 09/22/2021 Hospital Encounter Surgery Mateo Victoria MD [facility] [place] [address] 09/22/2021 Surgery Surgery Mateo Victoria, MD STU FACETECTOMY & [facility] MEDICAL FORAMINOTOMY,[facility], CENTER [facility] ([facility] SPINE CENTER [address]37) [place] [address] Scheduled Procedures Name Priority Associated Diagnoses Date/Time [...] on filedocumented in this encounter Care Teams Cat Swamper Relationship Specialty Start Date End Date Marixa Smith MD PCP - General General Internal Medicine 11/20/[address] [place] [address] documented as of this encounter
--- OUTSIDE RECORDS SUMMARY | 2021-07-30 00:21 | XMS_ITS | Encounter Summary ---
:1950 [place] [address] Care Team Providers Name Role Phone Marixa Smith MD Primary Care Provider Encounter Details Date Type Department Care Team Description 12/30/2019 Ancillary Procedure Pain Management Keven Kennedy, Pain [facility] [address] [place] [address] [place] [address] [phone] (Wo rk) Social History Tobacco Use Types [...] 08/16/2021 Appointment Radiology Mateo Victoria MD [facility] [place] [address] 08/16/2021 Office Visit Pain and Spine Mate[facility] MD [facility] [place] [address] 09/22/2021 Hospital Encounter Surgery Mateo Victoria MD [facility] [place] [address] 09/22/2021 Surgery Surgery Mateo Victoria, MD STU FACETECTOMY & ONE MEDICAL FORAMINOTOMY,[facility], CENTER ONE LEVEL ([facility] SPINE CENTER [address]37) [place] [address] Scheduled Procedures Name Priority Associated Diagnoses Date/Time LAMINECTOMY, FACETECTOMY & Foraminal stenosis of 09/22/2021 7:30 AM EDT FORAMINOTOMY,LUMBAR, ONE lumbosacral region LEVEL ([facility] 15.37) EA ADD'L VERTEBRAL SEGMENT Foraminal stenosis of 09/22/2021 7:30 AM EDT CERVICAL, THORACIC, LUMBAR lumbosacral region ([facility] 3.47) MODIFIER L5 Foraminal stenosis of 09/22/2021 7:30 AM EDT lumbosacral region MODIFIER S1 Foraminal stenosis of 09/22/2021 7:30 AM EDT lumbosacral region documented as of this encounter Procedures Procedure Name Priority Date/Time Associated Diagnosis Comme nts FILM LIBRARY Routine 01/01/2020 3:47 PM Pain Results f or this STORAGE ONLY PAIN EST procedure are in CLINIC C ARM the results section. documented in this encounter Results Film Library- Storage Only pain Clinic C[facility]Arm (01/01/2020 3:47 PM EST) Specimen (Source) Anatomical Location Collection Method / Collectio n Time Received Time / Laterality Volume Narrative [facility] - 01/01/2020 3:47 PM EST See PACS for result report. Kiana Canchola MD IMG FILM LIBRARY ORDERABLES Performing Organization Address City/State/ZIP Code Phon e Number [place], [place] documented in this encounter Visit Diagnoses Diagnosis Pain Generalized pain Foraminal stenosis of lumbosacral region Spinal stenosis, lumbar region, without neurogenic claudication documented in this encounter Care Teams Board Winder Relationship Specialty Start Date End Date Marixa Smith MD PCP - General General Internal Medicine 11/20/19 [address] [place] [address] documented as of this encounter
--- OUTSIDE RECORDS SUMMARY | 2021-07-30 00:21 | XMS_ITS | Encounter Summary ---
:1950 Author Organization [facility] [place] [address] Care Team Providers Name Role Phone Sosa Green MD Primary Care Provider Reason for Visit Reason Comments Results had CT today.. Encounter Details Date Type Department Care Team Description 03/31/2015 Office Visit Neurosurgery at [facility] Dakota Huerta MD SDH (subdural [facility] Dakota Phan PA [facility] [place] [address] hematoma) [place] [address] Social History Tobacco Use Types Packs/Day Years Used Date Current Some Day Smoker Smokeless Tobacco: Never Used Comments: ... Alcohol Use Standard Drinks/Week Comments Yes 0 [...] Sign Reading Time Taken Comments Blood Pressure 124/73 03/31/2015 11:15 AM EST Pulse 52 03/31/2015 11:15 AM EST Temperature - - Respiratory Rate - - Oxygen Saturation - - Inhaled Oxygen Concentration - - Weight 90.7 kg (200 lb) 03/31/2015 11:15 AM EST Height 185.4 cm (6' 1) 03/31/2015 11:15 AM EST Body Mass Index 26.39 03/31/2015 11:15 AM EST documented in this encounter Progress Notes Dakota Huerta - 03/31/2015 11:30 AM EST Mr. Rodríguez is seen in clinic this morning in followup for his traumatic falcine subdural hematoma. He was seen together with EDUARDO Coto, personally examined, and his repeat head CT scan personally reviewed. He reports that he has done well since discharge from hospital and is without new complaint. His neurologic examination is without focal or lateralized findings. His CT scan shows resolution of his parafalcine subdural hematoma. Impression: Satisfactory post-traumatic course. Plan: Mr. Rodríguez is scheduled to be seen in followup on an as-needed basis. I agree with the history and findings as detailed by EDUARDO Coto; see his clinic note from this morning. Dakota Phan PA - 03/31/2015 11:20 AM EST Name: Jose Eduardo Rodríguez : 1950 PCP: SOSA GREEN MD REF: Sosa Green Date of Service: 03/31/2015 Chief Complaint Patient presents with ??? Results had CT today.. History: Jose Eduardo Rodríguez is a 64 y.o. male who presents in follow up for a parafalcine SDH sustained 6 weeks ago from fall off ladder. Mr. Rodríguez complains of headache with physical stress and fatigue. He has no other post-concussive complaints or neurologic symptoms. He had a repeat head CT today for our review. Physical Exam: BP 124/73 mmHg Pulse 52 Ht 185.4 cm (6' 1) Wt 90.719 kg (200 lb) BMI 26.39 kg/m2. Jose Eduardo Rodríguez is a 64 y.o. male in no cardiorespiratory distress. Awake, alert, and oriented. Answers questions, follows commands, and converses appropriately. Speech clear and fluid. Good phonation. Vision is grossly intact. PERRLA. EOMI. Face symmetric. Hears well to limited bedside testing. Tongue protrudes midline. Normal muscle bulk and tone. No pronator drift. Strength full throughout allmuscle groups in all four extremities. Sensation grossly intact to light touch throughout all four ex tremities. No dysmetria with finger to nose testing. Gait, coordination, and balance normal. Radiology & Imaging: Head CT 03/31/2015 - resolution of the previously seen SDH. Assessment & Plan: Jose Eduardo Rodríguez presents for 6 week follow up s/p fall from ladder with resultant small parafalcine SDH. He complains of post-concussive headaches, but otherwise has had an unremarkable clinical course. He is neurologically intact with focal or lateralizing findings on exam. His head CT shows resolution of the previously seen bleed. He is cleared to resume ASA which he has been taking since an IN four years ago. He does not need any further repeat imaging or neurosurgical follow up. He was counseled on post-concussive symptoms, management, and expectations. Patient seen with attending neurosurgeon, Dr. Dakota Huerta. Dakota Phan PA-C documented in this encounter Plan of Treatment Upcoming Encounters Date Type Specialty Care Team Description 08/16/2021 Appointment Radiology Mateo Victoria MD [facility] [place] [address] 08/16/2021 Office Visit Pain and Spine Mateo [facility] Center MD [facility] [place] [address] 09/22/2021 Hospital Encounter Surgery Mateo Victoria MD [facility] [place] [address] 09/22/2021 Surgery Surgery Mateo Victoria, MD STU FACETECTOMY & [facility] FOR[facility], CENTER [facility] ([facility] SPINE CENTER [address] [place] [address] Scheduled Procedures Name Priority Associated Diagnoses Date/Time [...] as of this encounter Visit Diagnoses Diagnosis SDH (subdural hematoma) Subdural hemorrhage Foraminal stenosis of lumbosacral region Spinal stenosis, lumbar region, without neurogenic claudication documented in this encounter Care Teams Wind Turbine Installer Relationship Specialty Start Date End Date Sosa Green MD PCP - General Family Medicine 02/11/15 01/16/18 [address] [place] [address] documented as of this encounter
--- OUTSIDE RECORDS SUMMARY | 2021-07-30 00:21 | XMS_ITS | Encounter Summary ---
:1950 Author Organization [facility] [place] [address] Care Team Providers Name Role Phone Marixa Smith MD Primary Care Provider Encounter Details Date Type Department Care Team Description 12/03/2020 Telephone Pain and Spine Sophie rice at [facility] Delmi Emmanuel, [place] [address] Social History Tobacco Use Types Packs/Day [...] encounter Miscellaneous Notes Telephone Encounter - Delmi Emmanuel, RN - 12/03/2020 1:30 PM EDT Contact made with patient or bilingual inside sales representative as identified in contacts 1. Patient instructed to arrive at 07:45 on 12/08/20 with their sprinkler truck driver for their TFESI procedure. Please plan to spend about 2 hours at the center. (3 hours for RFA) 2. Has pt started any new medications or supplements in the past two weeks? No 3. Have any of the following occurred within the two weeks before the procedure date? a. Patient is having a Covid vaccine or other vaccine Yes Pt had Moderna booster vaccine 12/01/20 and states he wants to go ahead with the injection secondary to pain level and states he cannot wait to have this. b. Patient has been exposed to anybody with a contagious illness such as Covid, flu, No c. Patient is taking antibiotics to treat an infection No d. Patient has any skin rashes, breakdown, blisters or open wounds No e. Patient has had any hospitalizations, ED visits, surgery, other procedure, dental procedure No f. Patient has taken oral steroids or had a steroid injection No g. Does patient have any of the following symptoms that are NEW and NOT explained by another health condition: fever or chills, cough, shortness of breath or difficulty breathing, fatigue, muscle or body aches, headache, new loss of taste or smell, sore throat, congestion or runny nose, nausea or vomit ing, diarrhea. No If yes, the patient has been directed to the covid hotline for testing prior to their procedure. (route telephone note to: [facility] Public Health covid 19 nurse triage with routing comment stating pt needs covid test prior to procedure and give date of procedure, add name and MRN to tracking tool). h. Has the patient's pain resolved or significantly improved such as a rating of 3/10 or less? No 4. Was patient instructed to stop any medications? No if yes: a. Name of medication(s): b. Confirm date of last dose: 5. Is patient having a nerve block: No a. If yes instructed to not take any pain medication for 12 hours before your procedure. 6. Patient instructed to take any prescribed medications that they were not told to stop, especiallyblood pressure medication, because their procedure may be cancelled if their blood pressure is too high. 7. Was patient instructed to follow NPO guidelines: No if yes, the following instructions were reviewed: a. You may eat up to 6 hours before your procedure b. You may have clear liquids only up to 2 hours before your procedure: water, apple juice, divya jm, sprite, popsicles, broth, tea or coffee plain or with sweetener, absolutely no dairy products, nomilk including soy, oat, almond. 8. IF RFA: Does patient have a pacemaker? No a. If yes, document that cardiology was called and notified. 9. Additional notes if applicable: Patient expressed understanding and agreement with instructions Yes Patient denies further questions Yes documented in this encounter Plan of Treatment Upcoming Encounters Date Type Specialty Care Team Description 08/16/2021 Appointment Radiology Mateo iVctoria MD [facility] [place] [address] 08/16/2021 Office Visit Pain and Spine Mateo Victoria, [place] [facility] [place] [address] 09/22/2021 Hospital Encounter Surgery Mateo Victoria MD [facility] [address] 09/22/2021 Surgery Surgery Mateo Victoria, MD STU FACETECTOMY & [facility] MEDICAL FORAMINOTOMY,[facility] ([facility] SPINE CENTER [address]) [place] [address] Scheduled Procedures Name Priority Associated Diagnoses Date/Time [...] on filedocumented in this encounter Care Teams Section Hand Relationship Specialty Start Date End Date Marixa Smith MD PCP - General General Internal Medicine 11/20/[address] [place] [phone] documented as of this encounter
--- OUTSIDE RECORDS SUMMARY | 2021-07-30 00:21 | XMS_ITS | Encounter Summary ---
:1950 Author Organization [facility] [place] [address] Care Team Providers Name Role Phone Marixa Smith MD Primary Care Provider Reason for Referral Physical Therapy (Routine) - Specialty Diagnoses / Procedures Referred By Contact Refer red To Contact Physical Therapy Diagnoses DDD (degenerative disc disease), cervical Criss Mares, SALLY [facility] [place] [address] Referral ID Status Reason Start Date Expiration Date Visits V isits Requested Authorized [id number] Evaluate and 05/28/2020 11/24/2020 10 10 Treat Reason for Visit Reason Comments Neck Pain Consultation (Routine) - Closed Specialty Diagnoses / Procedures Referred By Contact Refer red To Contact Pain and Spine Center Diagnoses Cervicalgia Spine - Chronic neck pain/ XR 04/24/20 in e[facility] *last saw SCREW DRIVER OPERATOR 12/2019 for low back pain Marixa Smith, [facility] Pain And MD Spine [address] [place] [address] [place] [address] Phone: Fax: Referral ID Status Reason Start Date Expiration Date Visits Requ ested Visits Authorized [id number] Closed 05/07/2020 05/07/2021 1 1 Encounter Details Date Type Department Care Team Description 05/28/2020 Office Visit Pain and Spine Center Criss Mares D DD (degenerative disc at [facility] PARTS COUNTERMAN disease), cervical [facility] (Pr imary Dx) Drive [place] PA[place] MEDICINE [address] [place] [address] [phone] Social History Tobacco Use Types Packs/Day Years [...] Sign Reading Time Taken Comments Blood Pressure 135/70 05/28/2020 9:16 AM EDT Pulse 58 05/28/2020 9:16 AM EDT Temperature 36.7 ??C (98 ??F) 05/28/2020 9:16 AM EDT Respiratory Rate - - Oxygen Saturation 100% 05/28/2020 9:16 AM EDT Inhaled Oxygen Concentration - - Weight 88.5 kg (195 lb) 05/28/2020 9:16 AM EDT Height 182.9 cm (6') 05/28/2020 9:16 AM EDT Body Mass Index 26.45 05/28/2020 9:16 AM EDT documented in this encounter Progress Notes Criss Mares APRN - 05/28/2020 9:30 AM EDT Images from the original note were not included. [facility] [place] [address] Phone: PAIN MANAGEMENT FOLLOW UP NOTE DATE OF VISIT 05/28/2020 Patient Jose Eduardo Rodríguez 1950 REFERRING PROVIDER Marixa Smith MD [address] [place] [address] PRIMARY CARE PROVIDER Marixa Smith MD CHIEF COMPLAINT: Jose Eduardo Rodríguez is a 69 y.o.male with Right lateral leg pain, who is seen in consultation at the request of Marixa Smith MD [address] [place] [address]. for evaluation, recommendations, and management.The history is [...] injection on the right done here at [facility] inthe early part of this year without [...] greater than right slightly behind the ear. Pain most recent MRI or Xray: PAIN [...] from family/friends?no History of incarceration? MEDICATIONS [facility] Prescription Monitoring Program was checked and no concerns were identified. Medications 01/20/20 0840 Medication Sig Taking? flu vacc [id number] up,/PF (FluZONE HighDose Quad 20-21 PF) 240 [...] evening. ADVERSE DRUG REACTIONS Allergies as of 05/28/2020 ??? (No Known Allergies) MEDICAL HISTORY Past Medical History: Diagnosis Date ??? HLD (hyperlipidemia) ??? MD (myocardial infarction) SURGICAL HISTORY Past Surgical History: Procedure Laterality Date ??? CORONARY ANGIOPLASTY WITH STENT PLACEMENT ??? CT GUIDED INJECTION SI JOINT 02/19/2019 CT Guided Injection SI Joint 02/19/2019 [facility] RAD CAT SCAN FAMILY HISTORY Family History [...] symptoms consistent with foraminal stenosis at L5-S1 previously alleviated by MARYBETHI in November of last year. And in addition now also has left greater than right neck pain without radiation. We reviewed his imaging which does reveal some minimal foraminal stenosis and arthritic changes in the neck. PLAN/RECOMMENDATIONS I have discussed with him first of all a referral to physical therapy of the Sergei method for neck and I have asked him to consider a trial of traction and if helpful we can consider trying a home traction unit. Also talked about diclofenac gel. I have talked to him about the fact that we can repeat his steroid injection in his leg if his symptoms become more problematic for him as he had a good response in the past and the symptoms are virtually the same. He is going to let me know how he does after the physical therapy and he will let me know if and when he wishes to proceed with a repeat LE. Jose Eduardo Rodríguez had the opportunity to ask questions and indicated that all questions were answered to his satisfaction. Criss Mares MS [employer], [employer] COUNTER[employer] Nurse Practitioner [facility] documented in this encounter Plan of Treatment Upcoming Encounters Date Type Specialty Care Team Description 08/16/2021 Appointment Radiology Mateo Victoria MD [facility] [place] [address] 08/16/2021 Office Visit Pain and Spine Mateo Victoria, Melany GRAJEDA [facility] [place] [address] 09/22/2021 Hospital Encounter Surgery Mateo Victoria MD [facility] [place] [address] 09/22/2021 Surgery Surgery Mateo Victoria, LAMINECTOMY , FACETECTOMY & [facility] FORAMINOTOMY,CHAVA DEMPSEY, CENTER DR [place] ([facility] SPINE CENTER 15.[address]) [place] [address] Scheduled Procedures Name Priority Associated Diagnoses Date/Time LAMINECTOMY, FACETECTOMY & Foraminal stenosis of 09/22/2021 7:30 AM EDT FORAMINOTOMY,LUMBAR, ONE lumbosacral region LEVEL ([facility] 15.37) EA ADD'L VERTEBRAL SEGMENT Foraminal stenosis of 09/22/2021 7:30 AM EDT CERVICAL, THORACIC, LUMBAR lumbosacral region ([facility] 3.47) MODIFIER L5 Foraminal stenosis of 09/22/2021 7:30 AM EDT lumbosacral region MODIFIER S1 Foraminal stenosis of 09/22/2021 7:30 AM EDT lumbosacral region Scheduled Referrals Name Type Priority Associated Diagnoses Order S chedule Referral to Outpatient Referral Routine DDD (degenerative Ord ered: Physical Therapy disc disease), 1 cervical documented as of this encounter Visit Diagnoses Diagnosis DDD (degenerative disc disease), cervica l - Primary Degeneration of cervical intervertebral disc Foraminal stenosis of lumbosacral region Spinal stenosis, lumbar region, without neurogenic claudication documented in this encounter Care Teams Mailing Jogger Relationship Specialty Start Date End Date Marixa Smith MD PCP - General General Internal Medicine 11/20/[address] [place] [address] documented as of this encounter
--- OUTSIDE RECORDS SUMMARY | 2021-07-30 00:21 | XMS_ITS | Encounter Summary ---
:1950 [place] [address] Care Team Providers Name Role Phone Rian Ivey MD Primary Care Provider Encounter Details Date Type Department Care Team Description 06/11/2015 Hospital Encounter Radiology [facility], James Rod MD [facility] ORTHOP[place] [address] [place] [address] [phone] (Wo rk) Social History Tobacco Use Types [...] Sig Dispensed Refills Start Date End Date multivitamin (THERAGRAN) Take 1 tablet by 0 Tablet mouth daily. atorvastatin (LIPITOR) 20 Take 1 tablet by 30 tablet 3 09/2015 mg Tablet mouth every evening. acetaminophen (TYLENOL) Take 2 tablets by 30 tablet 1 02/1311/06/2015 500 mg Tablet mouth every 6 hours as needed for Pain (for MODERATE pain (4-6)). documented as of this encounter Plan of Treatment Upcoming Encounters Date Type Specialty Care Team Description 08/16/2021 Appointment Radiology Mateo Victoria MD [facility] [place] [address] 08/16/2021 Office Visit Pain and Spine Mateo Victoria, [place] [facility] [place] [address] 09/22/2021 Hospital Encounter Surgery Mateo Victoria MD [facility] [place] [address] 09/22/2021 Surgery Surgery Mateo Victoria, MD STU FACETECTOMY & [facility] FORAMINOTOMY,[facility] [place] [facility] ([facility] SPINE CENTER [address]37) [place] [address] Scheduled Procedures Name Priority Associated Diagnoses Date/Time [...] Associated Diagnosis Comme nts FILM LIBRARY Routine 06/11/2015 12:00 AM Pain Results for this STORAGE ONLY DX EDT procedure ar e in SHOULDER the results section. documented in this encounter Results Film Library- Storage Only DX Shoulder (06/11/2015 12:00 AM EDT) Specimen (Source) Anatomical Location Collection Method / Collectio n Time Received Time / Laterality Volume Narrative [facility] RAD - 11/06/2015 9:25 AM EDT This exam is for storage only and is aut o-finalizing. Jurgen Fenton MD IMG FILM LIBRARY ORDERABLES Performing Organization Address City/State/ZIP Code Phon e Number RAD [place], [place] documented in this encounter Visit Diagnoses Diagnosis Pain Generalized pain Foraminal stenosis of lumbosacral region Spinal stenosis, lumbar region, without neurogenic claudication documented in this encounter Care Teams Brick Veneer Maker Relationship Specialty Start Date End Date Rian Ivey MD PCP - General Family Medicine 02/11/15 01/16/18 [address] [place] [address] documented as of this encounter
--- OUTSIDE RECORDS SUMMARY | 2021-07-30 00:21 | XMS_ITS | Encounter Summary ---
:1950 Author Organization [facility] [place] [address] Care Team Providers Name Role Phone Marixa Smith MD Primary Care Provider Encounter Details Date Type Department Care Team Description 10/22/2020 Telephone Pain and Spine Sophie rice at [facility] Vanesa Kelly, [place] [address] Social History Tobacco Use Types Packs/Day [...] Telephone Encounter - Vanesa Kelly RN - 10/22/2020 11:13 AM EDT In coming call to triage from Jose Eduardo stating that he had to cancel his procedure on 10/19/20 do to he was having cold symptoms ,scratchy throat, head and sinus congestion. He went and had the Covid test done and it was negative. Jose Eduardo would like to know what he needs to do now. I told him to fax us a copy of the results and we will scan it into his chart and then we will be in touch with him. documented in this encounter Plan of Treatment Upcoming Encounters Date Type Specialty Care Team Description 08/16/2021 Appointment Radiology Mateo Victoria MD [facility] [place] [address] 08/16/2021 Office Visit Pain and Spine Mateo Victoria, [place] [facility] [place] [address] 09/22/2021 Hospital Encounter Surgery Mateo Victoria MD [facility] [place] [address] 09/22/2021 Surgery Surgery Mateo Victoria, MD STU FACETECTOMY & [facility] MEDICAL FORAMINOTOMY,[facility], [place] [facility] ([facility] SPINE CENTER [address].37) [place] [address] Scheduled Procedures Name Priority Associated Diagnoses Date/Time LAMINECTOMY, FACETECTOMY & Foraminal stenosis of 09/22/2021 7:30 AM EDT FORAMINOTOMY,LUMBAR, ONE lumbosacral region LEVEL ([facility] EA ADD'L VERTEBRAL SEGMENT Foraminal stenosis of 09/22/2021 7:30 AM EDT CERVICAL, THORACIC, LUMBAR lumbosacral region (VU 3.47) MODIFIER L5 Foraminal stenosis of 09/22/2021 7:30 AM EDT lumbosacral region MODIFIER S1 Foraminal stenosis of 09/22/2021 7:30 AM EDT lumbosacral region documented as of this encounter Visit Diagnoses Not on filedocumented in this encounter Care Teams Assurance Senior Manager Insurance Relationship Specialty Start Date End Date Marixa Smith MD PCP - General General Internal Medicine 11/20/19 [address] [place] [address] documented as of this encounter
--- OUTSIDE RECORDS SUMMARY | 2021-07-30 00:21 | XMS_ITS | Encounter Summary ---
:1950 Author Organization [facility] [place] [address] Care Team Providers Name Role Phone Marixa Smith MD Primary Care Provider Encounter Details Date Type Department Care Team Description 10/19/2020 Telephone Pain and Spine Sophie rice at [facility] [place] [address] Social History Tobacco Use Types Packs/Day [...] Telephone Encounter - July Mckeon RN - 10/19/2020 8:10 AM EDT Outgoing call placed to pt in response to VM left on the clerical methods analyst line over the weekend, where pt reported new onset scratchy throat and congestion in his head and sinuses. Pt has a procedure scheduled for today with Dr. Canchola. Contact made with pt, who reports he feels a little better today but is still having some symptoms. He is on his way to get a Covid-19 test. Pt instructed to call the [facility] if he receives a negative Covid- 19 test result to reschedule his procedure. Pt advised to follow covid testing site guidelines if the result is positive. His appointment for today will be canceled. Mile DIAS documented in this encounter Plan of Treatment Upcoming Encounters Date Type Specialty Care Team Description 08/16/2021 Appointment Radiology Mateo Victoria MD [facility] [place] [address] 08/16/2021 Office Visit Pain and Spine Mateo Victoria, [place] [facility] [place] [address] 09/22/2021 Hospital Encounter Surgery Mateo Victoria MD [facility] [place] [address] 09/22/2021 Surgery Surgery Mateo Victoria LAMINECTOMY, MD FACETECTOMY & ONE MEDICAL FORAMINOTOMY,CHAVA DEMPSEY, [facility] ([facility] SPINE CENTER [address].37) [place] [address] Scheduled Procedures Name Priority Associated Diagnoses Date/Time LAMINECTOMY, FACETECTOMY & Foraminal stenosis of 09/22/2021 7:30 AM EDT FORAMINOTOMY,LUMBAR, ONE lumbosacral region LEVEL ([facility] 15.37) EA ADD'L VERTEBRAL SEGMENT Foraminal stenosis of 09/22/2021 7:30 AM EDT CERVICAL, THORACIC, LUMBAR lumbosacral region ([facility] 3.47) MODIFIER L5 Foraminal stenosis of 09/22/2021 7:30 AM EDT lumbosacral region MODIFIER S1 Foraminal stenosis of 09/22/2021 7:30 AM EDT lumbosacral region documented as of this encounter Visit Diagnoses Not on filedocumented in this encounter Care Teams Insurance Rater Relationship Specialty Start Date End Date Marixa Smith MD PCP - General General Internal Medicine 11/20/19 [address] [place] [address] documented as of this encounter
--- OUTSIDE RECORDS SUMMARY | 2021-07-30 00:21 | XMS_ITS | Encounter Summary ---
:1950 Author Organization [facility] [place] [address] Care Team Providers Name Role Phone Marixa Smith MD Primary Care Provider Encounter Details Date Type Department Care Team Description 11/18/2020 Telephone Pain and Spine Sophie rice at [facility] Vanesa Kelly, [place] [address] Social History Tobacco Use Types Packs/Day [...] Telephone Encounter - Vanesa Kelly RN - 11/18/2020 9:38 AM EDT Out going return call to Jose Eduardo and left a message to tell him to call us back do to Criss wanted to know where his leg pain was prior to scheduling a procedure. documented in this encounter Plan of Treatment Upcoming Encounters Date Type Specialty Care Team Description 08/16/2021 Appointment Radiology Mateo Victoria MD [facility] [place] [address] 08/16/2021 Office Visit Pain and Spine Mateo Victoria, [place] [facility] [place] [address] 09/22/2021 Hospital Encounter Surgery Mateo Victoria MD [facility] [place] [address] 09/22/2021 Surgery Surgery Mateo Victoria, MD STU FACETECTOMY & ONE MEDICAL FORAMINOTOMY,CHAVA [facility], [place] [facility] ([facility] SPINE CENTER [address].37) [place] [address] Scheduled Procedures Name Priority Associated Diagnoses Date/Time LAMINECTOMY, FACETECTOMY & Foraminal stenosis of 09/22/2021 7:30 AM EDT FORAMINOTOMY,LUMBAR, ONE lumbosacral region LEVEL [facility] EA ADD'L VERTEBRAL SEGMENT Foraminal stenosis of 09/22/2021 7:30 AM EDT CERVICAL, THORACIC, LUMBAR lumbosacral region (VU 3.47) MODIFIER L5 Foraminal stenosis of 09/22/2021 7:30 AM EDT lumbosacral region MODIFIER S1 Foraminal stenosis of 09/22/2021 7:30 AM EDT lumbosacral region documented as of this encounter Visit Diagnoses Not on filedocumented in this encounter Care Teams Equestrian Trainer Relationship Specialty Start Date End Date Marixa Smith MD PCP - General General Internal Medicine 11/20/19 [address] [place] [address] documented as of this encounter
--- OUTSIDE RECORDS SUMMARY | 2021-07-30 00:21 | XMS_ITS | Encounter Summary ---
:1950 Author Organization [facility] [place] [address] Care Team Providers Name Role Phone Rian Ivey MD Primary Care Provider Reason for Referral Diagnostic Test (Routine) - Closed Specialty Diagnoses / Procedures Referred By Contact Refer red To Contact Radiology Diagnoses Subdural hematoma Bola Montiel MD [facility] Rad Ct Scan Procedures CT Head Wo Contrast (GENERIC) [facility] [place] [address] [place] [address] Referral ID Status Reason Start Date Expiration Date Visits V isits Requested Authorized [id number] Closed Specialty 03/16/2015 03/15/2016 1 1 Service Requested Reason for Visit Diagnostic Test (Routine) - Closed Specialty Diagnoses / Procedures Referred By Contact Refer red To Contact Radiology Diagnoses Subdural hematoma Bola Montiel MD [facility] Rad Ct Scan Procedures CT Head Wo Contrast (GENERIC) [facility] [place] [address] [place] [address] Referral ID Status Reason Start Date Expiration Date Visits V isits Requested Authorized [id number] Closed Specialty 03/16/2015 03/15/2016 1 1 Service Requested Encounter Details Date Type Department Care Team Description 03/31/[address] Scan at [facility] Dakota Huerta Subdural hematoma [facility] [place] [address] Social History Tobacco Use Types Packs/Day Years [...] Description 08/16/2021 Appointment Radiology Mateo Victoria MD [facility] [place] [address] 08/16/2021 Office Visit Pain and Spine Mateo Victoria, Melany GRAJEDA [facility] [place] [address] 09/22/2021 Hospital Encounter Surgery Mateo Victoria MD [facility] [place] [address] 09/22/2021 Surgery Surgery Mateo Victoria, LAMINECTOMY MD FACETECTOMY & [facility] MEDICAL FORAMINOTOMY,CHAVA DEMPSEY, [place] [facility] [place] [facility] ([facility] SPINE CENTER 15.37) [place] [address] Scheduled Procedures Name Priority Associated Diagnoses Date/Time [...] Priority Date/Time Associated Diagnosis Comme nts CT HEAD WO CONTRAST Routine 03/31/2015 10:45 AM Subdural hemat tish Results for this (GENERIC) EST procedure are i n the results section. documented in this encounter Results CT Head Wo Contrast (GENERIC) (03/31/2015 10:45 AM EST) Anatomical Region Laterality Modality Head Computed Tomography Specimen (Source) Anatomical Location Collection Method / Collectio n Time Received Time / Laterality Volume Impressions 03/31/2015 11:00 AM EST IMPRESSION: Resolution of previously seen parafalcin e subdural hematoma. Narrative 03/31/2015 11:00 AM EST EXAMINATION: CT HEAD WO CONTRAST CLINICAL HISTORY: SDH, 4 WK F/U TECHNIQUE: CT of the head performed with out the use of intravenous contrast. COMPARISON: 02/12/2015 FINDINGS: The previously seen small subd ural collection along the posterior falx has resolved. There is no new intracrani al hemorrhage. No mass effect or shift. Cerebral parenchyma is normal in appeara nce. Ventricles are unchanged in size or contour. There is no new osseous abnorma lity. Subcutaneous calcifications are unchanged. Procedure Note Kt Nolasco MD - 03/31/2015Format ting of this note might be different from the original. EXAMINATION: CT HEAD WO CONTRAST CLINICAL HISTORY: SDH, 4 WK F/U TECHNIQUE: CT of the head performed with out the use of intravenous contrast. COMPARISON: 02/12/2015 FINDINGS: The previously seen small subd ural collection along the posterior falx has resolved. There is no new intracrani al hemorrhage. No mass effect or shift. Cerebral parenchyma is normal in appeara nce. Ventricles are unchanged in size or contour. There is no new osseous abnorma lity. Subcutaneous calcifications are unchanged. IMPRESSION IMPRESSION: Resolution of previously seen parafalcin e subdural hematoma. Dakota Huerta MD IMG CT ORDERABLES documented in this encounter Visit Diagnoses Diagnosis Subdural hematoma Subdural hemorrhage Foraminal stenosis of lumbosacral region Spinal stenosis, lumbar region, without neurogenic claudication documented in this encounter Care Teams Launch Commander Harbor Police Relationship Specialty Start Date End Date Rian Ivey MD PCP - General Family Medicine 02/11/15 01/16/[address] [place] [address] documented as of this encounter
--- OUTSIDE RECORDS SUMMARY | 2021-07-30 00:21 | XMS_ITS | Encounter Summary ---
:1950 [place] [address] Care Team Providers Name Role Phone Marixa Smith MD Primary Care Provider Encounter Details Date Type Department Care Team Description 08/31/2020 Surgery Pain Management Kee Kenendy MD INJECTION, FACET [facility] Christina MCGOWAN/YSABEL, [facility] [address] [facility] ([facility] 1.16) [place] [id number] [place] [id number] [phone] Social History Tobacco Use Types Packs/Day Years [...] Sign Reading Time Taken Comments Blood Pressure 129/82 08/31/2020 9:54 AM EDT Pulse 60 08/31/2020 9:54 AM EDT Temperature - - Respiratory Rate 18 08/31/2020 9:54 AM EDT Oxygen Saturation 100% 08/31/2020 9:54 AM EDT Inhaled Oxygen Concentration - - [...] 4-6 hours after your procedure. {CHECK BOX SELECTION:85089} If you have diabetes, monitor your blood sugars frequently. If your blood sugar increases and is of concern, contact your Primary Care Provider. You received the following medications: Medications Given During Procedure Date/Time Order Dose Route Action {\field{\*\fldinst HYPERLINK ecmd:ord?gr=[id number]}{\fldrslt \cf18 08/31/2020 1058}} BUpivacaine (pf) (Marcaine) (5 mg/mL) 0.5% injection 1.5 mL Other Given {\field{\*\fldinst HYPERLINK ecmd:ord?fp=[id number]}{\fldrslt \cf18 08/31/2020 1059}} iohexoL (Omnipaque) (240 mg/mL) [...] -Procedure Pain Log Patient: Jose Eduardo Rodríguez [id number] It is important for you to keep [...] as 0 02/2020 Tablet needed. flu vacc [id number],65yr ADM 0.7ML IM UTD 0 2019 up,/PF [...] History: Diagnosis Date ??? HLD (hyperlipidemia) ??? AK (myocardial infarction) PAST SURGICAL HISTORY: Past Surgical History: Procedure Laterality Date ??? CORONARY ANGIOPLASTY WITH STENT PLACEMENT ??? CT GUIDED INJECTION SI JOINT 02/19/2019 CT Guided Injection SI Joint 02/19/2019 [facility] RAD CAT SCAN ALLERGIES: Patient has [...] mg daily as needed. ??? flu vacc [id number],65yr up,/PF (FluZONE HighDose Quad 20-21 PF) 240 [...] facet joint levels C4,5,6 Kiana Canchola MD Maintenance Engineer of Anesthesiology [facility] [address] [address] / [facility] documented in this encounter Miscellaneous Notes Op Note - Kiana Canchola MD - 08/31/2020 10:15 AM EDT Pain Management Operative Note Patient Name: Jose Eduardo Rodríguez : [id number] MR#: [id number] Case Date: 08/31/2020 Surgeon: Surgeon(s) and Role: [...] and appointments were discussed with Jose Eduardo Jj Rodríguez. Mr. Rodríguez was instructed to keep [...] discharge criteria to the care of a driver license agent. The patient received written instructions as documented [...] Canchola MD ABPM-subspecialty board certification in Pain Waiter/Waitress FormalMaintenance Engineer Department of Anesthesiology/Section of Pain Medicine [facility] CC: Marixa Smith MD @[email or web address]@ documented in this encounter Plan of Treatment Upcoming Encounters Date Type Specialty Care Team Description 08/16/2021 Appointment Radiology Mateo Victoria MD [facility] [place] [address] 08/16/2021 Office Visit Pain and Spine Mateo Victoria Center MD [facility] [place] [address] 09/22/2021 Hospital Encounter Surgery Mateo Victoria MD [facility] [place] [address] 09/22/2021 Surgery Surgery Mateo Victoria, LAMINECTOMY , FACETECTOMY & [facility] FORAMINOTOMY,CHAVA [facility] ONE LEVEL ([facility] [address]) [place] [address] Scheduled Orders Name Type Priority Associated Diagnoses [...] AM EDT FORAMINOTOMY,LUMBAR, ONE lumbosacral region LEVEL ([facility] 15.37) EA ADD'L VERTEBRAL SEGMENT Foraminal stenosis of 09/22/2021 7:30 AM EDT CERVICAL, THORACIC, LUMBAR lumbosacral region ([facility] 3.47) MODIFIER L5 Foraminal stenosis of 09/22/2021 7:30 AM EDT lumbosacral region MODIFIER S1 Foraminal stenosis of 09/22/2021 7:30 AM EDT lumbosacral region documented as of this encounter Visit Diagnoses Diagnosis DDD (degenerative disc disease), cervica l Degeneration of cervical intervertebral disc Cervical spondylosis without myelopathy DDD (degenerative disc disease), cervica l Degeneration of cervical intervertebral disc Foraminal stenosis of lumbosacral region Spinal stenosis, lumbar region, without neurogenic claudication documented in this encounter Administered Medications Inactive Administered Medications - up to 3 most recent administrations Medication Order MAR Action Action Date Dose Rate Site BUpivacaine (pf) (Marcaine) (5 Given 08/31/2020 10:58 AM EDT 1.5 mLs mg/mL) 0.5% injection ONCE PRN, Starting on Mon08/31/20 at 1058, Until Mon08/31/20 at 1317, Intra-Operative (Intra-Procedure), Routine iohexoL (Omnipaque) (240 mg/mL) injection Given 08/31/2020 10:59 AM EDT 1 mL solution ONCE PRN, Starting on Mon08/31/20 at 1059, Until Mon08/31/20 at 1317, Intra-Operative (Intra-Procedure), Routine documented in this encounter [...] Starting on Mon08/31/20 at 105 9, Until Mon08/31/20 at 1317, Intra- Operative (Intra-Procedure), Routine documented in this encounter Care Teams Echocardiography Radiology Technologist Relationship Specialty Start Date End Date Marixa Smith MD PCP - General General Internal Medicine 11/20/19 [address] [place] [address] documented as of this encounter
--- OUTSIDE RECORDS SUMMARY | 2021-07-30 00:21 | XMS_ITS | Encounter Summary ---
:1950 Author Organization [facility] [place] [address] Care Team Providers Name Role Phone Rian Ivey MD Primary Care Provider Encounter Details Date Type Department Care Team Description 11/04/2015 Telephone Orthopaedics at [facility] Jurgen Fenton MD [facility] [place] [address] ORTHOPAEDIC SURGERY [phone] [place] [id number] (Wo rk) Social History Tobacco Use Types [...] this encounter Miscellaneous Notes Telephone Encounter - Rosalee Leon - 11/04/2015 3:08 PM EDT SPOKE WITH PATIENT AND PUT IN APPT. FOR CD UPLOAD. ATIENT IS BRING CD FOR UPLOAD Telephone Encounter - Lew Muhammad - 11/04/2015 2:11 PM EDT LM on patient's home asking patient to either bring copy of XR or call us back at [phone] to discuss options. Patient will need new Bilat Shoulder XR ordered if unable to get a copy of XR. documented in this encounter Plan of Treatment Upcoming Encounters Date Type Specialty Care Team Description 08/16/2021 Appointment Radiology Mateo Victoria MD [facility] [place] [address] 08/16/2021 Office Visit Pain and Spine Mateo Victoria, [place] [facility] [place] [address] 09/22/2021 Hospital Encounter Surgery Mateo Victoria MD [facility] [place] [address] 09/22/2021 Surgery Surgery Mateo Victoria LAMINECTOMY, MD FACETECTOMY & ONE MEDICAL FORAMINOTOMYCHAVA, [place] ([facility] [address]) [place] [address] Scheduled Procedures Name Priority Associated Diagnoses Date/Time LAMINECTOMY, FACETECTOMY & Foraminal stenosis of 09/22/2021 7:30 AM EDT FORAMINOTOMY,LUMBAR, ONE lumbosacral region LEVEL ([facility] 15.37) EA ADD'L VERTEBRAL SEGMENT Foraminal stenosis of 09/22/2021 7:30 AM EDT CERVICAL, THORACIC, LUMBAR lumbosacral region (VU 3.47) MODIFIER L5 Foraminal stenosis of 09/22/2021 7:30 AM EDT lumbosacral region MODIFIER S1 Foraminal stenosis of 09/22/2021 7:30 AM EDT lumbosacral region documented as of this encounter Visit Diagnoses Not on filedocumented in this encounter Care Teams Mat Gauger Relationship Specialty Start Date End Date Rian Ivey MD PCP - General Family Medicine 02/11/15 01/16/18 [address] [place] [address] documented as of this encounter
--- OUTSIDE RECORDS SUMMARY | 2021-07-30 00:21 | XMS_ITS | Encounter Summary ---
:1950 [place] [address] Care Team Providers Name Role Phone Marixa Smith MD Primary Care Provider Encounter Details Date Type Department Care Team Description 08/28/2020 Telephone [facility] [place] [address] Social History Tobacco Use Types Packs/Day Years [...] this encounter Miscellaneous Notes Telephone Encounter - VitalyCorie somers F, [facility] - 08/28/2020 3:17 PM EDT Reached voicemail and left message as identified in contacts Identified myself and provided callback number: [phone]. 1. Patient instructed to arrive at 0945 on 08/31/20 with their class a regional truck driver for their cervical facet joint injection procedure. 2. Bring Updated list of medications including [...] a contagious illness such as Covid, flu, chicken pox d. You have any symptoms of illness such as: cough, sore throat, fever, N/V/D e. You are taking antibiotics to treat an infection f. You have any skin rashes, breakdown, blisters or open wounds g. You have had any hospitalizations, ED visit, surgery, other procedure, dental procedure h. You have taken oral steroids, or had a steroid injection. 4. If your pain has resolved or significantly improved such as a rating of 3 out of 10 or less, you may need to cancel your procedure because it will likely be of little benefit to you and it is likelythat your insurance will not cover it. Please call the Pain clinic nurse to discuss. 5. Was patient instructed to stop any medications? No a. If yes, instructions reviewed as follows: b. Name, date of last dose. c. Please call to reschedule your procedure if you did not stop this medication as directed. 6. Is patient having a nerve block: Yes a. If yes, instructed to not take any pain medication for 12 hours before the procedure time. 7. Please continue to take any prescribed medications that you were not told to stop, especially blood pressure medication because your procedure may be cancelled if your blood pressure is too high. 8. You were instructed to follow NPO guidelines: No if yes the following instructions were reviewed: a. You may eat up to 6 hours before your procedure b. You may have clear liquids only up to 2 hours before your procedure: water, apple juice, divya jm, sprite, popsicles, broth, tea or coffee plain or with sweetener, absolutely no dairy products, nomilk including soy, oat, almond. The patient was instructed to call the pain clinic if he was instructed to stop his aspirin and he did not, or if he is taking it for any reason other than for cardiac reasons. NOHEMY Fields documented in this encounter Plan of Treatment Upcoming Encounters Date Type Specialty Care Team Description 08/16/2021 Appointment Radiology Mateo Victoria MD [facility] [place] [address] 08/16/2021 Office Visit Pain and Spine Mateo Victoria, [place] [facility] [place] [address] 09/22/2021 Hospital Encounter Surgery Mateo Victoria MD [facility] [place] [address] 09/22/2021 Surgery Surgery Mateo Victoria, [place] [facility] FACETECTOMY & ONE MEDICAL FORAMINOTOMY,CHAVA [facility] ([facility] SPINE CENTER [address].37) [place] [address] Scheduled Procedures Name Priority Associated Diagnoses Date/Time [...] on filedocumented in this encounter Care Teams Business Unit Controller Relationship Specialty Start Date End Date Marixa Smith MD PCP - General General Internal Medicine 11/20/19 [address] [place] [address] documented as of this encounter
--- OUTSIDE RECORDS SUMMARY | 2021-07-30 00:21 | XMS_ITS | Encounter Summary ---
:1950 Author Organization [place] [address] Care Team Providers Name Role Phone Marixa Smith MD Primary Care Provider Encounter Details Date Type Department Care Team Description 11/11/2020 Telephone Pain [facility] Spine Sophie [place] [facility] Vanesa Kelly, [place] [address] Social History Tobacco Use Types Packs/Day [...] Telephone Encounter - Vanesa Kelly RN - 11/11/2020 2:38 PM EDT In coming call to triage from Jose Eduardo stating that he would like to get a steroid injection in his lower back done prior to the cervical do to he is now having difficulty walking.. I told him that the low back steroid injection is mentioned so I will forward the message to Criss Mares APRN for advisement. I told him we will get back to him as soon as Criss Mares APRN makes her recommendations. Please advise. documented in this encounter Plan of Treatment Upcoming Encounters Date Type Specialty Care Team Description 08/16/2021 Appointment Radiology Mateo Victoria MD [facility] [place] [address] 08/16/2021 Office Visit Pain and Spine Mateo Victoria, [place] [facility] [place] [address] 09/22/2021 Hospital Encounter Surgery Mateo Victoria MD [facility] [place] [address] 09/22/2021 Surgery Surgery Mateo Victoria, [place] STU FACETECTOMY & [facility] FORAMINOTOMY,CHAVA [facility] ([facility] SPINE CENTER [address]) [place] [address] Scheduled Procedures Name Priority Associated Diagnoses Date/Time [...] on filedocumented in this encounter Care Teams Rehabilitation Aide Relationship Specialty Start Date End Date Marixa Smith MD PCP - General General Internal Medicine 11/20/19 [address] [place] [address] documented as of this encounter
--- OUTSIDE RECORDS SUMMARY | 2021-07-30 00:22 | XMS_ITS | Encounter Summary ---
:1950 [place] [address] Care Team Providers Name Role Phone Rian Ivey MD Primary Care Provider Encounter Details Date Type Department Care Team Description 02/11/2015 Hospital Encounter [place] [address] Social History Tobacco Use Types Packs/Day Years Used Date Never Assessed Sex Assigned at Date Recorded Not on file documented as of this encounter Medications at Time of Discharge Medication Sig Dispensed Refills Start Date End Date atorvastatin (LIPITOR) 20 Take 1 tablet by [...] MD [facility] [place] [address] 08/16/2021 Office Visit Pain and Spine Mateo Victoria Center MD [facility] [place] [address] 09/22/2021 Hospital Encounter Surgery Mateo Victoria MD [facility] [place] [address] 09/22/2021 Surgery Surgery Mateo Victoria, LAMINECTOMY , FACETECTOMY & ONE MEDICAL FORAMINOTOMY,CHAVA [place], CENTER ONE LEVEL ([facility] SPINE CENTER 15.37) [place] [address] Scheduled Procedures Name Priority Associated Diagnoses Date/Time LAMINECTOMY, FACETECTOMY & Foraminal stenosis of 09/22/2021 7:30 AM EDT FORAMINOTOMY,LUMBAR, ONE lumbosacral region LEVEL ([facility] 15.37) EA ADD'L VERTEBRAL SEGMENT Foraminal stenosis of 09/22/2021 7:30 AM EDT CERVICAL, THORACIC, LUMBAR lumbosacral region ([facility] 3.47) MODIFIER L5 Foraminal stenosis of 09/22/2021 7:30 AM EDT lumbosacral region MODIFIER S1 Foraminal stenosis of 09/22/2021 7:30 AM EDT lumbosacral region documented as of this encounter Procedures Procedure Name Priority Date/Time Associated Diagnosis Comme nts FILM LIBRARY STAT 02/11/2015 12:15 AM Pain Results for this STORAGE ONLY DX EST procedure ar e in PELVIS the results section. documented in this encounter Results Film Library- Storage only DX Pelvis (02/11/2015 12:15 AM EST) Specimen (Source) Anatomical Location Collection Method / Collectio n Time Received Time / Laterality Volume Narrative User, Generic Transmittal - 02/11/2015 3 :47 PM EST See PACS for result report. Dakota Hyde MD IM FILM LIBRARY ORDERABLES documented in this encounter Visit Diagnoses Not on filedocumented in this encounter Care Teams Electronic Test Technician Relationship Specialty Start Date End Date Rian Ivey MD PCP - General Family Medicine 02/11/15 01/16/18 [address] [place] [address] documented as of this encounter
--- OUTSIDE RECORDS SUMMARY | 2021-07-30 00:22 | XMS_ITS | Encounter Summary ---
:1950 [place] [address] Care Team Providers Name Role Phone Rian Ivey MD Primary Care Provider Encounter Details Date Type Department Care Team Description 02/11/2015 Hospital Encounter [place] [address] Social History Tobacco Use Types Packs/Day [...] Victoria MD [facility] [place] [address] 08/16/2021 Office Visit Pain and Spine Mateo Victoria Center MD [facility] [place] [address] 09/22/2021 Hospital Encounter Surgery Mateo Victoria MD [facility] [place] [address] 09/22/2021 Surgery Surgery Mateo Victoria, LAMINECTOMY , FACETECTOMY & ONE MEDICAL FORAMINOTOMY,[place]AVA [place], CENTER ONE LEVEL ([facility] SPINE CENTER 15.[address]) [place] [address] Scheduled Procedures Name Priority Associated Diagnoses Date/Time LAMINECTOMY, FACETECTOMY & Foraminal stenosis of 09/22/2021 7:30 AM EDT FORAMINOTOMY,LUMBAR, ONE lumbosacral region LEVEL ([facility] 15.37) EA ADD'L VERTEBRAL SEGMENT Foraminal stenosis of 09/22/2021 7:30 AM EDT CERVICAL, THORACIC, LUMBAR lumbosacral region ([facility] 3.47) MODIFIER L5 Foraminal stenosis of 09/22/2021 7:30 AM EDT lumbosacral region MODIFIER S1 Foraminal stenosis of 09/22/2021 7:30 AM EDT lumbosacral region documented as of this encounter Procedures Procedure Name Priority Date/Time Associated Diagnosis Comme nts FILM LIBRARY STAT 02/11/2015 12:05 AM Pain Results for this STORAGE ONLY CT EST procedure ar e in HEAD AND SPINE the results section. documented in this encounter Results Film Library- Storage Only CT Head And Spine (02/11/2015 12:05 AM EST) Specimen (Source) Anatomical Location Collection Method / Collectio n Time Received Time / Laterality Volume Narrative User, Generic Transmittal - 02/11/2015 3 :51 PM EST See PACS for result report. Dakota Hyde MD IM FILM LIBRARY ORDERABLES documented in this encounter Visit Diagnoses Not on filedocumented in this encounter Care Teams Sat Math Tutor Relationship Specialty Start Date End Date Rian Ivey MD PCP - General Family Medicine 02/11/15 01/16/18 [address] [place] [address] documented as of this encounter
--- OUTSIDE RECORDS SUMMARY | 2021-07-30 00:22 | XMS_ITS | Encounter Summary ---
:1950 Author Organization [facility] [place] [address] Care Team Providers Name Role Phone Sosa Ivey MD Primary Care Provider Reason for Visit Reason Comments Trauma Auth/Cert - Closed Specialty Diagnoses / Procedures Referred By Contact Refer red To Contact Diagnoses Pain SDH (subdural hematoma) Procedures OBSVO Referral ID Status Reason Start Date Expiration Date Visits Requ ested Visits Authorized [id number] Closed 1 1 Encounter Details Date Type Department Care Team Description 02/11/2015 - Emergency Neuroscience Special Barrett[facility]akota Pain; 02/13/2015 Care Unit Amber Villeda MD Coronary artery disease, angina presence unspecified, unspecified vessel or lesion type, unspecified whether [place] or transplanted heart; [facility] Closed fr acture of vault of skull with subarachnoid, subdural, and extradural hemorrhage, brief (less than one hour) loss of consciousness; Hospital [facility]ENTER Essential hypertension, malignant; [facility] GENERAL SURGE RY Disease of cardiovascular system; [place], [place] Fall from ladder, [place] [phone] Social History Tobacco Use Types Packs/Day Years Used Date Light Tobacco Smoker Cigars Smokeless Tobacco: Current User Snuff, Chew Tobacco Cessation: Ready to Quit: No; Co unseling Given: Yes Comments: Snuff/chew on/off x1 year 30 y ears ago, smokes a cigars rarely... Alcohol Use Standard Drinks/Week Comments Yes 2 (1 standard drink = 0.6 oz pure Monday ... was last drink... has alcohol) maybe 1-2 shots/week Alcohol Habits Answer Date Recorded How often do you have a drink Not asked containing alcohol? How many drinks containing alcohol do Not asked you have on a typical day when you are drinking? How often do you have six or more Not asked drinks on one occasion? Comment: Monday... was last drink... has 02/12/19 16 maybe 1-2 shots/week Sex Assigned at Date Recorded Not on file documented as of this encounter Last Filed Vital Signs Vital Sign Reading Time Taken Comments Blood Pressure 124/70 02/13/2015 4:00 AM EST Pulse 51 02/12/2015 10:00 AM EST Temperature 36.2 ??C (97.2 ??F) 02/13/2015 8:00 AM EST Respiratory Rate 14 02/13/2015 4:00 AM EST Oxygen Saturation 99% 02/13/2015 4:00 AM EST Inhaled Oxygen Concentration - - Weight 89.4 kg (197 lb) 02/11/2015 5:41 PM EST Height 185.4 cm (6' 1) 02/11/2015 5:41 PM EST Body Mass Index 25.99 02/11/2015 5:41 PM EST documented in this encounter Discharge Summaries Favio Griffin - 02/13/2015 9:00 AM EST TRAUMA SERVICE Inpatient - Discharge Summary Patient Name: Jose Eduardo Rodríguez Patient Age: 64 y.o. : 1950 Attending Physician: Dakota Hyde MD Date of Admission: 02/11/2015 Date of Discharge: 02/13/2015 Diagnosis: Active Hospital Problems Diagnosis ??? SDH (subdural hematoma) Resolved Hospital Problems Diagnosis Date Resolved No resolved problems to display. Operations and Procedures: * No surgery found * Surgeons: * Surgery not found * History of Present Illness: Jose Eduardo Rodríguez is a 64 y.o. male [place] [facility] [place]. Description of events leading up to injury includes: the patient reports being on a ladder carrying a crate when he lost his balance and fell from about 8 feet. He had obvious head trauma w/ associated LOC. His is partially amnestic to the events. He was initially evaluated at [facility] where he was found to have aright SDH. He is now transferred to [facility] [place] further management. Injuries include: 1. Small parafalcine SDH 2. Concussion Hospital Course: Jose Eduardo Rodríguez is a 64 y.o. male who was admitted on 02/11/2015 following the above accident and list of injuries. Neurosurgery was consulted for his head bleed. A repeat CT scan was performed and was stable. His neurologic exam has remained intact and stable. He is tolerating a regulardiet. His pain is controlled on PO medications. He is ambulating on his own without any issues. He is passing flatus and voiding without any issues. He has been cleared for discharge by Neurosurgery with follow-up in 4 weeks. He has been afebrile and hemodynamically stable. He was evaluated by the Trauma service and deemed stable for discharge on LOS: 2 days . Vital Signs Last value Range last 24hrs Temperature Temp: 36.2 ??C (97.2 ??F) Temp: [36 ??C (96.8 ??F)-37 ??C (98.6 ??F)] Heart Rate Heart Rate: 51 Heart Rate: [51] Blood Pressure BP: 124/70 mmHg BP: (96-139)/(49-76) Respiratory Rate Resp: 14 Resp: [12-16] SpO2 SpO2: 99 % RA SpO2: [97 %-100 %] Pertinent Lab Data: Recent Labs 02/12/15 0332 02/11/15 1645 WBC 8.4 11.9* HGB 14.1 15.9 HCT 40.6 45.2 PLATELET 132* 152 PT -- 13.9 INR -- 1.0 PTT -- 24* Recent Labs 02/12/15 0332 02/11/15 1645 NA 138 138 K 4.2 3.8 CL 103 99 CO2 25 25 BUN 14 18 CREATININE 0.87 0.91 GLUCOSE 107 115 CALCIUM 8.4* 9.4 Physical Exam: GENERAL: alert, awake and no apparent distress HEAD: Normocephalic, without obvious abnormality, atraumatic FACE: Pupils: equal, round, reactive to light, no periorbital ecchymoses; Midface: no tenderness, no swelling, no contusions, no lacerations and no abrasions over entire face Oropharynx: nonbloody, moist mucous membranes, no lacerations, no malocclusion and no chipped or missing teeth NECK: no tenderness to palpation, trachea midline, no masses, no swelling, no contusions and no abrasions LUNG: equal, clear breath sounds bilaterally and no crepitus CARDIAC: RRR without murmur or extra heart sounds ABDOMEN/GI: soft, non-tender, non-distended, no abrasions and no contusions PELVIS: stable to AP and/or lateral compression EXTREMITIES: normal and symmetric movement, normal range of motion, no joint swelling SPINE: no deformity, no stepoffs, no tenderness to palpation and no abrasions over cervical spine, thoracic spine and/or lumbar spine SKIN: no lacerations, abrasions or contusions on complete skin exam NEURO: Mental Status: awake and alert, oriented to time, date, person Cranial Nerves: CN II - XII intact Motor: normal 5/5 strength in all tested muscle groups Sensory: no sensory deficits noted Imaging: Ct Head Wo Contrast (generic) 02/12/2015 EXAMINATION: CT HEAD WO CONTRAST CLINICAL HISTORY: Repeat head CT s/p fall from ladder withsmall SDH, Repeat head CT s/p fall from ladder with small SDH TECHNIQUE: Serial axial images of the head were obtained without intravenous contrast. Coronal and sagittal reconstructions were separatelyperformed. COMPARISON: Prior head CT from 02/11/2014 FINDINGS: There is a linear hyperattenuating material associated with the midline falx, consistent with a small subdural hemorrhage. Overall extent issimilar to prior exam. There is a small focus of hyperattenuation also seen within the left basal ganglia, also present on prior CT and likely representing globus pallidus calcification. No other extra-axial fluid collection or mass effect or midline shift. The freedman- white differentiation is preserved.The sulci and ventricles are normal in appearance. There are scattered foci of periventricular hypoattenuation, likely related to chronic microangiopathic changes. Paranasal sinuses, mastoid air cells and orbits are unremarkable. 02/12/2015 IMPRESSION: Unchanged small subdural hemorrhage along the midline falx. I have personally reviewed the image(s) and the residents interpretation and agree with the findings, Clifford Helms at 02/12/2015 11:00 AM Request For 2nd Read Ct Head And Spine 02/11/2015 EXAMINATION: REQUEST FOR 2ND READ CT HEAD AND SPINE CLINICAL HISTORY: S/p fall, What Modality is the exam? CT Scan, Body Part (please add comments as necessary): Heand and C-spine, I believe areinterpretation of this exam may alter care of Patient. Yes TECHNIQUE: Head CT noncontrast CT cervical spine noncontrast COMPARISON: None FINDINGS: Head CT: There is small amount of high attenuation associated with the falx in the midline which may represent a small amount of subdural blood. There isotherwise normal attenuation of the brain parenchyma. No other evidence of hemorrhage identified. There is no cortical infarction, mass, mass effect, midline shift or ventriculomegaly. Review of bone windows demonstrates clear appearance of visualized mastoid air cells, middle ear cavities and visualized paranasal sinuses. No gross lytic or blastic disease and no depressed skull fragments seen. CT cervical spine: Changes of cervical spondylosis identified greatest at C5-6 and C6-7 with disc space narrowing and endplate proliferative change and reactive changes. There is mild retrolisthesis of C5 onC6. There is minimal anterolisthesis of C4 on C5 with mild facet arthropathy greater on the right. There is facet arthropathy on the right at C2- 3. Prevertebral soft tissues are normal. No fracture deformity. 02/11/2015 IMPRESSION: CT cervical spine: Changes of cervical spondylosis. No acute abnormality seen. Head CT: High attenuation associated with the falx without mass effect suggests a small subdural hemorrhage. Film Library- Storage Only Ct Head And Spine 02/11/2015 See PACS for result report. Film Library- Storage Only Dx Chest 02/11/2015 See PACS for result report. Film Library- Storage Only Dx Pelvis 02/11/2015 See PACS for result report. Film Library- Storage Only Dx Spine 02/11/2015 See PACS for result report. Xr Chest Pa Or Ap- 1 View 02/11/2015 EXAMINATION: XR CHEST PA OR AP 1 VIEW CLINICAL HISTORY: fall off a ladder with reported SDHand confusion., fall off a ladder with reported SDH and confusion. TECHNIQUE: Two portable trauma APchest radiographs acquired at 1650 hours COMPARISON: PA and lateral chest radiographs dated 02/11/20151457 hours from outside institution FINDINGS: Lungs are clear with normal pulmonary vascular markings. No pleural effusions or pneumothorax. Normal-appearing cardiomediastinal silhouette and bilateral meka. No suspicious osseous lesions. 02/11/2015 IMPRESSION: 1. No acute cardiopulmonary process. I have personally reviewed the image(s) and the residents interpretation and agree with the findings, Brennon Casas at 02/11/2015 4:59 PM Condition at discharge: Stable Mental Status: Awake and alert, oriented x 3 Medications: Your Medications New Medications Dose Details acetaminophen 500 mg Tab Commonly known as: TYLENOL Take 2 tablets by mouth every 6 hours as needed for Pain (for MODERATE pain (4-6)). 1000 mg Quantity: 30 tablet Refills: 1 atorvastatin 20 mg Tab Commonly known as: LIPITOR Take 1 tablet by mouth every evening. 20 mg Quantity: 30 tablet Refills: 3 STOPPED Medications aspirin 81 mg Chew Disposition: Home with family Allergies: No Known Allergies Outpatient Services/Studies: No discharge procedures on file. Scheduled Appointments: You will need to follow-up in 4 weeks with the Neurosurgery team with a repeat head CT scan Instructions Given to Patient at Discharge: Patient Instructions Discharge Instructions CALL YOUR PHYSICIAN IF: ??? You have a fever greater than 101 degrees Farenheit ? ? You have diarrhea or vomiting for >24 hours, or stop having bowel movements and passing flatus ??? You have worsening pain, not controlled with your pain medication. ??? You develop any new neurologic symptoms: numbness, tingling, Prescriptions: ? Tylenol for pain ? Avoid medications that can thin your blood: Ibuprofen and Aspirin as this can worsen your head bleed. ? Stool softeners, such as Colace; mild laxatives, such as Milk of Magnesia, Sennakot, or Ducolax tabs; or enemas may be used if needed and are oeny-qni-pkcrfgz (OTC) medications available at most local pharmacies. Prunes or prune juice, taken daily, can also be helpful for constipation treatment or pr evention and are available at most supermarkets. Driving Restrictions: - No driving until cleared by your Neurosurgeon. Activities: ? Light activities for the next 2 weeks, then resume as tolerated Diet: ? Resume your normal diet. Follow-up Appointments: You will need to follow-up with the Neurosurgery team in 4 weeks with a repeat head CT prior to yourappointment. Please show up to the hospital 1 hour prior to your office appointment to obtain this CT scan. Your appointment will be scheduled on your behalf. If you do not hear by next week please call the Neurosurgery clinic at . If you have any questions regarding your head bleed, activities, or symptoms please call the Neurosurgery team at . Trauma Surgery: Neurosurgery: [facility]: Signed: FAVIO GRIFFIN MD 02/13/2015 Primary [place] Physician: SOSA IVEY MD [address] / [facility] [id number] documented in this encounter Discharge Instructions Patient InstructionsFavio Griffin - 02/13/2015 8:51 AM EST Discharge Instructions CALL YOUR PHYSICIAN IF: ??? You have a fever greater than 101 degrees Farenheit ? ? You have diarrhea or vomiting for >24 hours, or stop having bowel movements and passing flatus ??? You have worsening pain, not controlled with your pain medication. ??? You develop any new neurologic symptoms: numbness, tingling, Prescriptions: ? Tylenol for pain ? Avoid medications that can thin your blood: Ibuprofen and Aspirin as this can worsen your head bleed. ? Stool softeners, such as Colace; mild laxatives, such as Milk of Magnesia, Sennakot, or Ducolax tabs; or enemas may be used if needed and are ecnf-hbh-bypsjmg (OTC) medications available at most local pharmacies. Prunes or prune juice, taken daily, can also be helpful for constipation treatment or pr evention and are available at most super[employer]rujaets. Driving Restrictions: - No driving until cleared by your Neurosurgeon. Activities: ? Light activities for the next 2 weeks, then resume as tolerated Diet: ? Resume your normal diet. Follow-up Appointments: You will need to follow-up with the Neurosurgery team in 4 weeks with a repeat head CT prior to yourappointment. Please show up to the hospital 1 hour prior to your office appointment to obtain this CT scan. Your appointment will be scheduled on your behalf. If you do not hear by next week please call the Neurosurgery clinic at . If you have any questions regarding your head bleed, activities, or symptoms please call the Neurosurgery team at . Trauma Surgery: Neurosurgery: [facility]: documented in this encounter Medications at Time of Discharge Medication Sig Dispensed Refills Start Date End Date atorvastatin (LIPITOR) 20 Take 1 tablet by 30 tablet 3 09/2015 mg Tablet mouth every evening. acetaminophen (TYLENOL) Take 2 tablets by 30 tablet 1 02/1311/06/2015 500 mg Tablet mouth every 6 hours as needed for Pain (for MODERATE pain (4-6)). documented as of this encounter Progress Notes Diana Sigala RN - 02/13/2015 10:21 AM EST Pt off of floor @ 1015, refused wheelchair. Vital signs stable. Alert and oriented x 4. Strengths 5/5. PERRLA. All belongings w/ pt. Skin free from signs of breakdown/pressure ulcers. IV sites free from signs of phlebitis/infiltration. IV removed. Discharge paperwork given to pt and all questions answered. Bola Montiel MD - 02/12/2015 1:56 PM EST Neurosurgery Progress Note Jose Eduardo Rodríguez is a 64 y.o. male s/p fall from ladder with para-falcine SDH. Hospital Day: 2 Interval Hx: -SANJUANA -Neurologically stable -repeat CT stable Objective: Medications: Scheduled Meds: ??? sodium chloride 0.9 % 5 mL Intravenous BID ??? famotidine 20 mg Oral BID Or ??? famotidine 20 mg Intravenous BID ??? atorvastatin 20 mg Oral QPM Continuous Infusions: ??? lactated ringers 1,000 mL (02/12/15 0822) Vitals: Temp: [36 ??C (96.8 ??F)-37 ??C (98.6 ??F)] Heart Rate: [50-76] Resp: [11-17] BP: (112-146)/(60-94) SpO2: [95 %-100 %] I/O: Intake/Output Summary (Last 24 hours) at 02/12/15 1356 Last data filed at 02/12/15 0925 Gross per 24 hour Intake 707 ml Output 2025 ml Net -1318 ml Labs: Recent Labs 02/12/15 0332 02/11/15 1645 WBC 8.4 11.9* HGB 14.1 15.9 PLATELET 132* 152 Recent Labs 02/12/15 0332 02/11/15 1645 NA 138 138 K 4.2 3.8 CL 103 99 CO2 25 25 BUN 14 18 CREATININE 0.87 0.91 Recent Labs 02/11/15 1645 PT 13.9 INR 1.0 Physical Exam: -NAD -AAOx3 -Speech fluent and appropriate. Naming and repetition intact. -PERRL. EOMI. -Facial sensation intact to light touch in V1-V3 -No facial asymmetry -Tongue protrusion midline -Motor: RUE:5/5 LUE:5/5 RLE: 5/5 LLE: 5/5 -No pronator drift -Sensation intact to LT x 4 -DTR 2+ throughout Assessment/Plan:: 64 y.o. year old male s/p fall from ladder with para-falcine SDH. Neurologically intact. Repeat CT stable. Follow-up in Neurosurgery Clinic in [address] head. Favio Griffin - 02/12/2015 9:43 AM EST TRAUMA & ACUTE SURGICAL CARE SERVICE TERTIARY SURVEY ID/MECHANISM OF INJURY: Jose Eduardo Rodríguez is a 64 y.o. Male s/p fall from ladder HISTORY OF PRESENT ILLNESS: Jose Eduardo Rodríguez is a 64 y.o. male [place] [facility] [place]. Description of events leading up to injury includes: the patient reports being on a ladder carrying a crate when he lost his balance and fell from about 8 feet. He had obvious head trauma w/ associated LOC. His is partially amnestic to the events. He was initially evaluated at [facility] where he was found to have aright SDH. He is now transferred to [facility] [place] further management. PMHx: Past Medical History Diagnosis Date ??? ME (myocardial infarction) ??? HLD (hyperlipidemia) PSHx: Past Surgical History Procedure Laterality Date ??? Coronary angioplasty with stent placement HOME MEDICATIONS: Prescriptions prior to admission Medication Sig Dispense Refill Last Dose ??? aspirin 81 mg Tablet, Chewable Take 81 mg by mouth daily. ALLERGIES: No Known Allergies FAMILY HISTORY: Non-contributory SOCIAL HISTORY: Alcohol: social drinker Tobacco: occasional cigar user Drug: no history of illicit drug use REVIEW OF SYSTEMS: complete 10 system ROS performed with pertinent findings below. Pertinent items are noted in HPI. PHYSICAL EXAM: VITALS: Last value Range last 24 hrs Temperature Temp: 36.6 ??C (97.9 ??F) Temp: [36 ??C (96.8 ??F)-37 ??C (98.6 ??F)] Heart Rate Heart Rate: 55 Heart Rate: [50-76] Blood Pressure BP: 122/60 mmHg BP: (112-146)/(60-79) Respiratory Rate Resp: 14 Resp: [11-17] SpO2 SpO2: 95 % SpO2: [95 %-100 %] I/O last 3 completed shifts: In: 707 [I.V.:707] Out: 900 [Urine:900] GENERAL: alert, awake and no apparent distress HEAD: Normocephalic, without obvious abnormality, atraumatic FACE: Pupils: equal, round, reactive to light, no periorbital ecchymoses; Midface: no tenderness, no swelling, no contusions, no lacerations and no abrasions over entire face Oropharynx: nonbloody, moist mucous membranes, no lacerations, no malocclusion and no chipped or missing teeth NECK: no tenderness to palpation, trachea midline, no masses, no swelling, no contusions and no abrasions, C-collar removed at bedside LUNG: equal, clear breath sounds bilaterally and no crepitus CARDIAC: RRR without murmur or extra heart sounds ABDOMEN/GI: soft, non-tender, non-distended, no abrasions and no contusions PELVIS: stable to AP and/or lateral compression EXTREMITIES: normal and symmetric movement, normal range of motion, no joint swelling SPINE: no deformity, no stepoffs, no tenderness to palpation and no abrasions over cervical spine, thoracic spine and/or lumbar spine SKIN: no lacerations, abrasions or contusions on complete skin exam NEURO: Mental Status: awake and alert, oriented to time, date, person Cranial Nerves: CN II - XII intact Motor: normal 5/5 strength in all tested muscle groups Sensory: no sensory deficits noted LABORATORY: Recent Labs 02/12/15 0332 02/11/15 1645 WBC 8.4 11.9* HGB 14.1 15.9 HCT 40.6 45.2 PLATELET 132* 152 PT -- 13.9 INR -- 1.0 PTT -- 24* Recent Labs 02/12/15 0332 02/11/15 1645 NA 138 138 K 4.2 3.8 CL 103 99 CO2 25 25 BUN 14 18 CREATININE 0.87 0.91 GLUCOSE 107 115 CALCIUM 8.4* 9.4 RADIOLOGY: CXR: IMPRESSION: 1. No acute cardiopulmonary process. Pelvis X-ray: No acute pathology CT Head and C-Spine: IMPRESSION: CT cervical spine: Changes of cervical spondylosis. No acute abnormality seen. Head CT: High attenuation associated with the falx without mass effect suggests a small subdural hemorrhage. Incidental Radiographic Findings: None ASSESSMENT/SUMMARY OF INJURIES: 64 y.o. male s/p fall form ladder. Injuries include: 1. Small parafalcine SDH NEW Injuries identified on Tertiary Survey: 1. None PLAN: NEURO: Pain control with Tylenol, plan for repeat head CT today SPINE: Cleared, Trauma managing PULM: No acute issues, OOB, IS and deep breathing, wean to RA CARDIAC: No acute issues, h/o ME and coronary stents, will obtain baseline EKG FEN/GI: LR @ 100 cc/hr until tolerating > 500 cc PO intake Diet: NPO until repeat head CT stable NBO: Miralax and Colace if requires narcotic pain medications RENAL: No acute events HEME: No acute issues ID: No acute issues CONSULTS: Neurosurgery: for SDH PT/OT: PROPHYLAXIS: DVT prophylaxis: hold on anticoagulation given head bleed, SCDs GI prophylaxis: Pepcid DISPO: Transfer to floor status later today if CT stable, Full Code FAVIO GRIFFIN MD 02/12/2015 Surjit Dominguez MD - 02/12/2015 8:42 AM EST NEUROSURGERY PROGRESS NOTE Jose Eduardo Rodríguez [id number] 1950 Active Problems / Surgery Past Medical History SDH ME s/p stent placement (2005) HTN HLD ID: This is a 64 y.o. male PMHx ME (2005) s/p stent placement, HTN, HLD, who presents after a mechanical fall from ladder. Fell back and hit head. + LOC. CT demonstrates small parafalcine SDH. Currently denies headache, nausea, vomiting, numbness, weakness, paresthesias,visual or auditory symptoms. Denies bowel or bladder symptoms. Takes ASA 81 daily INTERVAL Hx: - SANJUANA - Neurologically stable MEDICATIONS: Scheduled Meds: ??? sodium chloride 0.9 % 5 mL Intravenous BID ??? famotidine 20 mg Oral BID Or ??? famotidine 20 mg Intravenous BID ??? atorvastatin 20 mg Oral QPM Continuous Infusions: ??? lactated ringers 1,000 mL (02/12/15 0822) EXAM: Temp: [36 ??C (96.8 ??F)-37 ??C (98.6 ??F)] Heart Rate: [50-76] Resp: [11-17] BP: (112-146)/(61-94) SpO2: [95 %-100 %] I/O:I/O last 3 completed shifts: In: 707 [I.V.:707] Out: 900 [Urine:900] GEN:NAD NEURO:AA+Ox3 Speech fluent and appropriate. Naming and repetition intact. PERRL. EOMI. Visual phillips full to confrontation. No facial asymmetry Tongue midline MOTOR: RUE:5/5 LUE:5/5 RLE: 5/5 LLE: 5/5 No pronator drift LT sensation intact x 4 Recent Labs 02/12/15 0332 02/11/15 1645 WBC 8.4 11.9* HGB 14.1 15.9 PLATELET 132* 152 Recent Labs 02/12/15 0332 02/11/15 1645 NA 138 138 K 4.2 3.8 CL 103 99 CO2 25 25 BUN 14 18 CREATININE 0.87 0.91 Recent Labs 02/11/15 1645 PT 13.9 INR 1.0 A/P: This is a 64 y.o. male s/p mechanical fall from ladder, + LOC after striking head. CT demonstrates parafalcine SDH. Neurologically intact on exam. No immediate surgical indications, close neurological monitoring is indicated. Plan: -Close neurological observation, q2 checks -Repeat CT today -BP control, keep SBP<160 -Hold anticoagulation -GI prophylaxis -Further care per trauma Full code SURJIT DOMINGUEZ MD P: [id number] Dakota Huerta - 02/11/2015 9:02 PM EST Neurosurgery - Consultation Note Date & Time of Consult: 02/11/2015 9:02 PM Referring Service: Trauma Referring Attending: [facility] Neurosurgery Attending: Bradley Place of Consult: ER ID: Name: Jose Eduardo Rodríguez, 64 y.o. male Admission Date: 02/11/2015 CC: SDH HPI: This is a 64 y.o. male PMHx ME (2005) s/p stent placement, HTN, HLD, who presents after a mechanicalfall from ladder. Fell back and hit head. + LOC. CT demonstrates small parafalcine SDH. Currently denies headache, nausea, vomiting, numbness, weakness, paresthesias,visual or auditory symptoms. Deniesbowel or bladder symptoms. Takes ASA 81 daily. PMH: Past Medical History Diagnosis Date ??? ME (myocardial infarction) ??? HLD (hyperlipidemia) Past Surgical History Procedure Laterality Date ??? Coronary angioplasty with stent placement Medications: No current facility-administered medications on file prior to encounter. No current outpatient prescriptions on file prior to encounter. Scheduled Meds: Continuous Infusions: PRN Meds:.fentaNYL (PF) Allergies: No Known Allergies Family Hx: No family history on file. Social Hx: History Social History ??? Marital Status: Spouse Name: N/A Number of Children: N/A ??? Years of Education: N/A Social History Main Topics ??? Smoking status: Not on file ??? Smokeless tobacco: Not on file ??? Alcohol Use: Not on file ??? Drug Use: Not on file ??? Sexual Activity: Not on file Other Topics Concern ??? Not on file Social History Narrative ??? No narrative on file Vitals: Filed Vitals: 02/11/15 1815 02/11/15 1930 02/11/15201402/11/15 2030 BP: 140/69 138/65 139/78 136/74 Pulse: 59 61 60 59 Temp: TempSrc: Resp: 01 22 15 Height: Weight: SpO2: 98% 96% 97% Physical Exam: -Gen: NAD. -Neuro: Mental Status/Cognitive: Awake, alert, oriented x3 Speech: Fluent, appropriate. Cranial Nerves: PERRL CN II - Visual acuity and phillips grossly intact CN III, IV, - EOMI CN V - Sensation intact in V1,2 and 3 distributions CN VII - No facial asymmetry/droop CN VIII - Intact hearing bilaterally to finger rub CN IX, X - Palate and uvula midline CN XI - Trapezius 5/5 bilat CN XII - Tongue midline Tone: Normal Power: Segment Muscle Action Right Left C5 Biceps Elbow flexion 5 5 C6 Extensor carpi radialis Wrist extension 5 5 C7 Triceps Elbow extension 5 5 C8, T1 Hand intrinsics Grasp 5 5 L2 Iliopsoas Hip flexion 5 5 L3 Quadriceps Knee extension 5 5 L4 Tibialis anterior Dorsiflexion 5 5 L5 Extensor hallucis Great toe extension 5 5 S1 Gastrocnemius Plantar flexion 5 5 Gait: Not assessed Sensation in the extremities: Light touch: Intact x 4 Labs: Recent Labs 02/11/15 1645 WBC 11.9* HGB 15.9 PLATELET 152 Recent Labs 02/11/15 1645 NA 138 K 3.8 CL 99 CO2 25 BUN 18 CREATININE 0.91 Recent Labs 02/11/15 1645 PT 13.9 INR 1.0 Imaging: Study Result EXAMINATION: REQUEST FOR 2ND READ CT HEAD AND SPINE CLINICAL HISTORY: S/p fall, What Modality is the exam? CT Scan, Body Part (please add comments as necessary): Heand and C-spine, I believe a reinterpretation of this exam may alter care of Patient. Yes TECHNIQUE: Head CT noncontrast CT cervical spine noncontrast COMPARISON: None FINDINGS: Head CT: There is small amount of high attenuation associated with the falx in the midline which may represent a small amount of subdural blood. There is otherwise normal attenuation of the brain parenchyma. No other evidence of hemorrhage identified. There is no cortical infarction, mass, mass effect, midline shift or ventriculomegaly. Review of bone windows demonstrates clear appearance of visualized mastoid air cells, middle ear cavities and visualized paranasal sinuses. No gross lytic or blastic disease and no depressed skull fragments seen. CT cervical spine: Changes of cervical spondylosis identified greatest at C5-6 and C6-7 with disc space narrowing and endplate proliferative change and reactive changes. There is mild retrolisthesis of C5 on C6. There is minimal anterolisthesis of C4 on C5 with mild facet arthropathy greater on the right. There is facet arthropathy on the right at C2-3. Prevertebral soft tissues are normal. No fracture deformity. IMPRESSION IMPRESSION: CT cervical spine: Changes of cervical spondylosis. No acute abnormality seen. Head CT: High attenuation associated with the falx without mass effect suggests a small subdural hemorrhage. Assessment: This is a 64 y.o. male s/p mechanical fall from ladder, + LOC after striking head. CT demonstrates parafalcine SDH. Neurologically intact on exam. No immediate surgical indications, close neurological monitoring is indicated. Plan: -Close neurological observation, q2 checks -Repeat CT am -BP control, keep SBP<160 -Hold anticoagulation -GI prophylaxis -Further care per trauma I have reviewed the above with Dr. Huerta, who agrees with the assessment and plan. Neurosurgery is seeing this patient at the request of Dr. Hyde for further evaluation of his traumatic head injury. He presents with history of fall with loss of consciousness for several minutes. He has been reviewed with Dr. Cabello, personally seen and examined, and his CT of the head has been personally reviewed. He is awake, alert, appropriate, comfortable, and fully oriented. His neurological exam is without focal or lateralized findings. His CT of the head shows a small parafalcine SDH. Thereare no neurosurgical surgical indications. Close neurological monitoring is indicated. I agree with the assessment and recommendation as detailed by Dr. Cabello; see his note above. documented in this encounter H&P Notes Dakota Hyde MD - 02/11/2015 4:55 PM EST TRAUMA & ACUTE SURGICAL CARE ADMISSION HISTORY AND PHYSICAL Patient Name: Jose Eduardo Rodríguez Level of Activation: alert MR#: [id number] [ ]Scene Call or [ x ]Hospital Transfer : [id number] CC/MECHANISM OF INJURY: 64 y.o. Male s/p fall from ladder HISTORY OF PRESENT ILLNESS: Jose Eduardo Rodríguez is a 64 y.o. male [place] [facility] [place]. Description of events leading up to injury includes: the patient reports being on a ladder carrying a crate when he lost his balance and fell from about 8 feet. He had obvious head trauma w/ associated LOC. His is partially amnestic to the events. He was initially evaluated at [facility] where he was found to have aright SDH. He is now transferred to [facility] [place] further management. Primary survey revealed: intact airway, equal breath sounds/respirations, present 2+ peripheral pulses with stable vital signs and no signs of bleeding, GCS 15 (6 - Follows simple motor commands, 5 - Alert and oriented, 4 - Opens eyes on own), and complete exposure. Secondary survey is as follows. PAST MEDICAL AND SURGICAL HISTORY: - CAD, ME 2006 s/p stent placement - HTN - HLip - No past surgical history ALLERGIES: Allergies no known allergies MEDICATIONS: - ASA 81 mg - Statin FAMILY HISTORY: Reviewed and non contributory SOCIAL HISTORY: Alcohol: social drinker Tobacco: occasional cigar use Drug: no history of illicit drug use REVIEW OF SYSTEMS: complete 10 system ROS performed with pertinent findings below. Pertinent items are noted in HPI. PHYSICAL EXAM: VITALS: There were no vitals filed for this visit. GENERAL: alert, awake and no apparent distress HEAD: Normocephalic, without obvious abnormality, atraumatic FACE: Pupils: unequal, round, reactive to light, no periorbital ecchymoses; Tympanic Membranes: clear to visualization; Midface: no tenderness, no swelling, no contusions, no lacerations and no abrasions over entire face Oropharynx: nonbloody, moist mucous membranes, no lacerations, no malocclusion and no chipped or missing teeth NECK: no tenderness to palpation, trachea midline, no masses, no swelling, no contusions and no abrasions LUNG: equal, clear breath sounds bilaterally and no crepitus CARDIAC: Regular rate and rhythm or without murmur or extra heart sounds ABDOMEN/GI: soft, non-tender, non-distended, no abrasions and no contusions PELVIS: stable to AP and/or lateral compression RECTAL: Deferred EXTREMITIES: normal and symmetric movement, normal range of motion, no joint swelling SPINE: no deformity, no stepoffs, no tenderness to palpation and no abrasions over cervical spine, thoracic spine and/or lumbar spine SKIN: no lacerations, abrasions or contusions on complete skin exam NEURO: Mental Status: awake and alert, oriented to time, date, person Cranial Nerves: CN II - XII intact Motor: normal 5/5 strength in all tested muscle groups Sensory: no sensory deficits noted LABORATORY: No results found for this or any previous visit (from the past 24 hour(s)). RADIOLOGY: FAST Scan - negative CXR - No acute cardiopulmonary process. Pelvis- No acute fracture CT Head- Small right SDH, final read pending CT C-Spine- No C spine fracture, final read pending Incidental Radiographic Findings: None Procedures Performed: Intubation: No Bishop Cath: No Central Line: No Chest Tube: No Sutures: No Other: Assessment/Summary of Injuries: 64 y.o. male s/p fall from ladder. Injuries identified on primary and secondary survey include: 1. Small right SDH 2. Concussion Plan: ?? Admit to Trauma Surgery Service in stable condition, Dr. Hyde, attending ?? NPO ?? IV Fluids: normal saline at 100 mL/hr ?? Consulting Services and plans: 1. Neurosurgery: q 2 hr neuro checks, no keppra, hold anticoagulation ?? Spine status: C spine precautions until final reads are available ?? Pain control: Tylenol PRN ?? DVT prophylaxis: Mechanical compression ?? GI prophylaxis: Nexium ?? Tertiary survey in AM ?? DISPO: [facility] DAVID SALES MD 02/11/2015 Attending Addendum Trauma Alert - Transfer I have seen and examined the patient and reviewed the resident's history and I agree with the details as written. I have reviewed the laboratory data and viewed the pertinent imaging. The assessment and plan were formulated in discussion with me and I agree with them as documented. Mechanism: mechanical fall from ladder Injuries: SDH Other Problems: CAD, HTN Plan: Admit to Trauma. Neuro exams overnight. Tertiary survey in the am. DAj Hyde MD documented in this encounter ED Notes Surjit Hughes RN - 02/11/2015 6:22 PM EST PT NOW ADMITS TO POS LOC. STATED HE FELL AND THE NEXT THING HE REMEMBERS IS THE ems TEAM AT HIS SIDE. documented in this encounter Miscellaneous Notes Initial Assessments - Philly Way, OT - 02/13/2015 8:32 AM EST Occupational Therapy Evaluation Patient profile: Jose Eduardo Rodríguez is a 64 y.o. male patient of Dakota Gutiérrez MD, admitted on 02/11/2015 [place] [facility] [place]. Description of events leading up to injury includes: the patient reports being on a ladder carrying a crate when he lost his balance and fell from about 8 feet. Hehad obvious head trauma w/ associated LOC. His is partially amnestic to the events. He was initiallyevaluated at [facility] where he was found to have a right SDH. He is now transferred to [facility] [place] further management (per Dr. Griffin 02/12/14) Past Medical History Diagnosis Date ??? ME (myocardial infarction) ??? HLD (hyperlipidemia) HTN CAD Past Surgical History Procedure Laterality Date ??? Coronary angioplasty with stent placement Social History: Patient lives alone in [place], [place] Home Setup: Split level home with 15 steps to enter DME: walking stick Baseline ADL/Mobility: Independent with ADL???s and IADL???s ?? 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 Drives, very active Code Status: Full Code Activity Orders:change activity as tolerated Precautions: falls, spine cleared no bracing required, SBP <160 Subjective: I am doing well, hoping to go home soon Objective: Seen today for OT evaluation. Cognition/Behavior: ?? Alert and oriented X4 ?? Good judgement- agrees to have family/friends assist with rides ?? Provided printed material of mTBI education related to s/s physical, emotional, sleep, cognitive-pt stated understanding and denies all cognitive deficits ?? Completed slums with normal score as stated below [facility] Mental Status Exam (UMS) The SLUMS is a cognitive screening questionnaire that tests orientation, memory, attention, and executive function. The SLUMS is comparable in validity with the Dylon Cognitive Assessment (MOCA) andthe Mini Mental Status Examination (MMSE). Years of education: Question # Skill Set Score Comments 1-3 Orientation 3/3 5 Problem solving 2/3 6 Animal naming / 7 Delayed recall 05/11 8 Attention 2/2 9 Clock drawing 05/10 10 Size/shape differentiation / 11 Comprehension 09/13 Total Score 28/30 Scoring: High School Education Less than High School Education 27-30 Normal 25-30 21-26 Mild Neurocognitive Deficit 20-24 1-20 Dementia 1-19 Enedina Rosales & Jessenia Medina (2002). [facility] Mental Status Examination ([facility]). Aging successfully 12(1): 4. Communication: Stating basic and complex needs 100% of the time Vision & Perception: PERRL; EMOI; denies diplopia; baseline bifocals currently using; able to read 10 pt font at near distance Range of motion, strength, coordination: Hand dominance: right 5/5 throughout feliciano UE Fine and gross motor coordination intact Able to bear weight through feliciano LE Sensation: Grossly intact Activities of Daily Living: Self-feeding ?? Independent Grooming / Bathing ?? Independent in shower- completed in shower room with no loss of balance; good judgement and safety awareness UB / LB dressing ?? Independent with UB and LB dressing in sitting and standing Toileting ?? Toilet Transfer: Independent ?? Toilet Hygiene: Independent IADLs: ?? NT Functional Mobility: ?? Pt independent with all bed mobility and functional mobility. No loss of balance or SOB; completed 150 ft with no device. Balance: ?? Sitting: Good ?? Standing: - Romberg with eyes occluded Endurance: Good Information taken from last recorded vitals in flowsheet. Last value Range last 8 hrs Heart Rate Heart Rate: 51 Blood Pressure BP: 124/70 mmHg BP: (96-124)/(49-70) SpO2 SpO2: 99 % SpO2: [98 %-99 %] Pain: Denies. Skin: Not assessed, see RN note Informed Consent: The patient agrees to and understands the OT treatment plan and goals. G-Code: Attention - (OT Rehab only) Status Modifier CURRENT CI - At least 1 percent but less than 20 percent impaired, limited or restricted PROJECTED CI - At least 1 percent but less than 20 percent impaired, limited or restricted DISCHARGE CI - At least 1 percent but less than 20 percent impaired, limited or restricted G Code Rationale: This G-Code and these disability modifiers were selected as the primary therapy goal based upon the patient's evaluation including the following functional test(s) SLUMS. Current ability measures, co-morbidities and clinical judgement were also used to select the disability modifier.This Patient's current G-Code functional level is CI% impaired based upon SLUMS. Education: patient educated on Role of occupational therapy/rehabilitation, Transfers, ADL, Recommendations and Discharge planning and verbalizes and demonstrates understanding. ?? Provided printed material of mTBI education related to s/s physical, emotional, sleep, cognitive-pt stated understanding and denies all cognitive deficits Patient status, treatment, and mobility recommendations discussed with nursing. Assessment: Pt has been seen by OT for evaluation, and he presents with impaired ability to perform daily activities and functional mobility secondary to s/p fall from pladder with R SDH. Pt tolerated OT evaluation, scored a 28/30 on SLUMS; pt independent with ADLs including shower in standing, dressed with independence; provided TBI education material; pt stated understanding. Pt would benefit from ongoing OT services to maximize functional independence. Discharge Recommendations: Home with assistance from family- no driving until cleared by MD Equipment needs at discharge: None Plan: Pt has no inpatient OT needs; follow up with TBI clinic if symptoms persist. Eval Date: 02/13/2015 Total time spent with patient: 40 minutes Total timed interventions: 0 minutes Pager: [phone] OT 02/13/2015 Occupational Therapy Rehabilitation Department Initial Assessments - Carli Marnie Ronal, PT - 02/12/2015 5:00 PM EST Physical Therapy Evaluation Patient profile: Jose Eduardo Rodríguez is a 64 y.o. R handed male admitted on 02/11/[address] Hyde, Dakota Villeda MD s/p 10' fall from ladder while working with + LOC. Pt found to have R small parafalcine SDH. Spine cleared. PT Consult Received 02/12/15 for initial evaluation 02/12/15. Patient with the following active problems: Patient Active Problem List Diagnosis Code ??? SDH (subdural hematoma) I62.00 PMH: Past Medical History Diagnosis Date ??? ME (myocardial infarction) ??? HLD (hyperlipidemia) Past Surgical History Procedure Laterality Date ??? Coronary angioplasty with stent placement Social History: Patient lives alone in a split level home. Stairs: 15 with a rail to enter. Baseline Mobility: Independent, working for [employer], driving, very active Equipment at home: walking stick Precautions/Special Considerations: Activity Orders: activity as tolerated Diet: regular Code status: full Subjective: ???My neck is stiff, my butt hurts I must have landed on it, my head doesn't hurt but it's not quite right. I can take as much time off work as I need. Objective: Pt seen for evaluation today. Pain: buttock pain, neck stiffness, no headache reported Vital Signs: Last value Heart Rate Heart Rate: 51 bpm Blood Pressure BP: 139/68 mmHg SpO2 SpO2: 97 % on RA Mental Status: alert, oriented to person, place, and time Communication: glasses Musculoskeletal: UE ROM: .WFL UE Strength:WFL UE Sensation:WFL LE ROM: WFL LE Strength: WFL LE Sensation: WFL Bed Mobility: Supine to Sit: independent, increased time due to buttock pain Sit to Supine: independent Rolling: independent Repositioning in bed: independent Transfers: Sit to Stand: independent Stand to Sit: independent Bed to Chair: independent Gait: Distance: 500' Device used: no assistive device Level of assist: independent Gait pattern: good stride and step length, good pj, no gait deviations noted Stairs: ascended/descended flight of stairs with one rail and reciprocal pattern, distant supervision provided Balance: Sitting static: normal Sitting dynamic: normal Standing static: normal Standing dynamic: normal Education: patient has been educated on Safety , Precautions/protocol, Gait , Activity pacing/Energyconservation, Role of therapy, Balance, Discharge planning and symptoms of TBI/concussion and verbalizes and demonstrates understanding. Patient status, treatment, and mobility recommendations discussed with nursing. Assessment: Jose Eduardo Rodríguez is a 64 y.o. R handed male admitted on 02/11/2015 by Dakota Gutiérrez MD s/p 10' fall from ladder while working with + LOC. Pt found to have R small parafalcine SDH. Spinecleared. Patient presents to physical therapy with the following functional limitations and impairments; increased pain, impaired activity tolerance. Pt made good progress with physical therapy on evaluation meeting all goals. He will remain monitored until formal discharge from the hospital. Pt participated in standardized assessment via Six Clicks with raw score of 18/20. Pt encouraged to ambulate 3 x/day with staff, getting into the bathroom for toileting and walking out in the bowers as able. Recommend discharge to home once medically cleared. Anticipate the patient will require time off from work given the nature of his job and his present deficits. Please see OT recommendations. Goals: all met on evaluation Plan: Monitor until formal discharge. Patient agrees with plan as stated above. Discharge Recommendations: Home once medically cleared Occupational Therapy consult in place Equipment needs: No equipment necessary. [facility] AM-PAC 6 Clicks Basic Mobility Inpatient Short Form (Without Stair Climbing) How much difficulty does the patient currently have... Unable without assistance (1) A Lot (2) A Little (3) None (4) 1. Turning over in bed (including adjusting bedclothes, sheets and blankets)? X 2. Sitting down on and standing up from a chair with arms (e.g., wheelchair, bedside commode, etc.)?X 3. Moving from lying on back to sitting on the side of the bed? X How much help from another person does the patient currently need... Total (1) A Lot (2) A Little (3) None (4) 4. Moving to and from a bed to a chair (including a wheelchair)? X 5. Need to walk in hospital room? X Raw Score: 18 Standardized Score: 51.97 CMS 0-100% Score: 23.26% [facility] Modifier: CJ Time IN / OUT: [id number], [id number] Total time spent with patient: 41 minutes for evaluation Total timed interventions: 0 minutes Billing: one evaluation MARNIE BROOKS, GARFIELD, DPT 02/12/2015 Pager: [phone] Physical Therapy Inpatient Rehabilitation Department G-Code: Mobility Status Modifier CURRENT CJ PROJECTED CJ - At least 20 percent but less than 40 percent impaired, limited or restricted DISCHARGE CJ - At least 20 percent but less than 40 percent impaired, limited or restricted G Code Rationale: This G-Code and these disability modifiers were selected as the primary therapy goal based upon the patient's evaluation including the following functional test(s) [facility] 6 clicks basic mobility. Current ability measures, co-morbidities and clinical judgement were also used to select the disability modifier. Mr. Rodríguez's current G-Code functional level is 23.26% impaired based upon [facility] 6 clicks basic mobility. Plan of Care - Chey Nunez RN - 02/12/2015 2:39 AM EST Problem: General Plan of Care Goal: Plan of Care Review Outcome: Ongoing (Interventions Implemented as Appropriate) 02/12/15 0230 Plan of Care Review Plan of Care Outcome Status ongoing (interventions implemented as appropriate) Progress progress toward functional goals as expected Coping/Psychosocial Response Interventions Plan of Care Reviewed with patient OUTCOME EVALUATION NOTE: OUTCOME SUMMARY: 2114 Report received from Soumya DIAS in the ED. Pt [facility] via bed at 2143. Pt was attached toon NSCU monitor and assessed. He was found to be awake and alert. Ox3. Pupils equal and reactive to light. No drift or droop. Strengths 5/5 throughout. Pt orders released and reviewed. Evening medications given. Cervical spine precautions maintained at all times per MD orders. Pt denied pain overnight. He remained neurologically stable overnight. PLAN MOVING FORWARD: Explain all nursing interventions. Monitor neuro's and vitals q 2 hours. Keep Pt attached to monitorper MD orders. Strict I&O's. NPO for now, will ask MD's about advancing diet in AM. Turn q 2 hours to promote skin integrity. Assess pain q 2 hours and PRN treating as needed. Encourage ADL's to max functional capacity. INDIVIDUALIZED FALL PREVENTION: Assistance: Pt is currently on bedrest, log roll with manual c-spine stabilization required. Supervision: Would suggest arms reach supervision for first OOB. Surveillance: Q 1 hour purposeful rounds. Bed alarm on at all times. Room near nurses stations. Close observations. Pt attached to bedside monitor and alarms adjusted per MD orders. [facility] GOAL OUTCOME EVALUATION: Goal: Individualization and Mutuality Outcome: Ongoing (Interventions Implemented as Appropriate) 02/11/15230802/12/15 0230 Individualization Patient Specific Preferences -- Likes to be called Jose Eduardo Patient Specific Goals -- Would like to be able to get OOB to use real bathroom rather then bed meadows Mutuality/Individual Preferences What anxieties, fears or concerns do you have about your health or care? wants to know where the bathroom is -- What questions do you have about your health or care? none at this time -- What information would help us give you more personalized care? will let us know as things come up -- Goal: Fall Prevention-Safe Patient Handling Outcome: Ongoing (Interventions Implemented as Appropriate) 02/11/15215702/11/15229902/12/15 0230 Activity and Safety Assistive Device -- -- Other (none) Safety Interventions Safety Precautions/Fall Reduction -- bed alarm;room near unit station -- [place] Fall Risk History of Falling 25 -- -- Secondary Diagnosis 15 -- -- Ambulatory Aids 0 -- -- Intravenous Therapy/Heparin/Saline Lock 20 -- -- Gait/Transferring 0 -- -- Mental Status 0 -- -- Score 60 -- -- OTHER [place] Fall Risk High -- -- Musculoskeletal Interventions Activity/Level of Assistance bed rest;greater than 2-person assist -- -- Positioning -- HOB up 30-45 degrees -- Muscle Strengthening activity/mobility promoted -- -- Self-Care Promotion assistance provided to decrease frustration;independence encouraged while providing assistance -- -- Goal: Infection Control Outcome: Ongoing (Interventions Implemented as Appropriate) 02/11/15215702/11/15224202/12/15229 Coping/Psychosocial Response Interventions Counseling -- calming techniques promoted;emotional support provided;reassurance provided;relaxationtechniques promoted;understanding of situation facilitated;verbalization of feelings encouraged -- Safety Interventions Isolation Precautions -- -- standard precautions maintained Infection Prevention bronchial hygiene promoted;environmental surveillance;hydration promoted;promote handwashing;rest/sleep promoted -- -- Goal: Discharge Needs Assessment Outcome: Ongoing (Interventions Implemented as Appropriate) 02/12/15229 Discharge Needs Assessment Concerns to be Addressed no discharge needs identified Readmission Within the Last 30 Days no previous admission in last 30 days Discharge Facility/Level of Care Needs independent living facility Current Health Anticipated Changes Related to Illness none Self-Care Equipment Currently Used at Home none Living Environment Transportation Available car;family or friend will provide Problem: Fall/Trauma/Injury Risk (Adult, Obstetrics) Intervention: Muscle Strengthening 02/11/152157 Musculoskeletal Interventions Muscle Strengthening activity/mobility promoted Intervention: Self-Care Promotion 02/11/152157 Musculoskeletal Interventions Self-Care Promotion assistance provided to decrease frustration;independence encouraged while providing assistance Intervention: Reality Orientation 02/11/152157 Cognitive/Perceptual/Neuro Interventions Reality Orientation clock in view;calendar in view;daily routine promoted;emotional support provided;environmental consistency promoted;glasses encouraged Intervention: Sensory Stimulation Regulation 02/11/152157 Cognitive/Perceptual/Neuro Interventions Sensory Stimulation Regulation care clustered;calming techniques promoted;lighting decreased;quiet environment promoted;reality orientation provided;relaxation techniques promoted;sleep/wake cycle promoted Intervention: Sensation Impairment Protection 02/11/152204 Peripheral Neurovascular Interventions Sensation Impairment Protection external pressure sources minimized;normothermia maintained;skin surveillance Intervention: Visual Performance Enhancement 02/11/15 2158 HEENT Interventions Visual Performance Enhancement lighting provided/adjusted;consistent room organization maintained;corrective lenses used;verbal cueing provided Goal: Identify Signs and Symptoms and Related Risk Factors Signs and symptoms and related risk factors are identified upon initiation of Human Response Clinical Practice Guideline (CPG) Outcome: Ongoing (Interventions Implemented as Appropriate) 02/12/15 0230 Fall/Trauma/Injury Risk Personal Related Risk Factors (Fall/Trauma/Injury Risk) fatigue/slowed reaction time;history of falls;sleep disturbance Environmental Related Risk Factors (Fall/Trauma/Injury Risk) environment unfamiliar Physiological Related Risk Factors (Fall/Trauma/Injury Risk) neurologic alteration Treatment Related Related Risk Factors (Fall/Trauma/Injury Risk) bed rest Signs and Symptoms (Fall/Trauma/Injury Risk) presence of risk factors Goal: Absence of Trauma/Injury/Falls Patient will demonstrate the desired outcomes. Outcome: Ongoing (Interventions Implemented as Appropriate) 02/12/15 0230 Fall/Trauma/Injury Risk (Adult, Obstetrics) Absence of Trauma/Injury/Falls making progress toward outcome ED Triage - Surjit Hughes RN - 02/11/2015 5:44 PM EST Pt. Arrived by ems form outside hospital s/p fall from 8 feet off a ladder. Pt. Denied any loc. Is A&OX4, resp even pt. Pupils ERL, ears and nose clear no CSF, Pt. Has good csm in all extremities. Pt. Arrived with 20 g iv in left arm. documented in this encounter Plan of Treatment Upcoming Encounters Date Type Specialty Care Team Description 08/16/2021 Appointment Radiology Mateo Victoria MD [facility] [place] [address] 08/16/2021 Office Visit Pain and Spine Mateo [facility] MD [facility] [place] [address] 09/22/2021 Hospital Encounter Surgery Mateo Victoria MD [facility] [place] [address] 09/22/2021 Surgery Surgery Mateo Victoria, LAMINECTOMY , FACETECTOMY & ONE MEDICAL FORAMINOTOMY,CHAVA DEMPSEY, CENTER ONE LEVEL ([facility] [address]) [place] [address] Scheduled Procedures Name Priority Associated Diagnoses Date/Time [...] Name Priority Date/Time Associated Diagnosis Comme nts DATABASE MANAGEMENT SPECIALIST SCAN 02/14/2015 12:00 AM EST EKG 12-LEAD Routine 02/12/2015 12:33 Coronary artery Results for this PM EST disease, angina procedure ar e in presence unspecified, the re sults unspecified vessel or sectio n. lesion type, unspecified whether [place] or transplanted heart CT HEAD WO CONTRAST Routine 02/12/2015 10:32 Resu lts for this (GENERIC) AM EST procedure are i n the results section. HEMOGRAM STAT 02/12/2015 3:32 AM Results f or this EST procedure are i n the results section. DIFFERENTIAL, STAT 02/12/2015 3:32 AM Results for this AUTOMATED EST procedure are i n the results section. CBC (WITH DIFF) STAT 02/12/2015 3:32 AM EST BASIC METABOLIC STAT 02/12/2015 3:32 AM Result s for this PANEL (NON-FASTING) EST procedur e are in the results section. ABO/RH TYPING STAT 02/11/2015 4:53 PM Results for this EST procedure are i n the results section. ANTIBODY SCREEN STAT 02/11/2015 4:53 PM Result s for this EST procedure are i n the results section. TYPE AND SCREEN STAT 02/11/2015 4:53 PM [place] [place] EST L-LACTATE2 WHOLE Routine 02/11/2015 4:48 PM Resul ts for this BLOOD EST procedure are i n the results section. REQUEST FOR 2ND READ Routine 02/11/2015 4:47 PM R esults for this CT HEAD AND SPINE EST procedure are in the results section. XR CHEST ONE VIEW STAT 02/11/2015 4:46 PM Resu lts for this EST procedure are i n the results section. HEMOGRAM STAT 02/11/2015 4:45 PM Results f or this EST procedure are i n the results section. DIFFERENTIAL, STAT 02/11/2015 4:45 PM Results for this AUTOMATED EST procedure are i n the results section. GOLD TUBE HOLD STAT 02/11/2015 4:45 PM Results for this EST procedure are i n the results section. APTT STAT 02/11/2015 4:45 PM Results f or this EST procedure are i n the results section. PROTHROMBIN TIME STAT 02/11/2015 4:45 PM Resul ts for this EST procedure are i n the results section. CBC (WITH DIFF) STAT 02/11/2015 4:45 PM EST ETHANOL LEVEL STAT 02/11/2015 4:45 PM Results for this EST procedure are i n the results section. BASIC METABOLIC STAT 02/11/2015 4:45 PM Result s for this PANEL (NON-FASTING) EST procedur e are in the results section. RAPID DRUG SCREEN STAT 02/11/2015 4:39 PM Resu lts for this W/O CONFIRMATION, EST procedure are in URINE the results section. URINALYSIS WITH STAT 02/11/2015 4:39 PM Result s for this REFLEX CULTURE EST procedure are in the results section. FILM LIBRARY STORAGE STAT 02/11/2015 12:30 Pain Res ults for this ONLY DX SPINE AM EST procedure are in the results section. FILM LIBRARY STORAGE STAT 02/11/2015 12:15 Pain Res ults for this ONLY DX PELVIS AM EST procedure are in the results section. FILM LIBRARY STORAGE STAT 02/11/2015 12:05 Pain Res ults for this ONLY CT HEAD AND AM EST procedure a re in SPINE the results section. FILM LIBRARY STORAGE STAT 02/11/2015 12:00 Pain Res ults for this ONLY DX CHEST AM EST procedure are in the results section. POCT URINE DIPSTICK STAT 02/11/2015 Results for this procedure are i n the results section. documented in this encounter Results SCAN DOC: DATABASE MANAGEMENT SPECIALIST (02/14/2015 12:00 AM EST) Narrative This result has an attachment that is no t available. Scanning Provider MEDIA MGR SCAN EXT ORDR/RSLT EKG 12 Lead (02/12/2015 12:33 PM EST) Component Value Ref Range Test Analysis Performed Pathologis t Method Time At Signature Ventricular rate 56 BPM MUSE SYSTEM Atrial Rate 56 BPM MUSE SYSTEM P-R Interval 166 ms MUSE SYSTEM QRS Duration 96 ms MUSE SYSTEM Q-T Interval 430 ms MUSE SYSTEM QTC Calculated 414 ms MUSE SYSTEM (Bezet) Calculated P [place] 32 degrees MUSE SYSTEM Calculated R [place] 6 degrees MUSE SYSTEM Calculated T [place] 26 degrees MUSE SYSTEM INTERPRETATION Sinus bradycardia MUSE SY STEM Otherwise normal ECG No previous ECGs available Confirmed by MD Hao, Surjit ([id number]) on 02/12/2015 2:50 :23 PM Specimen Anatomical Collection Method Collection Time Receive d Time (Source) Location / / Volume Laterality 02/12/2015 12:33 02/12/2015 2:50 PM EST PM EST Dakota Hyde MD ECG ORDERABLES Performing Organization Address City/State/ZIP Code Phon e Number MUSE SYSTEM CT Head Wo Contrast (GENERIC) (02/12/2015 10:32 AM EST) Anatomical Region Laterality Modality Head Computed Tomography Specimen (Source) Anatomical Location Collection Method / Collectio n Time Received Time / Laterality Volume Impressions 02/12/2015 11:00 AM EST IMPRESSION: Unchanged small subdural hemorrhage laura g the midline falx. I have personally reviewed the image(s) and the residents interpretation and agree with the findings, Clifford Helms at 02/12/2015 11:00 AM Narrative 02/12/2015 11:00 AM EST EXAMINATION: CT HEAD WO CONTRAST CLINICAL HISTORY: Repeat head CT s/p fal l from ladder with small SDH, Repeat head CT s/p fall from ladder with small SDH TECHNIQUE: Serial axial images of the he ad were obtained without intravenous contrast. Coronal and sagittal reconstru ctions were separately performed. COMPARISON: Prior head CT from 02/11/2014 FINDINGS: There is a linear hyperattenuating mater ial associated with the midline falx, consistent with a small subdural hemorrh age. Overall extent is similar to prior exam. There is a small focus of hyperatt enuation also seen within the left basal ganglia, also present on prior CT and li catherine representing globus pallidus calcification. No other extra-axial fluid collection or mass effect or midline shift. The freedman-white differentiation is preserved. The sulci and ventricles are normal in appearance. 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 Paranasal sinuses, mastoid air cells and orbits are unremarkable. Procedure Note Clifford Helms MD - 02/12/2015Format ting of this note might be different from the original. EXAMINATION: CT HEAD WO CONTRAST CLINICAL HISTORY: Repeat head CT s/p fal l from ladder with small SDH, Repeat head CT s/p fall from ladder with small SDH TECHNIQUE: Serial axial images of the he ad were obtained without intravenous contrast. Coronal and sagittal reconstru ctions were separately performed. COMPARISON: Prior head CT from 02/11/2014 FINDINGS: There is a linear hyperattenuating mater ial associated with the midline falx, consistent with a small subdural hemorrh age. Overall extent is similar to prior exam. There is a small focus of hyperatt enuation also seen within the left basal ganglia, also present on prior CT and li catherine representing globus pallidus calcification. No other extra-axial fluid collection or mass effect or midline shift. The freedman-white differentiation is preserved. The sulci and ventricles are normal in appearance. 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 Paranasal sinuses, mastoid air cells and orbits are unremarkable. IMPRESSION IMPRESSION: Unchanged small subdural hemorrhage laura g the midline falx. I have personally reviewed the image(s) and the residents interpretation and agree with the findings, Clifford Helms at 02/12/2015 11:00 AM Dakota Hyde MD IMG CT ORDERABLES (ABNORMAL) Differential, Automated (02/12/2015 3:32 AM EST) [facility] Method Time Signature Neutrophils % 81.9 % CERNER MILLENNIUM Neutr Abs (ANC) 6.84 (H) 1.50 - CERNER 6.30 MILLENNIUM x10(3)/mc L Lymphocytes % 8.3 % CERNER MILLENNIUM Lymphocytes Abs 0.7 (L) 1.0 - 3.6 CERNER x10(3)/mc MILLENNIUM L Monocytes % 9.6 % CERNER MILLENNIUM Monocyte Abs 0.8 0.2 - 1.0 CERNER x10(3)/mc MILLENNIUM L Eosinophils % 0.1 % CERNER MILLENNIUM Eosinophils Abs 0.0 0.0 - 0.5 CERNER x10(3)/mc MILLENNIUM L Basophils % 0.0 % CERNER MILLENNIUM Basophils Abs 0.0 0.0 - 0.2 CERNER x10(3)/mc MILLENNIUM L Immature Gran % 0.10 % CERNER MILLENNIUM Comment: Immature granulocytes(IG's)percentage an d absolute count will include metamyelocytes, myelocytes, and promyelo cytes. Blood smears from CBCs yielding IG's will be scanned manually for concor dance. If this scan disagrees with the automated IG or if promyelocytes are not ed, a manual differential will be performed. Malaika Gran Abs 0.01 0.00 - 0.05 x10(3)/mcL CER NER MILLENNIUM Specimen Anatomical Collection Method Collection Time Receive d Time (Source) Location / / Volume Laterality Blood specimen 02/12/2015 3:32 AM 016 3:55 (specimen) EST AM EST Resulting Agency Comment Spec In Lab Dakota Hyde MD HEMATOLOGY ORDERABLES Performing Organization Address City/State/ZIP Code Phon e Number [place] [phone] CERNER MILLENNIUM (ABNORMAL) Hemogram (02/12/2015 3:32 AM EST) P athologist Signature WBC 8.4 4.0 - 10.0 CERNER x10(3)/mcL MILLENNIUM RBC 4.44 (L) 4.63 - CERNER 6.08 MILLENNIUM x10(6)/mcL Hemoglobin 14.1 13.7 - CERNER 17.5 gm/dL MILLENNIUM Hematocrit 40.6 40.0 - CERNER 51.0 % MILLENNIUM MCV 91.4 79.0 - CERNER 92.0 fL MILLENNIUM MCH 31.8 25.6 - CERNER 32.2 pg MILLENNIUM MCHC 34.7 32.0 - CERNER 36.5 gm/dL MILLENNIUM Platelets 132 (L) 145 - 370 CERNER x10(3)/mcL MILLENNIUM RDWSD 42.1 35.0 - CERNER 46.0 fL MILLENNIUM RDWCV 12.6 10.9 - CERNER 14.4 % MILLENNIUM MPV 11.0 9.0 - 12.0 CERNER fL MILLENNIUM Specimen Anatomical Collection Method Collection Time Receive d Time (Source) Location / / Volume Laterality Blood specimen 02/12/2015 3:32 AM 016 3:55 (specimen) EST AM EST Resulting Agency Comment Spec In Lab Dakota Hyde MD HEMATOLOGY ORDERABLES Performing Organization Address City/State/Z[place] [address] CERNER MILLENNIUM (ABNORMAL) Basic Metabolic Panel (non-fasting) (02/12/2015 3:32 AM EST) athologist Signature Glucose Lvl 107 65 - 199 CERNER mg/dL MILLENNIUM Comment: Diabetes: >=200 mg/dL plus symp toms BUN 14 10 - 20 mg/dL CERNER MILLENNIU M Creatinine 0.87 0.80 - 1.50 mg/dL CERNER MILL ENNIUM Comment: Please note that the pediatric reference intervals supplied above were not validated at [facility] [place] Results from pediatri c patients should be interpreted in conjunction to the patient's age, height and muscle mass. Sodium 138 135 - 145 mmol/L CERNER SRIDHAR NIUM Potassium 4.2 3.5 - 5.0 mmol/L CERNER SRIDHAR NIUM Comment: Please note: ??Patients with WBC >100,00 0 may have falsely elevated Potassium levels. ??For accurate Potassium quantif ication in these patients send serum separator tube (gold top) for subsequent determinations. ??Contact the Clinical Chemistry Laboratory if there are any qu estions. Chloride 103 98 - 107 mmol/L CERNER MILLENN IUM CO2 25 22 - 31 mmol/L CERNER MILLENNI UM Anion Gap 10 5 - 15 mmol/L CERNER MILLENNIU M Calcium 8.4 (L) 8.5 - 10.5 mg/dL KELLY GÓMEZ Estimated GFR >60 >=60 KELLY Mcallister Comment: This estimated GFR (eGFR) value was calc ulated using the MDRD equation which has been validated on patients between t he ages of 18 and 70. The MDRD should not be used to assess kidney function in patients < 18 years of age or in patients with extremes of body mass, or in patients with acute kidney failure. This value should be multiplied by 1.2 f or patients. For further information please copy and past e the following links into your internet browser. http://[email or web address]/DHnkdep [email or web address] Specimen Anatomical Collection Method Collection Time Receive d Time (Source) Location / / Volume Laterality Blood specimen 02/12/2015 3:32 AM 016 3:55 (specimen) EST AM EST Resulting Agency Comment Spec In Lab Dakota Hyde MD CHEMISTRY ORDERABLES Performing Organization Address City/[facility]/[place] [address] [facility] GLADYSBANNERIUM Antibody screen (02/11/2015 4:53 PM EST) Patholo gist Method Time Signature Ab Screen Negative [facility] Inter GLADYSENNIUM Expires at 02/14/2015 KELLY [id number] on: GLADYSENNIUM Specimen Anatomical Collection Method Collection Time Receive d Time (Source) Location / / Volume Laterality Blood specimen 02/11/2015 4:53 PM 016 4:53 (specimen) EST PM EST Resulting Agency Comment Spec In Lab Dakota Hyde MD BLOOD BANK ORDERABLES Performing Organization Address City/[facility]/ZIP Code Phon e Number [address] [facility] MILLENNIUM ABO/Rh Typing (02/11/2015 4:53 PM EST) P athologist Signature ABORh Type A Pos [facility] GLADYSENNIUM Specimen Anatomical Collection Method Collection Time Receive d Time (Source) Location / / Volume Laterality Blood specimen 02/11/2015 4:53 PM 016 4:53 (specimen) EST PM EST Resulting Agency Comment Spec In Lab Dakota Hyde MD BLOOD BANK ORDERABLES Performing Organization Address City/State/ZIP Code Phon e Number [address] [facility] L-Lactate2 Whole Blood (02/11/2015 4:48 PM EST) P athologist Signature Lactate WB 1.3 0.5 - 2.2 CERNER mmol/L MILLENNIUM Specimen Anatomical Collection Method Collection Time Receive d Time (Source) Location / / Volume Laterality Blood specimen 02/11/2015 4:48 PM 016 4:48 (specimen) EST PM EST Emergency Dept CHEMISTRY ORDERABLES Performing Organization Address City/[facility]/ZIP Code Phon e Number [address] CERNER iDentiMobENNIUM Request For 2nd Read CT Head And Spine (02/11/2015 4:47 PM EST) Anatomical Region Laterality Modality Head, C-spine, T-spine, L-spine Computed Tomography Specimen (Source) Anatomical Location Collection Method / Collectio n Time Received Time / Laterality Volume Impressions 02/11/2015 6:42 PM EST IMPRESSION: CT cervical spine: Changes of cervical s pondylosis. No acute abnormality seen. Head CT: High attenuation associated wit h the falx without mass effect suggests a small subdural hemorrhage. Narrative 02/11/2015 6:42 PM EST EXAMINATION: REQUEST FOR 2ND READ CT HEAD AND SPINE CLINICAL HISTORY: S/p fall, What Modalit y is the exam? CT Scan, Body Part (please add comments as necessary): Hean d and C-spine, I believe a reinterpretation of this exam may alter care of Patient. Yes TECHNIQUE: Head CT noncontrast CT cervical spine noncontrast COMPARISON: None FINDINGS: Head CT: There is small amount of high a ttenuation associated with the falx in the midline which may represent a small amount of subdural blood. There is otherwise normal attenuation of the brai n parenchyma. No other evidence of hemorrhage identified. There is no corti vera infarction, mass, mass effect, midline shift or ventriculomegaly. Review of bone windows demonstrates jane r appearance of visualized mastoid air cells, middle ear cavities and visualize d paranasal sinuses. No gross lytic or blastic disease and no depressed skull f ragments seen. CT cervical spine: Changes of cervical s pondylosis identified greatest at C5-6 and C6-7 with disc space narrowing and e ndplate proliferative change and reactive changes. There is mild retrolis thesis of C5 on C6. There is minimal anterolisthesis of C4 on C5 with mild fa cet arthropathy greater on the right. There is facet arthropathy on the right at C2-3. Prevertebral soft tissues are normal. No fracture deformity. Procedure Note Shun Mcbride MD - 02/11/2015Formatt ing of this note might be different from the original. EXAMINATION: REQUEST FOR 2ND READ CT HEA D AND SPINE CLINICAL HISTORY: S/p fall, What Modalit y is the exam? CT Scan, Body Part (please add comments as necessary): Hean d and C-spine, I believe a reinterpretation of this exam may alter care of Patient. Yes TECHNIQUE: Head CT noncontrast CT cervical spine noncontrast COMPARISON: None FINDINGS: Head CT: There is small amount of high a ttenuation associated with the falx in the midline which may represent a small amount of subdural blood. There is otherwise normal attenuation of the brai n parenchyma. No other evidence of hemorrhage identified. There is no corti vera infarction, mass, mass effect, midline shift or ventriculomegaly. Review of bone windows demonstrates jane r appearance of visualized mastoid air cells, middle ear cavities and visualize d paranasal sinuses. No gross lytic or blastic disease and no depressed skull f ragments seen. CT cervical spine: Changes of cervical s pondylosis identified greatest at C5-6 and C6-7 with disc space narrowing and e ndplate proliferative change and reactive changes. There is mild retrolis thesis of C5 on C6. There is minimal anterolisthesis of C4 on C5 with mild fa cet arthropathy greater on the right. There is facet arthropathy on the right at C2-3. Prevertebral soft tissues are normal. No fracture deformity. IMPRESSION IMPRESSION: CT cervical spine: Changes of cervical s pondylosis. No acute abnormality seen. Head CT: High attenuation associated wit h the falx without mass effect suggests a small subdural hemorrhage. Dakota Hyde MD IMG OUTSIDE INTERPRETATION O RDERABLES XR Chest Pa or AP- 1 View (02/11/2015 4:46 PM EST) Anatomical Region Laterality Modality Chest N/A Digital Radiography Specimen (Source) Anatomical Location Collection Method / Collectio n Time Received Time / Laterality Volume Impressions 02/11/2015 4:59 PM EST IMPRESSION: 1. ?No acute cardiopulmonary process . I have personally reviewed the image(s) and the residents interpretation and agree with the findings, Brennon palumbo 02/11/2015 4:59 PM Narrative 02/11/2015 4:59 PM EST EXAMINATION: XR CHEST PA OR AP 1 VIEW CLINICAL HISTORY: fall off a ladder with reported SDH and confusion., fall off a ladder with reported SDH and confusion. TECHNIQUE: Two portable trauma AP chest radiographs acquired at 1650 hours COMPARISON: PA and lateral chest radiogr aphs dated 02/11/2015 1457 hours from outside institution FINDINGS: Lungs are clear with normal pulmonary va scular markings. No pleural effusions or pneumothorax. Normal-appearing cardiomed iastinal silhouette and bilateral meka. No suspicious osseous lesions. Procedure Note Brennon Casas MD - 02/11/2015Formatt ing of this note might be different from the original. EXAMINATION: XR CHEST PA OR AP 1 VIEW CLINICAL HISTORY: fall off a ladder with reported SDH and confusion., fall off a ladder with reported SDH and confusion. TECHNIQUE: Two portable trauma AP chest radiographs acquired at 1650 hours COMPARISON: PA and lateral chest radiogr aphs dated 02/11/2015 1457 hours from outside institution FINDINGS: Lungs are clear with normal pulmonary va scular markings. No pleural effusions or pneumothorax. Normal-appearing cardiomed iastinal silhouette and bilateral meka. No suspicious osseous lesions. IMPRESSION IMPRESSION: 1. No acute cardiopulmonary process. I have personally reviewed the image(s) and the residents interpretation and agree with the findings, Brennon palumbo 02/11/2015 4:59 PM Dakota Hyde MD IMG DX ORDERABLES Gold Tube HOLD (02/11/2015 4:45 PM EST) P athologist Signature Gold Hold Sample in [facility] lab. [facility] Specimen Anatomical Collection Method Collection Time Receive d Time (Source) Location / / Volume Laterality Blood specimen Venous Draw / 02/11/2015 4:45 PM 2015 4:58 (specimen) Unknown EST PM EST Dakota Hyde MD CHEMISTRY ORDERABLES Performing Organization Address City/State/ZIP Code Phon e Number [address] CERNER MILLENNIUM (ABNORMAL) Differential, Automated (02/11/2015 4:45 PM EST) [facility] Method Time Signature Neutrophils % 87.8 % CERNER MILLENNIUM Neutr Abs (ANC) 10.42 (H) 1.50 - CERNER 6.30 MILLENNIUM x10(3)/mc L Lymphocytes % 6.1 % CERNER MILLENNIUM Lymphocytes Abs 0.7 (L) 1.0 - 3.6 CERNER x10(3)/mc MILLENNIUM L Monocytes % 5.8 % CERNER MILLENNIUM Monocyte Abs 0.7 0.2 - 1.0 CERNER x10(3)/mc MILLENNIUM L Eosinophils % 0.0 % CERNER MILLENNIUM Eosinophils Abs 0.0 0.0 - 0.5 CERNER x10(3)/mc MILLENNIUM L Basophils % 0.1 % CERNER MILLENNIUM Basophils Abs 0.0 0.0 - 0.2 CERNER x10(3)/mc MILLENNIUM L Immature Gran % 0.20 % CERNER MILLENNIUM Comment: Immature granulocytes(IG's)percentage an d absolute count will include metamyelocytes, myelocytes, and promyelo cytes. Blood smears from CBCs yielding IG's will be scanned manually for concor dance. If this scan disagrees with the automated IG or if promyelocytes are not ed, a manual differential will be performed. Malaika Gran Abs 0.02 0.00 - 0.05 x10(3)/mcL CER NER MILLENNIUM Specimen Anatomical Collection Method Collection Time Receive d Time (Source) Location / / Volume Laterality Blood specimen 02/11/2015 4:45 PM 016 4:57 (specimen) EST PM EST Resulting Agency Comment Spec In Lab Dakota Hyde MD HEMATOLOGY ORDERABLES Performing Organization Address City/[facility]/ZIP Code Phon e Number [address] CERNER MILLENNIUM (ABNORMAL) Hemogram (02/11/2015 4:45 PM EST) athologist Signature WBC 11.9 (H) 4.0 - 10.0 CERNER x10(3)/mcL MILLENNIUM RBC 4.98 4.63 - CERNER 6.08 MILLENNIUM x10(6)/mcL Hemoglobin 15.9 13.7 - CERNER 17.5 gm/dL MILLENNIUM Hematocrit 45.2 40.0 - CERNER 51.0 % MILLENNIUM MCV 90.8 79.0 - CERNER 92.0 fL MILLENNIUM MCH 31.9 25.6 - CERNER 32.2 pg MILLENNIUM MCHC 35.2 32.0 - CERNER 36.5 gm/dL MILLENNIUM Platelets 152 145 - 370 CERNER x10(3)/mcL MILLENNIUM RDWSD 40.7 35.0 - CERNER 46.0 fL MILLENNIUM RDWCV 12.2 10.9 - CERNER 14.4 % MILLENNIUM MPV 10.8 9.0 - 12.0 CERNER fL MILLENNIUM Specimen Anatomical Collection Method Collection Time Receive d Time (Source) Location / / Volume Laterality Blood specimen 02/11/2015 4:45 PM 016 4:57 (specimen) EST PM EST Resulting Agency Comment Spec In Lab Dakota Hyde MD HEMATOLOGY ORDERABLES Performing Organization Address City/State/ZIP [place] [address] [facility] Ethanol Level (02/11/2015 4:45 PM EST) athologist Signature Ethanol Lvl <100 mg/L [facility] MILLBANNERIUM Comment: Greater than 800 mg/L (0.08%) should be considered intoxicated. 3400 to 4500 mg/L (0.34 - 0.45%) is cons idered severe intoxication. Greater than 5500 mg/L (0.55%) is usuall y fatal. Specimen Anatomical Collection Method Collection Time Receive d Time (Source) Location / / Volume Laterality Blood specimen 02/11/2015 4:45 PM 016 5:13 (specimen) EST PM EST Resulting Agency Comment Spec In Lab Dakota Hyde MD CHEMISTRY ORDERABLES Performing Organization Address City/[facility]/[place] [address] CERNER MILLENNIUM (ABNORMAL) APTT (02/11/2015 4:45 PM EST) athologist Signature PTT 24 (L) 25 - 35 sec CERNER MILLENNIUM Comment: Recommended therapeutic PTT range for fu ll dose unfractionated heparin is 80-114 seconds. Specimen Anatomical Collection Method Collection Time Receive d Time (Source) Location / / Volume Laterality Blood specimen 02/11/2015 4:45 PM 016 4:57 (specimen) EST PM EST Resulting Agency Comment Spec In Lab Dakota Hyde MD HEMATOLOGY ORDERABLES Performing Organization Address City/[facility]/ZIP Code Phon e Number [address] [facility] MILLENNIUM Prothrombin Time (02/11/2015 4:45 PM EST) athologist Signature PT 13.9 12.0 - 15.0 CERNER sec MILLENNIUM Comment: Transfusion Committee Guidelines: INR less than 2.0, PTT less than OR equal to 43.5 seconds, or Fibrinogen greater t sow or equal to 100 mg/dl indicate adequate procoagulant activity for hemos tasis in patients without underlying bleeding disorders. INR 1.0 0.9 - 1.1 [facility] MILLBANNERIUM Specimen Anatomical Collection Method Collection Time Receive d Time (Source) Location / / Volume Laterality Blood specimen 02/11/2015 4:45 PM 016 4:57 (specimen) EST PM EST Resulting Agency Comment Spec In Lab Dakota Hyde MD HEMATOLOGY ORDERABLES Performing Organization Address City/[facility]/[place] [address] CERNER MILLENNIUM Basic Metabolic Panel (non-fasting) (02/11/2015 4:45 PM EST) athologist Signature Glucose Lvl 115 65 - 199 CERNER mg/dL MILLBANNERIUM Comment: Diabetes: >=200 mg/dL plus symp toms BUN 18 10 - 20 mg/dL [facility] Creatinine 0.91 0.80 - 1.50 mg/dL CERNER MILL ENNIUM Comment: Please note that the pediatric reference intervals supplied above were not validated at [facility] Results from pediatri c patients should be interpreted in conjunction to the patient's age, height and muscle mass. Sodium 138 135 - 145 mmol/L CERNER SRIDHAR NIUM Potassium 3.8 3.5 - 5.0 mmol/L CERNER SRIDHAR NIUM Comment: Please note: ??Patients with WBC >100,00 0 may have falsely elevated Potassium levels. ??For accurate Potassium quantif ication in these patients send serum separator tube (gold top) for subsequent determinations. ??Contact the Clinical Chemistry Laboratory if there are any qu estions. Chloride 99 98 - 107 mmol/L CERNER MILLENN IUM CO2 25 22 - 31 mmol/L CERNER MILLENNI UM Anion Gap 14 5 - 15 mmol/L CERNER MILLENNIU M Calcium 9.4 8.5 - 10.5 mg/dL CERNER SRIDHAR NIUM Estimated GFR >60 >=60 CERNER MILLENNIU M Comment: This estimated GFR (eGFR) value was calc ulated using the MDRD equation which has been validated on patients between t he ages of 18 and 70. The MDRD should not be used to assess kidney function in patients < 18 years of age or in patients with extremes of body mass, or in patients with acute kidney failure. This value should be multiplied by 1.2 f or patients. For further information please copy and past e the following links into your internet browser. [email or web address] [email or web address] Specimen Anatomical Collection Method Collection Time Receive d Time (Source) Location / / Volume Laterality Blood specimen 02/11/2015 4:45 PM 016 4:57 (specimen) EST PM EST Resulting Agency Comment Spec In Lab Dakota Hyde MD CHEMISTRY ORDERABLES Performing Organization Address City/State/ZIP [place] [address] CERNER MILLENNIUM (ABNORMAL) Urinalysis with reflex Culture (02/11/2015 4:39 PM EST) [facility] Method Time Signature Glucose UA Negative Negative CERNER mg/dL MILLENNIUM Protein UA 30 (A) Negative CERNER mg/dL MILLENNIUM Bilirubin UA Negative Negative CERNER mg/dL MILLENNIUM Comment: Clinical correlation required for positi ve Urine Bilirubin results as false positive may occur with some drugs and d rug related products. If a false positive is suspected a serum total bili arthur should be considered if clinically indicated. Urobilinogen UA Normal Normal mg/dL CERNER MILL ENNIUM pH UA 8.0 5.0 - 8.0 CERNER MILLENNIUM Blood UA Negative Negative mg/dL CERNER MILLENNI UM Ketones UA 20 (A) Negative mg/dL CERNER MILLENN IUM Nitrite UA Negative Negative CERNER MILLENNIUM Leukocytes UA Negative Negative mcL CERNER SRIDHAR NIUM Appearance UA Clear Clear CERNER MILLENNIU M Spec [place] UA 1.024 1.002 - 1.030 CERNER MIL LENNIUM Color UA Yellow Yellow CERNER MILLENNIUM RBC UA <1 0 - 3 /HPF CERNER MILLENNIUM WBC UA 1 0 - 3 /HPF CERNER MILLENNIUM Culture Reflexed No CERNER SRIDHAR NIUM Specimen (Source) Anatomical Collection Method Collection Time Re ceived Time Location / / Volume Laterality Urine specimen 02/11/2015 4:39 02/11/2015 6:10 obtained by clean PM EST PM EST catch procedure (specimen) Resulting Agency Comment Spec In Lab Dakota Hyde MD URINE ORDERABLES Performing Organization Address City/State/ZIP Code Phon e Number [place] [phone] CERNER MILLENNIUM Rapid Drug Screen, Urine (02/11/2015 4:39 PM EST) [facility] Method Time Signature EMILI Marijuana None None CERNER Metabolites Scr Detected Detected MILLENNIUM Comment: The marijuana metabolites screen detects the THC Metabolite (52-ztz-6-carboxy-? 9-THC) at concentrations >50 ng/mL. Qualitative Drug screens are reported as ? None Detected? or ? Presumptive Positive? as the results are not routinely confirmed by highly-specific methods. As with any screen occasional f alse positive results from cross-reacting substances can occur. Not for Medico-Legal Purposes. EMILI Phencyclidine Scr None Detected None Detected CERNER MILLENNIUM Comment: The phencyclidine screen detects phencyc lidine at concentrations >25 ng/mL. Qualitative Drug screens are reported as ? None Detected? or ? Presumptive Positive? as the results are not routinely confirmed by highly-specific methods. As with any screen occasional f alse positive results from cross-reacting substances can occur. Not for Medico-Legal Purposes. EMILI Cocaine Metabolites Scr None Detected None Detected [facility] Comment: The cocaine metabolites screen detects b enzoylecgonine (Cocaine Metabolite) at concentrations >150 ng/mL. Qualitative Drug screens are reported as ? None Detected? or ? Presumptive Positive? as the results are not routinely confirmed by highly-specific methods. As with any screen occasional f alse positive results from cross-reacting substances can occur. Not for Medico-Legal Purposes. EMILI Methamphetamines Scr None Detected None Detected [facility] Comment: The methamphetamine screen detects d-met hamphetamine at concentrations >500 ng/mL. Qualitative Drug screens are reported as ? None Detected? or ? Presumptive Positive? as the results are not routinely confirmed by highly-specific methods. As with any screen occasional f alse positive results from cross-reacting substances can occur. Not for Medico-Legal Purposes. EMILI Opiates Scr None Detected None Detected [facility] Comment: The opiates screen detects opiates at a concentration >100 ng/mL and oxymorphone >250 ng/mL. Qualitative Drug screens are reported as ? None Detected? or ? Presumptive Positive? as the results are not routinely confirmed by highly-specific methods. As with any screen occasional f alse positive results from cross-reacting substances can occur. Not for Medico-Legal Purposes. EMILI Amphetamines Scr None Detected None Detected [facility] Comment: The amphetamine screen detects d-ampheta mine at concentrations >500 ng/mL. Qualitative Drug screens are reported as ? None Detected? or ? Presumptive Positive? as the results are not routinely confirmed by highly-specific methods. As with any screen occasional f alse positive results from cross-reacting substances can occur. Not for Medico-Legal Purposes. EMILI Benzodiazepines Scr None Detected None Detected CERNER [facility] Comment: The benzodiazepines screen detects benzo diazepines at concentrations >150 ng/mL. Not all benzodiazepines cross-garcia ct equally with antibody used in this screen. Due to the low dosage of clonaze alan, false negatives may be obtained due to low concentration of clonazepam m etabolites. Qualitative Drug screens are reported as ? None Detected? or ? Presumptive Positive? as the results are not routinely confirmed by highly-specific methods. As with any screen occasional f alse positive results from cross-reacting substances can occur. Not for Medico-Legal Purposes. EMILI Tricyclics Scr None Detected None Detected CER NER MILLENNIUM Comment: The tricyclics screen detects tricyclic antidepressants at concentrations >300 ng/mL. Not all tricyclics cross-react eq ually with the antibody used in this screen. Qualitative Drug screens are reported as ? None Detected? or ? Presumptive Positive? as the results are not routinely confirmed by highly-specific methods. As with any screen occasional f alse positive results from cross-reacting substances can occur. Not for Medico-Legal Purposes. EMILI Methadone Scr None Detected None Detected CERN ER MILLENNIUM Comment: The methadone screen detects methadone a t concentrations >200 ng/mL. Qualitative Drug screens are reported as ? None Detected? or ? Presumptive Positive? as the results are not routinely confirmed by highly-specific methods. As with any screen occasional f alse positive results from cross-reacting substances can occur. Not for Medico-Legal Purposes. EMILI Barbiturates Scr None Detected None Detected C ERNER MILLENNIUM Comment: The barbiturates screen detects barbitur ate at concentrations >200 ng/mL. Note: Not all barbiturates cross-react equally with antibody used in this screen. Qualitative Drug screens are reported as ? None Detected? or ? Presumptive Positive? as the results are not routinely confirmed by highly-specific methods. As with any screen occasional f alse positive results from cross-reacting substances can occur. Not for Medico-Legal Purposes. EMILI Oxycodone Scr None Detected None Detected CERN ER MILLENNIUM Comment: The oxycodone screen detects oxycodone a t concentrations >100 ng/mL and oxymorphone >250 ng/ml. Qualitative Drug screens are reported as ? None Detected? or ? Presumptive Positive? as the results are not routinely confirmed by highly-specific methods. As with any screen occasional f alse positive results from cross-reacting substances can occur. Not for Medico-Legal Purposes. EMILI Propoxyphene Scr None Detected None Detected C ERNER MILLENNIUM Comment: The propoxyphene screen detects propoxyp hene at concentrations >300 ng/mL. Qualitative Drug screens are reported as ? None Detected? or ? Presumptive Positive? as the results are not routinely confirmed by highly-specific methods. As with any screen occasional f alse positive results from cross-reacting substances can occur. Not for Medico-Legal Purposes. EMILI Buprenorphine Scr None Detected None Detected CERNER MILLENNIUM Comment: The buprenorphine screen detects bupreno rphine at concentrations >10 ng/mL. Qualitative Drug screens are reported as ? None Detected? or ? Presumptive Positive? as the results are not routinely confirmed by highly-specific methods. As with any screen occasional f alse positive results from cross-reacting substances can occur. Not for Medico-Legal Purposes. Specimen Anatomical Collection Method Collection Time Receive d Time (Source) Location / / Volume Laterality Urine specimen 02/11/2015 4:39 PM 016 6:10 (specimen) EST PM EST Resulting Agency Comment Spec In Lab Dakota Hyde MD URINE ORDERABLES Performing Organization Address City/State/[place] [address] CERNER GLADYSENNIUM Film Library- Storage only DX Spine (02/11/2015 12:30 AM EST) Specimen (Source) Anatomical Location Collection Method / Collectio n Time Received Time / Laterality Volume Narrative User, Generic Transmittal - 02/11/2015 3 :48 PM EST See PACS for result report. Dakota Hyde MD [facility] FILM LIBRARY ORDERABLES Film Library- Storage only DX Pelvis (02/11/2015 12:15 AM EST) Specimen (Source) Anatomical Location Collection Method / Collectio n Time Received Time / Laterality Volume Narrative User, Generic Transmittal - 02/11/2015 3 :47 PM EST See PACS for result report. Dakota Hyde MD [place] FILM LIBRARY ORDERABLES Film Library- Storage Only CT Head And Spine (02/11/2015 12:05 AM EST) Specimen (Source) Anatomical Location Collection Method / Collectio n Time Received Time / Laterality Volume Narrative User, Generic Transmittal - 02/11/2015 3 :51 PM EST See PACS for result report. Dakota Hyde MD [place] FILM LIBRARY ORDERABLES Film Library- Storage only DX Chest (02/11/2015 12:00 AM EST) Specimen (Source) Anatomical Location Collection Method / Collectio n Time Received Time / Laterality Volume Narrative User, Generic Transmittal - 02/11/2015 3 :45 PM EST See PACS for result report. Dakota Hyde MD IMG FILM LIBRARY ORDERABLES (ABNORMAL) POCT urine dipstick (02/11/2015) [facility] Method Time Signature POC Sp 1.000 (A) 1.002 - [place] 1.030 POC pH, UA 8 5.0 - 8.5 POC Leuk, UA Negative Negative - Negative POC Nitrite, Negative Negative - UA Negative POC Protein, trace Negative - UA Negative mg/dL POC Glucose, 50 Normal - UA Normal mg/dL POC Ketone, ++ Negative - UA Negative POC Urobil, 1 0.2 - 1.0 UA mg/dL POC Bili, UA Negative Negative - Negative POC Blood, UA Negative Negative - Negative ranjeet/uL Specimen (Source) Anatomical Location Collection Method / Collectio n Time Received Time / Laterality Volume 02/11/2015 Dakota Hyde MD POINT OF CARE TEST ORDERABLE S documented in this encounter Visit Diagnoses Diagnosis Pain Generalized pain Coronary artery disease, angina presence unspecified, unspecified vessel or lesion type, unspecified whether [place] or andersen splanted heart Closed fracture of vault of skull with s ubarachnoid, subdural, and extradural hemorrhage, brief (less than one hour) l oss of consciousness Essential hypertension, malignant Disease of cardiovascular system Unspecified cardiovascular disease Fall from ladder, initial encounter SDH (subdural hematoma) Subdural hemorrhage Foraminal stenosis of lumbosacral region Spinal stenosis, lumbar region, without neurogenic claudication documented in this encounter Admitting Diagnoses Diagnosis SDH (subdural hematoma) Subdural hemorrhage documented in this encounter Administered Medications Inactive Administered Medications - up to 3 most recent administrations Medication Order MAR Action Action Date Dose Rate Site acetaminophen (TYLENOL) tablet Given 02/13/2015 7:43 AM EST 1,00 0 mg 1,000 mg 1,000 mg, Oral, EVERY 6 HOURS PRN, Starting on Mon02/11/15 at 2152, Until Mon02/13/15 at 1217, Pain, for MODERATE pain (4-6), Do not exceed 4,000 mg in 24 hours, Routine Given 02/12/2015 7:37 PM EST 1,000 mg Given 02/12/2015 9:14 AM EST 1,000 mg atorvastatin (LIPITOR) tablet 20 mg Given 02/12/2015 4:46 PM EST 20 mg 20 mg, Oral, EVERY EVENING, First dose on Mon02/11/15 at 2215, Until Discontinued, Routine Given 02/11/2015 10:40 PM EST 20 mg famotidine (PEPCID) tablet 20 mg Given 02/13/2015 7:43 AM EST 20 mg 20 mg, Oral, 2 TIMES DAILY, First dose on Mon02/11/15 at 2215, Until Discontinued, If unable to take PO, may give IV, Routine Given 02/12/2015 7:40 PM EST 20 mg Given 02/12/2015 9:10 AM EST 20 mg fentaNYL 50mcg/mL injection Given 02/11/2015 5:00 PM EST 25 mcg 50 mcg, Intravenous, PER TRAUMA ANALGESIC PROTOCOL, Starting on Mon02/11/15 at 1638, Until Mon02/11/15 at 2152, Pain, Every 5-15 minutes PRN, STAT Given 02/11/2015 4:00 PM EST 25 mcg lactated ringers infusion 1,000 New Bag 02/12/2015 8:22 AM EST 1,000 mLs 100 mL/hr mL 1,000 mL, at 100 mL/hr, Intravenous, CONTINUOUS, Starting on Mon02/11/15 at 2215, Until Fang 02/12/15 at 1735, Recovery (Recovery-Hospital Unit) New Bag 02/11/2015 10:43 PM EST 1,000 mLs 100 mL/hr sodium chloride 0.9 % flush 5 mL Given 02/13/2015 7:43 AM EST 5 mLs 5 mL, Intravenous, 2 TIMES DAILY, First dose on Mon02/11/15 at 2215, Until Discontinued, Recovery (Recovery-Hospital Unit), Routine Given 02/12/2015 7:40 PM EST 5 mLs Given 02/12/2015 9:09 AM EST 5 mLs documented in this encounter Active and Recently Administered Medications Times are shown in EST. Scheduled Medication Order 02/11/2015 02/12/2015 02/13/2015 atorvastatin (LIPITOR) tablet 20 mg 2240 (Given - Provider: Chey Nunez RN) 1646 (Given - Provider: Orlando Flores RN) 20 mg, Oral, EVERY EVENING, First dose o n Mon02/11/15 at 2215, Until Discontinued, Routine famotidine (PEPCID) tablet 20 mg (CANCELED) 2240 (Give n - Provider: Chey Nunez RN) 0910 (Given - Provider: Orlando marley RN)1940 (Given - Provider: Renee Montelongo RN)2100 (Canceled Entry - Provider: Renee Montelongo RN - Reason: See comment - Comment: given early) 0743 (Given - Provider: Diana Sigala RN)0900 (Not Given - Provider: Diana Sigala RN - Reason: See comment - Comment: see 0745) 20 mg, Oral, 2 TIMES DAILY, First dose o n Mon02/11/15 at 2215, Until Discontinued, If unable to take PO, may give IV, Routine sodium chloride 0.9 % flush 5 mL (CANCELED) 2240 (Give n - Provider: Chey Nunez RN) 0909 (Given - Provider: Orlando marley RN)1940 (Given - Provider: Renee Montelongo RN)2100 (Canceled Entry - Provider: Renee Montelongo RN - Reason: See comment - Comment: given early) 0743 (Given - Provider: Diana Sigala RN)0900 (Not Given - Provider: Diana Sigala RN - Reason: See comment - Comment: see 0745) 5 mL, Intravenous, 2 TIMES DAILY, First dose on Mon02/11/15 at 2215, Until Discontinued, Recovery (Recovery-Hospital Unit), Routine Continuous Medication Order 02/11/2015 02/12/2015 02/13/2015 lactated ringers infusion 1,000 mL (CANCELED) 2243 (Ne w Bag - Provider: Chey Nunez RN) 0822 (New Bag - Provider: Orlando Flores, LARISSA) 1,000 mL, at 100 mL/hr, Intravenous, CON TINUOUS, Starting Mon02/11/15 at 2215, Until Fang 02/12/15 at 1735, Recovery (Recovery-Hospital Unit) PRN Medication Order 02/11/2015 02/12/2015 02/13/2015 acetaminophen (TYLENOL) tablet 1,000 mg 0914 (Given - Provider: Orlando Flores, RN)1937 (Given - Provider: Renee Montelongo, RN) 0743 (Given - Provider: Diana Sigala, RN) 1,000 mg, Oral, EVERY 6 HOURS PRN, Start ing Mon02/11/15 at 2152, Until Mon02/13/15 at 1217, Pain, for MODERATE pain (4-6), Do not exceed 4,000 mg in 24 hours, Routine fentaNYL 50mcg/mL injection (CANCELED) 1600 (Given - P rovider: Surjit Hughes, LARISSA)1700 (Given - Provider: Surjit Hughes, LARISSA) 50 mcg, Intravenous, PER TRAUMA ANALGESI C PROTOCOL, Starting Mon02/11/15 at 1638, Until Mon02/11/15 at 2152, Pain, Every 5-15 minutes PRN, STAT documented in this encounter Care Teams Director Social Service Relationship Specialty Start Date End Date Sosa Ivey MD PCP - General Family Medicine 02/11/15 01/16/18 [address] [place] [address] documented as of this encounter
--- OUTSIDE RECORDS SUMMARY | 2021-07-30 00:22 | XMS_ITS | Encounter Summary ---
:1950 [place] [address] Care Team Providers Name Role Phone Rian Ivey MD Primary Care Provider Encounter Details Date Type Department Care Team Description 02/11/2015 Hospital Encounter [place] [address] Social History Tobacco Use Types Packs/Day [...] MD [facility] [place] [address] 08/16/2021 Office Visit [facility] MD [facility] [place] [address] 09/22/2021 Hospital Encounter Surgery Mateo Victoria MD [facility] [place] [address] 09/22/2021 Surgery Surgery [facility], LAMINECTOMY , FACETECTOMY & ONE MEDICAL FORAMINOTOMY,CHAVA DEMPSEY, CENTER ONE LEVEL ([facility] SPINE CENTER 15.37) [place] [address] Scheduled Procedures Name Priority Associated Diagnoses Date/Time LAMINECTOMY, FACETECTOMY & Foraminal stenosis of 09/22/2021 7:30 AM EDT FORAMINOTOMY,LUMBAR, ONE lumbosacral region LEVEL ([facility] 15.37) EA ADD'L VERTEBRAL SEGMENT Foraminal stenosis of 09/22/2021 7:30 AM EDT CERVICAL, THORACIC, LUMBAR lumbosacral region ([facility] 3.47) MODIFIER L5 Foraminal stenosis of 09/22/2021 7:30 AM EDT lumbosacral region MODIFIER S1 Foraminal stenosis of 09/22/2021 7:30 AM EDT lumbosacral region documented as of this encounter Procedures Procedure Name Priority Date/Time Associated Diagnosis Comme nts FILM LIBRARY STAT 02/11/2015 12:00 AM Pain Results for this STORAGE ONLY DX EST procedure ar e in CHEST the results section. documented in this encounter Results Film Library- Storage only DX Chest (02/11/2015 12:00 AM EST) Specimen (Source) Anatomical Location Collection Method / Collectio n Time Received Time / Laterality Volume Narrative User, Generic Transmittal - 02/11/2015 3 :45 PM EST See PACS for result report. Dakota Hyde MD IM FILM LIBRARY ORDERABLES documented in this encounter Visit Diagnoses Not on filedocumented in this encounter Care Teams Senior C Web Developer Relationship Specialty Start Date End Date Rian Ivey MD PCP - General Family Medicine 02/11/15 01/16/18 [address] [place] [address] documented as of this encounter
--- OUTSIDE RECORDS SUMMARY | 2021-07-30 00:22 | XMS_ITS | Encounter Summary ---
:1950 Author Organization [facility] [place] [address] Care Team Providers Name Role Phone Rian Ivey MD Primary Care Provider Reason for Referral Diagnostic Test (Routine) - Closed Specialty Diagnoses / Procedures Referred By Contact Refer red To Contact Radiology Diagnoses Subdural hematoma Bola Montiel MD [facility] Rad Ct Scan Procedures CT Head Wo Contrast (GENERIC) [facility] [place] [address] [place] [address] Referral ID Status Reason Start Date Expiration Date Visits V isits Requested Authorized [id number] Closed Specialty 03/16/2015 03/15/2016 1 1 Service Requested Encounter Details Date Type Department Care Team Description 02/12/2015 Orders Only Neurosurgery at [facility] Bola Montiel MD Subdural hematoma [facility] [place] [address] NEUROSURGERY [place], [place] [address] (Wo rk) Social History Tobacco Use Types Packs/Day Years Used Date Light Tobacco Smoker Cigars Smokeless Tobacco: Current User Snuff, Chew Comments: Snuff/chew on/off x1 year 31 y [...] Description 08/16/2021 Appointment Radiology Mateo Victoria MD [facility] [place] [address] 08/16/2021 Office Visit Pain and Spine [facility], Melany GRAJEDA [facility] [place] [address] 09/22/2021 Hospital Encounter Surgery Mateo Victoria MD [facility] [place] [address] 09/22/2021 Surgery Surgery Mateo Victoria, MD STU FACETECTOMY & ONE MEDICAL FORAMINOTOMY,[facility], CENTER DR [place] LEVEL ([facility] SPINE CENTER 15.37) [place] [address] Scheduled Procedures Name Priority Associated Diagnoses Date/Time LAMINECTOMY, FACETECTOMY & Foraminal stenosis of 09/22/2021 7:30 AM EDT FORAMINOTOMY,LUMBAR, ONE lumbosacral region LEVEL ([facility] 15.37) EA ADD'L VERTEBRAL SEGMENT Foraminal stenosis of 09/22/2021 7:30 AM EDT CERVICAL, THORACIC, LUMBAR lumbosacral region ([facility] 3.47) MODIFIER L5 Foraminal stenosis of 09/22/2021 7:30 AM EDT lumbosacral region MODIFIER S1 Foraminal stenosis of 09/22/2021 7:30 AM EDT lumbosacral region documented as of this encounter Results CT Head Wo Contrast [...] Visit Diagnoses Diagnosis Subdural hematoma Subdural hemorrhage Subdural hematoma Subdural hemorrhage Foraminal stenosis of lumbosacral region Spinal stenosis, lumbar region, without neurogenic claudication documented in this encounter Care Teams Disk Recoater Relationship Specialty Start Date End Date Rian Ivey MD PCP - General Family Medicine 02/11/15 01/16/18 [address] [place] [address] documented as of this encounter
--- OUTSIDE RECORDS SUMMARY | 2021-07-30 00:22 | XMS_ITS | Encounter Summary ---
:1950 Author Organization [facility] [place] [address] Care Team Providers Name Role Phone Rian Ivey MD Primary Care Provider Encounter Details Date Type Department Care Team Description 02/11/2015 Hospital Encounter Radiology Library at [facility] , Fidel Vallejo MD [facility] [place] [address] [place] [address] [phone] (Wo rk) Social History Tobacco Use Types [...] needed for Pain (for MODERATE pain (4-6)). aspirin 81 mg Tablet, Take 81 mg by mouth 0 02/13/2015 Chewable daily. documented as of this encounter Plan of Treatment Upcoming Encounters Date Type Specialty Care Team Description 08/16/2021 Appointment Radiology Mateo Victoria MD [facility] [place] [address] 08/16/2021 Office Visit [facility] MD [facility] [place] [address] 09/22/2021 Hospital Encounter Surgery Mateo Victoria MD [facility] [place] [address] 09/22/2021 Surgery Surgery Mateo Victoria, STU , FACETECTOMY & ONE MEDICAL FORAMINOTOMY,CHAVA DEMPSEY, [place] ONE LEVEL ([facility] SPINE CENTER 15.37) [place] [address] Scheduled Procedures Name Priority Associated Diagnoses Date/Time LAMINECTOMY, FACETECTOMY & Foraminal stenosis of 09/22/2021 7:30 AM EDT FORAMINOTOMY,LUMBAR, ONE lumbosacral region LEVEL ([facility] 15.37) EA ADD'L VERTEBRAL SEGMENT Foraminal stenosis of 09/22/2021 7:30 AM EDT CERVICAL, THORACIC, LUMBAR lumbosacral region (VU 3.47) MODIFIER L5 Foraminal stenosis of 09/22/2021 7:30 AM EDT lumbosacral region MODIFIER S1 Foraminal stenosis of 09/22/2021 7:30 AM EDT lumbosacral region documented as of this encounter Procedures Procedure Name Priority Date/Time Associated Diagnosis Comme nts REQUEST FOR 2ND Routine 02/11/2015 4:47 PM Result s for this READ CT HEAD AND EST procedure a re in SPINE the results section. documented in this encounter Results Request For 2nd Read CT Head And [...] Body Part (please add comments as necessary): Jessean d and C-spine, I believe a reinterpretation [...] Hyde MD IMG OUTSIDE INTERPRETATION O RDERABLES documented in this encounter Visit Diagnoses Not on filedocumented in this encounter Care Teams Cabin Supervisor Relationship Specialty Start Date End Date Rian Ivey MD PCP - General Family Medicine 02/11/15 01/16/[address] [place] [address] documented as of this encounter
--- NOTE | 2021-07-30 07:45 | DI.MRI_ITS ---
Exam(s) MR LOWER JOINT RT WO EXAM: MR LOWER JOINT RT WO CLINICAL HISTORY: RT KNEE PAIN AND SWELLING X 1 MO, M25.561. TECHNIQUE: Multiplanar multisequence MRI was performed. COMPARISON: No exams were available for comparison FINDINGS: BONES: There is no fracture or contusion pattern. Mild subchondral edema in the lateral aspect of the medial femoral condyle and the medial aspect of the lateral femoral condyle. JOINTS: There is mild thinning of the articular cartilage in the medial femoral tibial joint. There is also mild cartilage thinning and subchondral edema in the superior aspect of the patella. There i s a moderate joint effusion. TENDONS: Extensor mechanism: Unremarkable. Medial retinaculum: Unremarkable. Lateral retinaculum: Unremarkable. Popliteus: Unremarkable. MUSCLES: Unremarkable. MENISCI: There is degenerative signal seen in both the medial and lateral menisci. There does appear to be articulation with the inferior surface in the posterior aspect of the body of the lateral meni scus which may represent a tear. There is no evidence of a medial meniscal tear. SOFT TISSUES: There is edema seen in the soft tissues particularly in the posterior medial knee. No focal fluid collection is identified. No soft tissue mass is identified. LIGAMENTS: Anterior Cruciate: Unremarkable. Posterior Cruciate: Unremarkable. Medial Collateral:Unremarkable. Lateral Collateral: Unremarkable. OTHER: IMPRESSION: 1. Findings suspicious for tear involving the posterior aspect of the body of the lateral meniscus. 2. No evidence of a ligament tear. 3. Degenerative changes in the knee particularly at the patellofemoral joint. 4. Moderate joint effusion. DATA REPOSITORY:
== END ==
PROVIDERS: PCP Internal Medicine; Visit Provider Nurse Practitioner Family
DX: M25.561 Pain in right knee (principal); R60.0 Localized edema; M25.461 Effusion, right knee; M79.89 Other specified soft tissue disorders; M17.11 Unilateral primary osteoarthritis, right knee; S83.281A Other tear of lateral meniscus, current injury, right knee, initial encounter
CPT/HCPCS: 73721

== ENCOUNTER 2021-08-04 15:27 | Outpatient (CLI) | payer MEDICARE, BC, SELFPAY ==
--- NOTE | 2021-08-04 15:00 | DI.RAD_ITS ---
Exam(s) XR KNEE RT 3V AP,LAT,STEPHANIE EXAM: XR KNEE RT 3V AP,LAT,STEPHANIE CLINICAL HISTORY: follow up TECHNIQUE: COMPARISON: No exams were available for comparison FINDINGS: Three views were obtained. There appears to be mild cartilaginous joint space narrowing of the gaspar lofemoral joint laterally and also of the medial tibiofemoral joint. There are prominent enthesophyt es of the patella. There are mild marginal osteophytes of the patella. No other significant bony ab normality seen. IMPRESSION: RADIATION DOSE DELIVERED: Total DLP
== END 2021-08-04 15:28 | disposition home or self-care (01) ==
LOC: DIORS 15:28
PROVIDERS: PCP Internal Medicine; Referring Provider Internal Medicine; Visit Provider Physician Assistant Surgical
DX: S83.281A Other tear of lateral meniscus, current injury, right knee, initial encounter; S83.241A Other tear of medial meniscus, current injury, right knee, initial encounter; X58.XXXA Exposure to other specified factors, initial encounter; Y93.01 Activity, walking, marching and hiking; Z20.822 Contact with and (suspected) exposure to COVID-19
CPT/HCPCS: 73562; 99204

== ENCOUNTER 2021-08-18 02:25 | Outpatient (CLI) | payer MEDICARE, SELFPAY ==
[2021-08-18 11:49] LABS: Source Nasal/Nares
[2021-08-18 21:14] LABS: COVID-19 PCR Negative (Negative)
== END 2021-08-18 02:26 | disposition home or self-care (01) ==
PROVIDERS: PCP Internal Medicine; Visit Provider Student in an Organized Health Care Education/Training Program
DX: Z20.822 Contact with and (suspected) exposure to COVID-19 (principal); Z01.818 Encounter for other preprocedural examination
CPT/HCPCS: 87635

== ENCOUNTER 2021-08-20 07:59 | Day surgery (SDC) | payer MEDICARE, BC, SELFPAY ==
[2021-08-20] VITALS (7 sets, daily range): BP systolic 126–158; BP diastolic 63–88; PULSE 37–52; RESP 11–16; TEMP 36–36.8; O2SAT 97–100; BMI 28.1
--- NOTE | 2021-08-20 08:40 | W.ANESPRE ---
General Info Date of Service Date Performed: 08/20/21 Height: 6 ft Weight: 94.1 kg Body Mass Index (BMI): 28.1 Surgical Procedure: Operation Date: 08/20/21 10:40 Proposed Procedure Side Surgeon p Knee Arthroscopyw/any indicated Meniscal,Chondral and Synovial Surgery Right Carl Alas MD Meds Allergies and Home Medications Allergies Allergy/AdvReac Type Severity Reaction Status Date / Time No Known Allergies Allergy Verified 08/04/21 14:44 Home Medication Medication Instructions Recorded acetaminophen 325 mg tablet 650 mg PO Q4H PRN 07/13/21 aspirin 81 mg tablet,delayed 81 mg PO DAILY 07/13/21 release (Adult Aspirin Regimen) atorvastatin 40 mg tablet 40 mg PO QHS 07/13/21 multivitamin 1 tab PO DAILY 07/13/21 sildenafil 100 mg tablet (Viagra) 100 mg PO DAILY PRN 07/13/21 zolpidem 5 mg tablet 5 mg PO QHS PRN 07/13/21 Current Visit Medications: Current Medications Generic Name Dose Route Start Last Admin Trade Name Jewelq PRN Reason Stop Dose Admin Ringer's Solution 1,000 mls @ 30 mls/hr 08/20/21 06:00 IV 09/18/21 23:59 INFUSION ROSCOE Cefazolin Sodium/Dextrose 2 gm in 50 mls @ 100 mls/hr 08/20/21 06:00 Ancef Duplex IVPB 09/18/21 23:59 PREOP ROSCOE IV Miscellaneous Supplies 1 each 08/20/21 06:00 Iv Access IV 09/18/21 23:59 DIRECTED ROSCOE Naproxen 250 - 500 mg 08/20/21 07:12 Naproxen 500 Mg Tab PO BID PRN PRN Oxycodone HCl 5 - 10 mg 08/20/21 07:12 Oxycodone 5 Mg Tab PO Q4H PRN PRN Sodium Chloride 0 ml 08/20/21 06:00 Normal Saline Flush 10 Ml Syr IV 09/18/21 23:59 PRN PRN Sodium Chloride 0 ml 08/20/21 06:00 Normal Saline 10 Ml Vial IJ 09/18/21 23:59 DIRECTED PRN Sterile Water 0 ml 08/20/21 06:00 Water,Injection,Sterile 10 Ml Vial IJ 09/18/21 23:59 DIRECTED PRN PFSH Active Problems Active Problems: Problem Status Onset Code Lumbosacral stenosis M48.07 CAD (coronary artery disease) I25.10 Tear of lateral meniscus of right knee S83.281A Tear of medial meniscus of right knee S83.241A Medical History Medical History (Updated 08/20/21 @ 08:21 by Jesenia Zuleta) Erectile dysfunction History of fracture of hand right History of heart attack [id number] state she was discharged from cardiology, f/u with PCP annually Hx of concussion pt reports around 2013 Hx of fracture of arm left Hx of fracture of wrist right Insomnia Surgical History Surgical History (Updated 08/20/21 @ 08:49 by Hector Alberto CRNA) Hx of cardiac cath 2 stents - Unknown what hospital per pt. Tobacco Smoking/Tobacco Use Status: Never Alcohol Alcohol Intake: current Alcohol intake frequency: a few times a week Alcohol type: beer Substance Use Substance use: Rarely Substance use type: marijuana Vital Signs and Lab Results Vital Signs Most Recent Vital Signs in EMR: Most Recent Vital Signs Temp Pulse Resp BP Pulse Ox 36.8 C 52 L 14 128/79 100 08/20/21 08:32 08/20/21 08:32 08/20/21 08:32 08/20/21 08:32 08/20/21 08:32 Lab Results Blood Type / Crossmatch: No Data to Display Complete Blood Count: No Data to Display Complete Metabolic Panel: No Data to Display Liver Function Panel: No Data to Display Coagulation Panel: No Data to Display Cardiac Panel: No Data to Display Arterial Blood Gas: No Data to Display Venous Blood Gas: No Data to Display Pancreas Panel: No Data to Display Thyroid Panel: No Data to Display Infectious Disease: Coronavirus (COVID-19)(PCR) Negative (Negative) 08/18/21 09:49 Coronavirus 2019 Source Nasal/Nares 08/18/21 09:49 Blood Cultures: No Data to Display Toxicology Panel: No Data to Display Anesthesia Assessment and Plan Anesthesia History Personal History: No History of Anesthesia Complications Family History: No Family History of Anesthesia Complications Exercise Tolerance Exercise Tolerance: Metabolic Equivalents>4 Pertinent Negatives Pertinent Negatives: No Symptoms of GERD, No Major Pulmonary Symptoms or Complaints and No History of CVA/TIA Cardiac & Pulmonary Exam Cardiac Exam: Normal S1/S2 Heart Sounds Pulmonary Exam: Clear Bilateral Breath Sounds Implantable Cardiac Device Does patient have a Pacemaker or an ICD?: No Airway Exam Known Difficult Airway: No Mallampati Class: 1 Mouth Opening: Normal (> 3cm) Thyromental Distance: Greater than 3 cm Neck Range of Motion: Full ROM Neck Circumference: Normal Teeth Condition: Normal Dentition ASA Classification ASA Score: ASA 3 Emergency Case?: No NPO Status NPO Status: NPO Clears >2 hours, Solids >8 hours Anesthesia Plan Resuscitation Status: Full Code Anesthesia Technique: General Anesthesia Airway Planned: LMA Monitors Used: Standard Monitors
[2021-08-20] MEDS: Lactated Ringers 1,000 ML 30 ML IV (09:13)
[2021-08-20] MEDS: ceFAZolin 2 GM/50 ML BAG IVPB (10:39)
[2021-08-20] MEDS: Lidocaine 1.5 % Pres-Free W/EPI 1/200,000 30 ML VIAL (11:06)
[2021-08-20] MEDS: Bupivacaine 0.25% Pres-Free 30 ML VIAL (11:06)
[2021-08-20] MEDS: EPINEPHrine 30 MG/30 ML VIAL (11:06)
[2021-08-20] MEDS: MORPHine 4 MG/ML SYR (11:29)
--- NOTE | 2021-08-20 12:13 | W.PM.DSUDISC ---
Discharge Plan Disposition Patient Disposition: HOME Condition: Stable Discharge Details Reason For Visit: Right knee surgery Attending Provider: Carl Alas Primary Care Provider: Marixa Smith Home Meds and New Rx's Prescriptions: New naproxen 250 mg tablet 250 - 500 mg PO BID PRNQty: 30 0RF Rx Instructions: take with a meal oxycodone 5 mg tablet 5 - 10 mg PO Q4H MDD 30 mg PRN (Reason: moderate to severe pain) Qty: 12 0RF Continued multivitamin Tablet 1 tab PO DAILY aspirin [Adult Aspirin Regimen] 81 mg tablet,delayed release (DR/EC) 81 mg PO DAILY acetaminophen 325 mg tablet 650 mg PO Q4H PRN zolpidem 5 mg tablet 5 mg PO QHS PRN atorvastatin 40 mg tablet 40 mg PO QHS sildenafil [Viagra] 100 mg tablet 100 mg PO DAILY PRN Rx Instructions: administer 30 minutes to 4 hours before activity Discontinued naproxen sodium [Aleve] 220 mg tablet 220 mg PO BID PRN Discharge Instructions Additional Instructions: Surgery: Right knee arthroscopy with partial medial and lateral meniscectomy and synovectomy Activity: Weightbearing as tolerated. Advance range of motion as comfort allows. No knee brace or crutches needed as soon as comfortable. Recommend avoiding sports, pivoting, and squatting for 6-8 weeks. A physical therapy prescription will be sent to start in 2 to 3 weeks. Prescriptions: Resume home Aspirin 81 mg daily tomorrow Naproxen 250 mg take 1-2 every 12 hours with a meal as needed for moderate pain Oxycodone 5 mg take 1-2 every 4-6 hours as needed for severe pain You may use [id number] Tylenol (acetaminophen) as needed for mild pain. These pain medications may be taken all at once or in different combinations as needed. Also, recommend Colace (docusate) as a stool softener as surgery and pain medicine cause constipation. You may try [id number]-ihzeqnb diphenhydramine (Benadryl) 25-50 mg nightly as a sleep aid Dressings: Leave dressing in place for 3 days. May then remove and leave open to air or cover incisions with Band-Aids. May shower after 5 days. Follow-up: 10-[address] Alas Let us know right away if you develop any redness, drainage, fevers, chest pain, or trouble breathing. Do not drink alcohol or drive for at least 24 hours after anesthesia. Please call the office during business hours with any questions or concerns. Discharge Orders Discharge Orders: Discharge Order (Routine); Ordered 08/20/21 Ordered By: Carl Alas DS: Diagnosis Discharge Diagnosis (1) Tear of lateral meniscus of right knee: Status: Acute (2) Tear of medial meniscus of right knee: Status: Acute
--- NOTE | 2021-08-20 12:17 | W.PM.OP ---
Operative Note Operative Note DATE OF PROCEDURE: 08/20/21 PRE-OP DIAGNOSIS: Right knee 1. Medial meniscus tear 2. Lateral meniscus tear 3. Synovitis POST-OP DIAGNOSIS: same PROCEDURE: Right knee 1. Partial medial & lateral meniscectomy, CPT #50988 2. Extensive compartment synovectomy, CPT #61589: Intercondylar and patellofemoral SURGEON: Carl Alas REGULATORY COMPLIANCE DIRECTOR: None None ANESTHESIA TYPE: Local By Surgeon and General LMA/ETT Refer to Anesthesia Record ESTIMATED BLOOD LOSS: 5 PATHOLOGY: none sent TOURNIQUET TIME: 0 Patient was transported to: PACU Patient's condition: stable Indications: Please see complete medical record for details. Findings: Exam under anesthesia: Mild stiffness flexion contracture and moderate patellofemoral crepitation. Stable varus valgus Waqar anterior drawer. Arthroscopic findings: Significant patellofemoral synovitis and adhesions. Significant intercondylar calcium deposit versus steroid deposit especially on ACL that was otherwise intact. Chondrocalcinosis versus steroid deposit posterior horn medial meniscus. Moderately severe diffuse chondromalacia. Degenerative type posterior horn medial and lateral meniscus tears. Procedure Description: In the operating room, genral anesthesia was induced. The patient was positioned supine on the operating room table. All bony prominences were well-padded. Preoperative antibiotics were administered. The knee was prepped and draped in the usual sterile fashion. The correct patient, procedure, and side of the procedure were all verified prior to incision. Exam under anesthesia was performed. 10 cc of bupivacaine and lidocaine containing epinephrine was infiltrated about the planned anteromedial and anterolateral knee arthroscopy portals. The portals were established and a complete diagnostic arthroscopy was performed with relevant findings detailed above. The mechanical shaver was used to remove pathologic synovium from the patellofemoral and intercondylar compartments. The meniscal biter was used to resect suprapatellar adhesions and remove ACL calcium deposits. Using a combination of hand instruments including meniscal biters and a power shaver and working through the anteromedial and anterolateral portals the posterior horn of the medial and then lateral meniscus were each debrided of all torn degenerative tissue to a stable margin. Care was taken to preserve as much meniscus tissue was possible. The meniscal remnant was probed and found to have a stable margin, stable root, and no other tears. Under direct arthroscopic visualization an 18-gauge needle was passed into the knee from superolateral into the suprapatellar pouch. The knee was copiously irrigated with arthroscopic fluid until there was a clear effluent before being drained of all fluid. The anteromedial and anterolateral portals were closed in 3-0 Monocryl in a buried interrupted fashion. 20 cc of bupivacaine and lidocaine with epinephrine containing 4 mg of morphine was infiltrated into the knee through the previously placed needle. Mastisol, Steri-Strips, and 4 x 4 gauze were applied over the incisions followed by sterile soft roll. The knee was then wrapped gently with an DEVON comressive bandage. The patient awoke from anesthesia without complication and was transferred to the recovery room in a stable condition.
--- NOTE | 2021-08-20 12:50 | W.ANESPOSTOP ---
Postoperative Evaluation Date, Time and Location Date Performed: 08/20/21 Time Performed: 12:51 Patient Location: Day Surgery Unit Vital Signs Most Recent Imported Vital Signs: Most Recent Vital Signs Temp Pulse Resp BP Pulse Ox 36.2 C L 40 L 16 156/72 H 100 08/20/21 12:29 08/20/21 12:29 08/20/21 12:29 08/20/21 12:29 08/20/21 12:29 Pain Score Most Recent Pain Score: Most Recent Pain Score Pain Level 5 08/20/21 12:29 Assessment Mental Status: Awake (Alert & Oriented to Patient Baseline) Airway and Respiratory Function: Patent airway with normal (patient baseline) respiratory exam Cardiovascular Function: Hemodynamically Stable Hydration Status: Adequately Hydrated Nausea & Vomiting: No Nausea or Vomiting Pain: Pt. Denies Any Pain Peripheral Nerve Block: Patient did not receive a nerve block
== END 2021-08-20 13:47 | disposition home or self-care (01) ==
PROVIDERS: PCP Internal Medicine; Visit Provider Student in an Organized Health Care Education/Training Program
PROC: (CPT 29870; principal; 2021-08-20 10:30)
DX: S83.281A Other tear of lateral meniscus, current injury, right knee, initial encounter (principal); S83.241A Other tear of medial meniscus, current injury, right knee, initial encounter; M65.861 Other synovitis and tenosynovitis, right lower leg; X58.XXXA Exposure to other specified factors, initial encounter
CPT/HCPCS: 29876; 29880; J0690; J1100; J1885; J2270; J2405; J2704

== ENCOUNTER → 2021-09-01 13:50 | Outpatient (BNVA) | payer MEDICARE, BC, SELFPAY | PROVIDERS: PCP Internal Medicine; Referring Provider Internal Medicine; Visit Provider Student in an Organized Health Care Education/Training Program | DX: Z47.89 Encounter for other orthopedic aftercare (principal); X58.XXXA Exposure to other specified factors, initial encounter; S83.281A Other tear of lateral meniscus, current injury, right knee, initial encounter; S83.241A Other tear of medial meniscus, current injury, right knee, initial encounter ==

== ENCOUNTER 2021-09-09 15:01 | Outpatient (REF) | payer MEDICARE, BC, SELFPAY ==
[2021-09-09 16:34] LABS: Anion Gap 7.6 mmol/L (3-11); BUN 30 mg/dL (7-18); CO2 27.4 mmol/L (21.0-32.0); Calcium 8.8 mg/dL (8.5-10.1); Calculated LDL 60 mg/dL (<100); Chloride 106 mmol/L (98-107); Cholesterol 163 mg/dL (<200); Glucose 104 mg/dL (74-106); HDL Cholesterol 59 mg/dL (40-60); Potassium 4.4 mmol/L (3.5-5.1); Sodium 141 mmol/L (136-145); Triglyceride 220 mg/dL (<150)
== END 2021-09-09 15:02 | disposition home or self-care (01) ==
LOC: NCHCN 15:01
PROVIDERS: PCP Internal Medicine; Visit Provider Nurse Practitioner Family
DX: I25.10 Atherosclerotic heart disease of native coronary artery without angina pectoris (principal); Z13.220 Encounter for screening for lipoid disorders; Z00.00 Encounter for general adult medical examination without abnormal findings
CPT/HCPCS: 80048; 80061

== ENCOUNTER → 2021-10-06 10:59 | Outpatient (BNVA) | payer MEDICARE, BC, SELFPAY | PROVIDERS: PCP Internal Medicine; Referring Provider Internal Medicine; Visit Provider Student in an Organized Health Care Education/Training Program | DX: X58.XXXA Exposure to other specified factors, initial encounter (principal); S83.241A Other tear of medial meniscus, current injury, right knee, initial encounter; S83.281A Other tear of lateral meniscus, current injury, right knee, initial encounter; M17.11 Unilateral primary osteoarthritis, right knee ==

== ENCOUNTER → 2021-11-17 10:12 | Outpatient (BNVA) | payer MEDICARE, BC, SELFPAY | PROVIDERS: PCP Internal Medicine; Referring Provider Internal Medicine; Visit Provider Student in an Organized Health Care Education/Training Program | DX: Z98.890 Other specified postprocedural states (principal); M17.11 Unilateral primary osteoarthritis, right knee | CPT/HCPCS: 20610; J1040 ==

== ENCOUNTER 2023-07-24 15:06 | Outpatient (REF) | payer MEDICARE, BC, SELFPAY ==
[2023-07-24 22:04] LABS: HCT 45.1 % (40.0-50.0); HGB 15.1 g/dL (13.5-17.5); MCH 32.7 pg (27.0-33.0); MCHC 33.5 % (32.0-36.0); MCV 98 fL (80-95); MPV 11.9 fL (8.0-11.0); Platelet Count 171 10^3/uL (130-400); RBC 4.62 10^6/uL (4.36-5.78); RDW 12.8 % (11.8-14.1); RDW-SD 45.8 fL; WBC 5.06 10^3/uL (4.4-10.8)
[2023-07-24 22:17] LABS: Anion Gap 6.3 mmol/L (3-11); BUN 25 mg/dL (7-18); CO2 27.7 mmol/L (21.0-32.0); CREATININE 1.1 mg/dL (0.70-1.30); Calculated LDL 63 mg/dL (<100); Chloride 106 mmol/L (98-107); Cholesterol 167 mg/dL (<200); Estimated GFR 71.32 (mL/min/1.73m2); Glucose 111 mg/dL (74-106); HDL Cholesterol 67 mg/dL (40-60); Potassium 4.5 mmol/L (3.5-5.1); Sodium 140 mmol/L (136-145); Triglyceride 188 mg/dL (<150)
== END 2023-07-24 15:07 | disposition home or self-care (01) ==
LOC: NCHCN 15:06
PROVIDERS: PCP Internal Medicine; Visit Provider Internal Medicine
DX: Z13.220 Encounter for screening for lipoid disorders (principal)
CPT/HCPCS: 80048; 80061; 85027

== ENCOUNTER → 2023-07-25 01:57 | Outpatient (CLI) | payer MEDICARE, BC, SELFPAY ==
--- NOTE | 2023-07-25 | DI.MRI_ITS ---
Exam(s) MR LUMBAR SPINE WO EXAM: MR LUMBAR SPINE WO CLINICAL HISTORY: Spinal stenosis wo neurogenic claudication s/p surgery, M48.061. TECHNIQUE: Multiplanar multisequence MRI of the Lumbar spine was performed. COMPARISON: MR MR LUMBAR SPINE WO from 01/06/2021 FINDINGS: Conus medullaris is at T12-L1 (normal) level. There is no evidence of conus mass nor subjacent clump ing of intrathecal nerve roots to suggest arachnoiditis. The distal thecal sac appears unremarkable. There is no evidence of Tarlov intrasacral cysts nor other significant findings within the sacral can al Bones:There are no fractures nor ominous osseous lesions in the lumbar vertebral bodies and visualize d sacrum. There has been interval surgery (see below) With respect to the individual levels... T12-L1: Unremarkable L1-2: Mild disc height loss. Anterior osseous lipping noted. There is again noted right greater leo n left annular bulging at this level with slight indentation of the right-side of the thecal sac agai n noted.Central canal dimensions are lower normal. There is no significant foraminal stenosis. Mild facet joint degenerative changes. L2-3: Mild decreased disc height. Annular bulging is again noted at the level the floor both exiting neural foramen at this level, similar to previous. There is mild central canal stenosis due to shor t AP dimensions of the pedicles. There is no facet arthropathy nor ligamentum flavum hypertrophy. N o significant foraminal stenosis L3-4: Normal disc height. There is broad annular bulging again noted. There is also a small superim posed focal right posterolateral disc protrusion which extends posteriorly 2 millimeters and is 3 mm wide. There is severe central spinal canal stenosis at this level due to short AP dimensions of the pedicles, broad annular bulging, some degenerative change in the facet joints, and some ligamentum fl avum hypertrophy.There is mild foraminal stenosis on the left side. No true foraminal stenosis on th e right side. L4-5: This level exhibits disc space narrowing more so left than right, similar to previous. There i s mild annular bulging without a dominant disc herniation. Central canal dimensions are lower normal . There is moderate bilateral foraminal stenosis. Moderate degenerative change in the left facet abhishek int. Minimal degenerative change in the right facet joint. L5-S1: There are Modic type 1 sub endplate marrow edema changes at this level. Some vacuum phenomena seen within the disc space and there is relatively preserved disc space height on the left side with advanced narrowing on the right side, similar to previous. Posteriorly there is no disc herniation nor central canal stenosis. There has been interval removal of posterior osseous elements at this le sasha. Central canal dimensions are normal. However, there is again noted asymmetric right-sided fora bobbi stenosis due to the advanced right-sided disc height loss at this level. Milder foraminal sten osis on the opposite-left side. Soft tissues: paraspinal soft tissues appear unremarkable. IMPRESSION: 1. Multilevel findings as described individually above and there appears to have been interval surgic al removal of posterior osseous elements at L5 level when compared to the 2020 study. At the L5-S1 l evel there is no central canal stenosis but there is asymmetric right-sided foraminal stenosis again noted due to the asymmetric disc height loss on the right side this level. This corresponds with the Modic type 1 sub endplate marrow edema which is predominately right-sided. 2. There is moderate-severe central spinal canal stenosis again noted at L3-4 level due to broad mio lar bulging, short AP dimensions of the pedicles and some facet arthropathy. 3. There is moderate bilateral foraminal stenosis at L4-5 level. No central canal stenosis at this l evel. Other findings as above. DATA REPOSITORY:
== END ==
PROVIDERS: PCP Internal Medicine; Visit Provider Internal Medicine
DX: M48.061 Spinal stenosis, lumbar region without neurogenic claudication (principal)
CPT/HCPCS: 72148

== ENCOUNTER 2024-07-08 15:56 | Outpatient (REF) | payer MEDICARE, BC, SELFPAY ==
[2024-07-08 14:44] LABS: HCT 43.7 % (40.0-50.0); HGB 14.8 g/dL (13.5-17.5); MCH 32.2 pg (27.0-33.0); MCHC 33.9 % (32.0-36.0); MCV 95 fL (80-95); MPV 11.3 fL (8.0-11.0); Platelet Count 167 10^3/uL (130-400); RDW 12.7 % (11.8-14.1); RDW-SD 44.5 fL; WBC 3.97 10^3/uL (4.4-10.8)
[2024-07-08 15:21] LABS: ALT 34 U/L (16-63); AST 34 U/L (15-37); Alkaline Phosphatase 89 U/L (46-116); Anion Gap 7.6 mmol/L (3-11); BUN 22 mg/dL (7-18); Bilirubin, Total 0.6 mg/dL (0.2-1.0); CO2 26.4 mmol/L (21.0-32.0); CREATININE 1.1 mg/dL (0.70-1.30); Calcium 8.9 mg/dL (8.5-10.1); Calculated LDL 60 mg/dL (<100); Chloride 106 mmol/L (98-107); Cholesterol 150 mg/dL (<200); Estimated GFR 70.88 (mL/min/1.73m2); Glucose 126 mg/dL (74-106); HDL Cholesterol 59 mg/dL (>or=40); Potassium 4.5 mmol/L (3.5-5.1); Sodium 140 mmol/L (136-145); Total Protein 6.7 g/dL (6.4-8.2); Triglyceride 156 mg/dL (<150)
== END 2024-07-08 15:57 | disposition home or self-care (01) ==
LOC: NCHCN 15:56
PROVIDERS: PCP Internal Medicine; Visit Provider Counselor Addiction (Substance Use Disorder)
DX: I25.10 Atherosclerotic heart disease of native coronary artery without angina pectoris (principal)
CPT/HCPCS: 80053; 80061; 85027

== ENCOUNTER 2024-10-23 02:07 | Outpatient (CLI) | payer MEDICARE, BC, SELFPAY ==
--- NOTE | 2024-10-23 | DI.MRI_ITS ---
Exam(s) MR LUMBAR SPINE WO/W EXAM: MR LUMBAR SPINE WO/W CLINICAL HISTORY: RADICULOPATHY LUMBAR REGION M54.16 SPONDYLOSIS M47.816 PAIN RT KNEE M25.561. TECHNIQUE: Multiplanar multisequence MRI of the Lumbar spine was performed. COMPARISON: MR MR LUMBAR SPINE WO from 01/06/2021 MR MR LUMBAR SPINE WO from 07/25/2023 FINDINGS: The conus medullaris is at normal level. There is no evidence of conus mass nor subjacent clumping of intrathecal nerve roots to suggest arachnoiditis. The distal thecal sac appears unremarkable.There is no evidence of Tarlov intrasacral cysts nor other significant findings within the sacral canal Bones:There is evidence of prior bilateral laminectomies at L5 level. No fractures nor listhesis. There are Modic type 1 sub endplate marrow edema changes on both sides of the L5-S1 disc space. There does not appear to be significant enhancement within this disc space and there is no obvious epidural collection at this level. . With respect to the individual levels... T12-L1: Unremarkable L1-2: Mild loss of disc height, more so on the right than left side. There is a posterolateral right disc protrusion at this level now evident which has increased in size and compresses the anterior right side of the thecal sac, more so than previous.. Mild central canal stenosis. The disc protrusion extends into the floor of the exiting right neural foramen. There is mild right-sided foraminal stenosis. No left-sided foraminal stenosis. No abnormal enhancement at this level. L2-3: This level is also loss disc height when compared to MRI scan of January 2021. This height loss is predominately on the right side. There is also posterior osteophytic ridging at this level. There is moderate central spinal canal stenosis due to posterior osteophytic ridging and annular bulging. There is no dominant disc herniation. Annular bulging extends into the floor of the exiting left neural foramen where there is mild foraminal stenosis. Only minimal foraminal stenosis on the right side. Facet joints appear unremarkable at this level. No abnormal enhancement seen at this level. L3-4: There is relative preservation of disc height at this level although there is narrowing on the left side of the disc space and lateral left osteophytes.. Benign intraosseous hemangioma is again noted in L3 vertebral body. Posteriorly there is broad annular bulging and short AP dimensions the pedicles and advanced facet arthropathy and there is moderate central spinal canal stenosis at this level again evident. There is moderate foraminal stenosis on the left side at this level and milder foraminal stenosis on the right side. There is some enhancement related to both facet joints at this L3-4 level, probably related to the advanced arthropathy. There is no evidence of degenerative subarticular cysts at this level. L4-5: This level exhibits moderate disc space narrowing, similar to previous. Posteriorly there is mild symmetrical annular bulging without a dominant disc herniation. Central canal dimensions are lower normal but there is moderate bilateral foraminal stenosis which is most related to the annular bulging and degenerative change in the facet joints. The amount of foraminal stenosis appears similar to the prior study of 2020. L5-S1: This level again exhibits L5 laminectomy postsurgical changes. There are Modic type 1 sub endplate marrow edema changes on both sides the disc space. No endplate destruction. Vacuum phenomena is again noted within the disc space. Appearance is similar to July 2023 MRI. Posteriorly there is no significant disc herniation at this level and there is no central canal stenosis as there has been surgical removal of posterior osseous elements bilaterally at this level. There is moderate foraminal stenosis on the left side, unchanged. More severe foraminal stenosis again noted on the right side, this related to more significant height loss of the disc on the right side than the left side, similar to previous. The amount of enhancement posteriorly at the operative site is judged to be commensurate with granulation tissue at the prior surgical bed. Soft tissues: No evidence of new paraspinal mass. IMPRESSION: 1. Some further progression of degenerative changes when compared to prior MRI scans listed above. However, there is no new abnormal enhancement in the area of prior laminectomy at L5 level and the appearance of the L5-S1 disc space is unchanged. 2. There is some abnormal enhancement related to the posterior aspects of the facet joints at L3-4 levels, possibly significant with respect to inflammatory change. There is no distinct abscess nor epidural collection at this level but there is significant central spinal canal stenosis at this level again noted. 3. Findings at other levels as described individually above, exhibiting mild further progression when compared to prior exams. DATA REPOSITORY:
[2024-10-23] MEDS: Gadoterate meglumine 20 ML SYRINGE IVP (07:58)
[2024-10-23] MEDS: Normal Saline Flush 10 ML SYR IVP (07:58)
== END 2024-10-23 02:27 ==
PROVIDERS: PCP Internal Medicine; Visit Provider Student in an Organized Health Care Education/Training Program
DX: M54.16 Radiculopathy, lumbar region (principal); M51.362 Other intervertebral disc degeneration, lumbar region with discogenic back pain and lower extremity pain
CPT/HCPCS: 72158